=== PATIENT | female | born 2005 | race Caucasian/White ===

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

== ENCOUNTER → 2023-03-22 06:30 | Outpatient (CLI) | payer OTHER, SELFPAY ==
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
== END ==
PROVIDERS: PCP Nurse Practitioner; Visit Provider Nurse Practitioner
DX: S09.90XA Unspecified injury of head, initial encounter (principal)
CPT/HCPCS: 70450

== ENCOUNTER → 2023-04-08 11:16 | Outpatient (CLI) | payer OTHER, SELFPAY ==
[2023-04-08 11:22] LABS: MANUAL DIFFERENTIAL MANUAL DIFFERENTIAL (MANUAL DIFF)
[2023-04-08 11:32] LABS: Basophils # 0.1 K/mm3 (0-0.2); Basophils % 0.9 % (0.1-2.0); Eosinophils # 0.3 K/mm3 (0.0-0.4); Eosinophils % 3.9 % (0.1-12.0); Hematocrit 41.1 % (37.0-47.0); Hemoglobin 13.6 g/dL (12.2-16.2); Lymphocytes # 3.3 K/mm3 (0.7-4.5); Mean Corpuscular HGB Conc 33.1 g/dL (31.8-35.4); Mean Corpuscular Hemoglobin 28.4 pg (27.0-31.2); Mean Corpuscular Volume 85.6 fl (81-99); Mean Platelet Volume 7.4 fl (7.4-10.4); Monocytes # 0.3 K/mm3 (0.1-1.0); Monocytes % 3.6 % (1.7-9.3); Neutrophils # 4.4 K/mm3 (1.8-7.8); Neutrophils % 52.6 % (37.0-80.0); Platelet Count 370 K/mm3 (142-424); Red Cell Distribution Width 12.5 % (11.5-17.5); White Blood Count 8.4 K/mm3 (4.5-13.0)
[2023-04-08 11:35] LABS: Lymphocytes % 34 % (10-50); Monocytes % 8 % (2-9); Neutrophils % 58 % (42-76); RBC Morphology Normal; Total Cells Counted 100
[2023-04-08 11:36] LABS: Platelet Estimate Normal
[2023-04-08 12:11] LABS: Alanine Aminotransferase 50 U/L (12-78); Albumin Level 4.1 g/dl (3.5-5.0); Albumin/Globulin Ratio 1.5 (1.1-1.8); Alkaline Phosphatase 58 U/L (38-126); Anion Gap 11.1 mEq/L (5-15); Aspartate Amino Transferase 55 U/L (14-36); Bilirubin,Total 0.2 mg/dl (0.2-1.3); Blood Urea Nitrogen 13 mg/dl (7-17); Calcium 9.5 mg/dl (8.4-10.2); Carbon Dioxide 24 mmol/L (22.0-30.0); Chloride 106 mmol/L (98-107); Estimated Glomerular Filt Rate 107 ml/min (>60); GFR (African American) 129 ML/MIN (>60); Globulin 2.8 g/dL (1.3-3.2); Glucose 99 mg/dl (74-100); Potassium 4.1 mmoL/L (3.5-5.1); Sodium 137 mmol/L (136-145); Total Protein,Serum 6.9 g/dl (6.3-8.2)
[2023-04-17 02:09] LABS: Free Testosterone (Direct) < 0.2 pg/mL (0.0-4.2); Testosterone, Total, LC/MS 17.7 ng/dL (10.0-55.0)
== END ==
PROVIDERS: PCP Nurse Practitioner; Visit Provider Obstetrics & Gynecology
DX: N93.9 Abnormal uterine and vaginal bleeding, unspecified (principal); R79.89 Other specified abnormal findings of blood chemistry; E28.2 Polycystic ovarian syndrome
CPT/HCPCS: 80053; 83498; 85007; 85014; 85018; 85048; 85049

== ENCOUNTER → 2023-06-06 10:58 | Outpatient (CLI) | payer OTHER, SELFPAY ==
[2023-06-06 11:43] LABS: Basophils # 0.1 K/mm3 (0-0.2); Basophils % 0.8 % (0.1-2.0); Eosinophils # 0.3 K/mm3 (0.0-0.4); Eosinophils % 4.4 % (0.1-12.0); Hematocrit 42.3 % (37.0-47.0); Hemoglobin 13.8 g/dL (12.2-16.2); Lymphocytes # 3.1 K/mm3 (0.7-4.5); Lymphocytes % 39.3 % (10-50); Mean Corpuscular HGB Conc 32.6 g/dL (31.8-35.4); Mean Corpuscular Hemoglobin 29.1 pg (27.0-31.2); Mean Corpuscular Volume 89.3 fl (81-99); Mean Platelet Volume 7.8 fl (7.4-10.4); Monocytes # 0.3 K/mm3 (0.1-1.0); Monocytes % 3.6 % (1.7-9.3); Neutrophils # 4.1 K/mm3 (1.8-7.8); Platelet Count 345 K/mm3 (142-424); Red Blood Count 4.74 M/mm3 (4.20-5.40); Red Cell Distribution Width 12.5 % (11.5-17.5); White Blood Count 7.8 K/mm3 (4.5-13.0)
[2023-06-06 13:25] LABS: Alanine Aminotransferase 39 U/L (12-78); Albumin Level 3.9 g/dl (3.5-5.0); Albumin/Globulin Ratio 1.3 (1.1-1.8); Alkaline Phosphatase 47 U/L (38-126); Aspartate Amino Transferase 47 U/L (14-36); Bilirubin,Total 0.3 mg/dl (0.2-1.3); Blood Urea Nitrogen 12 mg/dl (7-17); Calcium 9.4 mg/dl (8.4-10.2); Carbon Dioxide 25 mmol/L (22.0-30.0); Chloride 102 mmol/L (98-107); Estimated Glomerular Filt Rate 91 ml/min (>60); GFR (African American) 111 ML/MIN (>60); Glucose 110 mg/dl (74-100); Sodium 137 mmol/L (136-145); Total Protein,Serum 6.9 g/dl (6.3-8.2)
[2023-06-06 13:43] LABS: HCG,Quantitative < 2 mIU/ml (0-5.42)
== END ==
PROVIDERS: PCP Physician Assistant; Visit Provider Obstetrics & Gynecology
DX: R10.2 Pelvic and perineal pain (principal)
CPT/HCPCS: 36415; 80053; 84702; 85025

== ENCOUNTER 2023-06-10 07:05 | Day surgery (SDC) | payer OTHER, SELFPAY ==
[2023-06-07 12:52] VITALS: BMI 31.8
[2023-06-10] VITALS (12 sets, daily range): BP systolic 94–135; BP diastolic 44–87; PULSE 67–102; RESP 16–18; TEMP 36.2–43; O2SAT 92–100
--- NOTE | 2023-06-10 08:31 | P.PNANES_ITS ---
[facility] Disclaimer: The information contained in this section may have been updated after the patient was seen, as this information can be updated by other users. Medical History Generalized anxiety disorder History of COVID-19 Irritable bowel syndrome (IBS) Major depressive disorder PCOS (polycystic ovarian syndrome) Family History Other Alcoholism Asthma Diabetes FHx: mental illness Hyperlipidemia Hypertension Kidney disease Thyroid disorder Social History Smoking Status: Current every day smoker tobacco type: e-cigarettes years smoked: 3 second hand exposure: No alcohol intake: never substance use type: denies use current occupational status: unemployed Travel in the last 8 weeks: None household members: family number of children: 0 current occupational exposures/hazards: No caffeine: Yes [facility] Anesthesia Checklist Patient Identification Patient Identification: Arm Band and Verbal (Name & ) Structural Data Admitted From: Home Planned Operative Procedure/s: Dx lap Consent for Planned Operative Procedure(s) Verified: Yes NPO Status Verified Time NPO: 00:00 Chart Verification Results Verified: CBC, BMP and HCG Additional verifications Anesthesia Reactions: No Airway Assessment Mallampati Score:: Class I C-Spine Mobility Assessed: Yes TMJ Mobility Assessed: Yes Dentition: Good Dentition Neurological Assessment Level of Consciousness: Awake Hx Seizures: No Numbness or tingling in extremities: No Anesthesia Plan Anesthesia Risk discussed: Yes Anesthesia Plan: Verified ASA Class: II Anesthesia Type: General
--- NOTE | 2023-06-10 09:26 | EXP.HP ---
History of Present Illness *Admission Date: 06/10/23 *Reason for visit:: Diagnostic laparoscopy *History of present illness: Monica is presenting to the OR for diagnostic laparoscopy. She has a history of significant left-sided pelvic pain that is altering her daily life. Reports that this pain is debilitating and rates it from a 6 to an 8 out of 10 and it is noncyclical pain. Patient is also concerned that she will be infertile in the future. no reason to explain this stress. Patient denies any STD history [facility] Disclaimer: The information contained in this section may have been updated after the patient was seen, as this information can be updated by other users. Medical History Generalized anxiety disorder History of COVID-19 Irritable bowel syndrome (IBS) Major depressive disorder PCOS (polycystic ovarian syndrome) Family History Other Alcoholism Asthma Diabetes FHx: mental illness Hyperlipidemia Hypertension Kidney disease Thyroid disorder Social History Smoking Status: Current every day smoker tobacco type: e-cigarettes years smoked: 3 second hand exposure: No alcohol intake: never substance use type: denies use current occupational status: unemployed Travel in the last 8 weeks: None household members: family number of children: 0 current occupational exposures/hazards: No caffeine: Yes Review of Systems Review of Systems Review of systems (narrative): Const Details: Denies fever/chills Card Details: Denies chest pain Resp Details: Denies shortness of breath GI Details: Denies nausea/vomiting Details: + severe dysmenorrhea and chronic pelvic pain, worse on the left Musc Details: Denies flank pain Skin/Breast Details: Denies rash See/Lymph Details: Denies unusual bruising Meds Home Medications and Allergies Home Medications Medication Instructions Recorded Confirmed Type norgestimate 0.25 mg-ethinyl 1 tab PO DAILY #84 tabs 09/13/22 06/10/23 Rx estradiol 35 mcg tablet (Sprintec (28)) metformin 500 mg tablet 500 mg PO DAILY 04/08/23 06/10/23 History ibuprofen 600 mg tablet 600 mg PO Q6H PRN pain 05/11/23 06/10/23 History escitalopram oxalate 20 mg tablet 20 mg PO DAILY #30 tabs 06/01/23 06/10/23 Rx (Lexapro) montelukast 10 mg tablet 10 mg PO DAILY Allergy Symptoms 06/10/23 06/10/23 History New Prescriptions to Start Prescriptions: Allergies Allergy/AdvReac Type Severity Reaction Status Date / Time amoxicillin [From Augmentin] AdvReac Mild Nausea Verified 06/10/23 07:51 clavulanic acid AdvReac Mild Nausea Verified 06/10/23 07:51 [From Augmentin] Exam Data for Last 24 hours Vital signs and Labs for Last 24 Hours: Temp Pulse Resp BP Pulse Ox O2 Del Method 98.1 F 102 H 18 135/78 100 Room Air 06/10/23 07:42 06/10/23 07:42 06/10/23 07:42 06/10/23 07:42 06/10/23 07:42 06/10/23 07:42 I & O for Last 24 hours: Intake & Output 06/07/23 06/08/23 06/09/23 06/10/23 23:59 23:59 23:59 23:59 Weight 180 lb Narrative: General: patient is alert oriented in no acute distress and responds appropriately to questions. HEENT: NCAT, EOMI, moist mucous membranes, neck supple with full ROM Cardiovascular: RRR +S1/S2, no murmurs or rubs Pulmonary: Clear to auscultation bilaterally, nonlabored breathing, symmetric chest rise Abdominal: Soft. Nontender. Nondistended Extremities: No edema, no tenderness or cyanosis noted Skin: Normal turgor, intact, warm. Negative for erythema, pallor, petechia, or lesions Neurologic: Negative for sensory or motor deficit Psychiatric: Normal affect, normal thought process, good judgment and insight, no depression or anxious mood appreciated. *Routine HEENT Exam Head: Present normocephalic and atraum
--- NOTE | 2023-06-10 10:46 | P.PNANES_ITS ---
[facility] Anesthesia Record Part I Anesthesia Record I Intake, IV Amount: 1,000 Hydration: Adequate Estimated blood loss (mL): 10 Urine output (mL): 50 Blood Pressure: 94/44 SaO2: 92 Pulse Rate: 85 Airway Patency: Patent Respiratory Rate: 16 Temperature: 97.4 F Patient is:: Drowsy and Oral/Nasal airway Stable to PACU at:: 10:40
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
--- NOTE | 2023-06-10 15:21 | P.PNANES_ITS ---
[facility] Anesthesia Record Part II Anesthesia Record Part II Discharge Time: 11:18 Destination: Surgical Day Care (OP Surgery) PACU nurse assessment reviewed?: Yes Patient Condition:: Good Anesthesia Complications:: None Swallowing reflex intact?: Yes Airway Patency: Patent Cyanosis?: No Blood Pressure: 120/71 SaO2: 98 Respiratory Rate: 18 Pulse Rate: 92 Temperature: 97.5 F Mental Status: Alert & Oriented Pain level:: 0 Nausea and/or vomitting:: None Intake, IV Amount: 0 Hydration: Adequate
== END 2023-06-10 11:58 | disposition home or self-care (01) ==
PROVIDERS: PCP Nurse Practitioner; Visit Provider Obstetrics & Gynecology
PROC: (CPT 49320; principal; 2023-06-10 08:45)
DX: N93.9 Abnormal uterine and vaginal bleeding, unspecified (principal); R10.2 Pelvic and perineal pain; N80.329 Endometriosis of the posterior cul-de-sac, unspecified depth
CPT/HCPCS: 58662; 58350; J0131; J2405

== ENCOUNTER → 2023-06-13 10:16 | Outpatient (CLI) | payer OTHER, SELFPAY ==
[2023-06-13 10:48] LABS: Basophils # 0.1 K/mm3 (0-0.2); Basophils % 0.6 % (0.1-2.0); Eosinophils # 0.4 K/mm3 (0.0-0.4); Eosinophils % 3.9 % (0.1-12.0); Hematocrit 45.8 % (37.0-47.0); Hemoglobin 14.9 g/dL (12.2-16.2); Lymphocytes # 3.9 K/mm3 (0.7-4.5); Lymphocytes % 40.7 % (10-50); Mean Corpuscular HGB Conc 32.6 g/dL (31.8-35.4); Mean Corpuscular Hemoglobin 28.9 pg (27.0-31.2); Mean Corpuscular Volume 88.7 fl (81-99); Mean Platelet Volume 7.5 fl (7.4-10.4); Monocytes # 0.4 K/mm3 (0.1-1.0); Neutrophils # 4.9 K/mm3 (1.8-7.8); Neutrophils % 50.8 % (37.0-80.0); Platelet Count 378 K/mm3 (142-424); Red Blood Count 5.16 M/mm3 (4.20-5.40); Red Cell Distribution Width 12.5 % (11.5-17.5); White Blood Count 9.6 K/mm3 (4.5-13.0)
== END ==
PROVIDERS: PCP Nurse Practitioner; Visit Provider Nurse Practitioner Obstetrics & Gynecology
DX: N93.9 Abnormal uterine and vaginal bleeding, unspecified (principal)
CPT/HCPCS: 36415; 85025

== ENCOUNTER → 2023-08-09 12:47 | Outpatient (CLI) | payer OTHER, SELFPAY ==
[2023-08-15 09:36] LABS: Anti Mullerian Hormone (AMH) 2.76
== END ==
PROVIDERS: PCP Nurse Practitioner; Visit Provider Obstetrics & Gynecology
DX: E28.2 Polycystic ovarian syndrome (principal); N93.9 Abnormal uterine and vaginal bleeding, unspecified
CPT/HCPCS: 82397

== ENCOUNTER → 2023-08-31 14:44 | Outpatient (CLI) | payer OTHER, SELFPAY ==
--- NOTE | 2023-08-31 14:45 | US_ITS ---
PROCEDURE: US TRANSVAGINAL CLINICAL INDICATION: AUB/ AMENORRHEA COMPARISON: No exams were available for comparison FINDINGS: Transvaginal sonographic images of the pelvis were obtained. UTERUS: 7.4cm x 4.1cmx 3.2cm anteverted with a combined endometrial thickness of 2.1mm. LEFT OVARY: 3.0cmx3.0cmx1.7cm with a volume of 7.9ml. The ovary appears polycystic with multiple small follicles. RIGHT OVARY: 2.2cmx 2.0cmx2.6cm with a volume of 6.1ml. The ovary appears polycystic with multiple small follicles. Both ovaries are seen and appear polycystic. Doppler flow to both ovaries are seen. There is no fluid in the cul-de-sac. IMPRESSION: 1. Anteverted uterus normal in shape and size. 2. The endometrium is thin. 3. Both ovaries are seen and appear polycystic with multiple small follicles throughout each ovary. 4. No fluid in the cul-de-sac. Dictated by: Tk Santiago MD 08/31/2023 16:54 Tk Santiago MD in OV 08/31/2023 16:54
== END ==
LOC: RAD 14:45
PROVIDERS: PCP Physician Assistant; Visit Provider Obstetrics & Gynecology
DX: N91.2 Amenorrhea, unspecified (principal); N93.9 Abnormal uterine and vaginal bleeding, unspecified
CPT/HCPCS: 76830

== ENCOUNTER 2024-01-16 17:05 | Outpatient (CLI) | payer OTHER, SELFPAY ==
[2024-01-19 06:48] LABS: Neisseria gonorrhoeae, NAA Negative (Negative)
== END 2024-01-16 23:59 | disposition home or self-care (01) ==
LOC: LAB.DROPOF 17:06
PROVIDERS: PCP Nurse Practitioner Obstetrics & Gynecology; Visit Provider Nurse Practitioner Obstetrics & Gynecology
DX: Z3A.11 11 weeks gestation of pregnancy; Z34.91 Encounter for supervision of normal pregnancy, unspecified, first trimester
CPT/HCPCS: 87086; 87491; 87591

== ENCOUNTER 2024-01-19 13:19 | Outpatient (CLI) | payer OTHER, SELFPAY ==
--- NOTE | 2024-01-19 13:19 | US_ITS ---
PROCEDURE: US OB <= 14 WEEKS FETUS CLINICAL INDICATION: for dates and viability COMPARISON: US US TRANSVAGINAL from 08/31/2023 FINDINGS: Transvaginal sonographic images of the pelvis were obtained. Her last menstrual period is unknown. The uterus is retroverted. An intrauterine gestational sac is present with a pole with a crown-rump length of 4.1cm This correlates to a gestational age of 11weeks 0 days. heart tones are present with an FHR of 176bpm. Yolk sac is noted. The yolk sac measures 6.9mm. The right ovary is seen and appears normal. It has a polycystic appearance. The left ovary is seen and appears normal. It has a polycystic appearance. There is no fluid in the cul-de-sac. IMPRESSION: 1. Viable fetus within the uterine cavity. The fetus measures 11 weeks 0 days. 2. The ANA LAURA will be 08/09/2024. 3. Both ovaries are seen and appear polycystic. 4. No fluid in the cul-de-sac. Dictated by: Tk Santiago MD 01/20/2024 10:02 Tk Santiago MD in OV 01/20/2024 10:02
[2024-01-19 14:28] LABS: Basophils # 0.1 K/mm3 (0-0.2); Basophils % 0.6 % (0.1-2.0); Eosinophils # 0.2 K/mm3 (0.0-0.4); Eosinophils % 1.6 % (0.1-12.0); Hematocrit 44.3 % (37.0-47.0); Hemoglobin 14.6 g/dL (12.2-16.2); Lymphocytes # 3.1 K/mm3 (0.7-4.5); Lymphocytes % 25.9 % (10-50); Mean Corpuscular HGB Conc 33.1 g/dL (31.8-35.4); Mean Corpuscular Hemoglobin 29.8 pg (27.0-31.2); Mean Corpuscular Volume 90.1 fl (81-99); Mean Platelet Volume 7.9 fl (7.4-10.4); Monocytes # 0.3 K/mm3 (0.1-1.0); Monocytes % 2.8 % (1.7-9.3); Neutrophils # 8.3 K/mm3 (1.8-7.8); Platelet Count 291 K/mm3 (142-424); Red Blood Count 4.91 M/mm3 (4.20-5.40); Red Cell Distribution Width 13.5 % (11.5-17.5)
[2024-01-21 14:19] LABS: HCV Ab Non Reactive (Non Reactive); HIV Screen 4th Generation wRfx Non Reactive (Non Reactive); Hepatitis B Surface Antigen Negative (Negative); Rapid Plasma Reagin Ab Titer Non Reactive titer (NonRea<1:1); Rubella Antibodies, IgG 1.06 index (Immune >0.99)
== END 2024-01-19 23:59 | disposition home or self-care (01) ==
PROVIDERS: PCP Nurse Practitioner; Visit Provider Nurse Practitioner Obstetrics & Gynecology
DX: O26.891 Other specified pregnancy related conditions, first trimester (principal); Z3A.11 11 weeks gestation of pregnancy
CPT/HCPCS: 36415; 76801; 85025; 86593; 86703; 86762; 86850; 87340; G0432

== ENCOUNTER 2024-02-07 20:24 | Emergency (ER) | payer MEDICAID, SELFPAY ==
[2024-02-07 20:36] VITALS: BP 149/79; PULSE 89; RESP 16; TEMP 36.7; O2SAT 97; BMI 31.5
--- NOTE | 2024-02-07 21:11 | HMH.EDGENADL ---
Discharge Plan Disposition Patient Disposition: Home, Self-Care Prescriptions Prescriptions: No Action ondansetron 4 mg tablet,disintegrating 4 mg PO Q6H PRN Patient Comments: PLACE 1 TABLET UNDER THE TONGUE AND ALLOW TO DISSOLVE EVERY 4 TO 6 HOURS NEEDED FOR NAUSEA AND VOMITING escitalopram oxalate [Lexapro] 20 mg tablet 20 mg PO DAILY Qty: 30 1RF Referrals Follow up/Referrals: Sia Mg APRN [Primary Care Provider] - See instructions Activity Restrictions/Add. Instructions Additional Instructions/Restrictions: Call your family doctor to establish care for this visit to the emergency department and schedule follow-up within 48 hours to ensure improvement. If you have any worsening of your condition or any other concerning signs or symptoms, return to the emergency department or your primary care doctor for further evaluation. Continue follow-up with [facility] next week. Also continue taking vitamin for entire length of . Clinical Impressions Clinical Impression: Abdominal pain affecting , Acute hypokalemia Instructions Patient Instructions: DI for Acute Abdominal Pain Discharge ED Provider: Tyrell Yan General Adult HPI General Chief complaint: Abdominal Pain Stated complaint: abdominal and back pain 14 weeks preg Time Seen by Provider: 02/07/24 20:30 Mode of Arrival: Ambulatory Source of Information: Patient and Significant Other Limitations: No Limitations Description of Symptoms (Recalled from ER Triage Doc. by RN): PT STATES LAST NIGHT SHE STARTED HAVING SHARP PAIN IN HER LLQ THAT RADIATES TO HER L LOWER BACK AND CENTRAL LOWER ABD. PT ALSO REPORTS NAUSEA AND BURNING WITH URINATION. PT REPORTS SHE IS [id number] , HER NEXT APPOINTMENT WITH IS ON February. PT REPORTS RECENTLY HAVING A YEAST INFECTION THAT SHE TREATED WITH MONISTAT BUT STATES SHE THINKS IT HAS CLEARED UP. PT REPORTS CLEARISH, YELLOW AND STICKY VAGINAL D/C. PTS FHT ARE 153. PT HAS A HX OF ENDOMETRIOSIS AND PCOS History of Present Illness HPI narrative: Please note that above description of symptoms, in this electronic medical record under categorization of recalled from ER triage doctor by RN are reflective of an initial nursing assessment, however, is not reflective of my full history and physical exam that was personally taken and clarified. Consequentially, this preceding description of symptoms, which may include the patient's categorized chief complaint in the EMR, do not reflect my personal clinical impression, and the ultimate description of history of present illness and patient stated complaints should be deferred to this section of the note. Unless stated otherwise or congruent with this section of the note, additional signs, symptoms, or incongruence should be interpreted as inaccurate with my clinical impression. Related Data Home Medications Medication Instructions Recorded Confirmed ondansetron 4 mg disintegrating 4 mg PO Q6H PRN 01/16/24 01/16/24 tablet Previous Rx's Medication Instructions Recorded escitalopram oxalate 20 mg tablet 20 mg PO DAILY #30 tabs 01/23/24 (Lexapro) Allergies Allergy/AdvReac Type Severity Reaction Status Date / Time amoxicillin [From Augmentin] AdvReac Mild Nausea Verified 02/07/24 20:45 clavulanic acid AdvReac Mild Nausea Verified 02/07/24 20:45 [From Augmentin] PFSH PFSH Disclaimer: The information contained in this section may have been updated after the patient was seen, as this information can be updated by other users. Medical History History of COVID-19 Irritable bowel syndrome (IBS) Endometriosis Major depressive disorder Generalized anxiety disorder PCOS (polycystic ovarian syndrome) Surgical History History of surgery diagnostic laparascopy Family History Other Alcoholism Asthma Diabetes FHx: mental illness Hyperlipidemia Hypertension Kidney disease Thyroid disorder Social History Smoking Status: Current every day smoker tobacco type: e-cigarettes years smoked: 3 second hand exposure: No alcohol intake: never substance use type: denies use current occupational status: unemployed Travel in the last 8 weeks: None household members: family number of children: 0 current occupational exposures/hazards: No caffeine: Yes ROS Obtained: Yes All systems reviewed & no additional complaints except as documented Physical Exam General General appearance: alert and in no apparent distress Head Head exam: atraumatic and normocephalic Eye Eye exam: Present normal appearance, PERRL and EOMI ENT ENT exam: Present mucous membranes moist Neck Neck exam: Present normal inspection, full ROM and trachea midline Respiratory Respiratory exam: Absent respiratory distress, wheezes, stridor, accessory muscle use or prolonged expiratory phase Cardiovascular Cardiovascular exam: Present normal rhythm Abdominal Exam Abdominal exam: Present soft and tenderness; Absent distention, guarding, rebound or rigidity Abdominal tenderness: Present suprapubic and mild Extremities Exam Extremities exam: Absent edema Back Exam Back exam: Present CVA tenderness (L); Absent CVA tenderness (R) Neurological Exam Neurological exam: Present alert, oriented X3, CN II-XII intact and normal gait; Absent motor sensory deficit Skin Skin exam: Present warm and dry; Absent diaphoresis or erythema Medical Decision Making Medical Records Medical records reviewed: Yes I reviewed the patient's medical records. Waldemar Inquiry Pt receiving controlled substance: No Waldemar was queried for this patient: No Vital Signs: 02/07/24 20:36 Temperature 98.1 F Temperature Source Oral Pulse Rate [Left] 89 Respiratory Rate 16 Blood Pressure [Right Arm] 149/79 H Blood Pressure Mean [Right Arm] 102 Blood Pressure Source [Right Arm] Automatic Cuff Blood Pressure Position [Right Arm] Sitting 02 Sat by Pulse Oximetry 97 Oxygen Delivery Method Room Air Lab Data Lab Results 02/07/24 20:48: Urine Color Yellow, Urine Appearance Clear, Urine pH 7.0, Ur Specific [place] 1.015, Urine Protein Negative, Urine Glucose (UA) Negative, Urine Ketones Negative, Urine Blood Negative, Urine Nitrate Negative, Urine Bilirubin Negative, Urine Urobilinogen 1.0, Ur Leukocyte Esterase Negative, Urine RBC None, Urine WBC None, Ur Squamous Epith Cells Occasional, Urine Bacteria None 02/07/24 21:04: WBC 11.9, RBC 4.37, Hgb 13.1, Hct 38.8, MCV 88.7, MCH 30.0, MCHC 33.9, RDW 13.6, Plt Count 317, MPV 8.0, Neut % (Auto) 59.1, Lymph % (Auto) 34.2, [place] % (Auto) 3.3, Eos % (Auto) 2.8, Baso % (Auto) 0.6, Neut # (Auto) 7.0, Lymph # (Auto) 4.1, [place] # (Auto) 0.4, Eos # (Auto) 0.3, Baso # (Auto) 0.1, Sodium 134 L, Potassium 3.2 L, Chloride 105, Carbon Dioxide 22, Anion Gap 10.2, BUN 7, Creatinine 0.60, Estimated Creat Clear 191, Estimated GFR 127, Est GFR ( Amer) 154, Glucose 127 H, Calcium 9.3, Total Bilirubin 0.2, AST 32, ALT 22, Alkaline Phosphatase 59, Total Protein 6.8, Albumin 3.6, Globulin 3.2, Albumin/Globulin Ratio 1.1, Lipase 139 02/07/24 21:04 02/07/24 21:04 Orders (Tests/Meds): ED MEDICATIONS Discontinued Medications Generic Name Dose Route Start Last Admin Trade Name Freq PRN Reason Stop Dose Admin Acetaminophen 1,000 mg 02/07/24 20:31 02/07/24 21:14 Acetaminophen 500mg Tab PO 02/07/24 20:32 Not Given ONCE ONE Potassium Chloride 40 meq 02/07/24 21:41 02/07/24 21:46 Potassium Chloride 20meq Tab PO 02/07/24 21:42 40 meq ONCE ONE Administration ORDERS Category Date Time Status POCUS Point of Care (ER Only) Stat Exams 02/07/24 20:31 Completed Complete Blood Count Auto Diff Stat Lab 02/07/24 21:04 Completed Comprehensive Metabolic Panel Stat Lab 02/07/24 21:04 Results HCG,Quantitative Stat Lab 02/07/24 21:04 Results Lipase Stat Lab 02/07/24 21:04 Results Urinalysis and Microscopic Stat Lab 02/07/24 20:48 Completed Medical Decision Narrative: 18-year-old female whose 13 weeks 5 days by previous ultrasound G1, P0 presenting with abdominal pain. Patient states that she started having abdominal pain yesterday, 6/3. Was doing nothing in particular when it happened. Has never had ruptured ovarian cyst, though she does have a history of PCOS. No vaginal discharge, bleeding, gushes of fluid. Unable to feel baby move just yet, but has been using Doppler that she has at home and noticing good movements. Pain in her lower abdomen radiates from suprapubic area to bilateral flanks, left greater than right. No fevers, vomiting, but does have associated dysuria without hematuria. Has not taken anything for the pain. History was obtained via conversation with patient. She is following with OB here and next appointment is next week. On arrival, patient hemodynamically stable, alert, oriented x4, appropriate, GCS 15, moving all extremities spontaneously, pupils equal and reactive to light. Full physical exam performed and significant for lower abdominal tenderness and left flank tenderness. No overlying skin changes. No palpable organomegaly. Differential includes ectopic , , round ligament pain, UTI, nephrolithiasis, appendicitis, cholecystitis, pancreatitis, among others. Patient was given 1 g Tylenol for symptomatic management and correction of underlying abnormalities. Workup independently interpreted and significant for Normal CBC. Chemistry with mild hypokalemia, she was given 40 mEq p.o. potassium for this. Lipase negative, urinalysis without concern for UTI. [id number] ultrasound with viable IUP heart rate 153. No free fluid in the abdomen or pelvis. Adnexa within normal limits. hCG pending at time of discharge. There is recommended that she follow-up with her OB, continue taking vitamin and strict return precautions were given. Because patient at baseline without signs or symptoms of clinical decompensation, deemed appropriate for discharge. Results were relayed to patient who voiced understanding and were agreeable to outpatient management and follow up. I discussed my clinical impression with patient and answered all questions. At this time, the evidence for any other entities in the differential is insufficient to warrant any further testing or ED observation. This was explained as well. Advisory was given that persistent or worsening symptoms require further evaluation. I confirmed the understanding of this discussion. Parking Attendant disclaimer Much of this encounter note is an electronic yard switch operator spoken language to printed text. Electronic yard switch operator of the spoken language may permit errors. Although I have reviewed the note, some errors may still exist. Procedures Limited Ultrasound Indication:: Limited OB ultrasound Indication: Positive test, lower abdominal pain radiating to flank Identified structures: -Uterus -Left adnexa -Right adnexa -Pouch of Yury Findings: Uterus: Definitive IUP FHR: 153 No free fluid Right adnexa: -Normal Left adnexa: -Normal Cul de sac: -free fluid absent Impression: -IUP: Present - heart rate: 153 -Ectopic : Absent -Free fluid: Absent Images were saved to permanent archive The study was technically adequate CPT Transabdominal: 73222-62 This study was performed by me, and I personally interpreted all images/videos. Based on my clinical judgement, these images were adequate and did not necessitate further imaging. Critical Care Critical Care Time Critical Care Time: No
[2024-02-07 21:21] LABS: Basophils # 0.1 K/mm3 (0-0.2); Basophils % 0.6 % (0.1-2.0); Eosinophils # 0.3 K/mm3 (0.0-0.4); Eosinophils % 2.8 % (0.1-12.0); Hematocrit 38.8 % (37.0-47.0); Hemoglobin 13.1 g/dL (12.2-16.2); Lymphocytes # 4.1 K/mm3 (0.7-4.5); Lymphocytes % 34.2 % (10-50); Mean Corpuscular HGB Conc 33.9 g/dL (31.8-35.4); Mean Corpuscular Volume 88.7 fl (81-99); Monocytes # 0.4 K/mm3 (0.1-1.0); Monocytes % 3.3 % (1.7-9.3); Neutrophils % 59.1 % (37.0-80.0); Platelet Count 317 K/mm3 (142-424); Red Blood Count 4.37 M/mm3 (4.20-5.40); Red Cell Distribution Width 13.6 % (11.5-17.5); White Blood Count 11.9 K/mm3 (4.5-13.0)
[2024-02-07 21:23] LABS: Chloride 105 mmol/L (98-107); Sodium 134 mmol/L (136-145)
[2024-02-07 21:24] LABS: Potassium 3.2 mmoL/L (3.5-5.1)
[2024-02-07 21:25] LABS: Microscopic, Urine URINE MICROSCOPIC (MICROSCOPIC)
[2024-02-07 21:26] LABS: Alanine Aminotransferase 22 U/L (12-78); Alkaline Phosphatase 59 U/L (38-126); Anion Gap 10.2 mEq/L (5-15); Aspartate Amino Transferase 32 U/L (14-36); Bilirubin,Total 0.2 mg/dl (0.2-1.3); Blood Urea Nitrogen 7 mg/dl (7-17); Carbon Dioxide 22 mmol/L (22.0-30.0); Creatinine Clearance Estimated 191 mL/min (50-200); Estimated Glomerular Filt Rate 127 ml/min (>60); GFR (African American) 154 ML/MIN (>60); Lipase 139 U/L (23-300)
[2024-02-07 21:27] LABS: Albumin Level 3.6 g/dl (3.5-5.0); Albumin/Globulin Ratio 1.1 (1.1-1.8); Calcium 9.3 mg/dl (8.4-10.2); Globulin 3.2 g/dL (1.3-3.2); Glucose 127 mg/dl (74-100); Total Protein,Serum 6.8 g/dl (6.3-8.2)
[2024-02-07 21:33] LABS: Appearance,Urine CLEAR (Clear); Bilirubin,Urine Negative (Negative); Blood, Urine Negative (Negative); Color,Urine YELLOW (Yellow); Glucose,Urine (UA) Negative (Negative); Ketones,Urine Negative (Negative); Leukocyte Esterase,Urine Negative (Negative); Nitrate,Urine Negative (Negative); Protein,Urine Negative (Negative); Specific Gravity, Urine 1.015 (1.005-1.030)
[2024-02-07] MEDS: POTASSIUM CHLORIDE 20MEQ TAB 40 MEQ PO (21:46)
[2024-02-07 21:47] LABS: Squamous Epithelial Cell,Urine Occasional #/hpf (0-5)
[2024-02-07 22:01] VITALS: BP 118/69; PULSE 80; RESP 18; TEMP 36.7; O2SAT 97
[2024-02-07 22:12] LABS: HCG,Quantitative 118190 mIU/ml (0-5.42)
== END 2024-02-07 22:03 | disposition home or self-care (01) ==
PROVIDERS: Emergency Provider Emergency Medicine; PCP Nurse Practitioner
DX: O26.892 Other specified pregnancy related conditions, second trimester (principal); R10.84 Generalized abdominal pain; E87.6 Hypokalemia; M54.59 Other low back pain; O99.332 Smoking (tobacco) complicating pregnancy, second trimester; F17.210 Nicotine dependence, cigarettes, uncomplicated; Z3A.14 14 weeks gestation of pregnancy
CPT/HCPCS: 80053; 81001; 83690; 84702; 85025; 99284

== ENCOUNTER 2024-03-17 13:32 | Emergency (ER) | payer OTHER, SELFPAY ==
[2024-03-17 13:33] VITALS: BP 130/84; PULSE 105; RESP 18; TEMP 37.3; O2SAT 97; BMI 31.1
[2024-03-17 13:41] VITALS: BP 130/84; PULSE 101; O2SAT 97
[2024-03-17 13:53] VITALS: BP 114/71; PULSE 94; RESP 16; O2SAT 96
--- NOTE | 2024-03-17 14:50 | PC.NURSE ---
dr pruitt at bedside
[2024-03-17 14:52] LABS: Microscopic, Urine URINE MICROSCOPIC (MICROSCOPIC)
[2024-03-17 14:55] LABS: Basophils # 0.1 K/mm3 (0-0.2); Basophils % 0.4 % (0.1-2.0); Chloride 110 mmol/L (98-107); Eosinophils # 0.3 K/mm3 (0.0-0.4); Hematocrit 36.5 % (37.0-47.0); Hemoglobin 12.5 g/dL (12.2-16.2); Lymphocytes # 3.4 K/mm3 (0.7-4.5); Lymphocytes % 27.2 % (10-50); Mean Corpuscular HGB Conc 34.3 g/dL (31.8-35.4); Mean Corpuscular Hemoglobin 30.3 pg (27.0-31.2); Mean Corpuscular Volume 88.3 fl (81-99); Monocytes # 0.5 K/mm3 (0.1-1.0); Neutrophils # 8.3 K/mm3 (1.8-7.8); Neutrophils % 66.4 % (37.0-80.0); Platelet Count 297 K/mm3 (142-424); Potassium 3.6 mmoL/L (3.5-5.1); Red Blood Count 4.13 M/mm3 (4.20-5.40); Red Cell Distribution Width 13.6 % (11.5-17.5); Sodium 135 mmol/L (136-145); White Blood Count 12.4 K/mm3 (4.5-13.0)
[2024-03-17 14:58] LABS: Alanine Aminotransferase 18 U/L (12-78); Albumin Level 3.4 g/dl (3.5-5.0); Albumin/Globulin Ratio 1.2 (1.1-1.8); Alkaline Phosphatase 58 U/L (38-126); Anion Gap 6.6 mEq/L (5-15); Aspartate Amino Transferase 30 U/L (14-36); Bilirubin,Total 0.2 mg/dl (0.2-1.3); Blood Urea Nitrogen 5 mg/dl (7-17); Calcium 9.4 mg/dl (8.4-10.2); Carbon Dioxide 22 mmol/L (22.0-30.0); Creatinine Clearance Estimated 218 mL/min (50-200); Estimated Glomerular Filt Rate 157 ml/min (>60); GFR (African American) 190 ML/MIN (>60); Globulin 2.9 g/dL (1.3-3.2); Glucose 123 mg/dl (74-100); Total Protein,Serum 6.3 g/dl (6.3-8.2)
--- NOTE | 2024-03-17 14:58 | HMH.EDGENADL ---
Discharge Plan Disposition Chief Complaint: Nausea/Vomiting/Diarrhea Prescriptions Prescriptions: No Action escitalopram oxalate [Lexapro] 20 mg tablet 20 mg PO DAILY Qty: 30 1RF ondansetron 4 mg tablet,disintegrating 4 mg PO Q6H PRN Patient Comments: PLACE 1 TABLET UNDER THE TONGUE AND ALLOW TO DISSOLVE EVERY 4 TO 6 HOURS NEEDED FOR NAUSEA AND VOMITING Referrals Follow up/Referrals: Sia Mg APRN [Primary Care Provider] - See instructions Clinical Impressions Clinical Impression: Abdominal pain, RLQ, Second trimester Instructions Patient Instructions: DI for Diarrhea and Traveler's Diarrhea -- Adult, DI for Diarrhea and Traveler's Diarrhea -- Child, DI for Nausea -- Adult, DI for Nausea -- Child Discharge ED Provider: Kirsten Pitts General Adult HPI General Chief complaint: Nausea/Vomiting/Diarrhea Stated complaint: lower abd pain 19wks antepartum increase heartrate Time Seen by Provider: 03/17/24 14:44 Mode of Arrival: Ambulatory Source of Information: Patient Limitations: No Limitations Description of Symptoms (Recalled from ER Triage Doc. by RN): Patient reports being 19 weeks and this morning she became nauseated with right lower quad pain that comes and goes approx every 10 sec. Denies any vaginal bleeding. History of Present Illness HPI narrative: Patient is a 18-year-old female G1, P0 at 19 weeks gestational age presenting today with intermittent right lower quadrant abdominal pain currently she is without any symptoms. She states this has been coming and going every few minutes lasts very short period time is severe at times and then resolves itself. States that she has had similar pains in the past came to the emergency department was diagnosed with round ligament pain. She has not had any vaginal bleeding or vaginal discharge or loss of fluid. No significant change in bowel movements. No nausea vomiting diarrhea or fevers. Related Data Home Medications Medication Instructions Recorded Confirmed ondansetron 4 mg disintegrating 4 mg PO Q6H PRN 01/16/24 02/14/24 tablet Previous Rx's Medication Instructions Recorded escitalopram oxalate 20 mg tablet 20 mg PO DAILY #30 tabs 02/08/24 (Lexapro) Allergies Allergy/AdvReac Type Severity Reaction Status Date / Time amoxicillin [From Augmentin] AdvReac Mild Nausea Verified 02/14/24 08:42 clavulanic acid AdvReac Mild Nausea Verified 02/14/24 08:42 [From Augmentin] [facility] Disclaimer: The information contained in this section may have been updated after the patient was seen, as this information can be updated by other users. Medical History History of COVID-19 Irritable bowel syndrome (IBS) Endometriosis Major depressive disorder Generalized anxiety disorder PCOS (polycystic ovarian syndrome) Surgical History History of surgery diagnostic laparascopy Family History Other Alcoholism Asthma Diabetes FHx: mental illness Hyperlipidemia Hypertension Kidney disease Thyroid disorder Social History Smoking Status: Never smoker years smoked: 3 second hand exposure: No alcohol intake: never substance use type: denies use current occupational status: unemployed Travel in the last 8 weeks: None household members: family number of children: 0 current occupational exposures/hazards: No caffeine: Yes ROS Obtained: Yes All systems reviewed & no additional complaints except as documented Physical Exam General General appearance: alert and in no apparent distress Respiratory Respiratory exam: Present normal lung sounds bilaterally Cardiovascular Cardiovascular exam: Present regular rate and normal rhythm Abdominal Exam Abdominal exam: Present soft; Absent distention or tenderness Neurological Exam Neurological exam: Present alert and oriented X3 Medical Decision Making Waldemar Inquiry Pt receiving controlled substance: No Vital Signs: 03/17/24 13:33 03/17/24 13:41 03/17/24 13:53 Temperature 99.2 F Temperature Source Oral Pulse Rate 101 H 94 H Pulse Rate [Radial] 105 H Respiratory Rate 18 16 Blood Pressure 130/84 114/71 Blood Pressure [Right Arm] 130/84 Blood Pressure Mean 95 Blood Pressure Mean [Right Arm] 99 Blood Pressure Source Automatic Cuff Blood Pressure Source [Right Arm] Automatic Cuff Blood Pressure Position Supine Blood Pressure Position [Right Arm] Sitting 02 Sat by Pulse Oximetry 97 97 96 Oxygen Delivery Method Room Air Room Air Lab Data Lab results reviewed: Yes I reviewed the patient's lab results. Lab Results 03/17/24 14:23: WBC 12.4, RBC 4.13 L, Hgb 12.5, Hct 36.5 L, MCV 88.3, MCH 30.3, MCHC 34.3, RDW 13.6, Plt Count 297, MPV 8.0, Neut % (Auto) 66.4, Lymph % (Auto) 27.2, [place] % (Auto) 4.0, Eos % (Auto) 2.0, Baso % (Auto) 0.4, Neut # (Auto) 8.3 H, Lymph # (Auto) 3.4, [place] # (Auto) 0.5, Eos # (Auto) 0.3, Baso # (Auto) 0.1, Sodium 135 L, Potassium 3.6, Chloride 110 H, Carbon Dioxide 22, Anion Gap 6.6, BUN 5 L, Creatinine 0.50 L, Estimated Creat Clear 218, Estimated GFR 157, Est GFR ( Amer) 190, Glucose 123 H, Calcium 9.4, Total Bilirubin 0.2, AST 30, ALT 18, Alkaline Phosphatase 58, Total Protein 6.3, Albumin 3.4 L, Globulin 2.9, Albumin/Globulin Ratio 1.2 03/17/24 14:45: Urine Color Yellow, Urine Appearance Cloudy, Urine pH 7.5, Ur Specific [place] 1.015, Urine Protein Negative, Urine Glucose (UA) Negative, Urine Ketones Negative, Urine Blood Negative, Urine Nitrate Negative, Urine Bilirubin Negative, Urine Urobilinogen 0.2, Ur Leukocyte Esterase Negative, Urine RBC None, Urine WBC Occasional, Ur Squamous Epith Cells 3-5, Amorphous Sediment 2+, Urine Bacteria None 03/17/24 14:23 03/17/24 14:23 Orders (Tests/Meds): ED MEDICATIONS Generic Name Dose Route Start Last Admin Trade Name Freq PRN Reason Stop Dose Admin Lactated Ringer's 1,000 mls @ 999 mls/hr 03/17/24 15:00 03/17/24 15:06 Lactated Ringer's 1000 Ml Bag IV 03/17/24 16:00 999 mls/hr .[id number] Administration Discontinued Medications Generic Name Dose Route Start Last Admin Trade Name Freq PRN Reason Stop Dose Admin Acetaminophen 1,000 mg 03/17/24 14:48 03/17/24 15:07 Acetaminophen 1,000mg/100ml Vial IV 03/17/24 14:49 1,000 mg ONCE ONE Administration ORDERS Category Date Time Status POCUS Point of Care (ER Only) Stat Exams 03/17/24 14:48 Ordered CBC w/Auto Diff [Complete Blood Count Auto Diff] Stat Lab 03/17/24 14:23 Completed CMP [Comprehensive Metabolic Panel] Stat Lab 03/17/24 14:23 Completed UA [Urinalysis and Microscopic] Stat Lab 03/17/24 14:45 Completed Medical Decision Narrative: 18-year-old female G1, P0 normal intrauterine on bedside ultrasound. Bedside ultrasound also did not demonstrate any moderate or severe hydronephrosis kidney stone is unlikely that is obstructing. Given the fact that she is we will hold off on any CT imaging to illuminate significant radiation exposure. Will check urinalysis and basic blood work give IV fluids and Tylenol and reassess. There remains some diagnostic uncertainty but I do not believe this is a inflammatory condition such as appendicitis as he has a benign abdominal exam at the moment. Unlikely to be ovarian torsion as well. No large cystic structure seen on bedside ultrasound. Reassessment 333 patient still appears very well Tylenol and IV fluids had not yet been administered will reassess care be transitioned to Dr. Rut Reyes at 3:30 PM. Procedures Miscellaneous Procedure Procedure Performed: Limited OB ultrasound Indication: Abdominal pain Identified structures: [-Uterus -Left adnexa -Right adnexa -Pouch of [place]ury] Findings: Uterus: Definitive IUP with a heart rate of 143 FHR: As above Right adnexa: No free fluid Left adnexa: No free fluid Cul de sac: Free fluid absent Impression: Single living IUP consistent with dates with normal heart rate. Images were saved to permanent archive The study was technically adequate CPT Transabdominal: 36325-24 This study was performed by al, and I personally interpreted all images/videos. Based on my clinical judgement, these images were adequate and did not necessitate further imaging. Limited renal ultrasound Indication: A focused ultrasound of the kidneys was performed to evaluate for hydronephrosis and nephrolithiasis. The ultrasound was performed with the following indications, as noted in the H&P: Right lower quadrant abdominal pain in setting of to rule out moderate severe hydronephrosis Identified structures: Bilateral kidneys [-Bladder] Findings: No evidence of moderate to severe bilateral hydronephrosis Impression: Unremarkable bilateral renal ultrasound Images were saved to permanent archive The study was technically adequate CPT: 66806-33 This study was performed by al, and I personally interpreted all images/videos. Based on my clinical judgement, these images were clear and did not necessitate further imaging. Critical Care Critical Care Time Critical Care Time: No
[2024-03-17 14:59] LABS: Appearance,Urine CLOUDY (Clear); Bilirubin,Urine Negative (Negative); Blood, Urine Negative (Negative); Color,Urine YELLOW (Yellow); Glucose,Urine (UA) Negative (Negative); Ketones,Urine Negative (Negative); Leukocyte Esterase,Urine Negative (Negative); Nitrate,Urine Negative (Negative); PH,Urine 7.5 (5.0-8.5); Protein,Urine Negative (Negative); Specific Gravity, Urine 1.015 (1.005-1.030); Urobilinogen,Urine 0.2 EU/dl (0.2)
[2024-03-17 15:06] LABS: WBC,Urine Occasional #/hpf (0-3)
[2024-03-17] MEDS: LACTATED RINGERS 1000ML 1,000 ML 999 ML IV (15:06)
[2024-03-17 15:07] LABS: Amorphous Sediment,Urine 2+ /lpf
[2024-03-17] MEDS: ACETAMINOPHEN 1,000MG/100ML VIAL 1000 MG IV (15:07)
--- NOTE | 2024-03-17 16:55 | PC.NURSE ---
DR SCANLON AT BEDSIDE TO UPDATE PT
[2024-03-17 17:03] VITALS: BP 114/71; PULSE 94; RESP 16; TEMP 36.9; O2SAT 96
== END 2024-03-17 17:04 | disposition home or self-care (01) ==
PROVIDERS: Student in an Organized Health Care Education/Training Program; Emergency Provider Emergency Medicine; PCP Nurse Practitioner
DX: O26.892 Other specified pregnancy related conditions, second trimester (principal); R10.31 Right lower quadrant pain; Z3A.19 19 weeks gestation of pregnancy
CPT/HCPCS: 80053; 81001; 85025; 96361; 96374; 99284; J0131; J7120

== ENCOUNTER 2024-03-20 09:18 | Outpatient (CLI) | payer OTHER, SELFPAY ==
--- NOTE | 2024-03-20 09:19 | US_ITS ---
PROCEDURE: US OB /MATERNAL DETAIL CLINICAL INDICATION: 20 week anatomy scan COMPARISON: US US OB <= 14 WEEKS FETUS from 01/19/2024 FINDINGS: Transabdominal sonographic images of the pelvis were obtained. From her established due date she is 19 weeks 5 days. Single viable intrauterine gestation. Cephalic position. Placenta: Posteriorplacenta grade 1. There are several placental lakes. There is an average amount of fluid. The cervix appears satisfactory. Closed and measuring 3.56 cm in length. Complete survey performed and was unremarkable on the submitted images as in PACS. No discrete anomalies identified on survey imaging by technologist. Active fetus. Three-vessel cord with satisfactory umbilical cord insertion. 4- chamber heart noted. [place], aortic arch, LVOT, RVOT, three-vessel view appear normal. Survey of brain & ventricles Unremarkable. Cerebellum, thalamus, choroid plexus, cisterna magna appear normal. Face and neck survey unremarkable. Profile, nasion, lips and nose appeared normal. Diaphragm and chest views unremarkable. Abdomen: Both kidneys noted and unremarkable. Stomach and bladder noted and satisfactory. Spine: Survey of the spine satisfactory with no anomalies identified nor imaged. Cervical, thoracic, lower spine appear normal. Both arms and legs noted. Amniotic Fluid: Adequate. MVP 2.45 cm. Measurements: Average ultrasound age 19weeks 4days. Estimated due date by ultrasound age 1208/10/2024. Estimated weight 302g BPD = 19weeks 2days HC = 19weeks 4days AC = 19weeks 3days FL = 19weeks 6days Growth Percentile= 38 Heart Rate = 140bpm Cerebellum = 18weeks 6days Humerus = 18weeks 4days HC/AC is 1.2 FL/BPD is 0.72 FL/AC is 0.23 IMPRESSION: 1. Viable fetus in the cephalic presentation with a posterior placenta grade 1. 2. Fluid is within normal limits with an MVP of 2.45 cm. 3. Anatomical scan appears normal. 4. biometry is consistent with the dates. Dictated by: Tk Santiago MD 03/20/2024 11:52 Tk Santiago MD in OV 03/20/2024 11:52
== END 2024-03-20 23:59 | disposition home or self-care (01) ==
LOC: RAD 09:19
PROVIDERS: PCP Nurse Practitioner; Visit Provider Nurse Practitioner Obstetrics & Gynecology
DX: Z36.89 Encounter for other specified antenatal screening (principal); Z3A.19 19 weeks gestation of pregnancy
CPT/HCPCS: 76811

== ENCOUNTER 2024-05-14 07:54 | Outpatient (CLI) | payer OTHER, SELFPAY ==
[2024-05-14 08:46] LABS: Basophils # 0.1 K/mm3 (0-0.2); Basophils % 0.4 % (0.1-2.0); Eosinophils # 0.3 K/mm3 (0.0-0.4); Eosinophils % 2.3 % (0.1-12.0); Hemoglobin 12.1 g/dL (12.2-16.2); Lymphocytes # 3.5 K/mm3 (0.7-4.5); Lymphocytes % 32.3 % (10-50); Mean Corpuscular HGB Conc 32.7 g/dL (31.8-35.4); Mean Corpuscular Hemoglobin 30.9 pg (27.0-31.2); Mean Corpuscular Volume 94.6 fl (81-99); Mean Platelet Volume 8.1 fl (7.4-10.4); Monocytes # 0.5 K/mm3 (0.1-1.0); Monocytes % 4.2 % (1.7-9.3); Neutrophils # 6.7 K/mm3 (1.8-7.8); Neutrophils % 60.8 % (37.0-80.0); Platelet Count 305 K/mm3 (142-424); Red Blood Count 3.91 M/mm3 (4.20-5.40); Red Cell Distribution Width 13.6 % (11.5-17.5)
[2024-05-14 08:52] LABS: Glucose,Fasting 77 mg/dl (74-100)
[2024-05-14 10:48] LABS: Glucose 1 Hour 149 mg/dL (74-100)
[2024-05-15 13:29] LABS: Rapid Plasma Reagin Ab Titer Non Reactive titer (NonRea<1:1)
== END 2024-05-14 23:59 | disposition home or self-care (01) ==
PROVIDERS: PCP Nurse Practitioner; Visit Provider Obstetrics & Gynecology
DX: Z34.90 Encounter for supervision of normal pregnancy, unspecified, unspecified trimester (principal)
CPT/HCPCS: 36415; 82951; 85025; 86593

== ENCOUNTER 2024-05-15 08:17 | Outpatient (CLI) | payer OTHER, SELFPAY ==
[2024-05-15 09:09] LABS: Glucose,Fasting 81 mg/dl (74-100)
[2024-05-15 10:59] LABS: Glucose 1 Hour 158 mg/dL (74-100)
[2024-05-15 11:29] LABS: Glucose 2 Hour 148 mg/dL (74-100)
[2024-05-15 12:03] LABS: Glucose 3 Hour 126 mg/dL (74-100)
== END 2024-05-15 23:59 | disposition home or self-care (01) ==
LOC: LAB 08:18
PROVIDERS: Obstetrics & Gynecology; PCP Nurse Practitioner; Visit Provider Family Medicine
DX: Z34.90 Encounter for supervision of normal pregnancy, unspecified, unspecified trimester (principal)
CPT/HCPCS: 36415; 82951

== ENCOUNTER 2024-05-23 09:21 | Outpatient (CLI) | payer OTHER, SELFPAY ==
[2024-05-23 09:36] VITALS: BMI 33.3
[2024-05-23 09:40] VITALS: BP 119/74; PULSE 78; RESP 16; O2SAT 100
[2024-05-23] MEDS: RHO(D) IMMUNE GLOBULIN 1,500 UNIT (300MCG) SYRINGE 300 MCG IM (09:42)
== END 2024-05-23 09:47 | disposition home or self-care (01) ==
LOC: INF 09:22
PROVIDERS: PCP Nurse Practitioner; Visit Provider Obstetrics & Gynecology
DX: Z34.90 Encounter for supervision of normal pregnancy, unspecified, unspecified trimester (principal)
CPT/HCPCS: 96372; J2790

== ENCOUNTER 2024-06-05 21:51 | Outpatient (CLI) | payer OTHER, SELFPAY ==
[2024-06-05 21:53] VITALS: BMI 33.3
[2024-06-05 22:19] VITALS: BP 122/69; PULSE 96; RESP 17; TEMP 36.8; O2SAT 97; BMI 33.5
[2024-06-05 22:49] LABS: Opiate Screen,Urine Negative ng/ml (<300)
[2024-06-05 22:50] LABS: Phencyclidine Screen,Urine Negative ng/ml (<25)
[2024-06-05 22:51] LABS: Amphetamine/Metha Screen,Urine Negative ng/ml (<1000); Barbiturates Screen,Urine Negative ng/ml (<200)
[2024-06-05 22:52] LABS: Benzodiazepines Screen,Urine Negative ng/ml (<200)
[2024-06-05 22:54] LABS: Cannabinoid Screen,Urine Negative ng/ml (<50)
[2024-06-05 22:55] LABS: Cocaine Screen,Urine Negative ng/ml (<300)
[2024-06-05] MEDS: OXYCODONE 5MG W/APAP 325MG TABLET 1 EACH PO (22:55)
[2024-06-05 22:56] LABS: Methadone Screen,Urine Negative ng/ml (<300)
== END 2024-06-05 23:17 | disposition home or self-care (01) ==
LOC: OBOUT 21:52 → OB 21:53
PROVIDERS: PCP Nurse Practitioner; Visit Provider Nurse Practitioner Obstetrics & Gynecology
DX: O36.8130 Decreased fetal movements, third trimester, not applicable or unspecified (principal); Z3A.30 30 weeks gestation of pregnancy
CPT/HCPCS: 80307; G0463

== ENCOUNTER 2024-06-27 22:29 | Outpatient (CLI) | payer OTHER, SELFPAY ==
[2024-06-27 22:33] VITALS: BMI 32.4
[2024-06-27 22:35] VITALS: BP 118/76; PULSE 95; RESP 19; TEMP 37; O2SAT 99; BMI 32.4
[2024-06-27 23:12] LABS: Microscopic, Urine URINE MICROSCOPIC (MICROSCOPIC)
[2024-06-27 23:14] LABS: Appearance,Urine CLEAR (Clear); Bilirubin,Urine Negative (Negative); Blood, Urine Negative (Negative); Color,Urine YELLOW (Yellow); Glucose,Urine (UA) Negative (Negative); Ketones,Urine Negative (Negative); Leukocyte Esterase,Urine TRACE (Negative); Nitrate,Urine Negative (Negative); Protein,Urine Negative (Negative); Specific Gravity, Urine 1.015 (1.005-1.030); Urobilinogen,Urine 0.2 EU/dl (0.2)
[2024-06-27 23:29] LABS: WBC,Urine Occasional #/hpf (0-3)
[2024-06-27 23:30] LABS: Amphetamine/Metha Screen,Urine Negative ng/ml (<1000); Bacteria,Urine Trace /lpf; Barbiturates Screen,Urine Negative ng/ml (<200); Mucus,Urine Trace /lpf
[2024-06-27 23:31] LABS: Benzodiazepines Screen,Urine Negative ng/ml (<200); Cannabinoid Screen,Urine Negative ng/ml (<50)
[2024-06-27 23:32] LABS: Cocaine Screen,Urine Negative ng/ml (<300)
[2024-06-27 23:33] LABS: Methadone Screen,Urine Negative ng/ml (<300); Opiate Screen,Urine Negative ng/ml (<300)
[2024-06-27 23:34] LABS: Phencyclidine Screen,Urine Negative ng/ml (<25)
[2024-06-27] MEDS: DEXTROSE 5%-LACTATED RINGERS 1,000 ML 999 ML IV (23:58)
[2024-06-28 00:23] LABS: Albumin Level 3.4 g/dl (3.5-5.0); Chloride 107 mmol/L (98-107)
[2024-06-28 00:24] LABS: Potassium 3.5 mmoL/L (3.5-5.1); Sodium 133 mmol/L (136-145)
[2024-06-28 00:26] LABS: Alanine Aminotransferase 21 U/L (12-78); Anion Gap 8.5 mEq/L (5-15); Aspartate Amino Transferase 28 U/L (14-36); Blood Urea Nitrogen 6 mg/dl (7-17); Carbon Dioxide 21 mmol/L (22.0-30.0); Creatinine Clearance Estimated 194 mL/min (50-200); Estimated Glomerular Filt Rate 126 ml/min (>60); GFR (African American) 153 ML/MIN (>60)
[2024-06-28 00:27] LABS: Albumin/Globulin Ratio 1.1 (1.1-1.8); Alkaline Phosphatase 96 U/L (38-126); Bilirubin,Total 0.5 mg/dl (0.2-1.3); Calcium 8.9 mg/dl (8.4-10.2); Globulin 3.1 g/dL (1.3-3.2); Glucose 79 mg/dl (74-100); Total Protein,Serum 6.5 g/dl (6.3-8.2)
[2024-06-28 00:31] LABS: Basophils # 0.1 K/mm3 (0-0.2); Basophils % 0.6 % (0.1-2.0); Eosinophils # 0.3 K/mm3 (0.0-0.4); Eosinophils % 2.6 % (0.1-12.0); Hematocrit 35.4 % (37.0-47.0); Lymphocytes # 3.2 K/mm3 (0.7-4.5); Lymphocytes % 31.7 % (10-50); Mean Corpuscular HGB Conc 33.9 g/dL (31.8-35.4); Mean Corpuscular Hemoglobin 29.8 pg (27.0-31.2); Mean Corpuscular Volume 87.9 fl (81-99); Mean Platelet Volume 8.3 fl (7.4-10.4); Monocytes # 0.6 K/mm3 (0.1-1.0); Monocytes % 5.9 % (1.7-9.3); Neutrophils # 5.9 K/mm3 (1.8-7.8); Neutrophils % 59.2 % (37.0-80.0); Platelet Count 275 K/mm3 (142-424); Red Blood Count 4.03 M/mm3 (4.20-5.40); Red Cell Distribution Width 13.2 % (11.5-17.5)
== END 2024-06-28 01:45 | disposition home or self-care (01) ==
LOC: OBOUT 22:31 → OB 22:32
PROVIDERS: PCP Nurse Practitioner; Visit Provider Nurse Practitioner Obstetrics & Gynecology
DX: O26.893 Other specified pregnancy related conditions, third trimester (principal); Z3A.33 33 weeks gestation of pregnancy; R51.9 Headache, unspecified
CPT/HCPCS: 80053; 80307; 81001; 85025; G0463

== ENCOUNTER 2024-07-07 15:12 | Outpatient (CLI) | payer OTHER, SELFPAY ==
[2024-07-07 18:09] VITALS: BMI 32.4
[2024-07-07 18:26] VITALS: BMI 32.4
[2024-07-07 18:32] LABS: Microscopic, Urine URINE MICROSCOPIC (MICROSCOPIC)
[2024-07-07 18:37] LABS: Appearance,Urine CLEAR (Clear); Bilirubin,Urine Negative (Negative); Blood, Urine Negative (Negative); Glucose,Urine (UA) Negative (Negative); Ketones,Urine Negative (Negative); Leukocyte Esterase,Urine Negative (Negative); Nitrate,Urine Negative (Negative); Protein,Urine Negative (Negative); Urobilinogen,Urine 0.2 EU/dl (0.2)
[2024-07-07 18:47] LABS: Barbiturates Screen,Urine Negative ng/ml (<200)
[2024-07-07 18:48] LABS: Benzodiazepines Screen,Urine Negative ng/ml (<200)
[2024-07-07 18:49] LABS: Amphetamine/Metha Screen,Urine Negative ng/ml (<1000); Cannabinoid Screen,Urine Negative ng/ml (<50)
[2024-07-07 18:50] LABS: Cocaine Screen,Urine Negative ng/ml (<300); Methadone Screen,Urine Negative ng/ml (<300)
[2024-07-07 18:51] LABS: Opiate Screen,Urine Negative ng/ml (<300)
[2024-07-07 18:52] LABS: Phencyclidine Screen,Urine Negative ng/ml (<25)
[2024-07-07] MEDS: ACETAMINOPHEN 500MG TAB 1000 MG PO (19:00)
[2024-07-07] MEDS: LACTATED RINGERS 1000ML 1,000 ML 999 ML IV (19:01)
[2024-07-07 19:12] LABS: Color,Urine Straw (Yellow)
[2024-07-07 19:54] LABS: Bacteria,Urine Trace /lpf; Squamous Epithelial Cell,Urine Occasional #/hpf (0-5)
== END 2024-07-07 20:09 | disposition home or self-care (01) ==
LOC: OBOUT 15:14 → OB 15:14
PROVIDERS: PCP Nurse Practitioner; Visit Provider Obstetrics & Gynecology
DX: O60.03 Preterm labor without delivery, third trimester (principal); Z3A.35 35 weeks gestation of pregnancy
CPT/HCPCS: 80307; 81001; G0463; J7120

== ENCOUNTER 2024-07-08 19:14 | Outpatient (CLI) | payer OTHER, SELFPAY ==
[2024-07-08 19:25] VITALS: BMI 32.4
[2024-07-08 19:37] VITALS: BP 115/73; PULSE 93; RESP 16; TEMP 36.7; O2SAT 97; BMI 32.4
[2024-07-08 19:44] LABS: Microscopic, Urine URINE MICROSCOPIC (MICROSCOPIC)
[2024-07-08 19:51] LABS: Bilirubin,Urine Negative (Negative); Blood, Urine Negative (Negative); Color,Urine YELLOW (Yellow); Glucose,Urine (UA) Negative (Negative); Ketones,Urine Negative (Negative); Leukocyte Esterase,Urine Negative (Negative); Nitrate,Urine Negative (Negative); PH,Urine 6.5 (5.0-8.5); Protein,Urine Negative (Negative); Urobilinogen,Urine 0.2 EU/dl (0.2)
[2024-07-08 19:52] LABS: Appearance,Urine Slightly Cloudy (Clear)
[2024-07-08 19:59] LABS: Barbiturates Screen,Urine Negative ng/ml (<200); Benzodiazepines Screen,Urine Negative ng/ml (<200)
[2024-07-08 20:00] LABS: Amphetamine/Metha Screen,Urine Negative ng/ml (<1000)
[2024-07-08 20:01] LABS: Cannabinoid Screen,Urine Negative ng/ml (<50); Methadone Screen,Urine Negative ng/ml (<300)
[2024-07-08 20:02] LABS: Cocaine Screen,Urine Negative ng/ml (<300)
[2024-07-08 20:03] LABS: Opiate Screen,Urine Negative ng/ml (<300); Phencyclidine Screen,Urine Negative ng/ml (<25)
[2024-07-08] MEDS: hydrOXYzine pamoate 25MG CAPSULE 50 MG PO (20:37)
[2024-07-08 21:16] LABS: Bacteria,Urine 3+ /lpf; Sperm,Urine OCC /lpf
== END 2024-07-08 20:44 | disposition home or self-care (01) ==
LOC: OBOUT 19:16 → OB 19:16
PROVIDERS: PCP Nurse Practitioner; Visit Provider Obstetrics & Gynecology
DX: O60.03 Preterm labor without delivery, third trimester (principal); Z3A.36 36 weeks gestation of pregnancy
CPT/HCPCS: 80307; 81001; 87086; G0463

== ENCOUNTER 2024-07-10 16:13 | Outpatient (CLI) | payer OTHER, SELFPAY | END 2024-07-10 23:59 | disposition home or self-care (01) | LOC: LAB.DROPOF 16:14 | PROVIDERS: PCP Obstetrics & Gynecology; Visit Provider Obstetrics & Gynecology | DX: Z34.90 Encounter for supervision of normal pregnancy, unspecified, unspecified trimester (principal) | CPT/HCPCS: 86403 ==

== ENCOUNTER 2024-07-15 21:30 | Outpatient (CLI) | payer OTHER, SELFPAY ==
[2024-07-15 21:42] VITALS: BP 122/81; PULSE 91; RESP 18; TEMP 36.5; BMI 32.9; BMI 33.1
[2024-07-15 21:52] LABS: Microscopic, Urine URINE MICROSCOPIC (MICROSCOPIC)
[2024-07-15 21:54] LABS: Appearance,Urine CLEAR (Clear); Bilirubin,Urine Negative (Negative); Blood, Urine Negative (Negative); Color,Urine YELLOW (Yellow); Glucose,Urine (UA) Negative (Negative); Ketones,Urine Negative (Negative); Leukocyte Esterase,Urine Negative (Negative); Nitrate,Urine Negative (Negative); PH,Urine 6.5 (5.0-8.5); Protein,Urine Negative (Negative); Specific Gravity, Urine 1.025 (1.005-1.030); Urobilinogen,Urine 0.2 EU/dl (0.2)
[2024-07-15 22:04] LABS: Barbiturates Screen,Urine Negative ng/ml (<200); Benzodiazepines Screen,Urine Negative ng/ml (<200)
[2024-07-15 22:05] LABS: Amphetamine/Metha Screen,Urine Negative ng/ml (<1000); Cannabinoid Screen,Urine Negative ng/ml (<50)
[2024-07-15 22:06] LABS: Bacteria,Urine Trace /lpf; Cocaine Screen,Urine Negative ng/ml (<300); WBC,Urine Occasional #/hpf (0-3)
[2024-07-15 22:07] LABS: Methadone Screen,Urine Negative ng/ml (<300); Opiate Screen,Urine Negative ng/ml (<300)
[2024-07-15 22:08] LABS: Phencyclidine Screen,Urine Negative ng/ml (<25)
== END 2024-07-15 22:55 | disposition home or self-care (01) ==
LOC: OBOUT 21:32 → OB 21:32
PROVIDERS: PCP Nurse Practitioner; Visit Provider Nurse Practitioner Obstetrics & Gynecology
DX: O26.893 Other specified pregnancy related conditions, third trimester (principal); Z3A.36 36 weeks gestation of pregnancy; M54.50 Low back pain, unspecified
CPT/HCPCS: 80307; 81001; G0463

== ENCOUNTER 2024-07-17 15:34 | Outpatient (CLI) | payer OTHER, SELFPAY ==
[2024-07-17 16:08] VITALS: BP 126/77; PULSE 108; RESP 18; TEMP 36.7; O2SAT 100; BMI 32.9
[2024-07-17 16:37] VITALS: BP 126/77; PULSE 108; RESP 18; TEMP 36.7; O2SAT 100
[2024-07-17 16:59] LABS: Microscopic, Urine URINE MICROSCOPIC (MICROSCOPIC)
[2024-07-17 17:04] LABS: Appearance,Urine CLEAR (Clear); Bilirubin,Urine Negative (Negative); Blood, Urine Negative (Negative); Color,Urine YELLOW (Yellow); Glucose,Urine (UA) Negative (Negative); Ketones,Urine Negative (Negative); Leukocyte Esterase,Urine Negative (Negative); Nitrate,Urine Negative (Negative); Protein,Urine Negative (Negative); Specific Gravity, Urine <= 1.005 (1.005-1.030); Urobilinogen,Urine 0.2 EU/dl (0.2)
[2024-07-17 17:21] LABS: Amphetamine/Metha Screen,Urine Negative ng/ml (<1000); Barbiturates Screen,Urine Negative ng/ml (<200); Benzodiazepines Screen,Urine Negative ng/ml (<200); Cannabinoid Screen,Urine Negative ng/ml (<50); Cocaine Screen,Urine Negative ng/ml (<300); Methadone Screen,Urine Negative ng/ml (<300); Opiate Screen,Urine Negative ng/ml (<300); Phencyclidine Screen,Urine Negative ng/ml (<25)
[2024-07-17 17:28] LABS: RBC,Urine Occasional #/hpf (0-3); WBC,Urine Occasional #/hpf (0-3)
[2024-07-17 17:29] LABS: Bacteria,Urine 3+ /lpf
== END 2024-07-17 17:30 | disposition home or self-care (01) ==
LOC: OBOUT 15:37 → OB 15:37
PROVIDERS: PCP Nurse Practitioner Obstetrics & Gynecology; Visit Provider Obstetrics & Gynecology
DX: O60.03 Preterm labor without delivery, third trimester (principal); Z3A.36 36 weeks gestation of pregnancy
CPT/HCPCS: 80307; 81001; 87086; G0463

== ENCOUNTER 2024-08-05 13:19 | Inpatient (IN) | payer OTHER, SELFPAY ==
[2024-08-05 13:30] VITALS: BMI 33.1
[2024-08-05 14:00] LABS: Basophils # 0.1 K/mm3 (0-0.2); Basophils % 0.7 % (0.1-2.0); Eosinophils # 0.2 K/mm3 (0.0-0.4); Eosinophils % 1.8 % (0.1-12.0); Hematocrit 35.8 % (37.0-47.0); Hemoglobin 11.8 g/dL (12.2-16.2); Lymphocytes # 2.5 K/mm3 (0.7-4.5); Lymphocytes % 28.6 % (10-50); Mean Corpuscular Hemoglobin 27.9 pg (27.0-31.2); Mean Corpuscular Volume 84.3 fl (81-99); Mean Platelet Volume 9.7 fl (7.4-10.4); Monocytes # 0.4 K/mm3 (0.1-1.0); Monocytes % 4.1 % (1.7-9.3); Neutrophils # 5.6 K/mm3 (1.8-7.8); Neutrophils % 64.8 % (37.0-80.0); Platelet Count 261 K/mm3 (142-424); Red Blood Count 4.25 M/mm3 (4.20-5.40); Red Cell Distribution Width 14.2 % (11.5-17.5); White Blood Count 8.7 K/mm3 (4.8-10.8)
--- NOTE | 2024-08-05 14:20 | HMH.PHAINT1 ---
Pharmacy Intervention Comments: MEDICATION RECONCILIATION COMPLETED ON PATIENT USING EXTERNAL FILL HISTORY FROM PHARMACY. -CHRIS MISTRY, EAND
[2024-08-05] MEDS: miSOPROStol 100MCG TABLET 50 MCG PO ×2 (14:36→20:45)
[2024-08-05 15:14] VITALS: BP 124/75; PULSE 117; RESP 19; TEMP 36.7; O2SAT 97; BMI 33.1
[2024-08-05 16:02] LABS: RPR W/RFX Titers Nonreactive (Nonreactive)
[2024-08-05 19:25] LABS: Microscopic, Urine URINE MICROSCOPIC (MICROSCOPIC)
[2024-08-05 19:30] LABS: Appearance,Urine CLEAR (Clear); Bilirubin,Urine Negative (Negative); Blood, Urine Negative (Negative); Color,Urine YELLOW (Yellow); Glucose,Urine (UA) Negative (Negative); Ketones,Urine TRACE (Negative); Leukocyte Esterase,Urine TRACE (Negative); Nitrate,Urine Negative (Negative); Protein,Urine TRACE (Negative); Specific Gravity, Urine 1.015 (1.005-1.030); Urobilinogen,Urine 0.2 EU/dl (0.2)
[2024-08-05 19:39] LABS: RBC,Urine Occasional #/hpf (0-3)
[2024-08-05 19:40] LABS: Bacteria,Urine 2+ /lpf; Squamous Epithelial Cell,Urine 20-50 #/hpf (0-5)
[2024-08-05 19:52] VITALS: BP 118/71; PULSE 69; RESP 16; TEMP 36.9; O2SAT 99
[2024-08-05 20:30] LABS: Amphetamine/Metha Screen,Urine Negative ng/ml (<1000); Barbiturates Screen,Urine Negative ng/ml (<200)
[2024-08-05 20:31] LABS: Benzodiazepines Screen,Urine Negative ng/ml (<200)
[2024-08-05 20:32] LABS: Cannabinoid Screen,Urine Negative ng/ml (<50); Cocaine Screen,Urine Negative ng/ml (<300)
[2024-08-05 20:33] LABS: Methadone Screen,Urine Negative ng/ml (<300)
[2024-08-05 20:34] LABS: Opiate Screen,Urine Negative ng/ml (<300); Phencyclidine Screen,Urine Negative ng/ml (<25)
[2024-08-05] MEDS: ESCITALOPRAM 20 MG 1 EACH PO (20:47)
[2024-08-05] MEDS: BUTORPHANOL TARTRATE 1 MG/ML VIAL IV (21:13)
[2024-08-05] MEDS: LACTATED RINGERS 1000ML 1,000 ML 250 ML IV (22:48)
[2024-08-05] MEDS: ONDANSETRON 4MG/2ML VIAL 4 MG IV (23:17)
[2024-08-05] MEDS: TERBUTALINE SULFATE 1MG/ML VIAL 0.25 MG SUBCUT (23:19)
--- NOTE | 2024-08-05 23:51 | EXP.HP ---
History of Present Illness *Admission Date: 08/05/24 *Reason for visit:: Induction *History of present illness: Monica is a 19-year-old at 39 weeks and 3 days gestation who presented to labor and delivery for scheduled elective induction of labor. Her has been complicated by placental lakes and Rh negative blood. On presentation patient endorsed good movement and denies any leakage of fluid or vaginal bleeding. A-, antibody negative, rubella immune, hepatitis B negative, hepatitis C negative, RPR negative, HIV negative 1 hour GTT: 149 3 hour GTT: 81/158/148/126 GBS negative PFSH [facility] Disclaimer: The information contained in this section may have been updated after the patient was seen, as this information can be updated by other users. Medical History History of irritable bowel syndrome Anxiety disorder affecting , antepartum Depression affecting History of COVID-19 Irritable bowel syndrome (IBS) Endometriosis Major depressive disorder Generalized anxiety disorder PCOS (polycystic ovarian syndrome) Surgical History History of surgery diagnostic laparascopy Family History Other Alcoholism Asthma Diabetes FHx: mental illness Hyperlipidemia Hypertension Kidney disease Thyroid disorder Social History (Updated 08/05/24 @ 13:32 by Luz Maria Rosario RN) Smoking Status: Never smoker years smoked: 3 second hand exposure: No alcohol intake: never substance use type: denies use current occupational status: other Travel in the last 8 weeks: None household members: family number of children: 0 current occupational exposures/hazards: No caffeine: Yes Other Medical History Have you received the Flu Vaccine for this season: No Have you received the Pneumonia Vaccine: No Review of Systems Review of Systems Review of systems (narrative): Review of Systems Constitutional: Denies fever, chills, and sweats Eyes: Denies vision change/ pain Respiratory: Denies cough and shortness of breath Cardiovascular: Denies chest pain and lightheadedness Gastrointestinal: Admits abdominal pain with contractions. Denies nausea, vomiting. Genitourinary: Denies dysuria and incontinence Musculoskeletal: Denies shoulder pain and back pain Neurological: Denies change in speech or headaches Meds Home Medications and Allergies Home Medications ?Medication ?Instructions ?Recorded ?Confirmed ?Type ondansetron 4 mg disintegrating 4 mg PO Q4HP PRN Nausea And 01/16/24 08/05/24 History tablet Vomiting vits no.126-ferrous fum 1 tab PO DAILY 04/17/24 08/05/24 History 28 mg iron-folic acid 800 mcg tablet (Classic ) azelastine 137 mcg (0.1 %) nasal 1 spray intranasal HS 05/14/24 08/05/24 History spray famotidine 20 mg tablet (Pepcid) 20 mg PO BID #60 tabs 06/05/24 08/05/24 Rx escitalopram oxalate 20 mg tablet 20 mg PO HS 08/05/24 08/05/24 History (Lexapro) New Prescriptions to Start Prescriptions: Allergies Allergy/AdvReac Type Severity Reaction Status Date / Time amoxicillin (From Augmentin) AdvReac Mild Nausea Verified 07/30/24 11:10 clavulanic acid (From AdvReac Mild Nausea Verified 07/30/24 11:10 Augmentin) Exam Data for Last 24 hours Vital signs and Labs for Last 24 Hours: Temp Pulse Resp BP Pulse Ox O2 Del Method 98.4 F 69 16 118/71 99 Room Air 08/05/24 19:52 08/05/24 19:52 08/05/24 19:52 08/05/24 19:52 08/05/24 19:52 08/05/24 19:52 Laboratory Results - last 24 hr 08/05/24 13:50: WBC 8.7, RBC 4.25, Hgb 11.8 L, Hct 35.8 L, MCV 84.3, MCH 27.9, MCHC 33.0, RDW 14.2, Plt Count 261, MPV 9.7, Neut % (Auto) 64.8, Lymph % (Auto) 28.6, [place] % (Auto) 4.1, Eos % (Auto) 1.8, Baso % (Auto) 0.7, Neut # (Auto) 5.6, Lymph # (Auto) 2.5, [place] # (Auto) 0.4, Eos # (Auto) 0.2, Baso # (Auto) 0.1, Blood Type A Negative, Antibody Screen Negative 08/05/24 18:50: Urine Color Yellow, Urine Appearance Clear, Urine pH 7.0, Ur Specific [place] 1.015, Urine Protein Trace, Urine Glucose (UA) Negative, Urine Ketones Trace, Urine Blood Negative, Urine Nitrate Negative, Urine Bilirubin Negative, Urine Urobilinogen 0.2, Ur Leukocyte Esterase Trace, Urine RBC Occasional, Urine WBC 10-20, Ur Squamous Epith Cells 20-50, Urine Bacteria 2+, Urine Opiates Screen Negative, Urine Methadone Screen Negative, Ur Barbituates Screen Negative, Ur Phencyclidine Scrn Negative, Ur Amphetamines Screen Negative, U Benzodiazepines Scrn Negative, Urine Cocaine Screen Negative, U Marijuana (THC) Screen Negative I & O for Last 24 hours: Intake & Output 08/02/24 08/03/24 08/04/24 08/05/24 23:59 23:59 23:59 23:59 Weight 187 lb Narrative: General: patient is alert oriented in no acute distress and responds appropriately to questions. HEENT: NCAT, EOMI, moist mucous membranes, neck supple with full ROM Cardiovascular: RRR +S1/S2, no murmurs or rubs Pulmonary: Clear to auscultation bilaterally, nonlabored breathing, symmetric chest rise Abdominal: Gravid abdomen appropriate for gestation. No guarding, rebound, or tenderness noted. Extremities: trace edema, no tenderness or cyanosis noted Skin: Normal turgor, intact, warm. Negative for erythema, pallor, petechia, or lesions Neurologic: Negative for sensory or motor deficit Psychiatric: Normal affect, normal thought process, good judgment and insight, no depression or anxious mood appreciated. *Routine HEENT Exam Head: Present normocephalic and atraumatic Eye: Present EOMI, PERRL and normal accommodation; Absent conjunctival icterus, scleral injection, nystagmus or exophthalmos ENT: Present mucous membranes moist *Routine Respiratory Exam Respiratory: Present CTA bilaterally, normal respiratory effort, able to speak in complete sentences and symmetric chest movement; Absent accessory muscle use, decreased breath sounds, rales, respiratory distress, wheezes, distant breath sounds or diminished air movement *Routine Cardiovascular Exam Cardiovascular: Present RRR, Normal S1 and Normal S2; Absent murmur or gallop *Routine Abdominal Exam Abdominal: Present soft and normoactive bowel sounds; Absent tenderness, distended, rebound or guarding *Routine Rectal Exam Rectal:: deferred *Routine Genitalia Exam Genitalia:: normal female Assessment and Plan *Assessment and plan (1) Vaginal bleeding in : Status: Acute Category: Medical Code(s): O46.90 - Antepartum hemorrhage, unspecified, unspecified trimester (2) Encounter for induction of labor: Status: Acute Category: Medical Code(s): Z34.90 - Encounter for supervision of normal , unspecified, unspecified trimester (3) Major depressive disorder: Status: Acute Category: Medical Code(s): F32.9 - Major depressive disorder, single episode, unspecified (4) Generalized anxiety disorder: Status: Acute Category: Medical Code(s): F41.1 - Generalized anxiety disorder Plan - Monitor vitals - Admit to L&D for induction of labor - Plan for induction with 50mcg of PO cytotec a2ndaty per protocol - External FHR and TOCO monitor - Exam on admission: closed/thick/high - GBS neg/ Blood type: A- - Hemoglobin: 11.8, Plt: 261 - Plan for epidural anesthesia - Anticipate vaginal delivery of female infant I was called in to evaluate the tracing, tocometer and bleeding. On my evaluation bleeding was appropriate given the rapid cervical change she was experiencing. Her abdomen non tender and soft between contractions. She was able to talk through most contractions she was experiencing. SVE: 3/90/-2 with only trace blood on my glove. SSE revealed old blood in the vault. No active bleeding noted. heart rate tracing at time of my evaluation was a baseline 125/ moderate variability/ with 15x15 accels. Discussed with the patient that this could be the early start of an abruption but that with the cat I heart rate tracing and the cervical change it is likely labor and cervical change. Discussed with RN that i would remain at the hospital for any needs she had for the next 2-3 hours.
[2024-08-06] VITALS (8 sets, daily range): BP systolic 110–140; BP diastolic 60–83; PULSE 90–133; RESP 15–20; TEMP 36.4–36.9; O2SAT 97–100
--- NOTE | 2024-08-06 02:10 | P.PNANES_ITS ---
[facility] Disclaimer: The information contained in this section may have been updated after the patient was seen, as this information can be updated by other users. Medical History History of irritable bowel syndrome Anxiety disorder affecting , antepartum Depression affecting History of COVID-19 Irritable bowel syndrome (IBS) Endometriosis Major depressive disorder Generalized anxiety disorder PCOS (polycystic ovarian syndrome) Surgical History History of surgery diagnostic laparascopy Family History Other Alcoholism Asthma Diabetes FHx: mental illness Hyperlipidemia Hypertension Kidney disease Thyroid disorder Social History (Updated 08/05/24 @ 13:32 by Luz Maria Rosario RN) Smoking Status: Never smoker years smoked: 3 second hand exposure: No alcohol intake: never substance use type: denies use current occupational status: other Travel in the last 8 weeks: None household members: family number of children: 0 current occupational exposures/hazards: No caffeine: Yes [facility] Anesthesia Checklist Patient Identification Patient Identification: Verbal (Name & ) Structural Data Admitted From: Inpatient Planned Operative Procedure/s: labor epidural Consent for Planned Operative Procedure(s) Verified: Yes Additional verifications Anesthesia Reactions: No Airway Assessment Mallampati Score:: Class II C-Spine Mobility Assessed: Yes TMJ Mobility Assessed: Yes Dentition: Good Dentition Neurological Assessment Level of Consciousness: Awake, Alert and Appropriate Anesthesia Plan Anesthesia Risk discussed: Yes Anesthesia Plan: Verified ASA Class: II Anesthesia Type: Epidural
--- NOTE | 2024-08-06 03:59 | EXP.LABOR.NO ---
Labor Note Subjective: Date: 08/06/24 Time: 03:59 irregular contractions Objective: NST:: Reactive Contractions:: infrequent Cervical Dilation:: 3 Effacement:: 90% Station: -2 Membranes: intact Fetus: Monitoring?: Yes monitoring type:: External Assessment: Labor progressing?: Yes Plan: Anesthesia for epidural?: Yes Plan for ?: No Continue to monitor?: Yes Comment:: Monica is doing much better. She has an epidural in place. Her bleeding is significantly less and appropriate. Her pain is significantly less and she is asleep at this time. Orders to start pitocin, per 2x2 protocol. continue close monitoring.
[2024-08-06] MEDS: OXYTOCIN/RINGERS LACTATE 30 UNITS/500 ML BAG 999 UNITS IV (08:07)
[2024-08-06] MEDS: OXYTOCIN/RINGERS LACTATE 30 UNITS/500 ML BAG 40 UNITS IV (08:22)
--- NOTE | 2024-08-06 09:11 | EXP.DN ---
Delivery Note Delivery Date:: 08/06/24 Delivery Time:: 08:03 Anesthesia Type: Epidural Was labor medically induced?: No Induction method: per misoprostol protocol Gestational age (weeks): 39 delivered prior to 39 weeks?: No Gender: Female at 1 minute: 7 at 5 minutes: 9 Delivery Procedure:: Mom complete with epidural. Pushed for approximately 3 minutes. Head delivered spontaneously over intact perineum in BRAD position. No nuchal cord. Anterior shoulder, posterior shoulder and remainder of body delivered spontaneously. Baby placed on maternal abdomen, mouth and nares bulb suctioned, warmed/dried and stimulated. Delayed cord clamping was performed for 60 seconds. Cord was clamped and cut by father of baby. Cord blood was obtained. Placenta delivered spontaneously and intact. Placenta will be sent to pathology for review. Second degree perineal laceration repaired with 3-0 Vicryl. Hemostasis noted. Mom and baby were skin to skin and doing well after delivery. Live female baby, Danielle APGARs 7 (1 min), 9 (5 min) EBL 300 mL Placental Delivery Description: Spontaneous
[2024-08-06] MEDS: TRANEXAMIC ACID 1,000 MG in 0.9 % SODIUM CHLORIDE 250 ML 500 MG IV (10:19)
[2024-08-06] MEDS: LACTATED RINGERS 1000ML 1,000 ML 999 ML IV (10:33)
--- NOTE | 2024-08-06 11:37 | P.PNANES_ITS ---
[facility] Anesthesia Record Part I Anesthesia Record I Intake, IV Amount: 700 Hydration: Adequate Estimated blood loss (mL): 100 Urine output (mL): 0 Blood Pressure: 140/76 SaO2: 98 Pulse Rate: 127 Airway Patency: Patent Respiratory Rate: 18 Temperature: 97.6 F Patient is:: Drowsy and Stable Stable to PACU at:: 11:30
--- NOTE | 2024-08-06 11:53 | P.PN_ITS ---
Subjective *Date: 08/06/24 *Time: 11:59 Interval history: POD # 0 s/p with 2nd degree perineal laceration and repair Feeling okay. Admits to cramping and heavy vaginal bleeding. QBL > 800 mL. EBL at delivery was 300 mL. She is breast feeding. Exam Data for Last 24 hours Vital signs and Labs for Last 24 Hours: Temp Pulse Resp BP Pulse Ox O2 Del Method 97.6 F 127 H 18 140/76 98 Room Air 08/06/24 11:39 08/06/24 11:39 08/06/24 11:39 08/06/24 11:39 08/06/24 11:30 08/06/24 11:30 Laboratory Results - last 24 hr 08/05/24 13:50: WBC 8.7, RBC 4.25, Hgb 11.8 L, Hct 35.8 L, MCV 84.3, MCH 27.9, MCHC 33.0, RDW 14.2, Plt Count 261, MPV 9.7, Neut % (Auto) 64.8, Lymph % (Auto) 28.6, [place] % (Auto) 4.1, Eos % (Auto) 1.8, Baso % (Auto) 0.7, Neut # (Auto) 5.6, Lymph # (Auto) 2.5, [place] # (Auto) 0.4, Eos # (Auto) 0.2, Baso # (Auto) 0.1, Blood Type A Negative, Antibody Screen Negative, Crossmatch (AHG) See Detail 08/05/24 18:50: Urine Color Yellow, Urine Appearance Clear, Urine pH 7.0, Ur Specific [place] 1.015, Urine Protein Trace, Urine Glucose (UA) Negative, Urine Ketones Trace, Urine Blood Negative, Urine Nitrate Negative, Urine Bilirubin Negative, Urine Urobilinogen 0.2, Ur Leukocyte Esterase Trace, Urine RBC Occasional, Urine WBC 10-20, Ur Squamous Epith Cells 20-50, Urine Bacteria 2+, Urine Opiates Screen Negative, Urine Methadone Screen Negative, Ur Barbituates Screen Negative, Ur Phencyclidine Scrn Negative, Ur Amphetamines Screen Negative, U Benzodiazepines Scrn Negative, Urine Cocaine Screen Negative, U Marijuana (THC) Screen Negative I & O for Last 24 hours: Intake & Output 08/03/24 08/04/24 08/05/2424 23:59 23:59 23:59 23:59 Intake Total 700 / 700 Balance 700 / 700 Weight 187 lb Constitutional Constitutional: no acute distress, mild distress and cooperative *Routine HEENT Exam Head: Present normocephalic and atraumatic Eye: Absent conjunctivae pink ENT: Present mucous membranes moist *Routine Neck Exam Neck: Present full ROM *Routine Respiratory Exam Respiratory: Present CTA bilaterally and normal respiratory effort *Routine Cardiovascular Exam Cardiovascular: Present RRR *Routine Rectal Exam Patient deferred: visual exam *Routine Exam External: Present normal urethra appearance Comments: Bleeding with clots from vaginal introitus. Difficult to identify source of bl eeding on exam in the hospital bed *Routine Extremities Exam Extremities: Present full ROM; Absent edema *Routine Neurological Exam Neurological: Present alert, moving all extremities and normal speech Routine Psychiatric Exam Psychiatric: Present normal affect and cooperative Assessment and Plan *Assessment and plan (1) Status post normal vaginal delivery: Status: Acute Category: Medical (2) Second degree perineal laceration during delivery: Status: Acute Category: Medical Code(s): O70.1 - Second degree perineal laceration during delivery (3) hemorrhage: Status: Acute Qualifiers: hemorrhage type: unspecified Qualified Code(s): O72.1 - Other immediate hemorrhage Category: Medical Code(s): O72.1 - Other immediate hemorrhage Plan Flow from vagina and clots at introitus noted during exam in patient room. I could not identify source of bleeding in hospital room secondary to patient's tolerance. QBL > 800 mL Decision was made to proceed to OR for exam under anesthesia. Patient agreed with plan.
--- NOTE | 2024-08-06 12:04 | EXP.OP.NOTE ---
Date of procedure: 08/06/24 Pre-op Diagnosis:: 1. hemorrhage, 4th stage of labor 2. S/p spontaneous vaginal delivery 3. Second degree perineal laceration and repair Post-op Diagnosis:: 1. hemorrhage, 4th stage of labor 2. S/p spontaneous vaginal delivery 3. Second degree perineal laceration and repair 4. Bleeding from 2nd degree perineal laceration repair site 5. Vaginal wall hematoma x 2 (approximately 1 cm and 1.5 cm) Procedure performed:: 1. Exam under anesthesia 2. Revision of second degree perineal laceration repair Surgeon:: Maria Luisa Williamson DO Sewer Pipe Layer(s):: N/a LICENSED PROFESSIONAL COUNSELOR:: John Salcido Anesthesia: GETA Estimated blood loss (mL): 100 Clinical Note:: Ms Monica Paige is a 19 yo P1001 who had a normal spontaneous vaginal delivery this morning, 08/06/24 at 0803. She had a second degree perineal laceration that was repaired with 3-0 Vicryl. Hemostasis was noted at time of repair. Bleeding was appropriately after delivery. At 0930 bleeding increased from small to moderate with clots. I attempted to perform exam and bedside to find source of bleeding but Monica did not tolerate exam. QBL > 800 mL. Decision was made to proceed to OR for exam under anesthesia. Operative findings:: 1. Moderate amount of flow from the vagina. Large clot removed from the vagina during prepping. 2. Bleeding from apex and vaginal mucosa at second degree perineal laceration Operative note:: 1. Risks, benefits and alternatives were discussed with the patient. Risks include but are not limited to bleeding, infection, uterine perforation and VTE. Patient voiced understanding and agreed to proceed. She was wheeled back to the operating room and placed under general anesthesia without difficulty. She was placed in dorsal lithotomy position and prepped and draped in the normal sterile fashion. A bimanual exam was performed. Yohana retractors were placed in the vagina. Exam was performed. Two small vaginal wall hematomas noted. Once on right side wall measuring approximately 1.5 cm. Second hematoma on inferior vaginal wall measuring approximately 1 cm. Cervix was visualized in it's entirety. No cervical lacerations. No vaginal wall lacerations. Bleeding noted from apex and vaginal mucosa at second degree perineal laceration repair. Suture at second degree perineal laceration repair was cut and removed. Second degree laceration was repaired again with 3-0 Vicryl with good visualization. Light bleeding near introitus. Silver nitrate stick x 1 applied. Very light, appropriate bleeding noted. Patient was awaken from anesthesia without difficulty. She was transported to recovery room in stable condition. Condition: stable Disposition: floor Specimens:: N/a Complications:: None
[2024-08-06] MEDS: ACETAMINOPHEN 500MG TAB 1000 MG PO (13:03)
[2024-08-06] MEDS: IRON SUCROSE COMPLEX 200 MG in 0.9 % SODIUM CHLORIDE 100 ML 220 MG IV (15:18)
[2024-08-06] MEDS: SODIUM CHLORIDE 0.9% 10ML FLUSH SYRINGE 10 ML IV (15:20)
[2024-08-06] MEDS: WITCH HAZEL 40 PADS/BOX 1 EACH TP (19:25)
[2024-08-06] MEDS: IBUPROFEN 400 MG TABLET 800 MG PO (19:26)
[2024-08-06] MEDS: SENNA 8.6MG TABLET 8.6 MG PO (19:26)
[2024-08-06] MEDS: ESCITALOPRAM 20 MG 1 EACH PO (21:15)
[2024-08-07 00:10] VITALS: BP 126/68; PULSE 109; RESP 18; TEMP 36.7
[2024-08-07] MEDS: ACETAMINOPHEN 500MG TAB 1000 MG PO ×3 (00:10→20:57)
[2024-08-07 07:08] LABS: Basophils % 0.3 % (0.1-2.0); Eosinophils # 0.2 K/mm3 (0.0-0.4); Eosinophils % 1.5 % (0.1-12.0); Hematocrit 21.2 % (37.0-47.0); Hemoglobin 7.1 g/dL (12.2-16.2); Lymphocytes # 3.7 K/mm3 (0.7-4.5); Lymphocytes % 32.2 % (10-50); Mean Corpuscular HGB Conc 33.6 g/dL (31.8-35.4); Mean Corpuscular Hemoglobin 28.2 pg (27.0-31.2); Mean Platelet Volume 9.1 fl (7.4-10.4); Monocytes # 0.5 K/mm3 (0.1-1.0); Monocytes % 4.5 % (1.7-9.3); Neutrophils # 7.1 K/mm3 (1.8-7.8); Neutrophils % 61.5 % (37.0-80.0); Platelet Count 196 K/mm3 (142-424); Red Blood Count 2.53 M/mm3 (4.20-5.40); Red Cell Distribution Width 14.4 % (11.5-17.5); White Blood Count 11.5 K/mm3 (4.8-10.8)
--- OUTSIDE RECORDS SUMMARY | 2024-08-07 07:35 | XMS_ITS | Clinical Summary ---
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 Active diphenhydrAMINE (BENADRYL CHILDRENS ALLERGY) 12.5 MG/5ML liquid Take by mouth 4 (Four) Times a Day As Needed for Allergies. Active norethindrone-et hinyl estradiol (FEMHRT 09/09) 1-5 MG-MCG tablet Take by mouth Daily. Active Active Problems No known active problems Family History Medical History Relation Name Comments Diabetes Father Cancer Maternal Grandfather Diabetes Maternal Grandfather Cancer Maternal Grandmother Diabetes Maternal Grandmother Cancer Paternal Grandfather Diabetes Paternal Grandfather Cancer Paternal Grandmother Diabetes Paternal Grandmother Relation Name Status Comments Father Maternal Grandfather Maternal Grandmother Paternal Grandfather Paternal Grandmother Social History Tobacco Use Types Packs/Day Years Used Date Smoking Tobacco: Every Day Abuse Screen Answer Date Recorded Unsafe at Home or Work/School Not on file Feels Threatened by Someone? Not on file 08/2023 Does Anyone Keep You from Co ntacting Others or Doint Things Outside the Home? Not on file 06/16/2023 Physical Sign of Abuse Present Not on file 1 Housing Stability Answer Date Recorded Current Living Arrangements Not on file 06/05 Potentially Unsafe Housing Conditions Not on shaila e 06/16/2023 Family and Community Support Answer Rohan e Recorded Help with Day-to-Day Activities Not on file 06/16/2023 Lonely or Isolated Not on file 06/16/2023 Employment Answer Date Recorded Do you want help finding or keeping work or a guevara b? Not on file 06/16/2023 Disabilities Answer Date Recorded Concentrating, Remembering, or Making Decisions Difficulty Not on file 06/16/2023 Doing Errands Independently Difficulty Not on fi le 06/16/2023 Education Answer Date Recorded Help with school or training? Not on file Preferred Language Not on file 06/16/2023 Comments No Sex and Gender Information Value Date Recorded Sex Assigned at Not on file Legal Sex Female 11:15 AM EDT Gender Identity Not on file Sexual Orientation Not on file Last Filed Vital Signs Vital Sign Reading Time Taken Comments Blood Pressure - - Pulse 85 05/14/2018 11:38 AM EDT Temperature 36.8 ??C (98.3 ??F) 05/14/2018 11:38 AM E DT Respiratory Rate 20 05/14/2018 11:38 AM EDT Oxygen Saturation 98% 05/14/2018 11:38 AM EDT Inhaled Oxygen Concentration - - Weight 47.4 kg (104 lb 6.4 oz) 05/14/2018 11:38 AM EDT Height 165.1 cm (5' 5 ) 05/14/2018 11:38 AM EDT Body Mass Index 17.37 05/14/2018 11:38 AM EDT Plan of Treatment Health Maintenance Due Date Last Done Comments Annual Gynecologic Pelvic an d Breast Exam 2003 Pneumococcal Vaccine 0-64 (1 of 2 - PCV) 2009 HPV VACCINES (1 - 3-dose series) 2018 ANNUAL PHYSICAL 05/14/2018 HEPATITIS C SCREENING 05/14/2018 TDAP/TD VACCINES (1 - Tdap) 2022 INFLUENZA VACCINE 03/05/2024 COVID-19 Vaccine (1 - 2023-2 5 season) 2024 MENINGOCOCCAL VACCINE Aged Out No sonali darby eligible based on patient's age to complete this topic Insurance [facility] [facility] Care Teams Bedspread Cutter Relationship Specialty Start Date End Date Provider, [place] [address] PCP - General 05/14/18
--- OUTSIDE RECORDS SUMMARY | 2024-08-07 07:35 | XMS_ITS | Encounter Summary ---
[facility] Address [address] [place] [address] Care Team Providers Care Psychological Stress Evaluator Name Role Phone Provider, No Known Primary Care Provider Unavail able Reason for Visit * Reason Comments Sinus Problem Encounter Details Date Type Department Care Team (Late st Contact Info) Description 05/14/2018 11:30 AM EDT Office Visit [address] [place] [address] Acute recurrent pansinusitis (Primary Dx); Acute seasonal allergic rhinitis, unspecified trigger; Sore throat Social History Tobacco Use Types Packs/Day Years Used Date Smoking Tobacco: Every Day Comments No Sex and Gender Information Value Date Recorded Sex Assigned at Not on file Legal Sex Female 11:15 AM EDT Gender Identity Not on file Sexual Orientation Not on file documented as of this encounter Last Filed Vital Signs Vital Sign Reading Time Taken Comments Blood Pressure - - Pulse 85 05/14/2018 11:38 AM EDT Temperature 36.8 ??C (98.3 ??F) 05/14/2018 1 1:38 AM EDT Respiratory Rate 20 05/14/2018 11:3 8 AM EDT Oxygen Saturation 98% 05/14/2018 11: 38 AM EDT Inhaled Oxygen Concentration - - Weight 47.4 kg (104 lb 6.4 oz) 05/14/20 18 11:38 AM EDT Height 165.1 cm (5' 5 ) 05/14/2018 11:3 8 AM EDT Body Mass Index 17.37 05/14/2018 11:38 AM EDT Body Mass Index Percentile 14.06% 05/14 11:38 AM EDT Growth Chart: [facility] (Girls, 2- 20 Years) documented in this encounter Patient Instructions * Patient Instructions* Dean Nava APRN - 05/14/2018 11:51 AM EDT Images from the original note were not included. Sinusitis, Pediatric Sinusitis is soreness and inflammation of the sinuses. Sinuses are hollow spaces in the bones around the face. The sinuses are located: ?? Around your child's eyes. ?? In the middle of your child's forehead. ?? Behind your child's nose. ?? In your child's cheekbones. Sinuses and nasal passages are lined with stringy fluid (mucus). Mucus normally drains out of the sinuses throughout the day. When nasal tissues become inflamed or swollen, mucus can become trapped or blocked so air cannot flow through the sinuses. This allows bacteria, viruses, and funguses to grow, which leads to infection. Children's sinuses are small and not fully formed until older teen years. Young children are more likely to develop infections of the nose, sinus, and ears. Sinusitis can develop quickly and last for 7?10 days (acute) or last for more than 12 weeks (chronic). What are the causes? This condition is caused by anything that creates swelling in the sinuses or stops mucus from draining, including: ?? Allergies. ?? Asthma. ?? A common cold or viral infection. ?? A bacterial infection. ?? A foreign object stuck in the nose, such as a peanut or raisin. ?? Pollutants, such as chemicals or irritants in the air. ?? Abnormal growths in the nose (nasal polyps). ?? Abnormally shaped bones between the nasal passages. ?? Enlarged tissues behind the nose (adenoids). ?? A fungal infection. This is rare. What increases the risk? The following factors may make your child more likely to develop this condition: ?? Having: ? Allergies or asthma. ? A weak immune system. ? Structural deformities or blockages in the nose or sinuses. ? A recent cold or respiratory infection. ?? Attending daycare. ?? Drinking fluids while lying down. ?? Using a pacifier. ?? Being around secondhand smoke. ?? Doing a lot of swimming or diving. What are the signs or symptoms? The main symptoms of this condition are pain and a feeling of pressure around the affected sinuses.Other symptoms include: ?? Upper toothache. ?? Earache. ?? Headache, if your child is older. ?? Bad breath. ?? Decreased sense of smell and taste. ?? A cough that gets worse at night. ?? Fatigue or lack of energy. ?? Fever. ?? Thick drainage from the nose that is often green and may contain pus (purulent). ?? Swelling and warmth over the affected sinuses. ?? Swelling and redness around the eyes. ?? Vomiting. ?? Crankiness or irritability. ?? Sensitivity to light. ?? Sore throat. How is this diagnosed? This condition is diagnosed based on symptoms, a medical history, and a physical exam. To find out if your child's condition is acute or chronic, your child's health care provider may: ?? Look in your child's nose for signs of nasal polyps. ?? Tap over the affected sinus to check for signs of infection. ?? View the inside of your child's sinuses using an imaging device that has a light attached (endoscope). If your child's health care provider suspects chronic sinusitis, your child also may: ?? Be tested for allergies. ?? Have a sample of mucus taken from the nose (nasal culture) and checked for bacteria. ?? Have a mucus sample taken from the nose and examined to see if the sinusitis is related to an allergy. Your child may also have an MRI or CT scan to give the child's healthcare provider a more detailed picture of the child's sinuses and adenoids. How is this treated? Treatment depends on the cause of your child's sinusitis and whether it is chronic or acute. If a virus is causing the sinusitis, your child's symptoms will go away on their own within 10 days. Your child may be given medicines to help with symptoms. Medicines may include: ?? Nasal saline washes to help get rid of thick mucus in the child's nose. ?? A topical nasal corticosteroid to ease inflammation and swelling. ?? Antihistamines, if topical nasal steroids if swelling and inflammation continue. If your child's condition is caused by bacteria, an antibiotic medicine will be prescribed. If yourchild's condition is caused by a fungus, an antifungal medicine will be prescribed. Surgery may be needed to correct any underlying conditions, such as enlarged adenoids. Follow these instructions at home: Medicines ?? Give [id number] and prescription medicines only as told by your child's health care provider. These may include nasal sprays. ? Do not give your child aspirin because of the association with Shannon syndrome. ?? If your child was prescribed an antibiotic, give it as told by your child's health care provider. Do not stop giving the antibiotic even if your child starts to feel better. Hydrate and Humidify ?? Have your child drink enough fluid to keep his or her urine clear or pale yellow. ?? Use a cool mist humidifier to keep the humidity level in your home and the child's room above 50%. ?? Run a hot shower in a closed bathroom for several minutes. Sit with your child in the bathroom to inhale the steam from the shower for 10-15 minutes. Do this 3-4 times a day or as told by your child's health care provider. ?? Limit your child's exposure to cool or dry air. Rest ?? Have your child rest as much as possible. ?? Have your child sleep with his or her head raised (elevated). ?? Make sure your child gets enough sleep each night. General instructions ?? Do not expose your child to secondhand smoke. ?? Keep all follow-up visits as told by your child's health care provider. This is important. ?? Apply a warm, moist washcloth to your child's face 3-4 times a day or as told by your child's health care provider. This will help with discomfort. ?? Remind your child to wash his or her hands with soap and water often to limit the spread of germs. If soap and water are not available, have your child use hand sand screener operator. Contact a health care provider if: ?? Your child has a fever. ?? Your child's pain, swelling, or other symptoms get worse. ?? Your child's symptoms do not improve after about a week of treatment. Get help right away if: ?? Your child has: ? A severe headache. ? Persistent vomiting. ? Vision problems. ? Neck pain or stiffness. ? Trouble breathing. ? A seizure. ?? Your child seems confused. ?? Your child who is younger than 3 months has a temperature of 100??F (38??C) or higher. This information is not intended to replace advice given to you by your health care provider. Make sure you discuss any questions you have with your health care provider. Document Released: 01/01/2008 Document Revised: 04/17/2017 Document Reviewed: 06/16/2016 Backpack Interactive Patient Education ?? 2018 [employer]. documented in this encounter Progress Notes * Dean Nava APRN - 05/14/2018 11:30 AM EDTAddended by: DEAN NAVA V on: 05/14/2018 04:57 PM Modules accepted: Orders * Dean Nava APRN - 05/14/2018 11:30 AM EDT Subjective Carmita Smith is a 13 y.o. female. Sinus Problem This is a recurrent problem. Episode onset: 2 weeks. The problem has been gradually worsening sinceonset. There has been no fever. The pain is severe. Associated symptoms include congestion, coughing, headaches, a hoarse voice, sinus pressure, a sore throat and swollen glands. Pertinent negatives include no chills, ear pain, neck pain, shortness of breath or sneezing. Treatments tried: allergy medications. The treatment provided no relief. The following portions of the patient's history were reviewed and updated as appropriate: allergies, current medications, past family history, past medical history, past social history, past surgicalhistory and problem list. Review of Systems Constitutional: Negative for appetite change, chills and fever. HENT: Positive for congestion, hoarse voice, postnasal drip, rhinorrhea, sinus pain, sinus pressureand sore throat. Negative for ear pain, sneezing and trouble swallowing. Eyes: Negative. Respiratory: Positive for cough. Negative for shortness of breath and wheezing. Cardiovascular: Negative. Gastrointestinal: Negative for abdominal pain, diarrhea, nausea and vomiting. Musculoskeletal: Negative. Negative for neck pain. Skin: Negative. Neurological: Positive for headaches. Negative for dizziness. Hematological: Positive for adenopathy. Pulse 85 Temp 98.3 ??F (36.8 ??C) (Oral) Resp 20 Ht 165.1 cm (65 ) Wt 47.4 kg (104 lb 6.4 oz) SpO2 98% BMI 17.37 kg/m?? Objective Physical Exam Constitutional: She is oriented to person, place, and time. Vital signs are normal. She appears well-developed and well-nourished. HENT: Head: Normocephalic. Right Ear: External ear and ear canal normal. No drainage, swelling or tenderness. Tympanic membrane is bulging. Tympanic membrane is not erythematous. Left Ear: External ear and ear canal normal. No drainage, swelling or tenderness. Tympanic membraneis bulging. Tympanic membrane is not erythematous. Nose: Mucosal edema and rhinorrhea present. Right sinus exhibits maxillary sinus tenderness and frontal sinus tenderness. Left sinus exhibits maxillary sinus tenderness and frontal sinus tenderness. Mouth/Throat: Uvula is midline, oropharynx is clear and moist and mucous membranes are normal. Tonsils are 0 on the right. Tonsils are 0 on the left. No tonsillar exudate. Eyes: Pupils are equal, round, and reactive to light. Conjunctivae are normal. Cardiovascular: Normal rate, regular rhythm, S1 normal, S2 normal and normal heart sounds. Pulmonary/Chest: Effort normal and breath sounds normal. No respiratory distress. She has no wheezes. Lymphadenopathy: Head (right side): Tonsillar adenopathy present. Head (left side): Tonsillar adenopathy present. She has no cervical adenopathy. Neurological: She is alert and oriented to person, place, and time. Skin: Skin is warm, dry and intact. No rash noted. Psychiatric: She has a normal mood and affect. Her speech is normal and behavior is normal. Thoughtcontent normal. Vitals reviewed. Results for orders placed or performed in visit on 05/14/18 POC Rapid Strep A Result Value Ref Range Rapid Strep A Screen Negative Negative, VALID, INVALID, Not Performed Internal Control Passed Passed Lot Number [id number] Expiration Date 123,119 Assessment/Plan Carmita was seen today for sinus problem. Diagnoses and all orders for this visit: Acute recurrent pansinusitis - amoxicillin-clavulanate (AUGMENTIN) 875-125 MG per tablet; Take 1 tablet by mouth 2 (Two) Times aDay. - pseudoephedrine (SUDAFED) 120 MG 12 hr tablet; Take 1 tablet by mouth Every 12 (Twelve) Hours for10 days. - ibuprofen (ADVIL,MOTRIN) 600 MG tablet; Take 1 tablet by mouth Every 6 (Six) Hours As Needed for Mild Pain for up to 30 days. Acute seasonal allergic rhinitis, unspecified trigger - pseudoephedrine (SUDAFED) 120 MG 12 hr tablet; Take 1 tablet by mouth Every 12 (Twelve) Hours for10 days. - fluticasone (FLONASE) 50 MCG/ACT nasal spray; 2 sprays into the nostril(s) as directed by provider Every Night for 30 days. Administer 2 sprays in each nostril for each dose. Sore throat - POC Rapid Strep A - pseudoephedrine (SUDAFED) 120 MG 12 hr tablet; Take 1 tablet by mouth Every 12 (Twelve) Hours for10 days. - ibuprofen (ADVIL,MOTRIN) 600 MG tablet; Take 1 tablet by mouth Every 6 (Six) Hours As Needed for Mild Pain for up to 30 days. documented in this encounter Plan of Treatment Not on file documented as of this encounter Procedures Procedure Name Priority Date/Time Associated Diagnosis Comments POCT RAPID STREP A Routine 05/14/2018 12 :13 PM EDT Sore throat documented in this encounter Results * POC Rapid Strep A (05/14/2018 12:13 PM EDT) Rapid Strep A Screen Negative Negative, VALID, INVALID, Not Performed [facility] Internal Control Passed Passed [facility] Lot Number [id number] [facility] Expiration Date 123,119 [facility] Swab 05/14/2018 12:1 3 PM EDT Dean Campos APRN POINT OF CARE TEST ORDERABL ES Final Result [facility]
[address] [place] [address], documented in this encounter Visit Diagnoses Diagnosis Acute recurrent pansinusitis- Primary Acute seasonal allergic rhinitis, unspecified trigger Sore throat Acute pharyngitis documented in this encounter Care Teams Psychological Stress Evaluator Relationship Specialty Start Date End Date Provider, No Known [facility] [place] [address] PCP - General 05/14/18 documented as of this encounter
--- OUTSIDE RECORDS SUMMARY | 2024-08-07 07:36 | XMS_ITS | Data Portability ---
Author Organization [facility] Address [address] [place] [address] Care Team Providers Care Driver Education Instructor Name Role Phone [facility] Psychiatrist SIA MG Primary Care Provider ALEXEY Lopez Manufacturing Scheduler Assessment Encounter Date Assessment Date Assessment LastModified by Organization Details LastModified Time 02/08/2024 02/08/2024 Patient has assessment and symptoms consistent with acute sinusitis. We will treat as noted with amoxicillin. Advised to complete full course of antibiotics. Instructed to call or return for any new or changing symptoms. [email or web address] Not available 02/08/2024 13:17:27 Plan of Treatment Reminders Order Date Submit Date Provider Last Modified By Organization Details Last Modified Time Details Appointments None recorded. Lab rapid flu (A+B) [address], [address], 4 10:05:50 rapid SARS CoV 2 Ag, QL, [place], upper respiratory specimen [address], [address], 4 10:05:51 beta-HCG, qualitative , serum or plasma 2023 024 [facility], [address], [place], [address], 4 05:42:47 CMP, serum or plasma 2023 024 [employer] [facility], [address], [place], [address], 4 05:42:46 amylase + lipase, serum 2023 024 [facility], [address], [place], [address], 4 05:42:48 CBC w/ auto diff 2023 024 [employer] [facility], [address], [place], [address], 4 05:42:47 urinalysis, dipstick [address], [address] [place] [address], [address], 4 10:02:56 test, urine [address], [address] [place] [address], [address], 4 10:03:04 Referral obstetricia n and gynecologis t referral - Dr Maria Luisa Hester, [facility], first avail. 2023 024 CARY Williamson DO, [address], [address], [place], [address], 4 14:27:05 hay buckler referral - first available appt - same day as Jadiel Paige 2023 024 [place] [facility], [address], [address], [place], [address], 4 12:42:53 Procedures nerve conduction study/EMG, lower extremity (PROC) 2023 024 jen Garcia MD, [address], [place], [address], 4 14:47:51 Surgeries None recorded. Imaging US, gallbladder 2023 024 [facility], [address] [facility], [place], [address], 4 13:39:04 Medication Orders amoxicillin 500 mg capsule 2023 024 twiedemer 1 [employer], [address] [place] [address], [id number], 4 13:58:05 ondansetron 4 mg disintegrat ing tablet 2023 024 [place] [address] [employer] [facility], [address] [place] [address], [id number], 4 13:02:07 omeprazole 40 mg capsule,del ayed release 2023 024 [place] [address] [employer] [facility], [address] [place] [address], [id number], 4 13:01:53 vitamin #56-iron 35 mg and 5 mg-folic acid 1 mg-dha capsule 2023 024 [place] [employer] [facility], [address] [place] [address], [id number], 4 11:10:26 amoxicillin 500 mg capsule 2023 024 [place] [employer] [facility], [address] [place] [address], [id number], 4 11:33:28 Patient TargetsNo targets recorded. Patient InstructionsNo instructions recorded. 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 Referral for Aller gic rhinitis first available appt - same day as Jadiel Paige Referring Physician: Sia Mg, Family Medicine, Encounter Date: 04/16/2024 Results Created Date Observation Date Name Description Value Unit Range Abnormal Flag Note LastModifiedBy Organization Detail LastModifiedTime 12/02/19 24 12/02/2023 rapid flu (A+B) Flu A negati ve Not Available [address], [address], 12/02/2023 09:43:46 12/02/19 24 12/02/2023 rapid flu (A+B) Flu B negati ve Not Available [address], [address], 12/02/2023 09:43:46 12/02/19 24 12/02/2023 rapid SARS CoV 2 Ag, QL, IA, upper respi rator y speci men SARS CoV Ag negati ve Not Available [address], [address], 12/02/2023 09:43:53 12/21/19 24 12/22/2023 COMPR EHENS JONAH METAB OLIC PANEL glucose 83 mg/dL 65-99 normal Fasti ng refer ence inter chantal Not Available [facility] [address] [facility] [place], [address], 12/22/2023 07:36:09 12/21/19 24 12/22/2023 COMPR EHENS JONAH METAB OLIC PANEL urea nitrogen (BUN) 7 mg/dL 7-25 normal Not Available [facility] [address] [facility] [place], [address], 12/22/2023 07:36:09 12/21/19 24 12/22/2023 COMPR EHENS JONAH METAB OLIC PANEL creatinine 0.74 mg/dL 0.50-0 .96 normal Not Available [facility] [address] [facility] [place], [address], 12/22/2023 07:36:09 12/21/19 24 12/22/2023 COMPR EHENS JONAH METAB OLIC PANEL eGFR 119 mL/mi n/1.7 3m2 > or = 60 normal Not Available [facility] [address] [facility] [facility] [place], [address], 12/22/2023 07:36:09 12/21/19 24 12/22/2023 COMPR EHENS JONAH METAB OLIC PANEL BUN/creatini ne ratio SEE NOTE: (calc ) 6-22 Not Repor ander: BUN and Creat inine are withi n refer ence range . Not Available [facility] [address] [place], [address], 12/22/2023 07:36:09 12/21/19 24 12/22/2023 COMPR EHENS JONAH METAB OLIC PANEL sodium 137 mmol/ L 135-14 6 normal Not Available [facility] [address] [facility] [place], [address], 12/22/2023 07:36:09 12/21/19 24 12/22/2023 COMPR EHENS JONAH METAB OLIC PANEL potassium 4.1 mmol/ L 3.5-5. 3 normal Not Available [facility] [address] [facility] [place], [address], 12/22/2023 07:36:09 12/21/19 24 12/22/2023 COMPR EHENS JONAH METAB OLIC PANEL chloride 101 mmol/ L 98-110 normal Not Available [facility] [address] [facility] [place], [address], 12/22/2023 07:36:09 12/21/19 24 12/22/2023 COMPR EHENS JONAH METAB OLIC PANEL carbon dioxide 25 mmol/ L 20-32 normal Not Available [facility] [address] [facility] [place], [address], 12/22/2023 07:36:09 12/21/19 24 12/22/2023 COMPR EHENS JONAH METAB OLIC PANEL calcium 10.1 mg/dL 8.6-10 .2 normal Not Available [facility] [address] [facility] [place], [address], 12/22/2023 07:36:09 12/21/19 24 12/22/2023 COMPR EHENS JONAH METAB OLIC PANEL protein, total 7.1 g/dL 6.1-8. 1 normal Not Available [facility] [address] [place], [address], 12/22/2023 07:36:09 12/21/19 24 12/22/2023 COMPR EHENS JONAH METAB OLIC PANEL albumin 4.3 g/dL 3.6-5. 1 normal Not Available [facility] [address] [place], [address], 12/22/2023 07:36:09 12/21/19 24 12/22/2023 COMPR EHENS JONAH METAB OLIC PANEL globulin 2.8 g/dL_ (calc ) 1.9-3. 7 normal Not Available [facility] [address] [place], [address], 12/22/2023 07:36:09 12/21/19 24 12/22/2023 COMPR EHENS JONAH METAB OLIC PANEL albumin/glob ulin ratio 1.5 (calc ) 1.0-2. 5 normal Not Available [facility] [address] [facility] [place], [address], 12/22/2023 07:36:09 12/21/19 24 12/22/2023 COMPR EHENS JONAH METAB OLIC PANEL bilirubin, total 0.6 mg/dL 0.2-1. 2 normal Not Available [facility] [address] [place], [address], 12/22/2023 07:36:09 12/21/19 24 12/22/2023 COMPR EHENS JONAH METAB OLIC PANEL alkaline phosphatase 60 U/L 31-125 normal Not Available [facility] [address], [place], [address], 12/22/2023 07:36:09 12/21/19 24 12/22/2023 COMPR EHENS JONAH METAB OLIC PANEL AST 20 U/L 10-30 normal Not Available [employer] [facility] [address], [place], [address], 12/22/2023 07:36:09 12/21/19 24 12/22/2023 COMPR EHENS JONAH METAB OLIC PANEL ALT 20 U/L 6-29 normal Not Available [facility] [address], [place], [address], 12/22/2023 07:36:09 12/21/19 24 12/22/2023 CBC (INCL UDES DIFF/ PLT) white blood cell count 10.2 thous and/u L 3.8-10 .8 normal Not Available [facility] [address], [place], [address], 12/22/2023 05:42:47 12/21/19 24 12/22/2023 CBC (INCL UDES DIFF/ PLT) red blood cell count 5.21 pepe on/uL 3.80-5 .10 high Not Available [employer] [facility] [address], [place], [address], 12/22/2023 05:42:47 12/21/19 24 12/22/2023 CBC (INCL UDES DIFF/ PLT) hemoglobin 14.9 g/dL 11.7-1 5.5 normal Not Available [facility] [address] [facility] [place], [address], 12/22/2023 05:42:47 12/21/19 24 12/22/2023 CBC (INCL UDES DIFF/ PLT) hematocrit 45.8 % 35.0-4 5.0 high Not Available [facility] [address] [facility] [place], [address], 12/22/2023 05:42:47 12/21/19 24 12/22/2023 CBC (INCL UDES DIFF/ PLT) MCV 87.9 fL 80.0-1 00.0 normal Not Available [facility] [address] [place], [address], 12/22/2023 05:42:47 12/21/19 24 12/22/2023 CBC (INCL UDES DIFF/ PLT) MCH 28.6 pg 27.0-3 3.0 normal Not Available [facility] [place], [address], 12/22/2023 05:42:47 12/21/19 24 12/22/2023 CBC (INCL UDES DIFF/ PLT) MCHC 32.5 g/dL 32.0-3 6.0 normal Not Available [facility] [address] [facility] [place], [address], 12/22/2023 05:42:47 12/21/19 24 12/22/2023 CBC (INCL UDES DIFF/ PLT) RDW 13.3 % 11.0-1 5.0 normal Not Available [facility] [address] [place], [address], 12/22/2023 05:42:47 12/21/19 24 12/22/2023 CBC (INCL UDES DIFF/ PLT) platelet count 370 thous and/u L 140-40 0 normal Not Available [facility] [address] [facility] [place], [address], 12/22/2023 05:42:47 12/21/19 24 12/22/2023 CBC (INCL UDES DIFF/ PLT) MPV 9.8 fL 7.5-12 .5 normal Not Available [facility] [address] [facility] [facility], [place], [address], 12/22/2023 05:42:47 12/21/19 24 12/22/2023 CBC (INCL UDES DIFF/ PLT) absolute neutrophils 6181 cells /uL 1500-7 800 normal Not Available [facility] [address], [place], [address], 12/22/2023 05:42:47 12/21/19 24 12/22/2023 CBC (INCL UDES DIFF/ PLT) absolute lymphocytes 3315 cells /uL 850-39 00 normal Not Available [facility] [address] [facility], [place], [address], 12/22/2023 05:42:47 12/21/19 24 12/22/2023 CBC (INCL UDES DIFF/ PLT) absolute monocytes 490 cells /uL 200-95 0 normal Not Available [facility] [address] [facility], [place], [address], 12/22/2023 05:42:47 12/21/19 24 12/22/2023 CBC (INCL UDES DIFF/ PLT) absolute eosinophils 173 cells /uL 15-500 normal Not Available [facility] [address] [facility], [place], [address], 12/22/2023 05:42:47 12/21/19 24 12/22/2023 CBC (INCL UDES DIFF/ PLT) absolute basophils 41 cells /uL 0-200 normal Not Available [facility] [address], [place], [address], 12/22/2023 05:42:47 12/21/19 24 12/22/2023 CBC (INCL UDES DIFF/ PLT) neutrophils 60.6 % normal Not Available [facility] [address], [place], [address], 12/22/2023 05:42:47 12/21/19 24 12/22/2023 CBC (INCL UDES DIFF/ PLT) lymphocytes 32.5 % normal Not Available [facility] [address] [facility], [place], [address], 12/22/2023 05:42:47 12/21/19 24 12/22/2023 CBC (INCL UDES DIFF/ PLT) monocytes 4.8 % normal Not Available [facility] [address], [place], [address], 12/22/2023 05:42:47 12/21/19 24 12/22/2023 CBC (INCL UDES DIFF/ PLT) eosinophils 1.7 % normal Not Available [facility] [address] [facility] [facility], [place], [address], 12/22/2023 05:42:47 12/21/19 24 12/22/2023 CBC (INCL UDES DIFF/ PLT) basophils 0.4 % normal Not Available [facility] [address] [facility] [facility], [place], [address], 12/22/2023 05:42:47 12/21/19 24 12/22/2023 HCG,T OTAL, QL W/REF L TO QN HCG, total, ql POSITI VE see note: abnormal Refer ence Range : Refer ence Range Non-P regna nt: Negat jonah Pregn ant: Posit jonah Not Available [facility] [address], [place], [address], 12/22/2023 11:18:51 12/21/19 24 12/22/2023 AMYLA SE AND LIPAS E amylase 31 U/L 21-101 normal Not Available [facility] [address] [place], [address], 12/22/2023 07:36:12 12/21/19 24 12/22/2023 AMYLA SE AND LIPAS E lipase 23 U/L 7-60 normal Not Available [facility] [address] [place], [address], 12/22/2023 07:36:12 12/21/19 24 12/22/2023 HCG, TOTAL , [place] [address] mIU/m L high Refer ence Range Nonpr egnan t or preme nopau mike <5 Postm enopa usal <10 Value s from diffe rent assay metho ds may vary. The use of this assay to monit or or to diagn ose patie nts with cance r or any condi tion unrel ated to pregn rosa has not been clear ed or appro kurtis by the FDA or the [facility] actur er of the assay . Not Available [facility] - [address], [address], 12/22/2023 11:18:52 12/21/19 24 12/21/2023 urina lysis , dipst ick Leukocytes Negati ve Not Available [address], [address], 12/21/2023 09:51:24 12/21/19 24 12/21/2023 urina lysis , dipst ick Nitrite negati ve Not Available [address], [address], 12/21/2023 09:51:24 12/21/19 24 12/21/2023 urina lysis , dipst ick Urobilinogen .2 Not Available [address], [address], 12/21/2023 09:51:24 12/21/19 24 12/21/2023 urina lysis , dipst ick Protein Negati ve Not Available [address], [address], 12/21/2023 09:51:24 12/21/19 24 12/21/2023 urina lysis , dipst ick pH 7.0 Not Available [address], [address], 12/21/2023 09:51:24 12/21/19 24 12/21/2023 urina lysis , dipst ick Blood Negati ve Not Available [address], [address], 12/21/2023 09:51:24 12/21/19 24 12/21/2023 urina lysis , dipst ick Specific Dugger 1.025 Not Available [address], [address], 12/21/2023 09:51:24 12/21/19 24 12/21/2023 urina lysis , dipst ick Ketone Negati ve Not Available [address], [address], 12/21/2023 09:51:24 12/21/19 24 12/21/2023 urina lysis , dipst ick Glucose Negati ve Not Available [address], [address], 12/21/2023 09:51:24 12/21/19 24 12/21/2023 urina lysis , dipst ick Bilirubin Negati ve Not Available [address], [address], 12/21/2023 09:51:24 12/21/19 24 12/21/2023 urina lysis , dipst ick Appearance Clear Not Available [address], [address], 12/21/2023 09:51:24 12/21/19 24 12/21/2023 urina lysis , dipst ick Color Dark Yellow Not Available [address], [address], 12/21/2023 09:51:24 12/21/19 24 12/21/2023 pregn rosa test, urine HCG positi ve Not Available [address], [address], 12/21/2023 09:51:25 12/23/19 24 US, gallb ladde r No observ ation record ed. [facility] - [address], [place], [address], 12/27/2023 13:25:30 01/20/20 24 01/19/2024 US, obste tric, trans vagin al No observ ation record ed. [email or web address] [facility] [address], [place], [address], 01/23/2024 14:49:16 03/20/20 24 03/20/2024 CT, head, w/o contr ast No observ ation record ed. [email or web address] [facility] [address], [place], [address], 03/23/2024 12:10:53 Result Notes None recorded. Problems Name Problem SNOMED Code Status Onset Date Resolution Date Notes Provider Name and Address Organization Details Recorded Time Acute otitis media 2610106 Active 2022 Deena Sullivan, SENIOR MOBILE APPLICATION DEVELOPER [address] [place], [address] , [employer] 3 10:05:20 Acute sinusiti s 47505573 Active 2022 Problem Code: J01.90; Problem Code Type: ICD-10; GOLDIE VALDES, LEAD INSTALLER-BC [address] [place], [address] , [employer] 3 08:46:40 Candidia sis of vulva 4953179 Completed 202005/18/2022 JOHN lua, [facility] 2 14:56:44 Candidia sis of vulva 3804870 Completed 201803/28/2020 JOHN lua, [employer] 2 14:56:44 Disorder of thyroid gland 03688823 Completed 202002/10/2021 Problem Code: E07.9; Problem Code Type: ICD-10; Not Available [facility] 2 21:48:33 Non-toxi c uninodul ar goiter 603528795 Active 2020 Problem Code: E04.1; Problem Code Type: ICD-10; Not Available [employer] 2 21:48:33 Polycyst ic ovary syndrome 043065200 Active 2021 Problem Code: E28.2; Problem Code Type: ICD-10; Not Available [employer] 2 21:48:33 Dehydrat ion 09708946 Completed 202102/08/2022 Problem Code: E86.0; Problem Code Type: ICD-10; [facility] 21:48:33 Bipolar affectiv e disorder , current episode depressi on 062455903 Active 2018 Not Available [employer] 2 21:48:33 Divertic ulum of [place] an tube 547201614 Completed 201705/20/2018 Problem Code: H69.80; Problem Code Type: ICD-10; Not Available [facility] 2 21:48:33 Divertic ulum of [place] an tube 191653235 Completed 202010/16/2021 Problem Code: H69.81; Problem Code Type: ICD-10; Not Available [facility] 2 21:48:33 Acquired hearing loss 416373047 Completed 201704/19/2019 Not Available [facility] 2 21:48:33 Otalgia of left ear Completed 201701/09/2018 JOHN lua, [employer] 2 14:58:06 Otalgia of left ear Completed 202105/18/2022 JOHN SAN null, [employer] 2 14:58:06 Otogenic otalgia 79428790 Completed 202105/18/2022 JOHN lua, [employer] 2 14:58:11 Otogenic otalgia 50828344 Completed 201701/09/2018 JOHN SAN null, [employer] 2 14:58:11 Acute sinusiti s 01376218 Completed 202002/10/2021 Problem Code: J01; Problem Code Type: ICD-10; GOLDIE VALDES, [facility], [address] , [employer] 3 08:46:40 Acute maxillar y sinusiti s 62101326 Completed 201702/20/2018 Problem Code: J01.00; Problem Code Type: ICD-10; Not Available [facility] 2 21:48:34 Acute frontal sinusiti s 16157534 Completed 201803/28/2020 Problem Code: J01.10; Problem Code Type: ICD-10; Not Available [facility] 2 21:48:34 Acute maxillar y sinusiti s 91579188 Completed 201612/10/2016 Problem Code: J01.00; Problem Code Type: ICD-10; Not Available [facility] 2 21:48:34 Acute maxillar y sinusiti s 74837855 Completed 201702/20/2018 Problem Code: J01.00; Problem Code Type: ICD-10; Not Available [facility] 2 21:48:34 Acute frontal sinusiti s 34308505 Completed 201610/07/2017 Problem Code: J01.10; Problem Code Type: ICD-10; Not Available [facility] 2 21:48:35 Acute sinusiti s 20258911 Completed 201709/26/2017 Problem Code: J01.90; Problem Code Type: ICD-10; TABATHA FARRAR [address] [place] [address], [address] , [employer] 3 08:46:40 Acute sinusiti s 50281796 Completed 202112/03/2021 Problem Code: J01.90; Problem Code Type: ICD-10; TABATHA FARRAR [address] [place] [address], [address] , [employer] 3 08:46:40 Acute sinusiti s 71513768 Completed 201805/18/2022 Problem Code: J01.90; Problem Code Type: ICD-10; TABATHA FARRAR [address] [place] [address], [address] , [employer] 3 08:46:40 Acute pharyngi tis 038984247 Completed 201702/20/2018 Problem Code: J02.8; Problem Code Type: ICD-10; JOHN lua [employer] 2 14:56:10 Acute pharyngi tis 294862723 Completed 201709/08/2018 Problem Code: J02.8; Problem Code Type: ICD-10; JOHN lua [employer] 2 14:56:10 Acute pharyngi tis 225289953 Completed 201805/18/2022 Problem Code: J02.8; Problem Code Type: ICD-10; JOHN SAN null, [employer] 2 14:56:10 Acute pharyngi tis 909746836 Completed 201704/07/2018 Problem Code: J02.8; Problem Code Type: ICD-10; JOHN SAN null, [employer] 2 14:56:10 Acute pharyngi tis 332008627 Completed 201606/01/2017 Problem Code: J02.8; Problem Code Type: ICD-10; JOHN SAN null, [employer] 2 14:56:10 Acute pharyngi tis 081365523 Completed 202010/01/2021 OJHNMARIA A MCKAYNER null, [facility] 2 14:56:10 Acute pharyngi tis 227535303 Completed 202012/01/2020 JOHNMARIA A SAN null, [employer] 2 14:56:10 Acute pharyngi tis 016518975 Completed 201803/28/2020 JOHNMARIA A SAN null, [employer] 2 14:56:10 Acute laryngop haryngit is 71195590 Completed 201707/15/2018 Problem Code: J06.0; Problem Code Type: ICD-10; Not Available [facility] 2 21:48:37 Disorder of upper respirat ory system 184948300 Completed 201805/18/2022 Problem Code: J06.9; Problem Code Type: ICD-10; JOHN MCKAYNER null, [facility] 2 14:45:48 Influenz a 8659211 Completed 201805/18/2022 Problem Code: J11.89; Problem Code Type: ICD-10; JOHN MCKAYNER null, [facility] 2 14:45:58 Acute bronchit is 05766418 Completed 201702/20/2018 Problem Code: J20.9; Problem Code Type: ICD-10; Not Available [facility] 2 21:48:37 Stomatit is 14987649 Completed 201812/03/2021 Problem Code: K12.1; Problem Code Type: ICD-10; Not Available [facility] 2 21:48:37 Solar erythema 992084203 Completed 202005/18/2022 Problem Code: L55.9; Problem Code Type: ICD-10; JOHN SAN [employer] 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 14:55:07 Urinary tract infectio us disease 26190255 Completed 202105/18/2022 Problem Code: N39.0; Problem Code Type: ICD-10; JOHN SAN [place] 2 14:58:29 Pain of breast 46094266 Completed 202002/10/2021 Problem Code: N64.4; Problem Code Type: ICD-10; Not Available [facility] 2 21:48:39 Urinary tract infectio us disease 34803977 Completed 201909/27/2020 Problem Code: N39.0; Problem Code Type: ICD-10; JOHN SAN [place], [facility] 2 14:58:29 Amenorrh ea 20472269 Completed 202111/30/2021 Problem Code: N91.2; Problem Code Type: ICD-10; Not Available [facility] 2 21:48:39 Excessiv e menstrua tion with irregula r cycle 775671256 Completed 201605/12/2017 Not Available [facility] 2 21:48:40 Abnormal uterine bleeding 89562280298 100 Completed 201605/12/2017 Problem Code: N93.8; Problem Code Type: ICD-10; Not Available [facility] 2 21:48:40 Irregula r periods 12412285 Completed 202005/18/2022 JOHNMARIA A SAN [place], [facility] 2 14:57:57 Primary insomnia [id number] Active 2018 Problem Code: F51.01; Problem Code Type: ICD-10; Not Available [facility] 2 21:48:40 Cough [id number] Completed 202002/10/2021 Problem Code: R05; Problem Code Type: ICD-10; JOHN lua, [facility] 2 14:57:11 Cough [id number] Completed 201707/24/2018 Problem Code: R05; Problem Code Type: ICD-10; JOHN MCKAYNER [place], [facility] 2 14:57:11 Cough [id number] Completed 202102/22/2022 Problem Code: R05; Problem Code Type: ICD-10; JHON lua, [facility] 2 14:57:11 Right upper quadrant pain [id number] Completed 202010/01/2021 Problem Code: R10.11; Problem Code Type: ICD-10; Not Available [facility] 2 21:48:41 Cough [id number] Completed 201805/18/2022 Problem Code: R05; Problem Code Type: ICD-10; JOHN SAN null, [facility] 2 14:57:11 Generali zed abdomina l pain 901802447 Completed 202110/16/2022 Problem Code: R10.84; Problem Code Type: ICD-10; JOHN SAN null, [facility] 3 08:12:44 Nausea [id number] Completed 202110/16/2022 Problem Code: R11.0; Problem Code Type: ICD-10; JOHN SAN null, [facility] 3 08:12:44 Nausea [id number] Completed 201708/03/2018 Problem Code: R11.0; Problem Code Type: ICD-10; JOHN SAN null, [facility] 3 08:12:44 Vomiting [id number] Completed 202105/18/2022 JOHN SAN null, [facility] 2 14:58:33 Flatulen ce symptom 446361401 Completed 202005/18/2022 Problem Code: R14.3; Problem Code Type: ICD-10; JOHN SAN null, [facility] 2 14:57:53 Stool color abnormal 597822241 Completed 202105/18/2022 Problem Code: R19.5; Problem Code Type: ICD-10; JOHN SAN null, [facility] 2 14:58:22 Diarrhea 47395542 Completed 202105/18/2022 Problem Code: R19.7; Problem Code Type: ICD-10; JOHN lua, [facility] 2 14:57:19 Nausea [id number] Completed 201712/19/2017 Problem Code: R11.0; Problem Code Type: ICD-10; JOHN lua, [facility] 3 08:12:44 Eruption [id number] Completed 201905/18/2022 Problem Code: R21; Problem Code Type: ICD-10; JOHN lua, [facility] 2 14:57:34 Tremor 83982090 Completed 201803/28/2020 Problem Code: R25.1; Problem Code Type: ICD-10; Not Available [facility] 2 21:48:45 Dysuria 33204919 Completed 202105/18/2022 Problem Code: R30.0; Problem Code Type: ICD-10; JOHN lua, [facility] 2 14:57:26 Diarrhea 44334973 Completed 201601/10/2017 Problem Code: R19.7; Problem Code Type: ICD-10; JOHN lua, [facility] 2 14:57:19 Tremor [id number] Completed 202003/23/2021 Problem Code: R25.1; Problem Code Type: ICD-10; Not Available [facility] 2 21:48:45 Dysuria 96017470 Completed 201909/27/2020 Problem Code: R30.0; Problem Code Type: ICD-10; JOHN lua, [facility] 2 14:57:26 Dysuria [id number] Completed 202111/20/2021 Problem Code: R30.0; Problem Code Type: ICD-10; JOHN SAN [place], [facility] 2 14:57:26 Dysuria [id number] Completed 202003/23/2021 Problem Code: R30.0; Problem Code Type: ICD-10; JOHN lua, [facility] 2 14:57:26 Dizzines s and giddines s [id number] Completed 201804/19/2019 Problem Code: R42; Problem Code Type: ICD-10; Not Available [facility] 2 21:48:47 Asthenia [id number] Completed 201702/20/2018 Problem Code: R53.1; Problem Code Type: ICD-10; Not Available [facility] 21:48:47 Finding of general energy 366800374 Completed 202105/18/2022 Problem Code: R53.83; Problem Code Type: ICD-10; JOHN SAN [place], [facility] 2 14:57:45 Lymphade nopathy [id number] Completed 201701/18/2018 Problem Code: R59.9; Problem Code Type: ICD-10; Not Available [facility] 21:48:48 Finding of general energy 328112750 Completed 202003/23/2021 Problem Code: R53.83; Problem Code Type: ICD-10; JOHN lua, [facility] 2 14:57:45 Finding of general energy [id number] Completed 201803/28/2020 Problem Code: R53.83; Problem Code Type: ICD-10; JOHN SAN [place], [facility] 2 14:57:45 Abnormal weight gain 685035071 Completed 202005/18/2022 Problem Code: R63.5; Problem Code Type: ICD-10; JOHN SAN [place], [facility] 2 14:56:02 Hypergly cemia 87766245 Completed 201702/20/2018 Problem Code: R73.9; Problem Code Type: ICD-10; Not Available [facility] 2 21:48:50 Allergic reaction [id number] Completed 201803/23/2021 Not Available [facility] 2 21:48:50 Abnormal finding on evaluati on procedur e [id number] Completed 201805/18/2022 JOHNMARIA A lua, [facility] 2 14:45:27 Medical examinat ion for suspecte d conditio n Completed 202111/30/2021 Problem Code: Z03.89; Problem Code Type: ICD-10; JOHN lua, [facility] 3 08:12:44 Medical examinat ion for suspecte d conditio n Completed 201910/16/2022 Problem Code: Z03.89; Problem Code Type: ICD-10; JOHN lua, [facility] 3 08:12:44 History and physical examinat ion, sports particip ation Completed 201611/11/2016 Problem Code: Z02.5; Problem Code Type: ICD-10; Not Available [facility] 2 21:48:52 Medical examinat ion for suspecte d conditio n Completed 201909/27/2020 Problem Code: Z03.89; Problem Code Type: ICD-10; JOHN lua, [facility] 3 08:12:44 Medical examinat ion for suspecte d conditio n Completed 201909/27/2020 Problem Code: Z03.89; Problem Code Type: ICD-10; JOHN lua, [facility] 3 08:12:44 Acute sinusiti s [id number] Completed 201803/28/2020 Problem Code: J01.90; Problem Code Type: ICD-10; ROLDAN FARRAR-[address], [address] , [facility] 3 08:46:40 Influenz a vaccine needed [id number] 06 Completed 201909/27/2020 Problem Code: Z23; Problem Code Type: ICD-10; JOHN lua, [facility] 2 14:46:08 Influenz a vaccine needed [id number] 06 Completed 201805/18/2022 Problem Code: Z23; Problem Code Type: ICD-10; JOHN lua, [facility]. 14:46:08 Acute pharyngi tis 237646280 Completed 201803/28/2020 JOHN lua, [facility]. 14:56:10 Acute respirat ory infectio ns 647321220 Completed 202105/18/2022 Problem Code: J22; Problem Code Type: ICD-10; JOHN lua, [facility]. 14:56:22 Body mass index 25-29 - overweig ht 595290093 Active 2019 Problem Code: Z68.29; Problem Code Type: ICD-10; Not Available [facility] 2 21:48:57 Normal body mass index 28881020 Completed 201709/27/2020 Problem Code: Z68.52; Problem Code Type: ICD-10; Not Available [facility] 2 21:48:58 Normal body mass index 97444725 Active 2018 Problem Code: Z68.52; Problem Code Type: ICD-10; Not Available [facility] 2 21:48:58 Normal body mass index 26289517 Completed 201809/27/2020 Problem Code: Z68.52; Problem Code Type: ICD-10; Not Available [facility] 2 21:48:58 Childhoo d obesity 749006419 Completed 202010/27/2020 Problem Code: Z68.54; Problem Code Type: ICD-10; [facility] 2 21:48:59 History of traumati c brain injury 43327909658 100 Active 2018 Problem Code: Z87.820; Problem Code Type: ICD-10; Not Available [facility] 21:48:59 Allergic contact dermatit is 063297502 Completed 201703/06/2018 Problem Code: L23.89; Problem Code Type: ICD-10; Not Available [facility] 2 21:49:00 Overweig ht in childhoo d 367612013 Completed 201909/27/2020 Problem Code: Z68.53; Problem Code Type: ICD-10; Not Available [facility] 21:49:00 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 85689473823 9100 Completed 201804/19/2019 Problem Code: M41.124; Problem Code Type: ICD-10; Not Available [facility] 21:49:01 Dysfunct ion of eustachi an tube [id number] Completed 201705/20/2018 Problem Code: 381.81; Problem Code Type: ICD-9; Not Available [facility] 21:49:02 Hearing loss 96882787 Completed 201702/10/2021 Problem Code: 389.9; Problem Code Type: ICD-9; Not Available [facility] 21:49:03 Precordi al pain 75156766 Completed 201701/18/2018 Problem Code: R07.2; Problem Code Type: ICD-10; Not Available [facility] 2 21:49:04 Acute upper respirat ory infectio n of multiple sites Completed 201707/15/2018 Problem Code: 465.8; Problem Code Type: ICD-9; Not Available [facility] 2 21:49:05 Generali zed abdomina l tenderne ss 827783389 Completed 201601/10/2017 Problem Code: R10.817; Problem Code Type: ICD-10; Not Available [facility] 2 21:49:05 Nausea 820736821 Completed 202110/16/2021 Problem Code: R11.0; Problem Code Type: ICD-10; [facility] 3 08:12:44 Nausea [id number] Completed 201601/10/2017 Problem Code: R11.0; Problem Code Type: ICD-10; JOHN lua, [facility] 3 08:12:44 Diarrhea 35563648 Completed 201712/19/2017 Problem Code: R19.7; Problem Code Type: ICD-10; JOHN SAN [place], [facility] 2 14:57:19 Tibialis tendinit is [id number] Completed 201709/01/2018 Problem Code: 726.72; Problem Code Type: ICD-9; Not Available [facility] 2 21:49:07 Pain in limb 41939931 Completed 201702/10/2021 Problem Code: 729.5; Problem Code Type: ICD-9; Not Available [facility] 2 21:49:07 Idiopath ic scoliosi s AND/OR kyphosco liosis Completed 201602/10/2021 Problem Code: 737.30; Problem Code Type: ICD-9; Not Available [facility] 2 21:49:08 Malaise and fatigue 216010336 Completed 201702/20/2018 Problem Code: 780.79; Problem Code Type: ICD-9; Not Available [facility] 2 21:49:09 Eruption [id number] Completed 201703/06/2018 Problem Code: 782.1; Problem Code Type: ICD-9; JOHN SAN [employer] 2 14:57:34 Dysfunct ional uterine bleeding Completed 201605/12/2017 Problem Code: 626.8; Problem Code Type: ICD-9; Not Available [facility] 2 21:49:11 Generali zed abdomina l pain 732662377 Completed 201601/10/2017 Problem Code: 789.07; Problem Code Type: ICD-9; JOHN MENA lua, [facility] 3 08:12:44 Finding of general energy 917352760 Completed 201803/28/2020 Problem Code: R53.83; Problem Code Type: ICD-10; JOHNMARIA A lua, [facility] 2 14:57:45 Examinat ion for suspecte d tubercul osis Completed 202111/30/2021 Problem Code: V71.2; Problem Code Type: ICD-9; Not Available [facility] 2 21:49:13 Well child 922983900 Completed 201905/18/2022 JOHNMARIA A lua, [facility] 2 14:55:51 Normal weight 91491011 Completed 201702/10/2021 Problem Code: V85.52; Problem Code Type: ICD-9; Not Available [facility] 21:49:16 Medical examinat ions/rep orts Completed 201611/11/2016 Not Available [facility] 2 21:49:17 Panic disorder without agorapho nickie 41493244 Completed 201702/10/2021 Problem Code: 300.01; Problem Code Type: ICD-9; Not Available [facility] 2 21:49:18 Disorder of lung 40437766 Completed 201702/10/2021 Problem Code: 518.89; Problem Code Type: ICD-9; Not Available [facility] 2 21:49:19 Glucose level outside referenc e range 115867523 Completed 201702/20/2018 Problem Code: 790.29; Problem Code Type: ICD-9; Not Available [facility] 2 21:49:20 Examinat ion for suspecte d tubercul osis Completed 201907/09/2020 Problem Code: V71.2; Problem Code Type: ICD-9; Not Available [facility] 2 21:49:21 Problem Notes None recorded. Procedures Surgical History Date Name Laterality Status Provider Name and Address Organization Details Recorded Time esophagogastroduodenoscopy completed GABRIELLA ANDERSEN [facility]. 3 08:33:02 Imaging Results Imaging Date Name Status LastModified by Organization Details LastModified Time 12/23/2023 US, gallbladder completed [address], [place], [address], 12/27/2023 13:25:30 01/19/2024 US, obstetric, transvaginal completed [address], [place], [address], 01/23/2024 14:49:16 03/20/2024 CT, head, w/o contrast completed [address], [place], [address], 03/23/2024 12:10:53 Procedure Notes None recorded. Medical Equipment None Reported. Allergies Allergen ID Allergen Name Allergen Category Reaction Reaction Severity Criticality Documentation Date Start Date Code Code System Note Provider Name and Address Organization Details Recorded Time 14293 Augmentin medicatio n Not available Not available Not available 05/11/2022 41392 2 RxNorm Not Available [facility] 2 22:55:03 97262 azithromy vlad medicatio n Not available Not available Not available 02/12/2023 21246 [facility] [employer]. 4 13:01:01 23017 doxycycli ne Not available Not available Not available Not available 03/02/2023 3640 Rx[facility] [employer]. 3 08:30:32 Medications Name Sig Start Date Stop Date Status Note LastModified by Organization Details LastModified Time Singulair 10 mg tablet Take 1 tablet every day by oral route. 02/07 completed Not Available Not Available Not Available amoxicillin 500 mg capsule TAKE 1 CAPSULE EVERY 8 HOURS FOR 7 DAYS 04/16 completed Not Available Not Available Not Available medroxyprog esterone 10 mg tablet TAKE 1 TABLET 1 TIME EACH DAY 09/13 completed Not Available Not Available Not Available hydrocortis one 0.5 % topical cream apply a thin layer to the affected area(s) by topical route 2 times per day 06/17 completed Not Available Not Available Not Available metformin 500 mg tablet TAKE 1 TABLET 2 TIMES EACH DAY 09/13 completed Not Available Not Available Not Available Augmentin 875 mg-125 mg tablet Take 1 tablet(s) by mouth q12h for 10 days 08/12 completed Not Available Not Available Not Available promethazin e-DM 6.25 mg-15 mg/5 mL oral syrup Take 1 teaspoonf ul by mouth every 6 hours as needed. 09/08 completed Not Available Not Available Not Available prednisone 10 mg tablet take 1 tablet (10 mg) by oral route 3 times per day x3 days 11/20 completed Not Available Not Available Not Available doxycycline hyclate 100 mg capsule TAKE 1 CAPSULE 2 TIMES EACH DAY FOR 10 DAYS 10/16 completed Not Available Not Available Not Available clindamycin HCl 300 mg capsule TAKE 1 CAPSULE 2 TIMES EACH DAY FOR 7 DAYS 05/31 completed Not Available Not Available Not Available trazodone 50 mg tablet take 1 tablet (50 mg) by oral route 3 times per day 06/20 completed Not Available Not Available Not Available cetirizine 10 mg tablet 1 po daily 03/23 completed Not Available Not Available Not Available azithromyci n 250 mg tablet TAKE 2 TABLETS by mouth ON THE FIRST DAY, THEN TAKE 1 TABLET EACH DAY ON THE NEXT 4 DAYS. 03/02 completed Not Available Not Available Not Available fluconazole 150 mg tablet take 1 tablet (150 mg) by oral route once 03/23 completed Not Available Not Available Not Available doxepin 25 mg capsule DOXEPIN HCL CAP 25MG 10/27 completed Medic ation ID: ''; Medic ation Name: 'DOXE PIN HCL CAP 25MG' ; Almita ptTyp e: ''; Not Available Not Available Not Available prazosin 1 mg capsule TAKE 1 CAPSULE 1 TIME EACH DAY AT BEDTIME 05/18 completed Not Available Not Available Not Available prednisone 5 mg tablet 7pills po today and decrease by one q day 02/20 completed Not Available Not Available Not Available dextrometho rphan-guaif enesin 10 mg-100 mg/5 mL oral syrup Take 1 teaspoon by mouth q4h prn for cough 10/20 completed Not Available Not Available Not Available sulfamethox azole 800 mg-trimetho prim 160 mg tablet take 1 tablet by oral route every 12 hours for 10 days 11/09 completed Not Available Not Available Not Available omeprazole 40 mg capsule,del ayed release TAKE 1 CAPSULE 1 TIME EACH DAY 02/07 completed Not Available Not Available Not Available quetiapine 100 mg tablet take 1 tablet (100 mg) by oral route q HS 05/18 completed Not Available Not Available Not Available triamcinolo ne acetonide 0.1 % topical cream Apply thin film to affected area bid 04/21 completed Not Available Not Available Not Available amoxicillin 500 mg tablet take 1 tablet (500 mg) by oral route every 12 hours for 10 days 07/17 completed Not Available Not Available Not Available prednisone 10 mg tablets in a dose pack as directed on pack 03/21 completed Not Available Not Available Not Available Zofran 4 mg tablet EVERY 6 HOURS NEEDED N/V 09/18 completed Not Available Not Available Not Available amoxicillin 875 mg tablet Take 1 tablet(s) by mouth q12h for 10 days 10/20 completed Not Available Not Available Not Available triamcinolo ne acetonide 0.1 % dental paste apply to the affected area tid 02/11 completed Not Available Not Available Not Available doxycycline monohydrate 100 mg capsule Take 1 capsule twice a day by oral route as directed for 10 days. 03/02 completed Not Available Not Available Not Available cephalexin 500 mg capsule TAKE 1 CAPSULE 2 TIMES EACH DAY FOR 10 DAYS 05/18 completed Not Available Not Available Not Available oseltamivir 75 mg capsule Take 1 capsule twice a day by oral route for 5 days, for FLU. 09/13 completed Not Available Not Available Not Available buspirone 10 mg tablet TAKE 1/2 TABLET 1 TIME EACH DAY AT BEDTIME FOR 5 DAYS. THEN, TAKE 1/2 TABLET 2 TIMES EACH DAY FOR 5 DAYS. THEN, TAKE 1 TABLET 2 TIMES EACH DAY. 05/18 completed Not Available Not Available Not Available sulfamethox azole 200 mg-trimetho prim 40 mg/5 mL oral suspension take 20 millilite rs by oral route every 12 hours for 10 days 09/27 completed Not Available Not Available Not Available omeprazole 20 mg capsule,del ayed release 1 po daily before evening meal 09/18 completed Not Available Not Available Not Available hydroxyzine HCl 25 mg tablet one po q hs and then after 2 weeks take one po bid 12/26 completed Not Available Not Available Not Available ibuprofen 600 mg tablet TAKE 1 TABLET EVERY 6 HOURS NEEDED FOR PAIN 12/20 completed Not Available Not Available Not Available letrozole 2.5 mg tablet TAKE 1 TABLET 1 TIME EACH DAY ON DAYS 3 THROUGH 7 OF YOUR MENSTRUAL CYCLE 09/13 completed Not Available Not Available Not Available methylpredn isolone 4 mg tablets in a dose pack TAKE ACCORDING TO PACKAGE INSTRUCTI ONS 05/18 completed Not Available Not Available Not Available Naprosyn 500 mg tablet Take 1 tablet(s) by mouth bid 10/01 completed Not Available Not Available Not Available bromphenira mine-pseudo ephedrine-D M 2 mg-30 mg-10 mg/5 mL oral syrup TAKE 5 ML (1 TEASPOONF UL) EVERY 6 HOURS NEEDED FOR COUGH 05/18 completed Not Available Not Available Not Available ondansetron 4 mg disintegrat ing tablet PLACE 1 TABLET UNDER THE TONGUE AND ALLOW TO DISSOLVE EVERY 4 TO 6 HOURS NEEDED FOR NAUSEA AND VOMITING 02/07 completed Not Available Not Available Not Available cefdinir 300 mg capsule 2 capsules po after the evening meal, once a day 02/20 completed Not Available Not Available Not Available Sudafed 12 Hour 120 mg tablet,exte nded release Take 1 tablet(s) by mouth q12h 01/04 completed Not Available Not Available Not Available prazosin 2 mg capsule TAKE 1 CAPSULE 1 TIME EACH DAY AT BEDTIME 02/11 completed Not Available Not Available Not Available hydroxyzine pamoate 25 mg capsule TAKE 1 CAPSULE 1 TIME EACH DAY AT BEDTIME NEEDED FOR SLEEP 09/13 completed Not Available Not Available Not Available Benadryl 25 mg capsule Take 1 capsule(s ) by mouth q 4 to 6 hr prn 10/27 completed Not Available Not Available Not Available Cryselle (28) 0.3 mg-30 mcg tablet Take 1 tablet(s) by mouth daily as directed. 01/10 completed Not Available Not Available Not Available escitalopra m 10 mg tablet TAKE 1 AND 1/2 TABLETS 1 TIME EACH DAY 02/11 completed Not Available Not Available Not Available escitalopra m 20 mg tablet TAKE 1 TABLET 1 TIME EACH DAY active Not Available Not Available No t Available Sprintec (28) 0.25 mg-35 mcg tablet TAKE 1 TABLET 1 TIME EACH DAY. TAKE THE BLUE PILLS CONTINUOU SLY. DO NOT TAKE THE WHITE INACTIVE PILLS. 09/13 completed Not Available Not Available Not Available aripiprazol e 5 mg tablet TAKE 1 TABLET 1 TIME EACH DAY AT BEDTIME 05/18 completed Not Available Not Available Not Available escitalopra m 5 mg tablet TAKE 1 TABLET 1 TIME EACH DAY 05/18 completed Not Available Not Available Not Available citalopram 03/26 completed Medic ation ID: '[id number]'; Medic ation Name: 'Ciera lopra m [facility] bromi de'; Almita ptTyp e: 'RXNO RM_ID '; Not Available Not Available Not Available Trileptal 03/26 completed Not Available Not Available Not Available drospirenon e 3 mg-ethinyl estradiol 0.02 mg tablet TAKE 1 TABLET 1 TIME EACH DAY 10/28 completed Not Available Not Available Not Available quetiapine 50 mg tablet take 1 tablet (50 mg) by oral route q HS 03/02 completed Not Available Not Available Not Available Xyzal 5 mg tablet Take tablet(s) by mouth each evening 05/20 completed Not Available Not Available Not Available cetirizine 10 mg capsule Take 1 capsule(s ) by mouth daily 08/08 completed Not Available Not Available Not Available vitamin #56-iron 35 mg and 5 mg-folic acid 1 mg-dha capsule Take 1 capsule every day by oral route. 2023 active Not Available Not Available Not Avai lable Flonase Allergy Relief 50 mcg/actuati on nasal spray,suspe nsion Saltese 1 spray every day by intranasa l route. 02/07 completed Not Available Not Available Not Available Taytulla 1 mg-20 mcg (24)/75 mg (4) capsule Take 1 capsule(s ) by mouth daily as directed. 06/20 completed Not Available Not Available Not Available Sodium Fluoride 5000 Plus 1.1 % dental cream USE INSTEAD OF REGULAR TOOTHPAST E TO BRUSH FOR 2 MINUTES AT BEDTIME. WHEN DONE, SPIT TOOTHPAST E OUT. DO NOT RINSE, EAT OR DRINK FOR 30 MINUTES. 03/02 completed Not Available Not Available Not Available [facility] COVID-19 Antigen Rapid Home Test kit USE DIRECTED 02/11 completed Not Available Not Available Not Available Vitals Date Recorded Body height Body mass index (BMI) Percentile per age and sex Body mass index (BMI) Body weight Heart rate Oxygen saturation Oxygen saturation in Arterial blood by Pulse oximetry Systolic blood pressure Diastolic blood pressure Provider Name and Address Organization Details Last Updated DateTime 4 160.02 cm 95 % 32.4 kg/m2 10721.4 g 82 /min 98 % 98 % 107 mm[Hg] 71 mm[Hg] Loretta Borden [facility] [employer] 4 15:40:45 Date Recorded Body height Body mass index (BMI) Body mass index (BMI) Percentile per age and sex Body weight Body temperature Heart rate Oxygen saturation Oxygen saturation in Arterial blood by Pulse oximetry Systolic blood pressure Diastolic blood pressure Provider Name and Address Organization Details Last Updated DateTime 4 160.02 cm 32.7 kg/m2 95 % 44355.1 5 g 98.2 [degF] 82 /min 98 % 98 % 114 mm[Hg] 69 mm[Hg] JAE GONZALEZ [employer] 4 09:43:28 Date Recorded Body height Body mass index (BMI) Percentile per age and sex Body mass index (BMI) Body weight Body temperature Heart rate Oxygen saturation Oxygen saturation in Arterial blood by Pulse oximetry Systolic blood pressure Diastolic blood pressure Provider Name and Address Organization Details Last Updated DateTime 4 160.02 cm 94 % 31.8 kg/m2 36125.9 1 g 98.4 [degF] 92 /min 97 % 97 % 108 mm[Hg] 71 mm[Hg] JAE CARLOS [employer] 4 09:38:30 Date Recorded Body height Body mass index (BMI) Percentile per age and sex Body mass index (BMI) Body weight Body temperature Heart rate Oxygen saturation Oxygen saturation in Arterial blood by Pulse oximetry Systolic blood pressure Diastolic blood pressure Provider Name and Address Organization Details Last Updated DateTime 4 160.02 cm 93 % 30.5 kg/m2 86788.8 9 g 98.9 [degF] 10 /min 96 % 96 % 111 mm[Hg] 68 mm[Hg] GABRIELLA ANDERSEN [employer] 4 13:04:02 Date Recorded Body height Heart rate Oxygen saturation Oxygen saturation in Arterial blood by Pulse oximetry Systolic blood pressure Diastolic blood pressure Provider Name and Address Organization Details Last Updated DateTime 4 160.02 cm 103 /min 96 % 96 % 112 mm[Hg] 74 mm[Hg] Loretta Borden [employer] 4 13:57:58 Social History Question Answer Notes LastModified by Organizat ion Details LastModified Time Tobacco Smoking Status Never Smoker JOHN lua [facility]. 05/18/2022 14:48:55 Do You Have An Advance Directive? No [email or web address] Information not available 05/18/2022 Is Your Home Air Conditioned? Yes [email or web address] Information not available 10/16/2022 What Is Your Level Of Alcohol Consumption? None [email or web address] Information not available 05/18/2022 Do You Wear A Helmet When Biking? No Information not available 03/02/2023 Are You Blind Or Do You Have Difficulty Seeing? No [email or web address] Information not available 05/31/2022 What Is Your Level Of Caffeine Consumption? Occasional [email or web address] Information not available 03/02/2023 Are You A Caregiver? No [email or web address] Information not available 10/16/2022 In The 14 Days Before Symptom Onset, Have You Had Close Contact With A Laboratory-confir med COVID-19 While That Case Was Ill? No Information not available 10/16/2022 In The 14 Days Before Symptom Onset, Have You Had Close Contact With A Person Who Is Under Investigation For COVID-19 While That Person Was Ill? No [email or web address] Information not available 10/16/2022 Have You Been To An Area Known To Be High Risk For COVID-19? No [email or web address] Information not available 10/16/2022 Are You Currently Employed? No [email or web address] Information not available 05/18/2022 Are You Deaf Or Do You Have Serious Difficulty Hearing? No [email or web address] Information not available 05/31/2022 What Type Of Diet Are You Following? REGULAR [email or web address] Information not available 03/02/2023 Do You Or Have You Ever Used E-cigarettes Or Vape? Current User Of Electronic Cigarettes [email or web address] Information not available 05/18/2022 What Is The Highest Grade Or Level Of School You Have Completed Or The Highest Degree You Have Received? [id number] [email or web address] Information not available 05/18/2022 Are There Any Guns Present In Your Home? No [email or web address] Information not available 03/02/2023 Do You Have A Medical Power Of Social Work Associate? No Information not available 05/18/2022 What Was The Date Of Your Most Recent Tobacco Screening? 04/16/2024 Information not available 04/16/2024 What Is Your Relationship Status? Single [email or web address] Information not available 05/18/2022 Do You Use Your Seat Belt Or Car Seat Routinely? Yes [email or web address] Information not available 05/18/2022 Are You Sexually Active? Yes [email or web address] Information not available 05/18/2022 Do You Have Smoke And Carbon Monoxide Detectors In Your Home? Yes [email or web address] Information not available 10/16/2022 Are You Passively Exposed To Smoke? No [email or web address] Information no t available 03/02/2023 Do You Or Have You Ever Used Smokeless Tobacco? Never Used Smokeless Tobacco [email or web address] Information not available 05/18/2022 Are There Any Smokers In Your House? No [email or web address] Information not available 03/02/2023 Do You Participate In Social Evomail? Yes [email or web address] Information not available 03/02/2023 Do You Feel Stressed (tense, Restless, Nervous, Or Anxious, Or Unable To Sleep At Night)? [id number] [email or web address] Information not available 03/02/2023 Do You Use Any Illicit Or Recreational Drugs? No [email or web address] Information not available 05/18/2022 Do You Use Sunscreen Routinely? No [email or web address] Information not available 03/02/2023 Has Tobacco Cessation Counseling Been Provided? No Information not available 02/11/2023 Have You Recently Traveled Abroad? No Information not available 10/16/2022 Are You Currently In School? No [email or web address] Information not available 05/18/2022 Do You Or Have You Ever Used Any Other Forms Of Tobacco Or Nicotine? Yes [email or web address] Information not available 05/18/2022 Sex: Female Functional Status Question Answer Note LastModified by Organizat ion Details LastModified Time Do you have difficulty walking or climbing stairs? No [email or web address] Information not available 05/31/2022 Do you have transportation difficulties? No Information not available 05/31/2022 Are you able to walk? YESWOREST [email or web address] Information not available 05/31/2022 Do you have difficulty doing errands alone? No [email or web address] Information not available 05/31/2022 Are you able to care for yourself? Yes [email or web address] Information not available 05/31/2022 Do you have difficulty dressing or bathing? No [email or web address] Information not available 05/31/2022 Mental Status Question Answer Note LastModified by Organization D etails LastModified Time Do you have difficulty concentrating, remembering or making decisions? No [email or web address] Information no t available 05/31/2022 Family History Relationship Description Onset Age of this Age Resolved Age Notes LastModified by Organization Details LastModified Time Mother History of depression [email or web address] Not available 15:25:31 Mother Asthma [email or web address] Not available 05/18/2022 14:47:25 Medical History Condition Response Allergies (Food, seasonal, environmental ) Y Hospitalizations N Emergency room visit since last appointm ent. N Polycystic ovary syndrome Y Depression Y Gynecological History Statement/Question Response Date of Last Pap Smear Current Control Method BCPs Most Recent Mammogram Obstetrics History GPAL:G 0 P 0 0 0 0 Immunizations Vaccine Type Date Status Provider Name and Address Organization Details Recorded Time HPV, quadrivalent 02/25/2015 completed Not Available [facility] 05/11/2022 23:21:03 HPV, quadrivalent 04/11/2014 completed Not Available [facility] 05/11/2022 23:21:04 HPV, quadrivalent 06/27/2014 completed Not Available [facility] 05/11/2022 23:21:04 varicella 04/03/2007 completed Not Available [facility] 23:21:04 varicella 04/13/2004 completed Not Available [facility] 23:21:04 MMR 04/03/2007 completed Not Available [facility] 23:21:04 MMR 07/01/2004 completed Not Available [facility] 23:21:04 Pneumococcal conjugate PCV 13 2003 completed Not Available [facility] 05/11/2022 23:21:04 IPV 2003 completed Not Available [facility] 23:21:04 Pneumococcal conjugate PCV 13 2003 completed Not Available [facility] 05/11/2022 23:21:04 Pneumococcal conjugate PCV 13 2003 completed Not Available [facility] 05/11/2022 23:21:04 IPV 04/03/2007 completed Not Available [facility] 23:21:04 IPV 2003 completed Not Available [facility] 23:21:04 IPV 07/01/2004 completed Not Available [facility] 23:21:04 IPV 2003 completed Not Available [facility] 23:21:05 Hep A, ped/adol, 2 dose 02/25/2015 completed Not Available [facility] 05/11/2022 23:21:05 Hep A, ped/adol, 2 dose 04/11/2014 completed Not Available [facility] 05/11/2022 23:21:05 Tdap 04/11/2014 completed Not Available [facility] 23:21:05 COVID-19, mRNA, LNP-S, PF, 100 mcg/0.5mL dose or 50 mcg/0.25mL dose 04/09/2021 completed GABRIELLA lua, [employer] 03/02/2023 08:25:40 COVID-19, mRNA, LNP-S, PF, 100 mcg/0.5mL dose or 50 mcg/0.25mL dose 05/07/2021 completed GABRIELLA lua, [employer] 03/02/2023 08:25:40 meningococcal MCV4P 04/11/2014 completed Not Available [facility] 05/11/2022 23:21:05 Hib, unspecified formulation 2003 completed Not Available [facility] 05/11/2022 23:21:05 Hib, unspecified formulation 04/13/2004 completed Not Available [facility] 05/11/2022 23:21:05 Hib, unspecified formulation 2003 completed Not Available [facility] 05/11/2022 23:21:05 Hib, unspecified formulation 2003 completed Not Available [facility] 05/11/2022 23:21:05 Hep B, adult 2003 completed Not Available [facility] 09/13/2023 16:47:36 Hep B, adult 2003 completed Not Available [facility] 09/13/2023 16:47:36 Hep B, adult 2003 completed Not Available [facility] 09/13/2023 16:47:36 Influenza, split virus, trivalent, PF 09/16/2007 completed Not Available [facility] 09/13/2023 16:47:36 Influenza, split virus, trivalent, PF 06/26/2008 completed Not Available [facility] 09/13/2023 16:47:36 meningococcal MCV4P 03/30/2019 completed Not Available [facility] 09/13/2023 16:47:36 DTaP 2003 completed Not Available [facility] 16:47:36 DTaP 04/03/2007 completed Not Available [facility] 16:47:36 DTaP 2003 completed Not Available [facility] 16:47:36 DTaP 07/01/2004 completed Not Available [facility] 16:47:36 DTaP 2003 completed Not Available [facility] 16:47:36 Influenza, MDCK, quadrivalent, PF 06/19/2020 completed Not Available [facility] 05/11/2022 23:21:06 Influenza, split virus, trivalent, preservative 06/08/2019 completed Not Available [facility] 09/13/2023 16:47:36 Influenza, split virus, quadrivalent, preservative 06/27/2015 completed GABRIELLA lua, [employer] 03/02/2023 08:25:40 COVID-19, mRNA, LNP-S, PF, 100 mcg/0.5mL dose or 50 mcg/0.25mL dose 10/12/2021 completed GABRIELLA lua [employer] 03/02/2023 08:25:40 COVID-19, mRNA, LNP-S, PF, 100 mcg/0.5mL dose or 50 mcg/0.25mL dose 04/16/2022 completed GABRIELLA lua, [employer] 03/02/2023 08:25:40 influenza, unspecified formulation 09/16/2007 completed GABRIELLA lua, [employer] 03/02/2023 08:25:40 influenza, unspecified formulation 06/26/2008 completed GABRIELLA lua, [employer] 03/02/2023 08:25:40 Hep B, unspecified formulation 2003 completed GABRIELLA ANDERSEN null, [employer] 03/02/2023 08:25:40 Hep B, unspecified formulation 2003 completed GABRIELLA ANDERSEN null, [employer] 03/02/2023 08:25:40 Hep B, unspecified formulation 2003 completed GABRIELLA ANDERSEN null, [employer] 03/02/2023 08:25:40 TST-PPD intradermal 11/27/2021 completed ANGELINA [place] ANDERSEN null, [employer] 03/02/2023 08:25:40 Influenza, split virus, trivalent, preservative 06/23/2009 completed GABRIELLAVADIM ANDERSEN null, [employer] 03/02/2023 08:25:40 Influenza, split virus, trivalent, preservative 06/26/2008 completed GABRIELLAVADIM ANDERSEN null, [employer] 03/02/2023 08:25:40 Influenza, split virus, trivalent, preservative 06/28/2011 completed GABRIELLA ANDERSEN null, [employer] 03/02/2023 08:25:40 Influenza, split virus, trivalent, preservative 06/30/2010 completed GABRIELLA ANDERSEN null, [employer] 03/02/2023 08:25:40 Influenza, split virus, trivalent, preservative 07/01/2014 completed GABRIELLAVADIM ANDERSEN null, [employer] 03/02/2023 08:25:40 Influenza, split virus, trivalent, preservative 07/10/2012 completed GABRIELLAVADIM ANDERSEN null, [employer] 03/02/2023 08:25:40 Influenza, split virus, trivalent, preservative 07/25/2013 completed GABRIELLAVADIM ANDERSEN null, [employer] 03/02/2023 08:25:40 Influenza, split virus, trivalent, PF 06/20/2017 completed GABRIELLAVADIM ANDERSEN null, [employer] 03/02/2023 08:25:40 Meningococcal MCV4O 03/30/2019 completed ANGELINA [place] NATHALY null, [employer] 03/02/2023 08:25:40 DTaP, unspecified formulation 2003 completed GABRIELLA NATHALY null, [employer] 03/02/2023 08:25:40 DTaP, unspecified formulation 04/03/2007 completed GABRIELLA ANDERSEN null, [employer] 03/02/2023 08:25:40 DTaP, unspecified formulation 2003 completed GABRIELLA ANDERSEN null, [employer] 03/02/2023 08:25:40 DTaP, unspecified formulation 07/01/2004 completed GABRIELLA ANDERSEN null, [employer] 03/02/2023 08:25:40 DTaP, unspecified formulation 2003 completed GABRIELLA ANDERSEN null, [employer] 03/02/2023 08:25:40 meningococcal MCV4, unspecified formulation 04/11/2014 completed GABRIELLA ANDERSEN null, [employer] 03/02/2023 08:25:40 Influenza, split virus, quadrivalent, PF 06/08/2019 completed GABRIELLA ANDERSEN null, [employer] 03/02/2023 08:25:40 Past Encounters Encounter ID Performer Location Encounter Start Date Encounter Closed Date Diagnosis/Indication Diagnosis SNOMED-CT Code Diagnosis ICD10 Code [id number] [place] [address] 05/18/2022 14:27:22 05/18/2022 15:45:51 Acute urinary tract infection 591735423 N39.0 Acute sinusitis 26484145 J01.90 Body mass index 30+ - obesity 694117944 Z68.30 [id number] [place] [address] 05/31/2022 14:24:29 05/31/2022 14:48:31 Lower respiratory tract infection 53953440 J22 Cough 56482473 R05.9 [id number] Sia Mg [place] [id number] [place] [address] 10/16/2022 08:18:46 10/16/2022 08:54:58 Acute sinusitis 75488180 J01.90 Body mass index 30+ - obesity 637643062 Z68.30 [id number] Sia Mg [address] [place] [address] 10/28/2022 09:08:28 10/28/2022 11:31:42 Acute sinusitis 61907187 J01.90 Allergic rhinitis 422109 04 J30.9 Body mass index 30+ - obesity 377531896 Z68.30 [id number] Sia Mg [address] [place] [address] 02/11/2023 09:10:50 02/11/2023 09:51:28 Acute otitis media 6063013 H66.90 Body mass index 30+ - obesity 124233622 Z68.30 [id number] GOLDIE VALDES, [address] [place] [address] 03/02/2023 08:24:06 03/02/2023 08:55:31 Acute sinusitis 01419727 J01.[id number] [place] [address] 03/21/2023 14:55:46 03/21/2023 16:04:07 Injury of head 50616323 S09.90XA Body mass index 30+ - obesity 728340663 Z68.30 [id number] Sia Mg [address] [place] [address] 04/18/2023 13:33:04 04/18/2023 15:40:09 Abdominal pain 22246417 R10.9 Irritable bowel syndrome 29262582 K58.9 Body mass index 30+ - obesity 209059554 Z68.30 [id number] Laisha Osborne [address] [place] [address] 09/10/2023 11:22:12 09/10/2023 12:00:09 Cough 00763507 R05.9 Influenza caused by Influenza A virus 612570032 J09.X2 [id number] [place] [address] 09/13/2023 16:46:51 09/13/2023 17:38:07 Allergic rhinitis 56711277 J30.9 Body mass index 30+ - obesity 514150880 Z68.30 [id number] Sia Mg [place] [address] 11/03/2023 15:25:29 11/03/2023 16:24:08 Pain in left lower limb 555854882 M79.605 Multiple skin tags 84429 7009 L91.8 Body mass index 30+ - obesity 822774463 Z68.30 [id number] [place] [address] 12/02/2023 09:34:42 12/02/2023 10:41:08 Acute sinusitis 06962993 J01.90 [id number] [place] [address] 12/21/2023 09:27:23 12/21/2023 13:24:25 Right upper quadrant pain 284605145 R10.11 test positive 170433647 Z32.01 [id number] GOLDIE VALDES, [place] [address] 02/08/2024 12:56:00 02/08/2024 13:20:57 Acute sinusitis 51406780 J01.90 [id number] [place] [address] 04/16/2024 13:51:07 04/16/2024 14:03:29 Allergic rhinitis 39969255 J30.9 Body mass index 30+ - obesity 622226271 Z68.30 Health Concerns Section Related Observation LastModified by Organization Detai ls LastModified Time None Recorded Concern Status LastModified by Organization Details LastModified Time None Recorded Advance Directives Directive N: Payers Encounter Date Sequence Insurance Name Policy Number Policy Brar Covered Member ID Brar Member ID Guarantor Name 11/03/2023 1 [employer] December L Paige [id number] December Paige 12/02/2023 1 [employer] Paige [id number] December Paige 12/21/2023 1 [employer] Paige [id number] December Paige 02/08/2024 1 [employer] [facility] (MEDICAID REPLACEMENT - HMO) December Paige [id number] Decemberens04/16/2024 1 [facility] ([facility]ICA[facility]) December L Paige [id number] December Notes Date Note Type Note Provider Name and Address Organization Details Recorded Time 11/03/2023 text/html pt here today wi th c/o left foot burning and tingling for a long time that is getting worse and skin tags. pt states that she has 2 skin tags that she would like removed. on exam, pt has a cluster of skin tags to left neck that is barely raised and a skin tag to left underarm. pt wasnt put in a procedure appt and pt is coming back for this procedure. pt states that she has sprained her left foot many times due to some falls and now her lateral foot has a burning and tingling sensation. pt also states that it was on/off and now it is getting more frequent and starting to go up her leg. pt denies any numbness. on exam, pt has good color, good pulses, some tenderness to palpitation, more burning with flexion and turning to left. advised pt to get a brace to wear at night and i will order a nerve conduction study to r/o any nerve issues. Sia Mg APRN [address] [facility], [place], [address], [facility] [email or web address] 11/03/2023 16:29:27 12/02/2023 text/html Upper Respirator y SymptomsReported bypatient.Location:hea d; chest; throat; nasal; face Quality:productive cough;congested;nasal discharge Severity:moderate Duration:symptoms lasting less than 2 weeks Onset/Timing:gradual; date of onset: (10 days ago) Context:no sick contacts; no foreign travel; non-smoker;allergies Alleviating Factors:analgesics; antihistamines; decongestant Associated Symptoms:yellow sputum;morning cough;headache Laisha Osborne APRN [address] [place], [address], [employer]. 12/02/2023 13:04:27 12/21/2023 text/html Abdominal PainRe ported bypatient.Location:RUQ ; epigastric Quality:bloating;burni ng;tender Severity:severe; pain level 7/10 Duration:intermittent Onset/Timing:acute; started: (one month ago); within 1 hour of eating Context:family history of IBD Aggravating Factors:eating and drinking; specific foods: (fried and acidic foods) Associated Symptoms:no fever; no chills; no blood in the urine; no shortness of breath; no constipation; no blood in stool;heartburn;nausea ;vomiting;diarrhea;dec reased appetite; no jaundice; no dysuria;fatigue;weight loss; no cough;changes in stool(bright orange liquid stools); no urinary frequency; no orthopnea; no exertional dyspnea; no menstrual symptoms Other:denies possible Previous Tests, Treatment and/or Diagnostic Procedures:OTC medications She states she had some type of ablation for possible endometriosis (?) in June 2023 at [facility] with Dr Hayde Gant. She states Dr Gant told her she would likely never achieve or have regular periods. Her LMP was 2 days of light spotting approximately 2 months ago. Laisha Osborne APRN [address] [place], [address], [employer]. 12/21/2023 10:18:25 02/08/2024 text/html Three week histo ry of whooshing sound in her left ear. Feels like her head is being squeezed. Drainage is worse when she wakes up. No cough. No sore throat. 14 weeks . CLAY FARRARBC [address] [place], [address], [employer] 02/08/2024 13:17:47 04/16/2024 text/html pt here today wi th c/o increased allergy symptoms and requests to be referred back to [facility]. pt states that she used to get allergy injections up to around 4 years ago and she can see that her allergies are getting worse. she takes her allergy meds and it doesnt seem to help. pt states that she either has runny nose, stuffy nose, drainage in her throat or sinus headache. i will place referral today. Sia Mg APRN [address] [place], [address], [employer] 04/16/2024 14:48:26 OBGyn Episode No OBEpisode recorded.
[2024-08-07 08:33] VITALS: BP 116/72; PULSE 89; RESP 16; TEMP 36.7; O2SAT 99
--- NOTE | 2024-08-07 08:35 | P.PNANES_ITS ---
[facility] Anesthesia Record Part II Anesthesia Record Part II Discharge Time: 12:00 Destination: Obstetric PACU nurse assessment reviewed?: Yes Patient Condition:: Good Anesthesia Complications:: None Swallowing reflex intact?: Yes Airway Patency: Patent Cyanosis?: No Blood Pressure: 110/83 SaO2: 97 Respiratory Rate: 16 Pulse Rate: 120 Temperature: 97.6 F Mental Status: Alert & Oriented Pain level:: 0 Nausea and/or vomitting:: None Intake, IV Amount: 0 Hydration: Adequate
[2024-08-07 08:36] VITALS: BP 110/83; PULSE 120; RESP 16; TEMP 36.4; O2SAT 97
--- NOTE | 2024-08-07 08:51 | EXP.ACUTE.PN ---
Subjective *Date: 08/07/24 *Time: 08:51 Interval history: PPD # 1 s/p , POD #1 s/p exam and under anesthesia and revision of second degree laceration repair She states she is feeling really well. Pain controlled. Breast feeding. Lochia is appropriate. Voiding without difficulty and passing flatus. Tolerating regular diet. Denies fever/chills, chest pain and shortness of breath. No headaches, vision changes, lightheadedness/dizziness. No lower extremity swelling. Ambulating well ad daniel. Medical Exam Vital signs and Labs for Last 24 Hours: Vital Signs Temp Pulse Pulse Resp BP BP Pulse Ox 08/07/24 08:36 16 08/07/24 08:33 98.0 F 89 16 116/72 99 08/07/24 00:10 98.0 F 109 H 18 126/68 08/06/24 20:00 98.0 F 108 H 20 131/71 08/06/24 16:27 98.2 F 116 H 16 112/60 97 08/06/24 12:00 120 H 16 110/83 97 08/06/24 11:50 125 H 16 137/78 100 08/06/24 11:40 130 H 16 131/74 99 08/06/24 11:39 97.6 F 127 H 18 140/76 08/06/24 11:30 97.7 F 133 H 16 139/70 98 O2 Del Method 08/07/24 08:36 08/07/24 08:33 Room Air 08/07/24 00:10 Room Air 08/06/24 20:00 Room Air 08/06/24 16:27 Room Air 08/06/24 12:00 Room Air 08/06/24 11:50 Room Air 08/06/24 11:40 Room Air 08/06/24 11:39 08/06/24 11:30 Room Air Intake and Output 08/06/24 08/07/24 08/07/24 23:59 07:59 15:59 Intake Total 0 / 0 Balance 0 / 0 Intake: Intake, Total IV Amount 0 / 0 Laboratory Results - last 24 hr 08/05/24 13:50: Blood Type A Negative, Antibody Screen Negative, Crossmatch (AHG) See Detail 08/07/24 06:23: WBC 11.5 H D, RBC 2.53 L D, Hgb 7.1 L, Hct 21.2 L, MCV 84.0, MCH 28.2, MCHC 33.6, RDW 14.4, Plt Count 196, MPV 9.1, Neut % (Auto) 61.5, Lymph % (Auto) 32.2, Dougherty % (Auto) 4.5, Eos % (Auto) 1.5, Baso % (Auto) 0.3, Neut # (Auto) 7.1, Lymph # (Auto) 3.7, Dougherty # (Auto) 0.5, Eos # (Auto) 0.2, Baso # (Auto) 0.0, Baby's Rh Status Positive I & O for Labs for Last 24 Hours: Intake & Output 08/04/24 08/05/24 08/06/24 08/07/24 23:59 23:59 23:59 23:59 Intake Total 700 / 700 0 / 0 Balance 700 / 700 0 / 0 Weight 187 lb Microbiology Reports for the Last 24 Hours: Microbiology 08/05/24 18:50 Urine,Clean Catch Urine Culture - Final No growth. Head: Present atraumatic and normocephalic ENT: Present mucous membranes moist Neck: Present normal inspection and full ROM Respiratory: Present CTA bilaterally and normal respiratory effort Cardiac: Present Reg Rate and Rhythm GI: Present soft; Absent distention or tenderness Rectal (female): Present deferred (female): Present deferred Neuro: Present alert, awake and moves all extremities Assessment and Plan *Assessment and plan (1) Status post normal vaginal delivery: Status: Acute Category: Medical (2) Second degree perineal laceration during delivery: Status: Acute Category: Medical Code(s): O70.1 - Second degree perineal laceration during delivery (3) hemorrhage: Status: Acute Qualifiers: hemorrhage type: unspecified Qualified Code(s): O72.1 - Other immediate hemorrhage Category: Medical Code(s): O72.1 - Other immediate hemorrhage Plan Continue routine care Encouraged increased ambulation AM Hgb 7.1 (11.8 on admission). She states she is feeling really well, asymptomatic. Discussed PRBCs. She would like to wait on blood for now since she is feeling well. Plan d/c home tomorrow
[2024-08-07] MEDS: SENNA 8.6MG TABLET 8.6 MG PO (11:21)
[2024-08-07 20:39] VITALS: BP 122/64; PULSE 90; RESP 16; TEMP 36.7; O2SAT 98
[2024-08-07] MEDS: ESCITALOPRAM 20 MG 1 EACH PO (20:57)
[2024-08-08 04:27] VITALS: BP 124/69; PULSE 76; RESP 16; TEMP 36.5; O2SAT 99
[2024-08-08 08:32] VITALS: BP 108/56; PULSE 92; RESP 16; TEMP 36.9; O2SAT 98
--- NOTE | 2024-08-08 08:50 | EXP.DC.SUM ---
General Admission date:: 08/05/24 Discharge date: 08/08/24 HPI HPI HPI: PPD # 2, POD # 2 s/p exam under anesthesia and revision of second degree perineal laceration repair Feeling well. Pain controlled. Breast feeding. Lochia is light. Voiding without difficulty and passing flatus. Tolerating regular diet. Denies fever/chills, chest pain and shortness of breath. No headaches, vision changes, lightheadedness/dizziness. No lower extremity swelling. Ambulating well ad daniel. Hospital Course Hospital Course Hospital Course: Ms Monica Paige is a 19-year-old at 39 weeks and 3 days gestation who presented to labor and delivery for scheduled elective induction of labor. Her has been complicated by placental lakes and Rh negative blood. On presentation patient endorsed good movement and denies any leakage of fluid or vaginal bleeding. She underwent induction of labor with Cytotec. She had a normal spontaneous vaginal delivery on 08/06/24 at 0803. She delivered a live female baby, Danielle, weighing 6 lb 9 oz. APGARs 7 (1 min), 9 (5 min). EBL 300 mL. She had a second degree perineal laceration repair. Hemostasis was noted at time of repair. About 90 minutes after delivery her bleeding increased. QBL reached 800 mL. She was taken to the OR for exam under anesthesia. No obvious source of bleeding was noted. Cervix was visualized and no laceration. Two small vaginal wall hematomas noted. Small amount of oozing at apex of second degree laceration noted. Suture at second degree perineal repair was cut out and laceration was repaired again. Hemostasis noted. She did well /postoperatively. Pain controlled. Breast feeding. Light lochia. Voiding without difficulty and passing flatus. Tolerating regular diet. Denies fever/chills, chest pain and shortness of breath. No headaches, dizziness/lightheadedness or vision changes. PPD # 1 Hgb was 7.1 (Hgb 11.8 on admission). She felt week on PPD # 1 but declined blood transfusion. She received Venofer 200 mg IV x 1 dose. She reports feeling really good on PPD # 2. Vital signs stable, afebrile. Heart regular rate and rhythm. Lungs clear to auscultation. Abdomen soft, nontender. No lower extremity swelling. Ambulating well ad daniel. Normal hospital course. She was discharged to home on POD # 2 with instructions to follow-up in the office in 2 weeks or sooner if needed. Exam Data for Last 24 hours Vital signs and Labs for Last 24 Hours: Temp Pulse Resp BP Pulse Ox O2 Del Method 97.7 F 76 16 124/69 99 Room Air 08/08/24 04:27 08/08/24 04:27 08/08/24 04:27 08/08/24 04:27 08/08/24 04:27 08/08/24 04:27 Laboratory Results - last 24 hr 08/07/24 06:23: Screen Negative I & O for Last 24 hours: Intake & Output 08/05/24 08/06/24 08/07/24 08/08/24 23:59 23:59 23:59 23:59 Intake Total 700 / 700 0 / 0 Balance 700 / 700 0 / 0 Weight 187 lb Microbiology Reports for the Last 24 Hours: Microbiology 08/05/24 18:50 Urine,Clean Catch Urine Culture - Final No growth. Constitutional Constitutional: no acute distress and cooperative *Routine HEENT Exam Head: Present normocephalic and atraumatic Eye: Absent conjunctivae pink ENT: Present mucous membranes moist *Routine Neck Exam Neck: Present full ROM *Routine Respiratory Exam Respiratory: Present CTA bilaterally and normal respiratory effort *Routine Cardiovascular Exam Cardiovascular: Present RRR *Routine Abdominal Exam Abdominal: Present soft; Absent tenderness or distended Comments: Uterine fundus firm and below umbilicus *Routine Rectal Exam Patient deferred: visual exam *Routine Exam Patient deferred: external exam *Routine Extremities Exam Extremities: Present full ROM; Absent edema or calf tenderness *Routine Neurological Exam Neurological: Present alert, moving all extremities and normal speech Routine Psychiatric Exam Psychiatric: Present normal affect and cooperative Results Data Completed and Pending Labs on day of discharge: Labs from last 24 hours 08/07/24 06:23 Screen Negative DS: Diagnosis Discharge Diagnosis (1) Status post normal vaginal delivery: Status: Acute (2) Second degree perineal laceration during delivery: Status: Acute Code(s): O70.1 - Second degree perineal laceration during delivery (3) hemorrhage: Status: Acute Code(s): O72.1 - Other immediate hemorrhage Qualifiers: hemorrhage type: unspecified Qualified Code(s): O72.1 - Other immediate hemorrhage Meds Home Medications and Allergies Home Medications ?Medication ?Instructions ?Recorded ?Confirmed ?Type ondansetron 4 mg disintegrating 4 mg PO Q4HP PRN Nausea And 01/16/24 08/05/24 History tablet Vomiting vits no.126-ferrous fum 1 tab PO DAILY 04/17/24 08/05/24 History 28 mg iron-folic acid 800 mcg tablet (Classic ) azelastine 137 mcg (0.1 %) nasal 1 spray intranasal HS 05/14/24 08/05/24 History spray famotidine 20 mg tablet (Pepcid) 20 mg PO BID #60 tabs 06/05/24 08/05/24 Rx escitalopram oxalate 20 mg tablet 20 mg PO HS 08/05/24 08/05/24 History (Lexapro) New Prescriptions to Start Prescriptions: Allergies Allergy/AdvReac Type Severity Reaction Status Date / Time amoxicillin (From Augmentin) AdvReac Mild Nausea Verified 07/30/24 11:10 clavulanic acid (From AdvReac Mild Nausea Verified 07/30/24 11:10 Augmentin) Discharge Plan Disposition Patient Disposition: Home, Self-Care Condition: Good Discharge Order Discharge Orders: Discharge Order (Routine); Ordered 08/08/24 Ordered By: Maria Luisa Williamson Follow up Plan Follow up with: Maria Luisa Williamson DO [Staff Physician] - 2 weeks Prescriptions/Medication Reconciliation: Continued ondansetron 4 mg tablet,disintegrating 4 mg PO Q4HP PRN (Reason: Nausea And Vomiting) Patient Comments: PLACE 1 TABLET UNDER THE TONGUE AND ALLOW TO DISSOLVE EVERY 4 TO 6 HOURS NEEDED FOR NAUSEA AND VOMITING Classic 28 mg iron- 800 mcg tablet 1 tab PO DAILY azelastine 137 mcg (0.1 %) spray,non-aerosol 1 spray intranasal HS famotidine [Pepcid] 20 mg tablet 20 mg PO BID Qty: 60 3RF escitalopram oxalate [Lexapro] 20 mg tablet 20 mg PO HS Problem Reconciliation Problems Reviewed?: Yes Patient Discharge Instructions ACTIVITY: Limited activity DIET: continue same diet Additional Instructions: Congratulations! Discharge: 1. Take 800 mg Ibuprofen every 8 hours as needed for pain. You can also take 500-1000 mg of Tylenol in between doses, every 6-8 hours. 2. Nothing in the vagina for 6 weeks - no intercourse, douching or tampons. No tub baths/hot tubs or swimming pools 3. Reasons to return to L&D or call On-Call doctor - fever (greater than 100.4) - heavy vaginal bleeding (soaking through 1 pad in less than 2 hours) - vaginal discharge (malodorous and/or purulent) - severe headaches not resolved by medication or rest and leg tenderness/edema 4. depression/blues - Normal to feel anxious/overwhelmed for first 2 weeks - Talk to your doctor if: severe anxiety, trouble bonding with baby, withdrawing from other family members, thoughts of harming yourself or others Maria Luisa Williamson DO [facility] [phone] Patient Instructions: Depression, Hemorrhage, DI for Labor and Delivery, Vaginal , DI for Pre-eclampsia, [facility] Post Discharge Instructions Print Language: Yi Providers Primary Care Provider: Sia Mg Admit Provider: Hayde Gant Attending Provider: Hayde Gant
[2024-08-08] MEDS: RHO(D) IMMUNE GLOBULIN 1,500 UNIT (300MCG) SYRINGE 300 MCG IM (09:41)
== END 2024-08-08 11:45 | disposition home or self-care (01) | DRG 768 ==
PROVIDERS: Obstetrics & Gynecology; Admitting Provider Obstetrics & Gynecology; PCP Nurse Practitioner; Visit Provider Obstetrics & Gynecology
PROC: 10E0XZZ Delivery of Products of Conception, External Approach (ICD-10-PCS; principal; 2024-08-06 13:30)
DX: O70.1 Second degree perineal laceration during delivery (principal); Z37.0 Single live birth; O72.1 Other immediate postpartum hemorrhage; Z3A.39 39 weeks gestation of pregnancy; O90.2 Hematoma of obstetric wound
CPT/HCPCS: 36415; 59025; 80307; 81001; 85025; 85461; 86592; 86850; 87086; 94761; G0283; J0595; J1756; J1885; J2405; J2790; J3010; J3105; J7120

== ENCOUNTER 2024-08-09 20:33 | Emergency (ER) | payer OTHER, SELFPAY ==
[2024-08-09] VITALS (7 sets, daily range): BP systolic 108–138; BP diastolic 58–87; PULSE 92–109; RESP 16–18; TEMP 36.4–36.8; O2SAT 99–100; BMI 30.1
--- NOTE | 2024-08-09 21:01 | ED_ITS ---
Discharge Plan Disposition Patient Disposition: Home, Self-Care Prescriptions Prescriptions: No Action ondansetron 4 mg tablet,disintegrating 4 mg PO Q4HP PRN (Reason: Nausea And Vomiting) Patient Comments: PLACE 1 TABLET UNDER THE TONGUE AND ALLOW TO DISSOLVE EVERY 4 TO 6 HOURS NEEDED FOR NAUSEA AND VOMITING Classic 28 mg iron- 800 mcg tablet 1 tab PO DAILY azelastine 137 mcg (0.1 %) spray,non-aerosol 1 spray intranasal HS famotidine [Pepcid] 20 mg tablet 20 mg PO BID Qty: 60 3RF escitalopram oxalate [Lexapro] 20 mg tablet 20 mg PO HS Referrals Follow up/Referrals: Sia Mg APRN [Primary Care Provider] - See instructions Activity Restrictions/Add. Instructions Additional Instructions/Restrictions: Your hemoglobin has significantly improved to 9 today no indication for transfusion please call Dr. Villegas's office tomorrow for repeat hemoglobin and follow-up tomorrow. Additionally you had superficial thrombophlebitis on the dorsal aspect of the right hand secondary to a recent IV use warm compresses on this area as discussed. This should self resolve. Clinical Impressions Clinical Impression: hemorrhage, Acute blood loss anemia, Superficial thrombophlebitis Instructions Patient Instructions: DI for Urinary Tract Infection (UTI), DI for Urinary Tract Infection in Children Print Language Print Language: Romanian Discharge ED Provider: Kirsten Pitts General Adult HPI General Chief complaint: Urogenital-Female Stated complaint: sent by Dr. Williamson- need blood Time Seen by Provider: 08/09/24 20:37 Mode of Arrival: Wheelchair Source of Information: Patient and Parent(s) Limitations: No Limitations Description of Symptoms (Recalled from ER Triage Doc. by RN): Patient presents to ED with c/o of vaginal bleeding. Patient delivered baby on Tuesday of this week and hemorraged after delivery. Patient has been bleeding clots. Patient talked with that told patient to come to the ED for a transfusion. History of Present Illness HPI narrative: Patient is a G1, P1 status post vaginal delivery on 08 06 complicated by secondary perineal laceration that was repaired twice and significant blood loss anemia with a hemoglobin going from 11-7 on the day of discharge she was offered a transfusion but declined this. She and her family were primarily concerned about communicable diseases. However she continues to bleed and passed heavy clots saturating a pad every few hours and is feeling very weak and lightheaded. She returns to the emergency department for further evaluation and management. From historical standpoint there is no evidence of retained proximal of conception she has not had any purulence or fever or evidence of infection. Related Data Home Medications ?Medication ?Instructions ?Recorded ?Confirmed ondansetron 4 mg disintegrating 4 mg PO Q4HP PRN Nausea And 01/16/24 08/05/24 tablet Vomiting vits no.126-ferrous fum 1 tab PO DAILY 04/17/24 08/05/24 28 mg iron-folic acid 800 mcg tablet (Classic ) azelastine 137 mcg (0.1 %) nasal 1 spray intranasal HS 05/14/24 08/05/24 spray escitalopram oxalate 20 mg tablet 20 mg PO HS 08/05/24 08/05/24 (Lexapro) Previous Rx's ?Medication ?Instructions ?Recorded famotidine 20 mg tablet (Pepcid) 20 mg PO BID #60 tabs 06/05/24 Allergies Allergy/AdvReac Type Severity Reaction Status Date / Time amoxicillin (From Augmentin) AdvReac Mild Nausea Verified 07/30/24 11:10 clavulanic acid (From AdvReac Mild Nausea Verified 07/30/24 11:10 Augmentin) [facility] Disclaimer: The information contained in this section may have been updated after the patient was seen, as this information can be updated by other users. Medical History (Updated 08/09/24 @ 21:58 by Kirsten Pitts MD) hemorrhage Second degree perineal laceration during delivery Status post normal vaginal delivery History of irritable bowel syndrome Anxiety disorder affecting , antepartum Depression affecting History of COVID-19 Irritable bowel syndrome (IBS) Endometriosis Major depressive disorder Generalized anxiety disorder PCOS (polycystic ovarian syndrome) Surgical History History of surgery Family History Other Alcoholism Asthma Diabetes FHx: mental illness Hyperlipidemia Hypertension Kidney disease Thyroid disorder Social History (Updated 08/05/24 @ 13:32 by Luz Maria Rosario RN) Smoking Status: Never smoker years smoked: 3 second hand exposure: No alcohol intake: never substance use type: denies use current occupational status: other Travel in the last 8 weeks: None household members: family number of children: 0 current occupational exposures/hazards: No caffeine: Yes Other Medical History Have you received the Flu Vaccine for this season: No Have you received the Pneumonia Vaccine: No ROS Obtained: Yes All systems reviewed & no additional complaints except as documented Physical Exam General General appearance: alert and in no apparent distress Respiratory Respiratory exam: Present normal lung sounds bilaterally Cardiovascular Cardiovascular exam: Present regular rate Abdominal Exam Abdominal exam: Present soft and other (No evidence of boggy or distended uterus abdomen is soft nontender); Absent distention or tenderness Neurological Exam Neurological exam: Present alert and oriented X3 Medical Decision Making Medical Records Screening: Per USPSTF and CDC recommendations, given the prevalence of disease in our region, it is our hospital?s policy to screen for HIV and viral Hepatitis for all patients aged 18 and over and those with ongoing risk factors. Waldemar Inquiry Pt receiving controlled substance: No Vital Signs: 08/09/24 20:34 08/09/24 20:41 08/09/24 21:00 Temperature 97.6 F Temperature Source Oral Pulse Rate 109 H 95 H Pulse Rate [Right Brachial] 109 H Respiratory Rate 18 Blood Pressure 138/87 123/76 Blood Pressure [Right Arm] 138/87 Blood Pressure Mean [Right Arm] 104 Blood Pressure Source [Right Arm] Automatic Cuff Blood Pressure Position [Right Arm] Supine 02 Sat by Pulse Oximetry 100 100 99 Oxygen Delivery Method Room Air 08/09/24 21:30 Temperature Temperature Source Pulse Rate 100 H Pulse Rate [Right Brachial] Respiratory Rate Blood Pressure 113/66 Blood Pressure [Right Arm] Blood Pressure Mean [Right Arm] Blood Pressure Source [Right Arm] Blood Pressure Position [Right Arm] 02 Sat by Pulse Oximetry 100 Oxygen Delivery Method Lab Data Lab results reviewed: Yes I reviewed the patient's lab results. Lab Results 08/09/24 20:41: WBC 10.3, RBC 3.18 L D, Hgb 9.1 L, Hct 27.7 L, MCV 87.3, MCH 28.6, MCHC 32.8, RDW 15.4, Plt Count 349 D, MPV 7.9, Neut % (Auto) 60.2, Lymph % (Auto) 31.8, Archer % (Auto) 3.7, Eos % (Auto) 3.8, Baso % (Auto) 0.6, Neut # (Auto) 6.2, Lymph # (Auto) 3.3, Archer # (Auto) 0.4, Eos # (Auto) 0.4, Baso # (Auto) 0.1, PT 9.4 L, INR 0.82 L, APTT 23.4, Sodium 136, Potassium 3.7, Chloride 106, Carbon Dioxide 25, Anion Gap 8.7, BUN 12, Creatinine 0.80, Estimated Creat Clear 135, Estimated GFR 91, Est GFR ( Amer) 110, Glucose 101 H, Calcium 8.8, Total Bilirubin 0.3, AST 44 H, ALT 26, Alkaline Phosphatase 103, Total Protein 6.3, Albumin 3.5, Globulin 2.8, Albumin/Globulin Ratio 1.3, Blood Type A Negative, Antibody Screen Positive 08/09/24 20:41 08/09/24 20:41 Orders (Tests/Meds): ED MEDICATIONS Generic Name Dose Route Start Last Admin Trade Name Freq PRN Reason Stop Dose Admin Sodium Chloride 1,000 mls @ 999 mls/hr 08/09/24 21:30 08/09/24 21:18 Sod Chlor 0.9% 1000ml Bag IV 08/09/24 22:30 999 mls/hr .Q1H1M [id number] Administration ORDERS Category Date Time Status Antibody Identification Stat BBK 08/09/24 20:41 Received Type and Screen Stat BBK 08/09/24 20:41 Completed POCUS Point of Care (ER Only) Stat Exams 08/09/24 21:50 Ordered CBC w/Auto Diff [Complete Blood Count Auto Diff] Stat Lab 08/09/24 20:41 Completed CMP [Comprehensive Metabolic Panel] Stat Lab 08/09/24 20:41 Completed HIV (1&2) Antibody Rapid Stat Lab 08/09/24 20:41 Received PT/PTT Stat Lab 08/09/24 20:41 Completed Medical Decision Narrative: 19-year-old female with ongoing hemorrhage which seem to have gotten better and then worsened over the last 24 hours this is consistent with secondary relate hemorrhage. Differential includes retained products of conception normal post vaginal delivery bleeding in the setting of somebody who is already significantly anemic at baseline hormonal deficiency etc. Exam is benign right now. Will recheck CBC basic blood work perform a type and screen and reassess. Reassessment labs returned which are significantly improved hemoglobin has increased to 9. Therefore I chose to give the patient IV fluids and after reassessment after IV fluids she is feeling much better. At this point I am comfortable with her going home with close outpatient follow-up I did discuss the case with Dr. Villegas who is also agreeable and comfortable with this plan patient recently had an iron infusion in the hospital which should take some time to start to improve patient will call Dr. Villegas's office tomorrow for serial assessments and likely repeat hemoglobin. Lastly she had some dorsal redness and pain on the right hand in the setting of a recent IV please see procedure note but this is consistent with superficial thrombophlebitis of advised that she take Tylenol as I would not advise that she take NSAIDs while breast-feeding and to use warm compresses for this area. No evidence of an infection. Procedures Miscellaneous Procedure Procedure Performed: Limited soft tissue ultrasound Indication: Pain and redness and swelling of the dorsal aspect of the right hand and a recent IV site Identified structures: Location: Dorsal aspect of the right hand Findings: Superficial vein in the setting of recent IV placement that is noncompressible and has evidence of thrombus and surrounding edema Impression: Superficial thrombophlebitis Images were saved to permanent archive The study was technically adequate Soft Tissue CPT Codes: CPT Neck: 48890-06 CPT Upper extremity: 23461-43 CPT Axilla: 15993-27 CPT Chest wall: 11415-66 CPT Breast: 56716-18-TY/LT (complete), 10179-90-OL/LT (limited), CPT Upper Back: 87109-13 CPT Lower Back: 78672-15 CPT Abdominal Wall: 44388-03 CPT Pelvic Wall: 92838-58 CPT Lower Extremity: 60054-64 CPT Other Soft Tissue: 74167-60 This study was performed by me, and I personally interpreted all images/videos. Based on my clinical judgement, these images were adequate and did not necessitate further imaging. Critical Care Critical Care Time Critical Care Time: No
[2024-08-09 21:08] LABS: Basophils # 0.1 K/mm3 (0-0.2); Basophils % 0.6 % (0.1-2.0); Eosinophils # 0.4 K/mm3 (0.0-0.4); Eosinophils % 3.8 % (0.1-12.0); Hematocrit 27.7 % (37.0-47.0); Hemoglobin 9.1 g/dL (12.2-16.2); Lymphocytes # 3.3 K/mm3 (0.7-4.5); Lymphocytes % 31.8 % (10-50); Mean Corpuscular HGB Conc 32.8 g/dL (31.8-35.4); Mean Corpuscular Hemoglobin 28.6 pg (27.0-31.2); Mean Corpuscular Volume 87.3 fl (81-99); Mean Platelet Volume 7.9 fl (7.4-10.4); Monocytes # 0.4 K/mm3 (0.1-1.0); Monocytes % 3.7 % (1.7-9.3); Neutrophils # 6.2 K/mm3 (1.8-7.8); Neutrophils % 60.2 % (37.0-80.0); Platelet Count 349 K/mm3 (142-424); Red Blood Count 3.18 M/mm3 (4.20-5.40); Red Cell Distribution Width 15.4 % (11.5-17.5); White Blood Count 10.3 K/mm3 (4.8-10.8)
[2024-08-09 21:11] LABS: Chloride 106 mmol/L (98-107)
[2024-08-09 21:12] LABS: Albumin Level 3.5 g/dl (3.5-5.0); Potassium 3.7 mmoL/L (3.5-5.1); Sodium 136 mmol/L (136-145)
[2024-08-09 21:14] LABS: Blood Urea Nitrogen 12 mg/dl (7-17); Creatinine Clearance Estimated 135 mL/min (50-200); Estimated Glomerular Filt Rate 91 ml/min (>60); GFR (African American) 110 ML/MIN (>60)
[2024-08-09 21:15] LABS: Activated Partial Thrombo Time 23.4 seconds (22.8-30.6); Alanine Aminotransferase 26 U/L (12-78); Albumin/Globulin Ratio 1.3 (1.1-1.8); Alkaline Phosphatase 103 U/L (38-126); Anion Gap 8.7 mEq/L (5-15); Aspartate Amino Transferase 44 U/L (14-36); Bilirubin,Total 0.3 mg/dl (0.2-1.3); Calcium 8.8 mg/dl (8.4-10.2); Carbon Dioxide 25 mmol/L (22.0-30.0); Globulin 2.8 g/dL (1.3-3.2); Glucose 101 mg/dl (74-100); INR 0.82 (0.9-1.1); Prothrombin Time 9.4 seconds (10.1-12.5); Total Protein,Serum 6.3 g/dl (6.3-8.2)
[2024-08-09] MEDS: 0.9 % SODIUM CHLORIDE 1000ML 1,000 ML 999 ML IV (21:18)
[2024-08-09 22:18] LABS: HIV (1&2) Antibody Rapid NONREACTIVE (NONREACTIVE)
== END 2024-08-09 22:59 | disposition home or self-care (01) ==
PROVIDERS: Emergency Provider Student in an Organized Health Care Education/Training Program; PCP Nurse Practitioner
DX: O72.1 Other immediate postpartum hemorrhage (principal); D62 Acute posthemorrhagic anemia; I80.9 Phlebitis and thrombophlebitis of unspecified site; M79.641 Pain in right hand
CPT/HCPCS: 80053; 85025; 85610; 85730; 86850; 86870; 87389; 96360; 99283; J7030

== ENCOUNTER 2024-08-13 16:19 | Outpatient (CLI) | payer OTHER, SELFPAY ==
[2024-08-13 17:43] LABS: Hemoglobin A1C 4.5 % (4.0-6.0)
== END 2024-08-13 23:59 | disposition home or self-care (01) ==
LOC: LAB 16:25
PROVIDERS: PCP Nurse Practitioner; Visit Provider Obstetrics & Gynecology
DX: D62 Acute posthemorrhagic anemia (principal)
CPT/HCPCS: 36415; 83036

== ENCOUNTER 2024-08-26 21:01 | Inpatient (IN) | payer OTHER, SELFPAY ==
[2024-08-26] VITALS (7 sets, daily range): BP systolic 90–113; BP diastolic 46–66; PULSE 62–89; RESP 16–20; TEMP 36.7–37.4; O2SAT 97–100; BMI 30.1
[2024-08-26 20:16] LABS: Microscopic, Urine URINE MICROSCOPIC (MICROSCOPIC)
[2024-08-26 20:19] LABS: Blood, Urine 3+ (Negative); Glucose,Urine (UA) Negative (Negative); Ketones,Urine Negative (Negative); Leukocyte Esterase,Urine TRACE (Negative); Nitrate,Urine Negative (Negative); Protein,Urine 1+ (Negative); Specific Gravity, Urine >= 1.030 (1.005-1.030); Urobilinogen,Urine 0.2 EU/dl (0.2)
--- NOTE | 2024-08-26 20:20 | PC.NURSE ---
Patient presents to triage with heavy bright red bleeding that started last night. Reports severe cramping that started last night as well. Pt reports she has been dizzy, feeling spacey , weak and has had a fever. Patient looks unwell to this RN. Dark circles around her eyes and pale in appearance. Patient is accompanied by her mother and significant other. Patient is 3 weeks .
[2024-08-26 20:21] LABS: Appearance,Urine Cloudy (Clear); Color,Urine Dark Yellow (Yellow)
[2024-08-26 20:24] LABS: Bilirubin,Urine 1+ (Negative)
[2024-08-26 20:29] LABS: Amphetamine/Metha Screen,Urine Negative ng/ml (<1000)
[2024-08-26 20:30] LABS: Barbiturates Screen,Urine Negative ng/ml (<200); Benzodiazepines Screen,Urine Negative ng/ml (<200)
[2024-08-26 20:31] LABS: Bacteria,Urine Trace /lpf; Cannabinoid Screen,Urine Negative ng/ml (<50); Cocaine Screen,Urine Negative ng/ml (<300); RBC,Urine 50-100 #/hpf (0-3); Squamous Epithelial Cell,Urine Occasional #/hpf (0-5)
[2024-08-26 20:32] LABS: Methadone Screen,Urine Negative ng/ml (<300)
[2024-08-26 20:33] LABS: Opiate Screen,Urine Negative ng/ml (<300); Phencyclidine Screen,Urine Negative ng/ml (<25)
--- NOTE | 2024-08-26 20:40 | PC.NURSE ---
Labs drawn and sent per sepsis protocol. Bolus initiated per MD orders. Dr. Santiago here on unit assessing patient.
--- NOTE | 2024-08-26 20:50 | PC.NURSE ---
Dr. Santiago gave VO to this nurse for Gentamycin per pharmcay consult 5mg/kg q 24 hrs IV , Ampicillin 2g q 6 hrs IV, Clindamycin 900mg q 8 hrs IV, Tylenol 650mg q 4 hrs PRN fever, Ibuprofen 800mg q 8 hrs PRN for cramping, LR bolus 2500ml per sepsis protocol, the LR 125/hr until MD d/c order. Read back and verified. Orders sent to pharmacy
[2024-08-26 21:01] LABS: Albumin Level 3.7 g/dl (3.5-5.0); Chloride 109 mmol/L (98-107); Sodium 134 mmol/L (136-145)
[2024-08-26 21:02] LABS: Potassium 3.8 mmoL/L (3.5-5.1); Red Blood Count 3.34 M/mm3 (4.20-5.40); White Blood Count 8.3 K/mm3 (4.8-10.8)
[2024-08-26 21:03] LABS: Eosinophils % 4.4 % (0.1-12.0); Hemoglobin 8.8 g/dL (12.2-16.2); Lymphocytes % 41.9 % (10-50); Mean Corpuscular HGB Conc 31.4 g/dL (31.8-35.4); Mean Corpuscular Hemoglobin 26.3 pg (27.0-31.2); Mean Corpuscular Volume 83.8 fl (81-99); Mean Platelet Volume 9.1 fl (7.4-10.4); Platelet Count 498 K/mm3 (142-424)
[2024-08-26 21:04] LABS: Alanine Aminotransferase 55 U/L (12-78); Albumin/Globulin Ratio 1.3 (1.1-1.8); Alkaline Phosphatase 91 U/L (38-126); Anion Gap 5.8 mEq/L (5-15); Aspartate Amino Transferase 49 U/L (14-36); Basophils % 0.5 % (0.1-2.0); Bilirubin,Total 0.3 mg/dl (0.2-1.3); Blood Urea Nitrogen 15 mg/dl (7-17); Carbon Dioxide 23 mmol/L (22.0-30.0); Creatinine Clearance Estimated 135 mL/min (50-200); Eosinophils # 0.4 K/mm3 (0.0-0.4); Estimated Glomerular Filt Rate 91 ml/min (>60); GFR (African American) 110 ML/MIN (>60); Globulin 2.8 g/dL (1.3-3.2); Glucose 105 mg/dl (74-100); Lymphocytes # 3.5 K/mm3 (0.7-4.5); Monocytes # 0.4 K/mm3 (0.1-1.0); Total Protein,Serum 6.5 g/dl (6.3-8.2)
[2024-08-26 21:05] LABS: Lactic Acid 0.9 mmol/L (0.7-2.1)
[2024-08-26 21:08] LABS: Activated Partial Thrombo Time 27.2 seconds (22.8-30.6); INR 0.96 (0.9-1.1); Prothrombin Time 10.8 seconds (10.1-12.5)
[2024-08-26 21:10] LABS: C-Reactive Protein 7.2 mg/L (0-4)
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
[2024-08-26 21:43] LABS: Erythrocyte Sedimentation Rate 25 mm/hr (0-20)
[2024-08-26] MEDS: LACTATED RINGERS 999 ML IV (21:47)
[2024-08-26] MEDS: AMPICILLIN SODIUM 2 GM in 0.9 % SODIUM CHLORIDE 100 ML IV (21:50)
--- NOTE | 2024-08-26 22:15 | PC.NURSE ---
Called [facility] and spoke to Dread regarding quantity of gentamicin vials to pull and to verify that the total amount needed to fulfill the gentamicin dose is 5 vials of the concentration of 80 mg to 2 mL. Total amount of gentamicin added to 100 mL bag of NS is 9.625 mL.
[2024-08-26] MEDS: CLINDAMYCIN PHOSPHATE/D5W 900 MG/50 ML PIGGYBACK 100 MG IV (22:28)
--- NOTE | 2024-08-26 22:50 | PC.NURSE ---
Patient experiencing anxiety being away from baby. Patient did not want to bring NB to hospital and NB is with grandparents per mother. Call made to [facility], order received for Hydroxyzine 25mg TID PO PRN for anxiety
[2024-08-26] MEDS: IBUPROFEN 400 MG TABLET 800 MG PO (23:01)
[2024-08-26] MEDS: hydrOXYzine pamoate 25MG CAPSULE 25 MG PO (23:01)
[2024-08-26] MEDS: GENTAMICIN SULFATE IV (23:31)
[2024-08-26] MEDS: SODIUM CHLORIDE 0.9% IV (23:31)
[2024-08-27] VITALS (19 sets, daily range): BP systolic 91–135; BP diastolic 51–81; PULSE 53–81; RESP 14–24; TEMP 36.4–37.2; O2SAT 92–100
[2024-08-27] MEDS: LACTATED RINGERS 1000ML 1,000 ML 125 ML IV ×2 (01:13→10:14)
[2024-08-27] MEDS: AMPICILLIN SODIUM 2 GM in 0.9 % SODIUM CHLORIDE 100 ML IV ×3 (04:20→19:28)
[2024-08-27] MEDS: CLINDAMYCIN PHOSPHATE/D5W 900 MG/50 ML PIGGYBACK 100 MG IV ×3 (05:50→21:50)
--- NOTE | 2024-08-27 07:00 | US_ITS ---
PROCEDURE INFORMATION: Exam: US Pelvis, Complete, Non-Obstetric Exam date and time: 08/27/2024 7:16 AM Age: 19 years old Clinical indication: Pelvic pain; Additional info: Pp infection, pelvic pain TECHNIQUE: Imaging protocol: Transabdominal pelvic nonobstetric ultrasound. Complete exam. Real time ultrasound with image documentation. COMPARISON: CT ABDOMEN PELVIS W CON 11/22/2020 8:36 PM FINDINGS: Uterus: The endometrial stripe is diffusely thickened and heterogeneous without hyperemia. Small focus of anechoic signal is seen adjacent thickened endometrial stripe at the uterine fundus, measuring about 0.7 x 0.8 x 1.0 cm. Anteverted uterus is seen. Right ovary/adnexa: Ovary is normal. No mass. Normal blood flow. Left ovary/adnexa: Ovary is normal. No mass. Normal blood flow. Intraperitoneal space: No significant intraperitoneal fluid. Urinary bladder: Partially visualized, unremarkable. IMPRESSION: Nonspecific thickening which may be related to , however difficult to exclude retained products of conception. No hyperemia of the endometrium is seen making infection less likely. Correlate clinically.
--- NOTE | 2024-08-27 07:00 | PC.NURSE ---
Report given to Kiersten NELSON
--- NOTE | 2024-08-27 07:23 | PC.NURSE ---
patient to radiology for u/s
--- NOTE | 2024-08-27 07:55 | PC.NURSE ---
patient back to bed from radiology, denies pain at this time, reports small amount of bleeding, denies difficulty voiding, assessment completed
--- NOTE | 2024-08-27 08:30 | PC.NURSE ---
Dr Gant at bedside
--- NOTE | 2024-08-27 08:50 | PC.NURSE ---
call from Dr Santiago, OR notified to add on case, patient to be NPO
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
--- NOTE | 2024-08-27 08:52 | HMH.PHAINT1 ---
Pharmacy Intervention Comments: MEDICATION RECONCILIATION COMPLETED ON PATIENT USING EXTERNAL FILL HISTORY FROM PHARMACY AND LIST FROM PROFESSOR OF PSYCHIATRY OFFICE. -EAN MCCARTHYD
--- NOTE | 2024-08-27 09:57 | EXP.ACUTE.PN ---
Subjective *Date: 08/27/24 *Time: 09:57 Interval history: She is doing well this morning. She has no fever or pain. She has been on antibiotics overnight. Ultrasound today shows that she has what appears to be retained products, likely a small piece of placenta. We will make arrangements for her to have a D&C. Medical Exam Vital signs and Labs for Last 24 Hours: Vital Signs Temp Pulse Resp BP Pulse Ox O2 Del Method 08/27/24 07:51 99 Room Air 08/27/24 07:49 Room Air 08/27/24 07:48 98.0 F 67 16 92/53 L 99 Room Air 08/27/24 06:22 Room Air 08/27/24 05:44 Room Air 08/27/24 04:19 98.2 F 65 18 96/52 L 98 Room Air 08/27/24 04:19 98 Room Air 08/27/24 02:33 Room Air 08/27/24 00:10 Room Air 08/27/24 00:10 78 18 91/51 L 98 Room Air 08/26/24 23:23 62 16 90/46 L 99 Room Air 08/26/24 23:03 62 18 90/46 L 99 Room Air 08/26/24 23:02 98.0 F 89 18 105/56 L 97 Room Air 08/26/24 21:56 68 17 102/57 L 100 Room Air 08/26/24 21:30 98 Room Air 08/26/24 21:23 99.0 F 62 18 99/55 L 100 Room Air 08/26/24 20:15 99.3 F 75 20 113/66 100 Room Air Intake and Output 08/26/24 08/27/24 08/27/24 19:59 03:59 11:59 Output Total 0 / 0 0 / 0 Balance 0 / 0 0 / 0 Output: Output, Urine Amount 0 / 0 0 / 0 Other: Number of Unmeasured Voids 1 1 Weight 170 lb Patient Weight 08/27/24 11:59 Weight 170 lb Laboratory Results - last 24 hr 08/26/24 20:00: Urine Color Dark yellow, Urine Appearance Cloudy, Urine pH 6.0, Ur Specific [place] >= 1.030, Urine Protein 1+ A, Urine Glucose (UA) Negative, Urine Ketones Negative, Urine Blood 3+ A, Urine Nitrate Negative, Urine Bilirubin 1+ A, Urine Urobilinogen 0.2, Ur Leukocyte Esterase Trace, Urine RBC 50-100, Urine WBC 5-10, Ur Squamous Epith Cells Occasional, Urine Bacteria Trace, Urine Opiates Screen Negative, Urine Methadone Screen Negative, Ur Barbituates Screen Negative, Ur Phencyclidine Scrn Negative, Ur Amphetamines Screen Negative, U Benzodiazepines Scrn Negative, Urine Cocaine Screen Negative, U Marijuana (THC) Screen Negative 08/26/24 20:20: WBC 8.3, RBC 3.34 L, Hgb 8.8 L, Hct 28.0 L, MCV 83.8, MCH 26.3 L, MCHC 31.4 L, RDW 14.0, Plt Count 498 H, MPV 9.1, Neut % (Auto) 48.0, Lymph % (Auto) 41.9, [place] % (Auto) 5.0, Eos % (Auto) 4.4, Baso % (Auto) 0.5, Neut # (Auto) 4.0, Lymph # (Auto) 3.5, [place] # (Auto) 0.4, Eos # (Auto) 0.4, Baso # (Auto) 0.0, ESR 25 H, PT 10.8, INR 0.96, APTT 27.2, Sodium 134 L, Potassium 3.8, Chloride 109 H, Carbon Dioxide 23, Anion Gap 5.8, BUN 15, Creatinine 0.80, Estimated Creat Clear 135, Estimated GFR 91, Est GFR ( Amer) 110, Glucose 105 H, Lactate 0.9, Calcium 9.0, Total Bilirubin 0.3, AST 49 H, ALT 55, Alkaline Phosphatase 91, C-Reactive Protein 7.2 H, Total Protein 6.5, Albumin 3.7, Globulin 2.8, Albumin/Globulin Ratio 1.3 I & O for Labs for Last 24 Hours: Intake & Output 08/24/24 08/25/24 08/26/24 08/27/24 11:59 11:59 11:59 11:59 Output Total 0 / 0 Balance 0 / 0 Weight 170 lb Head: Present normocephalic Neck: Present normal inspection Respiratory: Present normal respiratory effort; Absent accessory muscle use Assessment and Plan *Assessment and plan (1) Endometritis following delivery: Status: Acute Category: Medical Code(s): O86.12 - Endometritis following delivery (2) Retained products of conception post-del w/o hemorrh but w other compl: Status: Acute Category: Medical Code(s): O73.1 - Retained portions of placenta and membranes, without hemorrhage (3) Acute blood loss anemia: Status: Acute Category: Medical Code(s): D62 - Acute posthemorrhagic anemia (4) Status post normal vaginal delivery: Status: Acute Category: Medical Plan She is doing well this morning. She continues to be anemic and we will go ahead and give her an iron infusion today. She has what appears to be a small amount of tissue in the lining of the uterus and we will make arrangements for a D&C. Dr. Gant will perform the surgery. I discussed the risks of surgery that includes bleeding, infection, injuries to adjacent structures. We discussed the rare risk of perforation. We will plan to send her home tomorrow.
--- NOTE | 2024-08-27 10:00 | PC.NURSE ---
Dr Santiago at bedside
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
[2024-08-27] MEDS: IRON SUCROSE COMPLEX 200 MG in 0.9 % SODIUM CHLORIDE 100 ML 220 MG IV (10:48)
[2024-08-27 11:39] LABS: Gentamicin,Random 1.3 ug/ml
--- NOTE | 2024-08-27 11:46 | PC.NURSE ---
Abdullahi at bedside discussing POC
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
--- NOTE | 2024-08-27 14:40 | PC.NURSE ---
PATIENT TO OR
--- NOTE | 2024-08-27 15:47 | US_ITS ---
PROCEDURE: US PELVIC CLINICAL INDICATION: IN OR COMPARISON: US US PELVIC from 08/27/2024 FINDINGS: Transabdominal ultrasound images were obtained. The uterus is anteverted. There appears to be retained products within the uterine cavity. This is a live ultrasound performed in the operating room during a D&C for retained products of conception. IMPRESSION: 1. Intraoperative D&C for retained products of conception. 2. From these ultrasound images could not see whether the uterine contents were completely evacuated. Dictated by: Tk Santiago MD 08/28/2024 08:35 Tk Santiago MD in OV 08/28/2024 08:35
[2024-08-27] MEDS: miSOPROStoL 200 MCG TABLET 1000 MCG (15:50)
--- NOTE | 2024-08-27 16:10 | EXP.ANES.I ---
[facility] Anesthesia Record Part I Anesthesia Record I Intake, IV Amount: 1,000 Hydration: Adequate Estimated blood loss (mL): 200 Urine output (mL): 0 Blood Pressure: 114/57 SaO2: 92 Pulse Rate: 75 Airway Patency: Patent Respiratory Rate: 15 Temperature: 97.5 F Patient is:: Drowsy Stable to PACU at:: 16:05
--- NOTE | 2024-08-27 16:37 | P.OP_ITS ---
Date of procedure: 08/27/24 Pre-op Diagnosis:: 1. Concerns for sepsis 2. Retained products of conception 3. hemorrhage 4. 3 weeks from a spontaneous vaginal delivery 5. Acute posthemorrhagic anemia 6. Rh- Post-op Diagnosis:: 1. Concerns for sepsis 2. Retained products of conception 3. hemorrhage 4. 3 weeks from a spontaneous vaginal delivery 5. Acute posthemorrhagic anemia 6. Rh- Procedure performed:: Dilation and suction curettage with ultrasound guidance Surgeon:: Hayde Gant DO FORECLOSURE PARALEGAL:: Abdullahi Santizo Anesthesia: GETNiels Estimated blood loss (mL): 100 Clinical Note:: Complications: None UOP: 200mL Operative findings:: Normal-appearing external genitalia. Well-healing perineal repair. Closed cervical slightly dilated without bleeding or tissue protruding from the cervix. Operative note:: Monica Paige is a 19-year-old who was admitted for concerns for sepsis, and vaginal bleeding with anemia. She is 3 weeks from a vaginal delivery. Following her vaginal delivery she required an OR exam under anesthesia and vaginal repair. Delivery was complicated by hemorrhage. Ultrasound this morning was significant for retained products of conception. She was counseled extensively by myself and Dr. Santiago on the risk of suction D&C to include infection, perineal trauma, and uterine perforation. We discussed the complications following uterine perforation. The patient consented to blood transfusion if deemed medically necessary and signed the consent forms. All questions and concerns were addressed to the patient, her significant other, and her mothers satisfaction. Medications: Ampicillin, clindamycin, gentamicin, Pitocin, and misoprostol The patient was taken back to the operating room where anesthesia was administered. She was placed in the dorsolithotomy position with yellowfin stirrups and sterilely prepped and draped with CHG in the usual fashion. In and out catheter was used to drain her bladder. Open-ended Graves speculum was used to visualize the cervix. Specifically avoided a weighted speculum or any other trauma to the perineal area to avoid opening her vaginal laceration. A single- tooth tenaculum applied to the anterior lip cervix. Uterus sounded to 13 cm. Emory dilators were used to dilate the cervix to accommodate a #9 rigid suction curette. The suction curette was inserted to the fundus, hooked to suction, and twisted in a clockwise fashion until the curette was removed. Products noted in the tubing system. Following this a #4 sharp curette was used to curette the outer hernandez of the endometrium. There was still significant amount of bleeding coming from cervical os. She was given 20 units of Pitocin in her IV bag. At this time ultrasound was asked to come into the room and on ultrasound there was still noted to be products of conception inside the uterine lining. 2 additional passes with the suction curette were used under ultrasound guidance, no uterine tissue or products of conception were noted with the suction passes. 1 additional pass with a sharp curette was completed and products of conception were removed. Uterine lining appeared more appropriate. An additional 1000 mcg of Cytotec was ordered and placed rectally. Following this careful attention was given to the bleeding from the cervical os and was noted to be minimal. The single-tooth tenaculum was removed and hemostasis was noted. The speculum was removed and this completed the procedure. The patient tolerated the procedure well and all instrument and sponge counts were correct x2. The patient was awakened from general anesthesia and taken to the recovery room in a stable condition. She will be observed overnight and hopefully discharge in the morning as long as she meets all discharge criteria and postop since Condition: stable Disposition: PACU Specimens:: Products of conception Complications:: None
[2024-08-27] MEDS: MORPHINE 2MG/ML SYRINGE 2 MG IV (16:46)
[2024-08-27] MEDS: HYDROMORPHONE 2MG/ML SYRINGE 0.5 MG IV (16:51)
--- NOTE | 2024-08-27 17:33 | PC.NURSE ---
hospitalist at bedside
--- NOTE | 2024-08-27 17:38 | ECG_ITS ---
APPROVED REPORT Exam: Resting ECG HR:73 bpm ECG Measurements Heart Rate 73 AXES NM 148 P 50 QRSd 90 QRS 12 QT 367 T 29 QTc 393 Conclusion SINUS RHYTHM NORMAL ECG UNCONFIRMED REPORT Electronically signed by : Cyrus Gutiérrez MD 08/28/2024 08:04:16
--- NOTE | 2024-08-27 17:38 | PC.NURSE ---
blood glucose 96
--- NOTE | 2024-08-27 17:43 | PC.NURSE ---
ekg done at bedside
[2024-08-27 18:07] LABS: POC Glucose,Bedside 96 (70-110)
--- NOTE | 2024-08-27 18:09 | EXP.PN ---
Subjective *Date: 08/27/24 *Time: 18:09 Interval history: called to pt room by rn for change in breathing postoperatively from her preop state. She is responsive and her vitals signs are stable. Exam Data for Last 24 hours Vital signs and Labs for Last 24 Hours: Temp Pulse Resp BP Pulse Ox O2 Del Method O2 Flow Rate 98 F 71 17 135/78 100 Room Air 2 08/27/24 16:35 08/27/24 16:51 08/27/24 16:51 08/27/24 16:51 08/27/24 16:51 08/27/24 16:51 08/27/24 16:15 Laboratory Results - last 24 hr 08/26/24 20:00: Urine Color Dark yellow, Urine Appearance Cloudy, Urine pH 6.0, Ur Specific [place] >= 1.030, Urine Protein 1+ A, Urine Glucose (UA) Negative, Urine Ketones Negative, Urine Blood 3+ A, Urine Nitrate Negative, Urine Bilirubin 1+ A, Urine Urobilinogen 0.2, Ur Leukocyte Esterase Trace, Urine RBC 50-100, Urine WBC 5-10, Ur Squamous Epith Cells Occasional, Urine Bacteria Trace, Urine Opiates Screen Negative, Urine Methadone Screen Negative, Ur Barbituates Screen Negative, Ur Phencyclidine Scrn Negative, Ur Amphetamines Screen Negative, U Benzodiazepines Scrn Negative, Urine Cocaine Screen Negative, U Marijuana (THC) Screen Negative 08/26/24 20:20: WBC 8.3, RBC 3.34 L, Hgb 8.8 L, Hct 28.0 L, MCV 83.8, MCH 26.3 L, MCHC 31.4 L, RDW 14.0, Plt Count 498 H, MPV 9.1, Neut % (Auto) 48.0, Lymph % (Auto) 41.9, [place] % (Auto) 5.0, Eos % (Auto) 4.4, Baso % (Auto) 0.5, Neut # (Auto) 4.0, Lymph # (Auto) 3.5, [place] # (Auto) 0.4, Eos # (Auto) 0.4, Baso # (Auto) 0.0, ESR 25 H, PT 10.8, INR 0.96, APTT 27.2, Sodium 134 L, Potassium 3.8, Chloride 109 H, Carbon Dioxide 23, Anion Gap 5.8, BUN 15, Creatinine 0.80, Estimated Creat Clear 135, Estimated GFR 91, Est GFR ( Amer) 110, Glucose 105 H, Lactate 0.9, Calcium 9.0, Total Bilirubin 0.3, AST 49 H, ALT 55, Alkaline Phosphatase 91, C-Reactive Protein 7.2 H, Total Protein 6.5, Albumin 3.7, Globulin 2.8, Albumin/Globulin Ratio 1.3 08/27/24 11:10: Random Gentamicin 1.3 08/27/24 17:33: POC Glucose 96 I & O for Last 24 hours: Intake & Output 08/24/24 08/25/24 08/26/24 08/27/24 23:59 23:59 23:59 23:59 Intake Total 1000 / 1000 Output Total 200 / 200 Balance 800 / 800 Weight 170 lb 170 lb Narrative: extremely pale with dry mucous membranes normotensive, actually a little higher postoperatively than she was preoperatively regular rate and rhythm. Preoperatively she was slightly bradycardiac currently normal lungs are clear to auscultations BSx4 she is alert and orientated to time, person and place. She recalls infant name and responds to painful stimuli her capillary refill is delayed Assessment and Plan *Assessment and plan (1) Retained products of conception post-del w/o hemorrh but w other compl: Status: Acute Category: Medical Code(s): O73.1 - Retained portions of placenta and membranes, without hemorrhage (2) Endometritis following delivery: Status: Acute Category: Medical Code(s): O86.12 - Endometritis following delivery (3) Acute blood loss anemia: Status: Acute Category: Medical Code(s): D62 - Acute posthemorrhagic anemia (4) hemorrhage: Status: Acute Qualifiers: hemorrhage type: unspecified Qualified Code(s): O72.1 - Other immediate hemorrhage Category: Medical Code(s): O72.1 - Other immediate hemorrhage Plan consult hospital medicine follow closely labs ordered discussed care with blood bank and lab- protocol followed for no updated type and cross on file. She will receive A- blood based on previous T&S per lab this is following protocol. 1uPRBCs ordered, 2nd unit on hold vitals remain stable, continue to follow closely.
[2024-08-27 18:25] LABS: Hemoglobin 8.5 g/dL (12.2-16.2); Mean Corpuscular Hemoglobin 25.7 pg (27.0-31.2); Mean Corpuscular Volume 84.6 fl (81-99); Red Blood Count 3.31 M/mm3 (4.20-5.40); White Blood Count 7.1 K/mm3 (4.8-10.8)
[2024-08-27 18:26] LABS: Basophils % 0.6 % (0.1-2.0); Eosinophils # 0.1 K/mm3 (0.0-0.4); Eosinophils % 1.1 % (0.1-12.0); Lymphocytes # 1.4 K/mm3 (0.7-4.5); Lymphocytes % 19.5 % (10-50); Mean Corpuscular HGB Conc 30.4 g/dL (31.8-35.4); Mean Platelet Volume 9.1 fl (7.4-10.4); Monocytes # 0.1 K/mm3 (0.1-1.0); Monocytes % 1.7 % (1.7-9.3); Neutrophils # 5.4 K/mm3 (1.8-7.8); Neutrophils % 76.4 % (37.0-80.0); Platelet Count 440 K/mm3 (142-424); Red Cell Distribution Width 13.9 % (11.5-17.5)
[2024-08-27 18:31] LABS: Alanine Aminotransferase 51 U/L (12-78); Albumin Level 3.5 g/dl (3.5-5.0); Albumin/Globulin Ratio 1.3 (1.1-1.8); Alkaline Phosphatase 77 U/L (38-126); Anion Gap 8.4 mEq/L (5-15); Aspartate Amino Transferase 48 U/L (14-36); Bilirubin,Total 0.3 mg/dl (0.2-1.3); Blood Urea Nitrogen 9 mg/dl (7-17); Calcium 9.1 mg/dl (8.4-10.2); Carbon Dioxide 27 mmol/L (22.0-30.0); Chloride 108 mmol/L (98-107); Creatinine Clearance Estimated 135 mL/min (50-200); Estimated Glomerular Filt Rate 91 ml/min (>60); GFR (African American) 110 ML/MIN (>60); Globulin 2.6 g/dL (1.3-3.2); Glucose 99 mg/dl (74-100); Lactate Dehydrogenase 156 U/L (313-618); Potassium 4.4 mmoL/L (3.5-5.1); Sodium 139 mmol/L (136-145); Total Protein,Serum 6.1 g/dl (6.3-8.2)
[2024-08-27 18:36] LABS: INR 0.99 (0.9-1.1); Prothrombin Time 11.1 seconds (10.1-12.5)
[2024-08-27] MEDS: 0.9 % SODIUM CHLORIDE 250 ML 25 ML IV (18:42)
[2024-08-27 18:54] LABS: Troponin I < 0.01 ng/ml (0.00-0.034)
--- NOTE | 2024-08-27 19:00 | PC.NURSE ---
Addendum entered by Kiersten Mancera RN 08/27/24 19:02: blood transfusion complete at 1842, lab notified, patient able to get out of bed to bathroom and void without difficulty, alert and oriented x 3, states she is hungry, Dr Gant updated on improving condition, vital signs remain stable Original Note: patient back to room around 1705 from PACU, not easily aroused, VS stable, patient started gaasping breathing, another nurse called in the room along with PACU nurse, VS remained stable at this time, Dr Gant notified, orders to consult hospitalist, wash house worker also called and at bedside, new orders were given
--- NOTE | 2024-08-27 19:18 | PC.NURSE ---
report to OMAR Guillermo
[2024-08-27 19:52] LABS: Hematocrit 31.8 % (37.0-47.0)
[2024-08-27 20:02] LABS: Hemoglobin 10.1 g/dL (12.2-16.2)
[2024-08-27] MEDS: hydrOXYzine pamoate 25MG CAPSULE 25 MG PO (21:50)
[2024-08-27] MEDS: SODIUM CHLORIDE 0.9% IV (23:48)
[2024-08-27] MEDS: GENTAMICIN SULFATE IV (23:48)
[2024-08-28] VITALS: BP 123/63; PULSE 86; RESP 17; TEMP 37.1; O2SAT 97
[2024-08-28] MEDS: AMPICILLIN SODIUM 2 GM in 0.9 % SODIUM CHLORIDE 100 ML IV ×2 (01:19→07:57)
[2024-08-28] MEDS: LACTATED RINGERS 1000ML 1,000 ML 125 ML IV (01:20)
[2024-08-28 04:53] VITALS: BP 101/58; PULSE 57; RESP 16; TEMP 36.6; O2SAT 98
[2024-08-28] MEDS: CLINDAMYCIN PHOSPHATE/D5W 900 MG/50 ML PIGGYBACK 100 MG IV (04:53)
--- NOTE | 2024-08-28 04:55 | PC.NURSE ---
Pt has slept and rested well this shift. BLT lungs CTA, Bowel sounds present in all 4 quadrants. IV patent and infusing well. BLE absent from edema. Pt denies any headache, blurred vision, floaters, pain, or N/V. VSS and call light within reach. Pt reports vaginal bleeding is minimal.
[2024-08-28 08:58] VITALS: BP 111/68; PULSE 56; RESP 16; TEMP 36.4; O2SAT 100
--- NOTE | 2024-08-28 09:38 | EXP.DC.SUM ---
General Admission date:: 08/26/24 Discharge date: 08/28/24 HPI HPI HPI: She is a 19-year-old 1 para 0 who is now 3 weeks from a vaginal delivery. 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 Otherwise she is a healthy young lady. She is breast-feeding. She was seen on August 09 with slightly increased bleeding. Her hemoglobin had however improved and after receiving IV fluid she was discharged home. Yesterday she began to have some increased bleeding and then this evening had heavier bleeding. She also had a low-grade temperature and was just feeling generally unwell. She feels she may be dehydrated and had some severe cramps earlier on in the day. She has a low-grade temperature at 99.3, her blood pressure is low will on the low side at 113/66. It was as low as 105/50. Heart rate is normal at 80. She looks pale. She has some mild dysuria but denies any calf tenderness. She denies any breast engorgement or redness in her breasts. She denies any cough or shortness of breath. She does admit to having some chills at times. She had a second-degree perineal laceration but does not complain of any severe perineal tenderness. Hospital Course Hospital Course Hospital Course: She was started on IV antibiotics, ampicillin, clindamycin and gentamicin. An ultrasound confirmed that she had retained products of conception. On August 26 she underwent a dilation and curettage with evacuation of retained products of conception. She was also anemic and we elected to give her 1 unit of PRBCs. She feels much better posttransfusion and her hemoglobin is 10.1. She will be discharged home today to follow-up in approximately 4 weeks time. She will continue with her vitamins and I have given her a prescription for iron tablets. She will continue with Keflex 500 mg twice daily for the next week. She was given the usual instructions with respect to limiting her activity, driving and sexual activity. Her condition on discharge is stable and improved. Exam Data for Last 24 hours Vital signs and Labs for Last 24 Hours: Temp Pulse Resp BP Pulse Ox O2 Del Method O2 Flow Rate 97.5 F L 56 L 16 111/68 100 Room Air 2 08/28/24 08:58 08/28/24 08:58 08/28/24 08:58 08/28/24 08:58 08/28/24 08:58 08/28/24 09:15 08/27/24 16:15 Laboratory Results - last 24 hr 08/27/24 11:10: Random Gentamicin 1.3 08/27/24 17:33: POC Glucose 96 08/27/24 17:52: WBC 7.1, RBC 3.31 L, Hgb 8.5 L, Hct 28.0 L, MCV 84.6, MCH 25.7 L, MCHC 30.4 L, RDW 13.9, Plt Count 440 H, MPV 9.1, Neut % (Auto) 76.4, Lymph % (Auto) 19.5, [place] % (Auto) 1.7, Eos % (Auto) 1.1, Baso % (Auto) 0.6, Neut # (Auto) 5.4, Lymph # (Auto) 1.4, [place] # (Auto) 0.1, Eos # (Auto) 0.1, Baso # (Auto) 0.0, PT 11.1, INR 0.99, D-Dimer 1.70 H, Sodium 139, Potassium 4.4, Chloride 108 H, Carbon Dioxide 27, Anion Gap 8.4, BUN 9 D, Creatinine 0.80, Estimated Creat Clear 135, Estimated GFR 91, Est GFR ( Amer) 110, Glucose 99, Calcium 9.1, Total Bilirubin 0.3, AST 48 H, ALT 51, Alkaline Phosphatase 77, Lactate Dehydrogenase 156 L, Troponin I < 0.01, Total Protein 6.1 L, Albumin 3.5, Globulin 2.6, Albumin/Globulin Ratio 1.3 08/27/24 18:05: Blood Type A Negative, Antibody Screen Positive, Crossmatch (AHG) See Detail 08/27/24 19:37: Hgb 10.1 L D, Hct 31.8 L I & O for Last 24 hours: Intake & Output 08/25/24 08/26/24 08/27/24 08/28/24 11:59 11:59 11:59 11:59 Intake Total 1000 / 1000 Output Total 200 / 200 1700 / 1700 Balance -200 / -200 -700 / -700 Weight 170 lb Microbiology Reports for the Last 24 Hours: Microbiology 08/26/24 20:20 Blood Blood Culture - Preliminary NO GROWTH AFTER 24 HOURS 08/26/24 20:30 Blood Blood Culture - Preliminary NO GROWTH AFTER 24 HOURS Constitutional Constitutional: no acute distress *Routine HEENT Exam Head: Present normocephalic *Routine Neck Exam Neck: Present full ROM *Routine Respiratory Exam Respiratory: Present normal respiratory effort; Absent accessory muscle use Results Data Completed and Pending Labs on day of discharge: Labs from last 24 hours 08/27/24 08/27/24 08/27/24 19:37 18:05 17:52 WBC 7.1 RBC 3.31 L Hgb 10.1 L D 8.5 L Hct 31.8 L 28.0 L MCV 84.6 MCH 25.7 L MCHC 30.4 L RDW 13.9 Plt Count 440 H MPV 9.1 Neut % (Auto) 76.4 Lymph % (Auto) 19.5 [place] % (Auto) 1.7 Eos % (Auto) 1.1 Baso % (Auto) 0.6 Neut # (Auto) 5.4 Lymph # (Auto) 1.4 [place] # (Auto) 0.1 Eos # (Auto) 0.1 Baso # (Auto) 0.0 PT 11.1 INR 0.99 D-Dimer 1.70 H Sodium 139 Potassium 4.4 Chloride 108 H Carbon Dioxide 27 Anion Gap 8.4 BUN 9 D Creatinine 0.80 Estimated Creat Clear 135 Estimated GFR 91 Est GFR ( Amer) 110 Glucose 99 POC Glucose Calcium 9.1 Total Bilirubin 0.3 AST 48 H ALT 51 Alkaline Phosphatase 77 Lactate Dehydrogenase 156 L Troponin I < 0.01 Total Protein 6.1 L Albumin 3.5 Globulin 2.6 Albumin/Globulin Ratio 1.3 Random Gentamicin Blood Type A Negative Antibody Screen Positive Antibody Identification Pending Crossmatch ([facility]) See Detail 08/27/24 08/27/24 17:33 11:10 WBC RBC Hgb Hct MCV MCH MCHC RDW Plt Count MPV Neut % (Auto) Lymph % (Auto) [place] % (Auto) Eos % (Auto) Baso % (Auto) Neut # (Auto) Lymph # (Auto) [place] # (Auto) Eos # (Auto) Baso # (Auto) PT INR D-Dimer Sodium Potassium Chloride Carbon Dioxide Anion Gap BUN Creatinine Estimated Creat Clear Estimated GFR Est GFR ( Amer) Glucose POC Glucose 96 Calcium Total Bilirubin AST ALT Alkaline Phosphatase Lactate Dehydrogenase Troponin I Total Protein Albumin Globulin Albumin/Globulin Ratio Random Gentamicin 1.3 Blood Type Antibody Screen Antibody Identification Crossmatch (AHG) Preliminary micro results at discharge 08/26/24 20:20 Blood Culture - Preliminary Blood NO GROWTH AFTER 24 HOURS 08/26/24 20:30 Blood Culture - Preliminary Blood NO GROWTH AFTER 24 HOURS DS: Diagnosis Discharge Diagnosis (1) Retained products of conception post-del w/o hemorrh but w other compl: Status: Acute Code(s): O73.1 - Retained portions of placenta and membranes, without hemorrhage (2) Endometritis following delivery: Status: Acute Code(s): O86.12 - Endometritis following delivery (3) Acute blood loss anemia: Status: Acute Code(s): D62 - Acute posthemorrhagic anemia (4) hemorrhage: Status: Acute Code(s): O72.1 - Other immediate hemorrhage Qualifiers: hemorrhage type: unspecified Qualified Code(s): O72.1 - Other immediate hemorrhage Meds Home Medications and Allergies Home Medications ?Medication ?Instructions ?Recorded ?Confirmed ?Type ondansetron 4 mg disintegrating 4 mg PO Q4HP PRN Nausea And 01/16/24 08/27/24 History tablet Vomiting vits no.126-ferrous fum 1 tab PO DAILY 04/17/24 08/27/24 History 28 mg iron-folic acid 800 mcg tablet (Classic ) azelastine 137 mcg (0.1 %) nasal 1 spray intranasal HS 05/14/24 08/27/24 History spray famotidine 20 mg tablet (Pepcid) 20 mg PO BID #60 tabs 06/05/24 08/27/24 Rx escitalopram oxalate 20 mg tablet 20 mg PO HS 08/05/24 08/27/24 History (Lexapro) cephalexin 500 mg capsule 500 mg PO BID #14 caps 08/28/24 Rx ferrous sulfate 325 mg (65 mg 325 mg PO DAILY #30 tabs 08/28/24 Rx iron) tablet (Iron (ferrous sulfate)) New Prescriptions to Start Prescriptions: cephalexin Tk Santiago ferrous sulfate [Iron (ferrous sulfate)] Tk Santiago Allergies Allergy/AdvReac Type Severity Reaction Status Date / Time amoxicillin (From Augmentin) AdvReac Mild Nausea Verified 08/20/24 13:26 clavulanic acid (From AdvReac Mild Nausea Verified 08/20/24 13:26 Augmentin) Discharge Plan Disposition Patient Disposition: Home, Self-Care Discharge Order Discharge Orders: Discharge Order (Routine); Ordered 08/28/24 Ordered By: Tk Santiago Follow up Plan Prescriptions/Medication Reconciliation: New ferrous sulfate [Iron (ferrous sulfate)] 325 mg (65 mg iron) Tablet 325 mg PO DAILY Qty: 30 2RF cephalexin 500 mg capsule 500 mg PO BID Qty: 14 0RF Continued ondansetron 4 mg tablet,disintegrating 4 mg PO Q4HP PRN (Reason: Nausea And Vomiting) Patient Comments: PLACE 1 TABLET UNDER THE TONGUE AND ALLOW TO DISSOLVE EVERY 4 TO 6 HOURS NEEDED FOR NAUSEA AND VOMITING Classic 28 mg iron- 800 mcg tablet 1 tab PO DAILY azelastine 137 mcg (0.1 %) spray,non-aerosol 1 spray intranasal HS famotidine [Pepcid] 20 mg tablet 20 mg PO BID Qty: 60 3RF escitalopram oxalate [Lexapro] 20 mg tablet 20 mg PO HS Problem Reconciliation Problems Reviewed?: Yes Patient Discharge Instructions ACTIVITY: No heavy lifting DIET: continue same diet Patient Instructions: DI for a Dilation and Curettage Print Language: Yi Providers Primary Care Provider: Sia Mg Admit Provider: Tk Santiago Attending Provider: Tk Santiago
--- NOTE | 2024-08-31 07:21 | EXP.ANES.II ---
[facility] Anesthesia Record Part II Anesthesia Record Part II Discharge Time: 16:51 Destination: Obstetric PACU nurse assessment reviewed?: Yes Patient Condition:: Good Anesthesia Complications:: None Swallowing reflex intact?: Yes Airway Patency: Patent Cyanosis?: No Blood Pressure: 135/78 SaO2: 100 Respiratory Rate: 17 Pulse Rate: 71 Temperature: 97.7 F Mental Status: Alert & Oriented Pain level:: 7 Nausea and/or vomitting:: None Intake, IV Amount: 0 Hydration: Adequate
[2024-08-31 07:22] VITALS: BP 135/78; PULSE 71; RESP 17; TEMP 36.5; O2SAT 100
== END 2024-08-28 10:15 | disposition home or self-care (01) | DRG 769 ==
LOC: OBOUT 21:02 → OB 21:02
PROVIDERS: Obstetrics & Gynecology; Student in an Organized Health Care Education/Training Program; Admitting Provider Nurse Practitioner Obstetrics & Gynecology; PCP Nurse Practitioner; Visit Provider Nurse Practitioner Obstetrics & Gynecology
PROC: 10D17ZZ Extraction of Products of Conception, Retained, Via Natural or Artificial Opening (ICD-10-PCS; CPT 58120; principal; 2024-08-27 15:00)
DX: O72.0 Third-stage hemorrhage (principal); O86.12 Endometritis following delivery; D62 Acute posthemorrhagic anemia; O90.81 Anemia of the puerperium
CPT/HCPCS: 59160; 36415; 76856; 80053; 80170; 80307; 81001; 82962; 83605; 83615; 84484; 85014; 85018; 85025; 85378; 85610; 85651; 85730; 86140; 86850; 86870; 87040; 87086; 93005; 94761; G0283; J0290; J0736; J1100; J1171; J1580; J1756; J1885; J2250; J2270; J2405; J3010; J7120; P9016

== ENCOUNTER 2025-05-01 21:17 | Emergency (ER) | payer OTHER, SELFPAY ==
--- OUTSIDE RECORDS SUMMARY | 2025-03-11 13:15 | XMS_ITS | Encounter Summary ---
Author Organization [facility] Address [address] [place] [address] Care Team Providers Care Geothermal Heat Pump Machinist Name Role Phone Sia Mg Anne Primary Care Provider [phone] Reason for Referral * Monitoring (Routine) - Closed Specialty Diagnoses / Procedures Referred By Jodee t Referred To Contact Diagnoses Palpitations Dizziness Procedures Holter Monitor - 72 Hour Up To 15 Days Awa Duke APRN [address] [place] [address] Phone: tel: fax: Referral ID Status Reason Start Date Expiration Date Visits Re quested Visits Authorized Closed 03/11/2025 06/10/2026 1 1 Reason for Visit * Monitoring (Routine) - Closed Specialty Diagnoses / Procedures Referred By Jodee mast Referred To Contact Diagnoses Palpitations Dizziness Procedures Holter Monitor - 72 Hour Up To 15 Days Awa Duke APRN [address] [address] Phone: tel: fax: Referral ID Status Reason Start Date Expiration Date Visits Re quested Visits Authorized Closed 03/11/2025 06/10/2026 1 1 Encounter Details Date Type Department Care Team (Latest Contact Info) Description 03/11/2025 1:15 PM EDT - 03/11/2025 11:59 PM EDT Hospital Encounter [facility] [address] [place] [address] Palpitations; Dizziness Discharge Disposition: Home or Self Care Social History Tobacco Use Types Packs/Day Years Used Date Smoking Tobacco: Every Day Alcohol Use Standard Drinks/Week Comments Never 0 (1 standard drink = 0.6 oz pur e alcohol) AUDIT-C Answer Date Recorded Q1: How often do you have a drink containing alcohol? Never 12/08/2024 Q2: How many drinks containi ng alcohol do you have on a typical day when you are drinking? Patient does not drink Q3: How often do you have si x or more drinks on one occasion? Never 12/08/2024 Abuse Screen Answer Date Recorded Feels Unsafe at Home or Work/School no 02/19/2025 Feels Threatened by Someone no 02/03 Does Anyone Try to Keep You From Having Contact with Others or Doing Things Outside Your Home? no 02/19/2025 Physical Signs of Abuse Present no 02/19/2025 Housing Stability Answer Date Recorded Current Living Arrangements home 01/2025 Potentially Unsafe Housing Conditions Not on shaila e 12/08/2024 Disabilities Answer Date Recorded Difficulty Concentrating, Remembering or Making Decisions no 12/08/2024 Difficulty Managing Errands Independently no 12/08/2024 PHQ-2 Answer Date Recorded Patient Health Questionnaire-2 Score 0 12/08/2024 Comments Unknown Sex and Gender Information Value Date Recorded Sex Assigned at Not on file Legal Sex Female 11:15 AM EDT Gender Identity Not on file Sexual Orientation Not on file documented as of this encounter Medications at Time of Discharge escitalopram (LEXAPRO) 20 MG tablet Take 1 tablet by mouth Daily. estradiol (ESTRACE VAGINAL) 0.1 MG/GM vaginal creamIndication s:Vaginal atrophy Insert 1gm nightly for 14 nights. Then, insert 1 gm intravaginally 1-3 times each week for maintenance. 1 each 12 12/04/2024 documented as of this encounter Plan of Treatment Upcoming Encounters Date Type Department Care Team (Late st Contact Info) Description 01/07/2026 1:30 PM EDT Office Visit [facility] [address] [place] [address] Jasmeet Hawkins MD [address] [facility] [address] [place] [address] Pending Results Name Type Priority Associated Diagnoses Date /Time Holter Monitor - 72 Hour Up To 15 Days Cardiac Services Routine Palpitations Dizziness 03/11/2025 2:41 PM EDT Scheduled Orders Name Type Priority Associated Diagnoses Orde r Schedule Holter Monitor - 72 Hour Up To 15 Days Cardiac Services Routine Palpitations Dizziness Once for 1 Occurrences starting 03/11/2025 until 03/11/2025 documented as of this encounter Visit Diagnoses Diagnosis Palpitations Dizziness Dizziness and giddiness documented in this encounter Care Teams Geothermal Heat Pump Machinist Relationship Specialty Start Date End Date Sia Mg [address] [place] [address] PCP - General Nurse Practitioner 08/31/24 documented as of this encounter
--- OUTSIDE RECORDS SUMMARY | 2025-03-11 14:00 | XMS_ITS | Encounter Summary ---
Author Organization [facility] Address [address] [place] [address] Care Team Providers Care Lead Pl Sql Developer Name Role Phone Sia Mg Anne Primary Care Provider [phone] Reason for Referral * Monitoring (Routine) - Closed Specialty Diagnoses / Procedures Referred By Contac t Referred To Contact Diagnoses Palpitations Dizziness Procedures Holter Monitor - 72 Hour Up To 15 Days Awa Duke APRN [address] [address] Phone: tel: fax: Referral ID Status Reason Start Date Expiration Date Visits Re quested Visits Authorized Closed 03/11/2025 06/10/2026 1 1 * Diagnostic Imaging (Routine) - Authorized Specialty Diagnoses / Procedures Referred By Jodee mast Referred To Contact Diagnoses Palpitations Shortness of breath Dizziness Procedures Adult Transthoracic Echo Complete W/ Cont if Necessary Per Protocol Awa Duke APRN [address] [address] Phone: tel: fax: Referral ID Status Reason Start Date Expiration Date V isits Requested Visits Authorized Authorized 03/11/2025 06/10/2026 1 1 Reason for Visit * Reason Comments Chest Pain * Consultation (Routine) - Closed Specialty Diagnoses / Procedures Referred By Jodee mast Referred To Contact Cardiology Diagnoses Palpitations Chest tightness Shortness of breath Postural dizziness with near syncope Procedures CO OFFICE/OUTPATIENT NEW MODERATE MDM 45 MINUTES Miryam Hernandez PA-C [address] [place] [address] Phone: tel: fax: [facility] [address] [address] Phone: tel: fax: Referral ID Status Reason Start Date Expiration Date V isits Requested Visits Authorized [id number] Closed Specialty Services Required 02/19/2025 05/21/2026 1 1 Encounter Details Date Type Department Care Team (Late st Contact Info) Description 03/11/2025 2:00 PM EDT Office Visit [facility] [address] [address] Awa Duke APRN [address] [address] Palpitations (Primary Dx); Shortness of breath; Dizziness Social History Tobacco Use Types Packs/Day Years [...] Sign Reading Time Taken Comments Blood Pressure 110/67 03/11/2025 2:14 PM EDT Pulse 97 03/11/2025 2:14 PM EDT Temperature - - Respiratory Rate - - Oxygen Saturation 97% 03/11/2025 2:14 PM EDT Inhaled Oxygen Concentration - - Weight 75.3 kg (166 lb) 03/11/2025 2:14 PM EDT Height 157.5 cm (5' 2 ) 03/11/2025 2:14 PM EDT Body Mass Index 30.36 03/11/2025 2:14 PM EDT documented in this encounter Progress Notes * Awa Duke APRN - 03/11/2025 2:00 PM EDT [facility] PCP: Sia Mg Referring provider: Miryam Hernandez PA-C Chief Complaint Chest Pain Problem List: Palpitations WISE Subjective History of Present Illness December, 19 y.o. female who presents today for Chest Pain Patient presented to the ED on 02/19 with complains of intermittent palpitations since August after childbirth. She has had multiple complications since delivery at [facility]. She required a D&C and blood transfusion for symptomatic anemia. She was admitted with septic shock. She then had a complication after an IUD and had to have it removed. Denies any prior cardiac evaluation. She does report her mother had SVT in the past. In the ED, labs and EKG were stable. She reports since Sep she has been having episodes of feeling like her heart would pause. On the day of the ED visit it lasted all day and felt terrible. Was dizzy and short of breath. Some slight chest tightness. Symptoms have improved but still feels symptoms every other morning. Worse if sittingstill. She does have WISE, history of allergies/asthma Drinks a lot of water, rare caffeine Currently breastfeed Objective Vital Signs: Vitals: 03/11/25 1413 03/11/25 1414 BP: 105/59 110/67 BP Location: Left arm Left arm Patient Position: Sitting Standing Pulse: 85 97 SpO2: 98% 97% Weight: 75.3 kg (166 lb) 75.3 kg (166 lb) Height: 157.5 cm (62 ) 157.5 cm (62 ) Body mass index is 30.36 kg/m??. Physical Exam Vitals reviewed. Constitutional: Appearance: Normal appearance. HENT: Head: Normocephalic. Neck: Vascular: No carotid bruit. Cardiovascular: Rate and Rhythm: Normal rate and regular rhythm. Pulses: Normal pulses. Heart sounds: Normal heart sounds, S1 normal and S2 normal. No murmur heard. Pulmonary: Effort: Pulmonary effort is normal. No respiratory distress. Breath sounds: Normal breath sounds. Chest: Chest wall: No tenderness. Abdominal: General: Abdomen is flat. Palpations: Abdomen is soft. Musculoskeletal: Cervical back: Neck supple. Right lower leg: No edema. Left lower leg: No edema. Skin: General: Skin is warm and dry. Neurological: General: No focal deficit present. Mental Status: She is alert and oriented to person, place, and time. Mental status is at baseline. Psychiatric: Mood and Affect: Mood normal. Behavior: Behavior normal. Thought Content: Thought content normal. Data Reviewed:{ Labs Result Review Imaging Med Tab Media :23} Lab Results Component Value Date GLUCOSE 86 02/19/2025 CALCIUM 9.5 02/19/2025 NA 141 02/19/2025 K 3.9 02/19/2025 CO2 27.0 02/19/2025 CL 104 02/19/2025 BUN 9.7 02/19/2025 CREATININE 0.69 02/19/2025 EGFR 126.8 02/19/2025 BCR 14.1 02/19/2025 ANIONGAP 10.0 02/19/2025 Lab Results Component Value Date WBC 7.77 02/19/2025 HGB 13.5 02/19/2025 HCT 40.9 02/19/2025 MCV 84.9 02/19/2025 PLT 286 02/19/2025 Lab Results Component Value Date PROBNP 42.2 02/19/2025 Lab Results Component Value Date MG 1.8 02/19/2025 Lab Results Component Value Date TSH 1.770 02/19/2025 No results found for: CHOL , CHLPL , TRIG , HDL , LDL , LDLDIRECT No results found for: HGBA1C Lab Results Component Value Date TROPONINT <6 02/19/2025 Assessment & Plan Assessment and Plan 1. Palpitations - Symptoms sound like symptomatic PVCs. Will do 14-day Holter - Recommend that she start [id number] magnesium glycinate - Adult Transthoracic Echo Complete W/ Cont if Necessary Per Protocol; Future - Holter Monitor - 72 Hour Up To 15 Days; Future 2. Shortness of breath - Adult Transthoracic Echo Complete W/ Cont if Necessary Per Protocol; Future 3. Dizziness - Adult Transthoracic Echo Complete W/ Cont if Necessary Per Protocol; Future - Holter Monitor - 72 Hour Up To 15 Days; Future Follow Up Return in about 1 month (around 04/11/2025) for Monitor results, Video Visit. Patient was given instructions and counseling regarding her condition or for health maintenance advice. Please see specific information pulled into the AVS if appropriate. Patient was instructed to call the [facility] with any questions, concerns, or worsening symptoms. Dictated Utilizing [employer] Dictation Please note that portions of this note were completed with a voice recognition program. Part of this note may be an electronic mold runner/translation of spoken language to printed textusing the [employer] Dictation System. * Eve Barrera MA - 03/11/2025 2:00 PM EDT [facility] Heart Monitor Documentation [id number] 03/11/25 [] ZIO XT Patch Model [id number] Prescribed for Days Serial Number: (N + 9 Digits) N Apply-By Date on Box: USPS Tracking Number: USPS Tracking [] [employer] BodyGuardian MINI PLUS Mobile Cardiac Telemetry Model [id number] Prescribed for Days Serial Number: (BGM + 7 Digits) BGM Shipped-By Date on Box: UPS Tracking Number: 1Z UPS Tracking [x] [employer] MINI Holter Monitor Model BGMINIEL Prescribed for 14 Days Serial Number: (7 Digits) [id number] Shipped-By Date on Box: UPS Tracking Number: 1Z UPS Tracking This monitor was applied to the patient's chest and checked for proper functioning. Ms. Carmita Paige was instructed in the proper use of this monitor. She was given the opportunity to ask questions and left the office with the device ophthalmic asst's instruction manual. Eve Barrera MA, 14:37 EDT, 03/11/25 [facility] 8. documented in this encounter Plan of Treatment Upcoming Encounters Date Type Department Care Team (Late st Contact Info) Description 01/07/2026 1:30 PM EDT Office Visit [facility] [address] [place] [address] Jasmeet Hawkins MD [address] [facility] [address] [place] [id number] Pending Results Name Type Priority Associated Diagnoses Date /Time Holter Monitor - 72 Hour Up To 15 Days Cardiac Services Routine Palpitations Dizziness 03/11/2025 2:41 PM EDT Scheduled Orders Name Type Priority Associated Diagnoses Order Schedule Adult Transthoracic Echo Complete W/ Cont if Necessary Per Protocol Echocardiography Routine Palpitations Shortness of breath Dizziness Expected: 03/16/2025 (Approximate), Expires: 03/11/2026 Holter Monitor - 72 Hour Up To 15 Days Cardiac Services Routine Palpitations Dizziness Expected: 03/16/2025, Expires: 03/11/2026 documented as of this encounter Visit Diagnoses Diagnosis Palpitations- Primary Shortness of breath Dizziness Dizziness and giddiness documented in this encounter Care Teams Lead Pl Sql Developer Relationship Specialty Start Date End Date Sia Mg [address] [place] [address] PCP - General Nurse Practitioner 08/31/24 documented as of this encounter
--- OUTSIDE RECORDS SUMMARY | 2025-03-15 20:44 | XMS_ITS | Encounter Summary ---
[facility] Address [address] [place] [address] Care Team Providers Care Production Associate Name Role Phone Sia Mg Primary Care Provider Reason for Visit * Reason Comments Pelvic Pain Encounter Details Date Type Department Care Team (Late st Contact Info) Description 03/15/2025 8:44 PM EDT - 03/16/2025 12:08 AM EDT Emergency [facility] EMERGENCY DEPARTMENT [address] [address] Olvin Wray MD [address] [place] [address] [place] [id number] Alen Barney DO [address] [place] [phone] Pelvic pain (Primary Dx) Discharge Disposition: Home or Self Care Social [...] Feels Unsafe at Home or Work/School no 03/16/2025 Feels Threatened by Someone no 03/05 Does Anyone Try to Keep You From Having Contact with Others or Doing Things Outside Your Home? no 03/16/2025 Physical Signs of Abuse Present no 03/16/2025 Housing Stability Answer Date Recorded Current Living Arrangements home 01/2025 Potentially Unsafe Housing Conditions Not on shaila e 12/08/2024 Disabilities Answer Date Recorded Difficulty Concentrating, Remembering or Making Decisions no 12/08/2024 Difficulty Managing Errands Independently no 12/08/2024 PHQ-2 Answer Date Recorded Patient Health Questionnaire-2 Score 0 12/08/2024 Comments No Sex and Gender Information Value Date Recorded Sex Assigned at Not on file Legal Sex Female 11:15 AM EDT Gender Identity Not on file Sexual Orientation Not on file documented as of this encounter Last Filed Vital Signs Vital Sign Reading Time Taken Comments Blood Pressure 103/69 03/16/2025 12:00 AM EDT Pulse 75 03/15/2025 11:30 PM EDT Temperature 36.6 C (97.9 F) 03/15/2025 8:41 PM EDT Respiratory Rate 18 03/15/2025 11:08 PM EDT Oxygen Saturation 100% 03/15/2025 11:30 PM EDT Inhaled Oxygen Concentration - - Weight 73.9 kg (163 lb) 03/15/2025 8:41 PM EDT Height 160 cm (5' 3 ) 03/15/2025 8:41 PM EDT Body Mass Index 28.87 03/15/2025 8:41 PM EDT documented in this encounter Functional Status * Calculated C-SSRS Risk Score (Lifetime/Recent) Answer Date of Assessment Author No Risk Indicated 03/15/2025 8:43 PM EDT Em Jewell RN * [place] Suicide Severity Rating Scale (Screener/Recent Self-Report) Question Answer Date of Assessment Author 1. Wish to be (Past 1 Month) No 025 8:43 PM EDT Em Jewell RN 2. Non-Specific Active Suici marisabel Thoughts (Past 1 Month) No 03/15/2025 8:43 PM EDT Leonela Jewell RN 6. Suicidal Behavior (Lifetime) No 5 8:43 PM EDT Em Jewell RN documented as of this encounter Discharge Instructions * Discharge Instructions* Fausto Orourke PA - 03/15/2025 11:22 PM EDT Follow-up with PCP for recheck of symptoms. Utilize Tylenol and ibuprofen. Return emergency department for new, worsening, concerning symptoms. * Attachments The following attachments cannot be sent through Care Everywhere. * Pelvic Pain Female (Bolivian) documented in this encounter Medications at Time of Discharge escitalopram (LEXAPRO) 20 MG tablet Take 1 tablet by mouth Daily. estradiol (ESTRACE VAGINAL) 0.1 MG/GM vaginal creamIndication s:Vaginal atrophy Insert 1gm nightly for 14 nights. Then, insert 1 gm intravaginally 1-3 times each week for maintenance. 1 each 12 12/04/2024 5 documented as of this encounter Miscellaneous Notes * [facility] Provider Note - Fausto Orourke PA - 03/16/2025 12:08 AM EDT Images from the original note were not included. Subjective History of Present Illness: Patient is a 19-year-old female medical history of anxiety, asthma, bipolar disorder, GERD, PCOS, endometriosis presents the emergency department for suprapubic and lower abdominal pain for the last month. Patient states pain waxes wanes and is intermittent. Patient denies fever or systemic symptoms. Patient denies vaginal bleeding. Patient has noticed white vaginal discharge. Patient denies concern for STDs. Patient states she called her [employer] [facility] [employer] office and has an ultrasound scheduled for the end of the month. Patient is currently breast-feeding Nurses Notes reviewed and agree, including vitals, allergies, social history and prior medical history. REVIEW OF SYSTEMS: All systems reviewed and not pertinent unless noted. Review of Systems Gastrointestinal: Positive for abdominal pain. All other systems reviewed and are negative. 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 12/06/2024 Allergies: Doxycycline, Vancomycin, and Clavulanic acid Past Surgical History: Procedure Laterality Date D & C HYSTEROSCOPY MYOSURE N/A 09/07/2024 Procedure: D&C Hysteroscopy with Myosure Excision of Retained Products of Conception, Suction D&C, Repair of Cervical Laceration, Placement of Intrauterine Balloon Tamponade; Surgeon: Jasmeet Hawkins MD; Location: [facility]; Service: Obstetrics/Gynecology; Laterality: N/A; D & C WITH SUCTION 08/26/2024 DIAGNOSTIC LAPAROSCOPY 12/06/2024 Laparoscopic removal of intra-peritoneal foreign body (Mirena IUD) and removal of infarcted epiploica LAPAROSCOPIC CHOLECYSTECTOMY Social History Socioeconomic History Marital status: Tobacco Use Smoking status: Every Day Vaping Use Vaping status: Never Used Substance and Sexual Activity Alcohol use: Never Drug use: Never Sexual activity: Yes Partners: Male control/protection: None Family History Problem Relation Age of Onset Diabetes Father Diabetes Maternal Grandmother Cancer Maternal Grandmother Hypertension Maternal Grandmother Diabetes Maternal Grandfather Cancer Maternal Grandfather Diabetes Paternal Grandmother Cancer Paternal Grandmother Diabetes Paternal Grandfather Cancer Paternal Grandfather Arrhythmia Mother Asthma Mother Objective Physical Exam: BP 103/69 Pulse 75 Temp 97.9 ??F (36.6 ??C) (Oral) Resp 18 Ht 160 cm (63 ) Wt 73.9 kg (163 lb) LMP (LMP Unknown) SpO2 100% Yes BMI 28.87 kg/m?? Physical Exam Vitals and nursing note reviewed. Constitutional: General: She is not in acute distress. Appearance: Normal appearance. She is not toxic-appearing. HENT: Head: Normocephalic and atraumatic. Nose: Nose normal. Mouth/Throat: Mouth: Mucous membranes are moist. Eyes: Extraocular Movements: Extraocular movements intact. Conjunctiva/sclera: Conjunctivae normal. Pupils: Pupils are equal, round, and reactive to light. Cardiovascular: Rate and Rhythm: Normal rate and regular rhythm. Pulses: Normal pulses. Heart sounds: Normal heart sounds. No murmur heard. Pulmonary: Effort: Pulmonary effort is normal. No respiratory distress. Breath sounds: Normal breath sounds. No stridor. No wheezing. Abdominal: General: Abdomen is flat. There is no distension. Palpations: Abdomen is soft. There is no mass. Tenderness: There is abdominal tenderness (Suprapubic TTP). There is no guarding. Musculoskeletal: General: No deformity. Normal range of motion. Cervical back: Normal range of motion and neck supple. Right lower leg: No edema. Left lower leg: No edema. Skin: General: Skin is warm and dry. Capillary Refill: Capillary refill takes less than 2 seconds. Findings: No rash. Neurological: General: No focal deficit present. Mental Status: She is alert and oriented to person, place, and time. Cranial Nerves: No cranial nerve deficit. Gait: Gait normal. Psychiatric: Mood and Affect: Mood normal. Behavior: Behavior normal. Procedures ED Course: Lab Results (last 24 hours) Procedure Component Value Units Date/Time Urinalysis With Microscopic If Indicated (No Culture) - Urine, Clean Catch [[id number]] (Normal) Collected: 03/15/252102 Specimen: Urine, Clean Catch Updated: 03/15/252109 Color, UA Yellow Appearance, UA Clear pH, UA 7.0 Specific [place], UA 1.010 Glucose, UA Negative Ketones, UA Negative Bilirubin, UA Negative Blood, UA Negative Protein, UA Negative Leuk Esterase, UA Negative Nitrite, UA Negative Urobilinogen, UA 0.2 E.U./dL Narrative: Urine microscopic not indicated. CBC & Differential [[id number]] (Abnormal) Collected: 03/15/252102 Specimen: Blood Updated: 03/15/252108 Narrative: The following orders were created for panel order CBC & Differential. Procedure Abnormality Status --------- ------ CBC Auto Differential[[id number]] Abnormal Final result Please view results for these tests on the individual orders. Comprehensive Metabolic Panel [[id number]] (Abnormal) Collected: 03/15/252102 Specimen: Blood Updated: 03/15/252127 Glucose 87 mg/dL BUN 10.5 mg/dL Creatinine 0.81 mg/dL Sodium 140 mmol/L Potassium 3.8 mmol/L Chloride 102 mmol/L CO2 25.0 mmol/L Calcium 10.3 mg/dL Total Protein 8.6 g/dL Albumin 4.7 g/dL ALT (SGPT) 20 U/L AST (SGOT) 24 U/L Alkaline Phosphatase 91 U/L Total Bilirubin 0.3 mg/dL Globulin 3.9 gm/dL A/G Ratio 1.2 g/dL BUN/Creatinine Ratio 13.0 Anion Gap 13.0 mmol/L eGFR 106.1 mL/min/1.73 Narrative: GFR Categories in Chronic Kidney Disease (CKD) GFR Category GFR (mL/min/1.73) Interpretation G1 90 or greater Normal or high (1) G2 60-89 Mild decrease (1) G3a 45-59 Mild to moderate decrease G3b 30-44 Moderate to severe decrease G4 15-29 Severe decrease G5 14 or less Kidney failure (1)In the absence of evidence of kidney disease, neither GFR category G1 or G2 fulfill the criteriafor CKD. eGFR calculation 2020 CKD-EPI creatinine equation, which does not include race as a factor CBC Auto Differential [[id number]] (Abnormal) Collected: 03/15/252102 Specimen: Blood Updated: 03/15/252108 WBC 12.07 10*3/mm3 RBC 5.22 10*6/mm3 Hemoglobin 14.9 g/dL Hematocrit 44.5 % MCV 85.2 fL MCH 28.5 pg MCHC 33.5 g/dL RDW 13.3 % RDW-SD 42.0 fl MPV 9.1 fL Platelets 328 10*3/mm3 Neutrophil % 54.4 % Lymphocyte % 37.9 % Monocyte % 4.1 % Eosinophil % 3.1 % Basophil % 0.3 % Immature Grans % 0.2 % Neutrophils, Absolute 6.57 10*3/mm3 Lymphocytes, Absolute 4.58 10*3/mm3 Monocytes, Absolute 0.49 10*3/mm3 Eosinophils, Absolute 0.37 10*3/mm3 Basophils, Absolute 0.04 10*3/mm3 Immature Grans, Absolute 0.02 10*3/mm3 POC Urine [[id number]] (Normal) Collected: 03/15/252105 Specimen: Urine Updated: 07/11/25 2106 HCG, Urine, QL Negative Internal Positive Control -- Internal Negative Control -- Chlamydia trachomatis, Neisseria gonorrhoeae, PCR - Swab, Urine, Clean Catch [[id number]] Collected:03/15/252147 Specimen: Swab from Urine, Clean Catch Updated: 03/15/252149 CT Abdomen Pelvis With Contrast Result Date: 03/15/2025 CT ABDOMEN PELVIS W CONTRAST Date of Exam: 03/15/2025 10:09 PM EDT Indication: sharp lower abdominalpain. Comparison: 12/08/2024 Technique: Axial CT images were obtained of the abdomen and pelvis following the uneventful intravenous administration of 85 cc Isovue-300 IV contrast. Reconstructed coronal and sagittal images were also obtained. Automated exposure control and iterative construction methods were used. FINDINGS: Lung bases: No masses. No consolidation. Liver:No masses. No intrahepatic biliary ductal dilatation. Spleen:No masses. No perisplenic hematoma. Pancreas:No pancreatic masses. No evidence of pancreatitis. Gallbladder and common bile duct: Previous cholecystectomy Adrenal glands:No adrenal masses Kidneys and ureters:No kidney stones. No renal masses.No calculi present withinthe ureters. Normal caliber ureters. Urinary bladder:No urinary bladder wall thickening. No bladdermasses. Small bowel:Normal caliber small bowel. Large bowel:No diverticulosis or diverticulitis. Nolarge bowel masses are appreciated Appendix: Normal GENITOURINARY: Normal appearance of the uterus and adnexa. Ascites or pneumoperitoneum:None. Adenopathy:None present Osseous structures: The proximal femurs are intact. The pubic bones are intact. The sacrum and sacroiliac joints are normal. Lumbar vertebral body height and alignment are normal. No lytic or blastic disease. Other findings: None Impression: 1.No acute findings in the abdomen or pelvis. 2.Previous cholecystectomy. Electronically Signed: John Cloud MD 03/15/2025 10:34 PM EDT Workstation ID: [id number] MDM Amount and/or Complexity of Data Reviewed Clinical lab tests: reviewed Initial impression of presenting illness: Patient is a 19-year-old female presents presents emergency department for 1 month of suprapubic and lower abdominal pain for the last month. Patient also has noticed mild white vaginal discharge for the past couple weeks. Patient has no concern for STDs ornew sexual partner. Patient arrives afebrile, hematin stable, nontoxic-appearing with vitals interpreted by myself. Pertinent features from physical exam: Mild suprapubic TTP. DDX: includes but is not limited to: UTI, endometriosis, STD, kidney stone, uterine fibroid, constipation, diverticulitis, others Initial diagnostic plan and interventions: Recommended CBC, CMP, urinalysis, test, CT abdomen pelvis. Results from initial plan were reviewed and interpreted by me revealing labwork nonactionable in the emergency department. CT abdomen pelvis shows no acute findings. Unable to perform ultrasound at nighttime in our facility. Will schedule appointment for outpatient ultrasound for patient for further evaluation. Offered to do pelvic exam in the ED but patient refused this at this time. Did add GC chlamydia testing. Patient does not want prophylactic antibiotic treatment. Re-evaluation: Patient is well-appearing and hemodynamic stable at the time of discharge. Patient states she is going to [place] and dump and would like a dose of Toradol before leaving. Discussed with pharmacy. Pharmacy agrees that patient can do this but must hold off on breast-feeding for 24 hours before restarting. Patient is agreeable this plan. Patient given strict return precautions to the emergency department. Medications iopamidol (ISOVUE-300) 61 % injection 100 mL (85 mL Intravenous Given 03/15/25 2122) ketorolac (TORADOL) injection 15 mg (15 mg Intravenous Given 03/15/25 9222) Results/clinical rationale were discussed with patient Data interpreted: Nursing notes reviewed, vital signs reviewed. Labs independently interpreted by me. Imaging independently interpreted by me. EKG independently interpreted by me. Counseling: Discussed the results above with the patient regarding need for admission or discharge.Patient understands and agrees plan of care. ----- ED Disposition ED Disposition Discharge Condition Stable Comment -- Final diagnoses: Pelvic pain Your Follow-Up Providers Schedule an appointment as soon as possible for a visit with Sia Mg. Specialty: [place] [id number] Contact information for after-discharge care Follow-up information has not been specified. Your medication list CONTINUE taking these medications Instructions Last Dose Given Next Dose Due escitalopram 20 MG tablet Commonly known as: LEXAPRO Take 1 tablet by mouth Daily. estradiol 0.1 MG/GM vaginal cream Commonly known as: ESTRACE VAGINAL Insert 1gm nightly for 14 nights. Then, insert 1 gm intravaginally 1-3 times each week for maintenance. Cosigned by Alen Barney DO at 03/16/2025 5:42 PM EDT Associated attestation - Alen Barney DO - 03/16/2025 5:42 PM EDT SHARED APC FACE TO FACE: I performed a substantive part of the MDM during the patient's E/M visit. I personally evaluated and examined the patient. I personally made or approved the documented management plan and acknowledge its risk of complications. Alen Barney DO 03/16/2025 17:42 EDT documented in this encounter Plan of Treatment Upcoming Encounters Date Type Department Care Team (Late st Contact Info) Description 01/07/2026 1:30 PM EDT Office Visit [facility] [address] [place] [address] Jasmeet Hawkins MD [address] [facility] [address] [place], [place] [id number] documented as of this encounter Procedures Procedure Name Priority Date/Time Associated Diagnosis Comments CT ABDOMEN PELVIS W CONTRAST STAT 03/15/2025 10:17 PM EDT CHLAMYDIA TRACHOMATIS, NEISSERIA GONORRHOEAE, PCR STAT 03/15/2025 9:48 PM EDT POCT PEFORM URINE STAT 03/15/2025 9:06 PM EDT ROMO TOP STAT 03/15/2025 9:03 PM EDT GOLD TOP - SST STAT 03/15/2025 9:03 PM EDT DK GREEN TOP STAT 03/15/2025 9:03 PM EDT URINALYSIS W/ MICROSCOPIC IF INDICATED (NO CULTURE) STAT 03/15/2025 9:03 PM EDT CBC WITH AUTO DIFFERENTIAL STAT 03/15/2025 9:03 PM EDT LAVENDER TOP STAT 03/15/2025 9:03 PM EDT LIGHT BLUE TOP STAT 03/15/2025 9:03 PM EDT RAINBOW DRAW STAT 03/15/2025 9:03 PM EDT CBC AND DIFFERENTIAL STAT 03/15/2025 9:03 PM EDT COMPREHENSIVE METABOLIC PANEL STAT 03/15/2025 9:03 PM EDT documented in this encounter Results * CT Abdomen Pelvis With Contrast (03/15/2025 10:17 PM EDT) Anatomical Region Laterality Modality Abdomen, Pelvis N/A Computed Tomogra phy 03/15/2025 10:3 1 PM EDT Impressions 03/15/2025 10:34 PM EDT 1.No acute findings in the abdomen or pelvis. 2.Previous cholecystectomy. Electronically Signed: John Cloud MD 03/15/2025 10:34 PM EDT Workstation ID: [id number] Narrative 03/15/2025 10:[address] ABDOMEN PELVIS W CONTRAST Date of Exam: 03/15/2025 10:09 PM EDT Indication: sharp lower abdominal pain. Comparison: 12/08/2024 Technique: Axial CT images were obtained of the abdomen and pelvis following the uneventful intravenous administration of 85 cc Isovue-300 IV contrast. Reconstructed coronal and sagittal images were also obtained. Automated exposure control and iterative construction methods were used. FINDINGS: Lung bases: No masses. No consolidation. Liver:No masses. No intrahepatic biliary ductal dilatation. Spleen:No masses. No perisplenic hematoma. Pancreas:No pancreatic masses. No evidence of pancreatitis. Gallbladder and common bile duct: Previous cholecystectomy Adrenal glands:No adrenal masses Kidneys and ureters:No kidney stones. No renal masses.No calculi present within the ureters. Normal caliber ureters. Urinary bladder:No urinary bladder wall thickening. No bladder masses. Small bowel:Normal caliber small bowel. Large bowel:No diverticulosis or diverticulitis. No large bowel masses are appreciated Appendix: Normal GENITOURINARY: Normal appearance of the uterus and adnexa. Ascites or pneumoperitoneum:None. Adenopathy:None present Osseous structures: The proximal femurs are intact. The pubic bones are intact. The sacrum and sacroiliac joints are normal. Lumbar vertebral body height and alignment are normal. No lytic or blastic disease. Other findings: None Procedure Note John Cloud MD - 03/15/2025 CT ABDOMEN PELVIS W CONTRAST Date of Exam: 03/15/2025 10:09 PM EDT Indication: sharp lower abdominal pain. Comparison: 12/08/2024 Technique: Axial CT images were obtained of the abdomen and pelvisfollowing the uneventful intravenous administration of 85 cc Isovue-300 IVcontrast. Reconstructed coronal and sagittal images were also obtained.Automated exposure control and iterative construction methods were used. FINDINGS: Lung bases: No masses. No consolidation. Liver:No masses. No intrahepatic biliary ductal dilatation. Spleen:No masses. No perisplenic hematoma. Pancreas:No pancreatic masses. No evidence of pancreatitis. Gallbladder and common bile duct: Previous cholecystectomy Adrenal glands:No adrenal masses Kidneys and ureters:No kidney stones. No renal masses.No calculi presentwithin the ureters. Normal caliber ureters. Urinary bladder:No urinary bladder wall thickening. No bladder masses. Small bowel:Normal caliber small bowel. Large bowel:No diverticulosis or diverticulitis. No large bowel masses areappreciated Appendix: Normal GENITOURINARY: Normal appearance of the uterus and adnexa. Ascites or pneumoperitoneum:None. Adenopathy:None present Osseous structures: The proximal femurs are intact. The pubic bones areintact. The sacrum and sacroiliac joints are normal. Lumbar vertebral bodyheight and alignment are normal. No lytic or blastic disease. Other findings: None IMPRESSION: 1.No acute findings in the abdomen or pelvis. 2.Previous cholecystectomy. Electronically Signed: John Cloud MD 03/15/2025 10:34 PM EDT Workstation ID: [id number] Fausto QUIROZ IMG CT ORDERABLES Final R esult * Chlamydia trachomatis, Neisseria gonorrhoeae, PCR - Swab, Urine, Clean Catch (03/15/2025 9:48 PM EDT) Chlamydia trachomatis, MAXIMO Negative Negative 03/18/2025 11:08 PM EDT [facility] Neisseria gonorrhoeae, MAXIMO Negative Negative 03/18/2025 11:08 PM EDT [facility] Swab Urine specimen obtained by clean catch procedure / Unknown Collection / Unknown 03/15/2025 9:48 PM EDT 03/15/2025 9:50 PM EDT Narrative [facility] - 03/18/2025 11:08 PM EDT Performed at: [address] [place] [id number] Shredder Operator: Denise Saleem MD, Phone: [phone] Fausto QUIROZ MICROBIOLOGY - GENERAL OR DERABLES Final Result Performing Organization Address [facility] Co de Phone Number [facility] [address] [place] [address], [place] [phone] * POC Urine (03/15/2025 9:06 PM EDT) HCG, Urine, QL Negative [facility] Internal Positive Control [facility] Internal Negative Control [facility] Urine 03/15/2025 9:06 PM EDT Olvin Wray MD POINT OF CARE TEST ORDERABLES F inal Result [facility]
[address] [place] [address], [place] [phone] * (ABNORMAL) CBC Auto Differential (03/15/2025 9:03 PM EDT) [facility] WBC 12.07(H) 3.40 - 10.80 10*3/mm3 03/15/2025 9:09 PM EDT [facility] RBC 5.22 3.77 - 5.28 10*6/mm3 03/15/2025 9:09 PM [facility] Hemoglobin 14.9 12.0 - 15.9 g/dL 03/15/2025 9:09 PM [facility] Hematocrit 44.5 34.0 - 46.6 % 03/15/2025 9:09 PM [facility] MCV 85.2 79.0 - 97.0 fL 03/15/2025 9:09 PM [facility] MCH 28.5 26.6 - 33.0 pg 03/15/2025 9:09 PM [facility] MCHC 33.5 31.5 - 35.7 g/dL 03/15/2025 9:09 PM [facility] RDW 13.3 12.3 - 15.4 % 03/15/2025 9:09 PM [facility] RDW-SD 42.0 37.0 - 54.0 fl 03/15/2025 9:09 PM [facility] MPV 9.1 6.0 - 12.0 fL 03/15/2025 9:09 PM [facility] Platelets 328 140 - 450 10*3/mm3 03/15/2025 9:09 PM [facility] Neutrophil % 54.4 42.7 - 76.0 % 03/15/2025 9:09 PM [facility] Lymphocyte % 37.9 19.6 - 45.3 % 03/15/2025 9:09 PM [facility] Monocyte % 4.1(L) 5.0 - 12.0 % 03/15/2025 9:09 PM [facility] Eosinophil % 3.1 0.3 - 6.2 % 03/15/2025 9:09 PM [facility] Basophil % 0.3 0.0 - 1.5 % 03/15/2025 9:09 PM EDT [facility] Immature Grans % 0.2 0.0 - 0.5 % 03/15/2025 9:09 PM EDT [facility] Neutrophils, Absolute 6.57 1.70 - 7.00 10*3/mm3 03/15/2025 9:09 PM EDT [facility] Lymphocytes, Absolute 4.58(H) 0.70 - 3.10 10*3/mm3 03/15/2025 9:09 PM EDT [facility] Monocytes, Absolute 0.49 0.10 - 0.90 10*3/mm3 03/15/2025 9:09 PM EDT [facility] Eosinophils, Absolute 0.37 0.00 - 0.40 10*3/mm3 03/15/2025 9:09 PM EDT [facility] Basophils, Absolute 0.04 0.00 - 0.20 10*3/mm3 03/15/2025 9:09 PM EDT [facility] Immature Grans, Absolute 0.02 0.00 - 0.05 10*3/mm3 03/15/2025 9:09 PM EDT [facility] Blood Venipuncture / Unknown 03/15/2025 9:03 PM EDT 03/15/2025 9:07 PM EDT us Olvin Wray MD LAB BLOOD ORDERABLES Final Resu lt [facility]
[address] [place] [address] [place] [id number], [place] * Light Blue Top (03/15/2025 9:03 PM EDT) Extra Tube Hold for add-ons. 03/15/2025 9:16 PM EDT [facility] LABORATORY Comment:Auto resulted Blood Venipuncture / Unknown 03/15/2025 9:03 PM EDT 03/15/2025 9:07 PM EDT us Olvin Wray MD LAB BLOOD ORDER ONLY Final Resu lt [facility]
[address] [facility] [address] [place] [address], [place] * Romo Top (03/15/2025 9:03 PM EDT) Extra Tube Hold for add-ons. 03/15/2025 9:16 PM EDT [facility] Comment:Auto resulted. Blood Venipuncture / Unknown 03/15/2025 9:03 PM EDT 03/15/2025 9:07 PM EDT Olvin Wray MD LAB BLOOD ORDER ONLY Final Resu lt Performing Organization Address City/[facility]/ZIP Co de Phone Number [facility]
[address] [facility] [address] [place] [address], [place] * Gold Top - SST (03/15/2025 9:03 PM EDT) Extra Tube Hold for add-ons. 03/15/2025 9:16 PM EDT [facility] Comment:Auto resulted. Blood Venipuncture / Unknown 03/15/2025 9:03 PM EDT 03/15/2025 9:07 PM EDT Olvin Wray MD LAB BLOOD ORDER ONLY Final Resu lt Performing Organization Address City/[facility]/ZIP Co de Phone Number [facility]
[address] [facility] [address] [place] [address], [place] * Lavender Top (03/15/2025 9:03 PM EDT) Extra Tube hold for add-on 03/15/2025 9:16 PM EDT [facility] Comment:Auto resulted Blood Venipuncture / Unknown 03/15/2025 9:03 PM EDT 03/15/2025 9:07 PM EDT Olvin Wray MD LAB BLOOD ORDER ONLY Final Resu lt Performing Organization Address City/[facility]/ZIP Co de Phone Number [facility]
[address] [facility] [address] [place] [address], [place] * Green Top (Gel) (03/15/2025 9:03 PM EDT) Extra Tube Hold for add-ons. 03/15/2025 9:16 PM EDT [facility] Comment:Auto resulted. Blood Venipuncture / Unknown 03/15/2025 9:03 PM EDT 03/15/2025 9:07 PM EDT Olvin Wray MD LAB BLOOD ORDER ONLY Final Resu lt Performing Organization Address [facility]/ZIP Co de Phone Number [facility]
[address] [facility] [address] [place] [address], [place] * (ABNORMAL) Comprehensive Metabolic Panel (03/15/2025 9:03 PM EDT) [facility] Glucose 87 65 - 99 mg/dL 03/15/2025 9:28 PM EDT [facility] BUN 10.5 6.0 - 20.0 mg/dL 03/15/2025 9:28 PM EDT [facility] Creatinine 0.81 0.57 - 1.00 mg/dL 03/15/2025 9:28 PM EDT [facility] Sodium 140 136 - 145 mmol/L 03/15/2025 9:28 PM EDT [facility] Potassium 3.8 3.5 - 5.2 mmol/L 03/15/2025 9:28 PM EDT [facility] Chloride 102 98 - 107 mmol/L 03/15/2025 9:28 PM EDT [facility] CO2 25.0 22.0 - 29.0 mmol/L 03/15/2025 9:28 PM EDT [facility] Calcium 10.3 8.6 - 10.5 mg/dL 03/15/2025 9:28 PM EDT [facility] Total Protein 8.6(H) 6.0 - 8.5 g/dL 03/15/2025 9:28 PM T [facility] Albumin 4.7 3.5 - 5.2 g/dL 03/15/2025 9:28 PM [facility] ALT (SGPT) 20 1 - 33 U/L 03/15/2025 9:28 PM [facility] AST (SGOT) 24 1 - 32 U/L 03/15/2025 9:28 PM [facility] Alkaline Phosphatase 91 39 - 117 U/L 03/15/2025 9:28 PM [facility] Total Bilirubin 0.3 0.0 - 1.2 mg/dL 03/15/2025 9:28 PM [facility] Globulin 3.9 gm/dL 03/15/2025 9:28 PM [facility] A/G Ratio 1.2 g/dL 03/15/2025 9:28 PM [facility] BUN/Creatinine Ratio 13.0 7.0 - 25.0 03/15/2025 9:28 PM [facility] Anion Gap 13.0 5.0 - 15.0 mmol/L 03/15/2025 9:28 PM [facility] eGFR 106.1 >60.0 mL/min/1.7 3 03/15/2025 9:28 PM [facility] Blood Venipuncture / Unknown 03/15/2025 9:03 PM EDT 03/15/2025 9:07 PM EDT [facility] - 03/15/2025 9:28 PM EDT GFR Categories in Chronic Kidney Disease (CKD) GFR Category GFR (mL/min/1.73) Interpretation G1 90 or greater Normal or high (1) G2 60-89 Mild decrease (1) G3a 45-59 Mild to moderate decrease G3b 30-44 Moderate to severe decrease G4 15-29 Severe decrease G5 14 or less Kidney failure (1)In the absence of evidence of kidney disease, neither GFR category G1 or G2 fulfill the criteria for CKD. eGFR calculation 2020 CKD-EPI creatinine equation, which does not include race as a factor us Olvin Wray MD LAB BLOOD ORDERABLES Final Resu lt [facility]
[address] [facility] [place] [address], [place] * Urinalysis With Microscopic If Indicated (No Culture) - Urine, Clean Catch (03/15/2025 9:03 PM EDT) Color, UA Yellow Yellow, Straw 03/15/2025 9:10 PM EDT [facility] Appearance, UA Clear Clear 03/15/2025 9:10 PM EDT [facility] pH, UA 7.0 5.0 - 8.0 03/15/2025 9:10 PM EDT [facility] Specific [place], UA 1.010 1.005 - 1.030 03/15/2025 9:10 PM EDT [facility] Glucose, UA Negative Negative 03/15/2025 9:10 PM EDT [facility] Ketones, UA Negative Negative 03/15/2025 9:10 PM EDT [facility] Bilirubin, UA Negative Negative 03/15/2025 9:10 PM EDT [facility] Blood, UA Negative Negative 03/15/2025 9:10 PM EDT [facility] Protein, UA Negative Negative 03/15/2025 9:10 PM EDT [facility] Leuk Esterase, UA Negative Negative 03/15/2025 9:10 PM EDT [facility] Nitrite, UA Negative Negative 03/15/2025 9:10 PM EDT [facility] Urobilinogen, UA 0.2 E.U./dL 0.2 - 1.0 E.U./dL 03/15/2025 9:10 PM EDT [facility] Urine Urine specimen obtained by clean catch procedure / Unknown Collection / Unknown 03/15/2025 9:03 PM EDT 03/15/2025 9:07 PM EDT Narrative [facility] - 03/15/2025 9:10 PM EDT Urine microscopic not indicated. us Olvin Wray MD URINE ORDERABLES Final Result [facility]
[address] [facility] [address] [place] [address], documented in this encounter Visit Diagnoses Diagnosis Pelvic pain- Primary documented in this encounter Administered Medications Inactive Administered Medications - up to 3 most recent administrations Medication Order MAR Action Action Date Dose Rate Site iopamidol (ISOVUE-300) 61 % injection 100 mL 100 mL, Intravenous, Once in Imaging, On Tue03/15/25 at 2230, For 1 dose Given 03/15/2025 10:18 PM EDT 85 mL ketorolac (TORADOL) injection 15 mg 15 mg, Intravenous, Once, On 03/16/25 at 0000, For 1 dose, Based on patient request - if ordered for moderate or severe pain, provider allows for administration of a medication prescribed for a lower pain scale. (BKC) If given for pain, use the following pain scale: Mild Pain = Pain Score of 1-3, CPOT 1-2 Moderate Pain = Pain Score of 4-6, CPOT 3-4 Severe Pain = Pain Score of 7-10, CPOT 5-8 Given 03/15/2025 11:52 PM EDT 15 mg sodium chloride 0.9 % flush 10 mL 10 mL, Intravenous, As Needed, Line Care, Starting on Tue03/15/25 at 2052 documented in this encounter Active and Recently Administered Medications Times are shown in EDT. Scheduled Medication Order 03/14/2025 03/15/2025 03/16/2025 iopamidol (ISOVUE-300) 61 % injection 100 mL (COMPLETED) 100 mL, Intravenous, Once in Imaging, On Tue03/15/25 at 2230, For 1 dose 2217 (Given - Provider: Shay Lange) ketorolac (TORADOL) injection 15 mg (COMPLETED) 15 mg, Intravenous, Once, On 03/16/25 at 0000, For 1 dose, Based on patient request - if ordered for moderate or severe pain, provider allows for administration of a medication prescribed for a lower pain scale. (BKC) If given for pain, use the following pain scale: Mild Pain = Pain Score of 1-3, CPOT 1-2 Moderate Pain = Pain Score of 4-6, CPOT 3-4 Severe Pain = Pain Score of 7-10, CPOT 5-8 2352 (Given - Provider: Tamika Pineda RN) PRN Medication Order 03/14/2025 03/15/2025 03/16/2025 sodium chloride 0.9 % flush 10 mL 10 mL, Intravenous, As Needed, Line Care, Starting on Tue03/15/25 at 2053 documented in this encounter Care Teams Production Associate Relationship Specialty Start Date End Date [facility] [address] [id number] [address] PCP - General Nurse Practitioner 08/31/24 documented as of this encounter
--- OUTSIDE RECORDS SUMMARY | 2025-03-16 15:52 | XMS_ITS | Encounter Summary ---
[facility] Organization [facility] Address [address] [place] [address] Care Team Providers Care Bacteriologist Dairy Name Role Phone Sia Mg Primary Care Provider Reason for Visit * Reason Comments Pelvic Pain Encounter Details Date Type Department Care Team (Late st Contact Info) Description 03/16/2025 3:52 PM EDT - 03/16/2025 8:38 PM EDT Emergency [facility] EM[facility]GENCY [facility]MENT [address] [place] [address] Inés Sheridan MD [address] [facility] [place] [address] Acute abdominal pain (Primary Dx) Discharge Disposition: Home or [...] Sign Reading Time Taken Comments Blood Pressure 101/52 03/16/2025 7:30 PM EDT Pulse 76 03/16/2025 7:30 PM EDT Temperature 36.8 C (98.3 F) 03/16/2025 3:50 PM EDT Respiratory Rate 18 03/16/2025 3:50 PM EDT Oxygen Saturation 98% 03/16/2025 7:30 PM EDT Inhaled Oxygen Concentration - - Weight 73.9 kg (162 lb 14.7 oz) 03/16/2025 3:50 PM EDT Height 160 cm (5' 3 ) 03/16/2025 3:50 PM EDT Body Mass Index 28.86 03/16/2025 3:50 PM EDT documented in this encounter Functional Status * Calculated C-SSRS Risk Score (Lifetime/Recent) Answer Date of Assessment Author No Risk Indicated 03/16/2025 4:00 PM EDT Meredith Ross RN Chief Fundraising Officer * [place] Suicide Severity Rating Scale (Screener/Recent Self-Report) Question Answer Date of Assessment Author 1. Wish to be (Past 1 Month) No 03/16/2025 4:00 PM EDT Meredith Ibarra RN Chief Fundraising Officer 2. Non-Specific Active Suicidal Thoughts (Past 1 Month) No 03/16/2025 4:00 PM EDT Meredith Ibarra RN Chief Fundraising Officer 6. Suicidal Behavior (Lifetime) No 03/16/2025 4:00 PM EDT Meredith Ibarra RN Chief Fundraising Officer documented as of this encounter Discharge Instructions * Discharge Instructions* Inés Sheridan MD - 03/16/2025 7:36 PM EDT Drink appropriate mount of fluid. Observe bland diet. Consume a diet high in fiber, and take MiraLAX daily to help facilitate passage of stool. Follow-up with primary care physician for recheck in 2 days and return immediately to the ER with any further concern. * Attachments The following attachments cannot be sent through Care Everywhere. * Abdominal Pain Adult ([place]) documented in this encounter Medications at Time of Discharge escitalopram (LEXAPRO) 20 MG tablet Take 1 tablet by mouth Daily. estradiol (ESTRACE VAGINAL) 0.1 MG/GM vaginal creamIndication s:Vaginal atrophy Insert 1gm nightly for 14 nights. Then, insert 1 gm intravaginally 1-3 times each week for maintenance. 1 each 12 12/04/2024 5 oxyCODONE-aceta minophen (PERCOCET) 5-325 MG per tabletIndicatio ns:Acute abdominal pain Take 1 tablet by mouth Every 6 (Six) Hours As Needed for Moderate Pain or Severe Pain for up to 12 doses. 12 tablet 03/16/2025 5 documented as of this encounter ED Notes * Inés Sheridan MD - 03/16/2025 5:07 PM EDT Subjective History of Present Illness 19-year-old female presents with a complaint of lower abdominal pain. The patient reports that for about a month now she has had pain in her pelvis. However it became acutely more severe yesterday. She presented to [facility] and had a CT scan of the abdomen pelvis that did not show anyacute abnormalities. They desired to accomplish an ultrasound but no ergonomics technician was available. She ultimately was discharged with an outpatient ultrasound order which has not yet been accomplished. Her pain has continued to persist and worsen which prompted the current visit to [facility]. She has had a complex recent surgical course. Within the last year she has had a D&C x 2 due to an IUD that perforated through the wall of the uterus. She also had exploratory laparoscopic evaluation due to endometriosis. Per the patient's report there was some endometriosis that was identified in the bowel that could not be removed at that time. She also had a gallbladder removed in December. She still has her appendix. No actually surgery to the bowel itself. She denies diarrhea or blood in the stool. She denies dysuria or urinary frequency. Urine performed yesterday [email or web address] did not show infection. She reports decreased oral intake secondary to the pain with associated nausea. No chest pain cough or shortness of breath. No other acute complaints. Review of Systems Constitutional: Positive for activity change and appetite change. Negative for chills, fatigue and fever. HENT: Negative for congestion, ear pain, postnasal drip, sinus pressure and sore throat. Eyes: Negative for pain, redness and visual disturbance. Respiratory: Negative for cough, chest tightness and shortness of breath. Cardiovascular: Negative for chest pain, palpitations and leg swelling. Gastrointestinal: Positive for abdominal pain and nausea. Negative for anal bleeding, blood in stool, diarrhea and vomiting. Endocrine: Negative for polydipsia and polyuria. Genitourinary: Negative for difficulty urinating, dysuria, frequency and urgency. Musculoskeletal: Negative for arthralgias, back pain and neck pain. Skin: Negative for pallor and rash. Allergic/Immunologic: Negative for environmental allergies and immunocompromised state. Neurological: Negative for dizziness, weakness and headaches. Hematological: Negative for adenopathy. Psychiatric/Behavioral: Negative for confusion, self-injury and suicidal ideas. The patient is not nervous/anxious. All other systems reviewed and are negative. [...] Uterine perforation by intrauterine contraceptive device 12/06/2024 Allergies Allergen Reactions Doxycycline Other (See Comments) Throat swelling , felt like being choked Vancomycin Itching and Rash Gadolinium Derivatives (Mr Contrast) Hives and Nausea And Vomiting Clavulanic Acid Nausea And Vomiting Past Surgical History: Procedure Laterality Date D & C HYSTEROSCOPY MYOSURE N/A 09/07/2024 Procedure: D&C Hysteroscopy with Myosure Excision of Retained Products of Conception, Suction D&C, Repair of Cervical Laceration, Placement of Intrauterine Balloon Tamponade; Surgeon: Jasmeet Hawkins MD; Location: [facility]; Service: Obstetrics/Gynecology; Laterality: N/A; D & C WITH SUCTION 08/26/2024 DIAGNOSTIC LAPAROSCOPY 12/06/2024 Laparoscopic removal of intra-peritoneal foreign body (Mirena IUD) and removal of infarcted epiploica LAPAROSCOPIC CHOLECYSTECTOMY Family History Problem Relation Age of Onset Diabetes Father Diabetes Maternal Grandmother Cancer Maternal Grandmother Hypertension Maternal Grandmother Diabetes Maternal Grandfather Cancer Maternal Grandfather Diabetes Paternal Grandmother Cancer Paternal Grandmother Diabetes Paternal Grandfather Cancer Paternal Grandfather Arrhythmia Mother Asthma Mother Social History Socioeconomic History Marital status: Tobacco Use Smoking status: Every Day Vaping Use Vaping status: Never Used Substance and Sexual Activity Alcohol use: Never Drug use: Never Sexual activity: Yes Partners: Male control/protection: None Objective Physical Exam Vitals and nursing note reviewed. Constitutional: General: She is not in acute distress. Appearance: Normal appearance. She is well-developed. She is not toxic-appearing or diaphoretic. HENT: Head: Normocephalic and atraumatic. Right Ear: External ear normal. Left Ear: External ear normal. Nose: Nose normal. Eyes: General: Lids are normal. Pupils: Pupils are equal, round, and reactive to light. Neck: Trachea: No tracheal deviation. Cardiovascular: Rate and Rhythm: Normal rate and regular rhythm. Pulses: No decreased pulses. Heart sounds: Normal heart sounds. No murmur heard. No friction rub. No gallop. Pulmonary: Effort: Pulmonary effort is normal. No respiratory distress. Breath sounds: Normal breath sounds. No decreased breath sounds, wheezing, rhonchi or rales. Abdominal: General: Bowel sounds are normal. Palpations: Abdomen is soft. Tenderness: There is abdominal tenderness in the right lower quadrant and suprapubic area. There isno guarding or rebound. Comments: Severe right lower quadrant pain to palpation. Moderate suprapubic and left lower quadrant pain to palpation. No peritoneal signs. Musculoskeletal: General: No deformity. Normal range of motion. Cervical back: Normal range of motion and neck supple. Lymphadenopathy: Cervical: No cervical adenopathy. Skin: General: Skin is warm and dry. Findings: No rash. Neurological: Mental Status: She is alert and oriented to person, place, and time. Cranial Nerves: No cranial nerve deficit. Sensory: No sensory deficit. Psychiatric: Speech: Speech normal. Behavior: Behavior normal. Thought Content: Thought content normal. Judgment: Judgment normal. Procedures ED Course Medical Decision Making Differential includes cystitis, kidney stone, diverticulitis, constipation, appendicitis, other unspecified etiology. The patient's evaluation is remarkably good-looking. Normal kidney function electrolytes. Normal H&H, normal white count. Urine shows trace ketones concerning for mild dehydration the patient was given IV fluids but no signs of blood in the urine and no signs of infection. Transvaginal ultrasoundShows no acute abnormalities. CT scan of the abdomen pelvis interpreted by me shows no acute findings. The appendix is reported to be normal but despite this being reported the radiologist reports a possibility of very early acute appendicitis. I discussed the CT scan with Dr. Urias, he reviewed the CT scan and likewise feels this representsnormal appendix with no signs of appendicitis. The patient will be discharged with medication to help with pain and will be advised to monitor symptoms and follow-up with primary care physician for recheck in 1 week. Advised to drink plenty of fluid and observe a bland diet. Advised to return to the ER with any further concern Problems Addressed: Acute abdominal pain: complicated acute illness or injury with systemic symptoms Amount and/or Complexity of Data Reviewed Independent Historian: friend Details: Family member provides additional history. External Data Reviewed: labs and radiology. Labs: ordered. Decision-making details documented in ED Course. Radiology: ordered and independent interpretation performed. Decision-making details documented in ED Course. Risk Prescription drug management. Final diagnoses: Acute abdominal pain ED Disposition ED Disposition ED Disposition Discharge Condition Stable Comment -- [place] [address] In 2 days Medication List New Prescriptions oxyCODONE-acetaminophen 5-325 MG per tablet Commonly known as: PERCOCET Take 1 tablet by mouth Every 6 (Six) Hours As Needed for Moderate Pain or Severe Pain for up to 12 doses. Where to Get Your Medications These medications were sent to [facility] - [place], [place] - [address] [facility] - [phone] - [phone] FX [address] [facility] [address] oxyCODONE-acetaminophen 5-325 MG per tablet Inés Sheridan MD 03/18/25 1056 documented in this encounter Plan of Treatment Upcoming Encounters Date Type Department Care Team (Late st Contact Info) Description 01/07/2026 1:30 PM EDT Office Visit [facility] OBGYN [address] [place] [address] Jasmeet Hawkins MD [address] [facility] [address] [place] [address] documented as of this encounter Procedures Procedure Name Priority Date/Time Associated Diagnosis Comments CT ABDOMEN PELVIS W CONTRAST STAT 03/16/2025 5:52 PM EDT US TESTICULAR OR OVARIAN VASCULAR LIMITED STAT 03/16/2025 5:16 PM EDT US NON-OB TRANSVAGINAL STAT 5:15 PM EDT CBC WITH AUTO DIFFERENTIAL STAT 03/16/2025 4:46 PM EDT CBC AND DIFFERENTIAL STAT 03/16/2025 4:46 PM EDT LIPASE STAT 03/16/2025 4:46 PM EDT COMPREHENSIVE METABOLIC PANEL STAT 03/16/2025 4:46 PM EDT SCANNED - TELEMETRY 03/16/2025 4 :04 PM EDT URINALYSIS W/ CULTURE IF INDICATED STAT 03/16/2025 4:03 PM EDT URINE DRUG SCREEN STAT 03/16/2025 4:0 3 PM EDT FENTANYL, URINE STAT 03/16/2025 4:03 PM EDT documented in this encounter Results * CT Abdomen Pelvis With Contrast (03/16/2025 5:52 PM EDT) Anatomical Region Laterality Modality Abdomen, Pelvis N/A Computed Tomogra phy 03/16/2025 5:56 PM EDT Impressions 03/16/2025 6:05 PM EDT 1.No acute findings in the abdomen or pelvis. The appendix is normal in appearance though very early acute appendicitis would have a similar appearance. 2.Prior cholecystectomy. Electronically Signed: John Cloud MD 03/16/2025 6:05 PM EDT Workstation ID: [id number] Narrative 03/16/2025 6:[address] ABDOMEN PELVIS W CONTRAST Date of Exam: 03/16/2025 5:42 PM EDT Indication: right lower quadrant pain. Comparison: 03/15/2025 Technique: Axial CT images were obtained of the abdomen and pelvis following the uneventful intravenous administration of 75 cc Isovue-300 IV contrast . Reconstructed coronal and sagittal images were also obtained. Automated exposure control and iterative construction methods were used. FINDINGS: Lung bases: No masses. No consolidation. Liver:No masses. No intrahepatic biliary ductal dilatation. Spleen:No masses. No perisplenic hematoma. Pancreas:No pancreatic masses. No evidence of pancreatitis. Gallbladder and common bile duct: Prior cholecystectomy Adrenal glands:No adrenal masses Kidneys and [...] or pneumoperitoneum:None. Adenopathy:None present Osseous structures: The pubic bones are intact. The proximal femurs are intact. The sacrum and sacroiliac joints are normal. Lumbar vertebral body height and alignment are normal. No lytic or blastic disease Other findings: None Procedure Note John Cloud MD - 03/16/2025 CT ABDOMEN PELVIS W CONTRAST Date of Exam: 03/16/2025 5:42 PM EDT Indication: right lower quadrant pain. Comparison: 03/15/2025 Technique: Axial CT images were obtained of the abdomen and pelvisfollowing the uneventful intravenous administration of 75 cc Isovue-300 IVcontrast . Reconstructed coronal and sagittal images were also obtained.Automated exposure control and iterative construction methods were used. FINDINGS: Lung bases: No masses. No consolidation. Liver:No masses. No intrahepatic biliary ductal dilatation. Spleen:No masses. No perisplenic hematoma. Pancreas:No pancreatic masses. No evidence of pancreatitis. Gallbladder and common bile duct: Prior cholecystectomy Adrenal glands:No adrenal masses Kidneys and ureters:No kidney stones. No renal masses.No calculi presentwithin the ureters. Normal caliber ureters. Urinary bladder:No urinary bladder wall thickening. No bladder masses. Small bowel:Normal caliber small bowel. Large bowel:No diverticulosis or diverticulitis. No large bowel masses areappreciated Appendix: Normal GENITOURINARY: Normal appearance of the uterus and adnexa. Ascites or pneumoperitoneum:None. Adenopathy:None present Osseous structures: The pubic bones are intact. The proximal femurs areintact. The sacrum and sacroiliac joints are normal. Lumbar vertebral bodyheight and alignment are normal. No lytic or blastic disease Other findings: None IMPRESSION: 1.No acute findings in the abdomen or pelvis. The appendix is normal inappearance though very early acute appendicitis would have a similarappearance. 2.Prior cholecystectomy. Electronically Signed: John Cloud MD 03/16/2025 6:05 PM EDT Workstation ID: [id number] Inés Sheridan MD IM CT ORDERABLES Final R esult * US Testicular or Ovarian Vascular Limited (03/16/2025 5:16 PM EDT) Anatomical Region Laterality Modality Testes, Vascular Ultrasound 03/16/2025 5:19 PM EDT Impressions 03/16/2025 5:22 PM EDT Impression: Normal study. Electronically Signed: To Figueroa MD 03/16/2025 5:22 PM EDT Workstation ID: [id number] Narrative 03/16/2025 5:22 PM EDT US NON-OB TRANSVAGINAL, US OVARIAN VASCULAR LIMITED Date of Exam: 03/16/2025 4:46 PM EDT Indication: Suprapubic pelvic pain. Comparison: 12/05/2024. Technique: Transvaginal pelvic ultrasound was performed. Grayscale and color Doppler imaging was utilized to evaluate the pelvic area with image documentation per protocol. Doppler spectral analysis was performed. Findings: The uterus is in the normal anteflexed position. It measures 6.8 x 3.9 x 4.8 cm. The endometrial stripe thickness is normal measuring 0.5 cm. There are 2 nabothian cysts within the cervix. The right ovary measures 3.8 x 2.4 x 1.9 cm. There is normal color Doppler flow and phasic waveforms. The left ovary measures 3.0 x 1.9 x 2.5 cm. There is normal color Doppler flow and phasic waveforms. Both ovaries are within range of normal. There is no free pelvic cul-de-sac fluid. Procedure Note To Figueroa MD - 03/16/2025 US NON-OB TRANSVAGINAL, US OVARIAN VASCULAR LIMITED Date of Exam: 03/16/2025 4:46 PM EDT Indication: Suprapubic pelvic pain. Comparison: 12/05/2024. Technique: Transvaginal pelvic ultrasound was performed. Grayscale andcolor Doppler imaging was utilized to evaluate the pelvic area with imagedocumentation per protocol. Doppler spectral analysis was performed. Findings: The uterus is in the normal anteflexed position. It measures 6.8 x 3.9 x4.8 cm. The endometrial stripe thickness is normal measuring 0.5 cm. Thereare 2 nabothian cysts within the cervix. The right ovary measures 3.8 x2.4 x 1.9 cm. There is normal color Doppler flow and phasic waveforms. The left ovary measures 3.0 x 1.9x 2.5 cm. There is normal color Doppler flow and phasic waveforms. Bothovaries are within range of normal. There is no free pelvic [id number]-phdwzvmn. IMPRESSION: Impression: Normal study. Electronically Signed: To Figueroa MD 03/16/2025 5:22 PM EDT Workstation ID: [id number] Inés Sheridan MD IMG US ORDERABLES Final R esult * US Non-ob Transvaginal (03/16/2025 5:15 PM EDT) Anatomical Region Laterality Modality Body Ultrasound 03/16/2025 5:19 PM EDT Impressions 03/16/2025 5:22 PM EDT Impression: Normal study. Electronically Signed: To Figueroa MD 03/16/2025 5:22 PM EDT Workstation ID: [id number] Narrative 03/16/2025 5:22 PM EDT US NON-OB TRANSVAGINAL, US OVARIAN VASCULAR LIMITED Date of Exam: 03/16/2025 4:46 PM EDT Indication: Suprapubic pelvic pain. Comparison: 12/05/2024. Technique: Transvaginal pelvic ultrasound was performed. Grayscale and color Doppler imaging was utilized to evaluate the pelvic area with image documentation per protocol. Doppler spectral analysis was performed. Findings: The uterus is in the normal anteflexed position. It measures 6.8 x 3.9 x 4.8 cm. The endometrial stripe thickness is normal measuring 0.5 cm. There are 2 nabothian cysts within the cervix. The right ovary measures 3.8 x 2.4 x 1.9 cm. There is normal color Doppler flow and phasic waveforms. The left ovary measures 3.0 x 1.9 x 2.5 cm. There is normal color Doppler flow and phasic waveforms. Both ovaries are within range of normal. There is no free pelvic cul-de-sac fluid. Procedure Note To Figueroa MD - 03/16/2025 US NON-OB TRANSVAGINAL, US OVARIAN VASCULAR LIMITED Date of Exam: 03/16/2025 4:46 PM EDT Indication: Suprapubic pelvic pain. Comparison: 12/05/2024. Technique: Transvaginal pelvic ultrasound was performed. Grayscale andcolor Doppler imaging was utilized to evaluate the pelvic area with imagedocumentation per protocol. Doppler spectral analysis was performed. Findings: The uterus is in the normal anteflexed position. It measures 6.8 x 3.9 x4.8 cm. The endometrial stripe thickness is normal measuring 0.5 cm. Thereare 2 nabothian cysts within the cervix. The right ovary measures 3.8 x2.4 x 1.9 cm. There is normal color Doppler flow and phasic waveforms. The left ovary measures 3.0 x 1.9x 2.5 cm. There is normal color Doppler flow and phasic waveforms. Bothovaries are within range of normal. There is no free pelvic [id number]-wzaqoxmz. IMPRESSION: Impression: Normal study. Electronically Signed: To Figueroa MD 03/16/2025 5:22 PM EDT Workstation ID: [id number] Inés Sheridan MD [facility] US ORDERABLES Final R esult * (ABNORMAL) CBC Auto Differential (03/16/2025 4:46 PM EDT) WBC 9.02 3.40 - 10.80 10*3/mm3 03/16/2025 4:57 PM EDT [facility] RBC 4.70 3.77 - 5.28 10*6/mm3 03/16/2025 4:57 PM EDT [facility] Hemoglobin 13.4 12.0 - 15.9 g/dL 03/16/2025 4:57 PM EDT [facility] Hematocrit 40.6 34.0 - 46.6 % 03/16/2025 4:57 PM EDT [facility] MCV 86.4 79.0 - 97.0 fL 03/16/2025 4:57 PM EDT [facility] MCH 28.5 26.6 - 33.0 pg 03/16/2025 4:57 PM EDT [facility] MCHC 33.0 31.5 - 35.7 g/dL 03/16/2025 4:57 PM EDT [facility] RDW 13.6 12.3 - 15.4 % 03/16/2025 4:57 PM EDT [facility] RDW-SD 43.4 37.0 - 54.0 fl 03/16/2025 4:57 PM [facility] MPV 9.5 6.0 - 12.0 fL 03/16/2025 4:57 PM EDT [facility] Platelets 293 140 - 450 10*3/mm3 03/16/2025 4:57 PM [facility] Neutrophil % 52.3 42.7 - 76.0 % 03/16/2025 4:57 [facility] Lymphocyte % 35.9 19.6 - 45.3 % 03/16/2025 4:57 PM [facility] Monocyte % 6.0 5.0 - 12.0 % 03/16/2025 4:57 PM [facility] Eosinophil % 5.0 0.3 - 6.2 % 03/16/2025 4:57 PM [facility] Basophil % 0.6 0.0 - 1.5 % 03/16/2025 4:57 PM [facility] Immature Grans % 0.2 0.0 - 0.5 % 03/16/2025 4:57 PM [facility] Neutrophils, Absolute 4.72 1.70 - 7.00 10*3/mm3 03/16/2025 4:57 PM [facility] Lymphocytes, Absolute 3.24(H) 0.70 - 3.10 10*3/mm3 03/16/2025 4:57 PM T [facility] Monocytes, Absolute 0.54 0.10 - 0.90 10*3/mm3 03/16/2025 4:57 PM [facility] Eosinophils, Absolute 0.45(H) 0.00 - 0.40 10*3/mm3 03/16/2025 4:57 PM [facility] Basophils, Absolute 0.05 0.00 - 0.20 10*3/mm3 03/16/2025 4:57 PM [facility] Immature Grans, Absolute 0.02 0.00 - 0.05 10*3/mm3 03/16/2025 4:57 PM EDT [facility] nRBC 0.0 0.0 - 0.2 /100 WBC 03/16/2025 4:57 PM EDT [facility] Blood Venipuncture / Unknown 03/16/2025 4:46 PM EDT 03/16/2025 4:55 PM EDT Inés Sheridan MD LAB BLOOD ORDERABLES Kathia l Result Performing Organization Address City/[facility]/ZIP Co de Phone Number [facility]
[address] [place] [address], [place] [phone] * Lipase (03/16/2025 4:46 PM EDT) Lipase 45 13 - 60 U/L 03/16/2025 5:15 PM EDT [facility] Blood Venipuncture / Unknown 03/16/2025 4:46 PM EDT 03/16/2025 4:55 PM EDT Inés Sheridan MD LAB BLOOD ORDERABLES Kathia l Result Performing Organization Address City/[facility] Co de Phone Number [facility]
[address] [place] [address], [place] [phone] * Comprehensive Metabolic Panel (03/16/2025 4:46 PM EDT) Glucose 78 65 - 99 mg/dL 03/16/2025 5:36 PM EDT [facility] BUN 11.3 6.0 - 20.0 mg/dL 03/16/2025 5:36 PM EDT [facility] Creatinine 0.72 0.57 - 1.00 mg/dL 03/16/2025 5:36 PM EDT [facility] Sodium 141 136 - 145 mmol/L 03/16/2025 5:36 PM EDT [facility] Potassium 4.3 3.5 - 5.2 mmol/L 03/16/2025 5:36 PM EDT [facility] Comment:Specimen hemolyzed. Result may be falsely elevated. Chloride 104 98 - 107 mmol/L 03/16/2025 5:36 PM EDT [facility] CO2 26.0 22.0 - 29.0 mmol/L 03/16/2025 5:36 PM EDT [facility] Calcium 9.6 8.6 - 10.5 mg/dL 03/16/2025 5:36 PM EDT [facility] Total Protein 6.7 6.0 - 8.5 g/dL 03/16/2025 5:36 PM EDT [facility] LABORATORY Albumin 4.1 3.5 - 5.2 g/dL 03/16/2025 5:36 PM T [facility] ALT (SGPT) 20 1 - 33 U/L 03/16/2025 5:36 PM T [facility] AST (SGOT) 23 1 - 32 U/L 03/16/2025 5:36 PM T [facility] Alkaline Phosphatase 71 39 - 117 U/L 03/16/2025 5:36 PM T [facility] Total Bilirubin 0.3 0.0 - 1.2 mg/dL 03/16/2025 5:36 PM T [facility] Globulin 2.6 gm/dL 03/16/2025 5:36 PM T [facility] Comment:Calculated Result A/G Ratio 1.6 g/dL 03/16/2025 5:36 PM T [facility] BUN/Creatinine Ratio 15.7 7.0 - 25.0 03/16/2025 5:36 PM [facility] Anion Gap 11.0 5.0 - 15.0 mmol/L 03/16/2025 5:36 PM T [facility] eGFR 122.2 >60.0 mL/min/1.7 3 03/16/2025 5:36 PM [facility] Blood Venipuncture / Unknown 03/16/2025 4:46 PM EDT 03/16/2025 4:55 PM EDT Narrative [facility] - 03/16/2025 5:36 PM EDT GFR Categories in Chronic Kidney [...] does not include race as a factor Inés Sheridan MD LAB BLOOD ORDERABLES Kathia l Result [facility]
[address] [place] [address], * Telemetry Scan (03/16/2025 4:04 PM EDT) [facility] ECG ORDERABLES Final Result * Fentanyl, Urine - Urine, Clean Catch (03/16/2025 4:03 PM EDT) Fentanyl, Urine Negative Negative 03/16/2025 5:11 PM EDT [facility] Urine Urine specimen obtained by clean catch procedure / Unknown Collection / Unknown 03/16/2025 4:03 PM EDT 03/16/2025 4:35 PM EDT Narrative [facility] - 03/16/2025 5:11 PM EDT Negative Threshold: Fentanyl 5 ng/mL The normal value for the drug tested is negative. This report includes final unconfirmed screening results to be used for medical treatment purposes only. Unconfirmed results must not be used for non-medical purposes such as employment or legal testing. Clinical consideration should be applied to any drug of abuse test, particularly when unconfirmed results are used. Inés Sheridan MD URINE ORDERABLES Final Re sult [facility]
[address] [id number], * Urine Drug Screen - Urine, Clean Catch (03/16/2025 4:03 PM EDT) THC, Screen, Urine Negative Negative 2024 4:53 PM EDT [facility] Phencyclidine (PCP), Urine Negative Negative 03/16/2025 4:53 PM EDT [facility] Cocaine Screen, Urine Negative Negative 03/16/2025 4:53 PM EDT [facility] Methamphetamine, Ur Negative Negative 03/16 4:53 PM EDT [facility] Opiate Screen Negative Negative 03/16/2025 4:53 PM EDT [facility] Amphetamine Screen, Urine Negative Negative 03/16/2025 4:53 PM EDT [facility] Benzodiazepine Screen, Urine Negative Negative 03/16/2025 4:53 PM EDT [facility] Tricyclic Antidepressants Screen Negative Negative 03/16/2025 4:53 PM EDT [facility] Methadone Screen, Urine Negative Negative 03/16/2025 4:53 PM EDT [facility] Barbiturates Screen, Urine Negative Negative 03/16/2025 4:53 PM EDT [facility] Oxycodone Screen, Urine Negative Negative 03/16/2025 4:53 PM EDT [facility] Buprenorphine, Screen, Urine Negative Negative 03/16/2025 4:53 PM EDT [facility] Urine Urine specimen obtained by clean catch procedure / Unknown Collection / Unknown 03/16/2025 4:03 PM EDT 03/16/2025 4:35 PM EDT [facility] - 03/16/2025 4:53 PM EDT Cutoff For Drugs Screened: Amphetamines 500 ng/ml Barbiturates 200 ng/ml Benzodiazepines 150 ng/ml Cocaine 150 ng/ml Methadone 200 ng/ml Opiates 100 ng/ml Phencyclidine 25 ng/ml THC 50 ng/ml Methamphetamine 500 ng/ml Tricyclic Antidepressants 300 ng/ml Oxycodone 100 ng/ml Buprenorphine 10 ng/ml The normal value for all drugs tested is negative. This report includes unconfirmed screening results, with the cutoff values listed, to be used for medical treatment purposes only. Unconfirmed results must not be used for non-medical purposes such as employment or legal testing. Clinical consideration should be applied to any drug of abuse test, particularly when unconfirmed results are used. Inés Sheridan MD URINE ORDERABLES Final Re sult [facility]
[address] [place] [address], * (ABNORMAL) Urinalysis With Culture If Indicated - Urine, Clean Catch (03/16/2025 4:03 PM EDT) Color, UA Yellow Yellow, Straw 03/16/2025 4:48 PM EDT [facility] Appearance, UA Clear Clear 03/16/2025 4:48 PM EDT [facility] pH, UA 6.0 5.0 - 8.0 03/16/2025 4:48 PM EDT [facility] Specific [place], UA 1.027 1.005 - 1.030 03/16/2025 4:48 PM EDT [facility] Glucose, UA Negative Negative 03/16/2025 4:48 PM EDT [facility] Ketones, UA Trace(A) Negative 03/16/2025 4:48 PM EDT [facility] Bilirubin, UA Negative Negative 03/16/2025 4:48 PM EDT [facility] Blood, UA Negative Negative 03/16/2025 4:48 PM EDT [facility] Protein, UA Negative Negative 03/16/2025 4:48 PM EDT [facility] Leuk Esterase, UA Negative Negative 03/16/2025 4:48 PM EDT [facility] Nitrite, UA Negative Negative 03/16/2025 4:48 PM EDT [facility] Urobilinogen, UA 0.2 E.U./dL 0.2 - 1.0 E.U./dL 03/16/2025 4:48 PM EDT [facility] Urine Urine specimen obtained by clean catch procedure / Unknown Collection / Unknown 03/16/2025 4:03 PM EDT 03/16/2025 4:35 PM EDT Narrative [facility] - 03/16/2025 4:48 PM EDT In absence of clinical symptoms, the presence of pyuria, bacteria, and/or nitrites on the urinalysis result does not correlate with infection. Urine microscopic not indicated. us Inés Sheridan MD URINE ORDERABLES Final Re sult [facility]
[address] [place] [address], documented in this encounter Visit Diagnoses Diagnosis Acute abdominal pain- Primary Abdominal pain, unspecified site documented in this encounter Administered Medications Inactive Administered Medications - up to 3 most recent administrations Medication Order MAR Action Action Date Dose Rate Site HYDROmorphone (DILAUDID) injection 0.5 mg 0.5 mg, Intravenous, Once, On 03/16/25 at 2004, For 1 dose, Based on patient request - if ordered for moderate or severe pain, provider allows for administration of a medication prescribed for a lower pain scale. If given for pain, use the following pain scale: Mild Pain = Pain Score of 1-3, CPOT 1-2 Moderate Pain = Pain Score of 4-6, CPOT 3-4 Severe Pain = Pain Score of 7-10, CPOT 5-8 Given 03/16/2025 8:07 PM EDT 0.5 mg iopamidol (ISOVUE-300) 61 % injection 100 mL 100 mL, Intravenous, Once in Imaging, On 03/16/25 at 1809, For 1 dose Given 03/16/2025 5:53 PM EDT 75 mL Morphine sulfate (PF) injection 4 mg 4 mg, Intravenous, Once, On 03/16/25 at 1648, For 1 dose, Based on patient request - if ordered for moderate or severe pain, provider allows for administration of a medication prescribed for a lower pain scale. (ESTHER) Caution: Look alike/sound alike drug alert If given for pain, use the following pain scale: Mild Pain = Pain Score of 1-3, CPOT 1-2 Moderate Pain = Pain Score of 4-6, CPOT 3-4 Severe Pain = Pain Score of 7-10, CPOT 5-8 Given 03/16/2025 4:52 PM EDT 4 mg Morphine sulfate (PF) injection 4 mg 4 mg, Intravenous, Once, On 03/16/25 at 1837, For 1 dose, Based on patient request - if ordered for moderate or severe pain, provider allows for administration of a medication prescribed for a lower pain scale. (ESTHER) Caution: Look alike/sound alike drug alert If given for pain, use the following pain scale: Mild Pain = Pain Score of 1-3, CPOT 1-2 Moderate Pain = Pain Score of 4-6, CPOT 3-4 Severe Pain = Pain Score of 7-10, CPOT 5-8 Given 03/16/2025 6:39 PM EDT 4 mg ondansetron (ZOFRAN) injection 4 mg 4 mg, Intravenous, Once, On 03/16/25 at 1648, For 1 dose, If multiple N/V medications ordered, use in the following order: Ondansetron, Prochlorperazine, Promethazine. Use PO unless patient refuses or patient unable to swallow. Given 03/16/2025 4:52 PM EDT 4 mg ondansetron (ZOFRAN) injection 4 mg 4 mg, Intravenous, Once, On 03/16/25 at 2015, For 1 dose, If multiple N/V medications ordered, use in the following order: Ondansetron, Prochlorperazine, Promethazine. Use PO unless patient refuses or patient unable to swallow. Given 03/16/2025 8:07 PM EDT 4 mg sodium chloride 0.9 % bolus 1,000 mL 1,000 mL, Intravenous, at 2,000 mL/hr, Administer over 0.5 Hours, Once, On 03/16/25 at 1648, For 1 dose New Bag 03/16/2025 4:51 PM EDT 1,000 mL 2000 mL/hr documented in this encounter Active and Recently Administered Medications Times are shown in EDT. Scheduled Medication Order 03/14/2025 03/15/2025 03/16/2025 HYDROmorphone (DILAUDID) injection 0.5 mg (COMPLETED) 0.5 mg, Intravenous, Once, On 03/16/25 at 2004, For 1 dose, Based on patient request - if ordered for moderate or severe pain, provider allows for administration of a medication prescribed for a lower pain scale. If given for pain, use the following pain scale: Mild Pain = Pain Score of 1-3, CPOT 1-2 Moderate Pain = Pain Score of 4-6, CPOT 3-4 Severe Pain = Pain Score of 7-10, CPOT 5-8 2006 (Given - Provid er: Meredith Ibarra RN Chief Fundraising Officer) iopamidol (ISOVUE-300) 61 % injection 100 mL (COMPLETED) 100 mL, Intravenous, Once in Imaging, On 03/16/25 at 1809, For 1 dose 1753 (Given - Provid er: Olimpia Jovel, RT) Morphine sulfate (PF) injection 4 mg (COMPLETED) 4 mg, Intravenous, Once, On 03/16/25 at 1648, For 1 dose, Based on patient request - if ordered for moderate or severe pain, provider allows for administration of a medication prescribed for a lower pain scale. (ESTHER) Caution: Look alike/sound alike drug alert If given for pain, use the following pain scale: Mild Pain = Pain Score of 1-3, CPOT 1-2 Moderate Pain = Pain Score of 4-6, CPOT 3-4 Severe Pain = Pain Score of 7-10, CPOT 5-8 165 (Given - Provid er: Nan Pastor RN) Morphine sulfate (PF) injection 4 mg (COMPLETED) 4 mg, Intravenous, Once, On 03/16/25 at 1837, For 1 dose, Based on patient request - if ordered for moderate or severe pain, provider allows for administration of a medication prescribed for a lower pain scale. (ESTHER) Caution: Look alike/sound alike drug alert If given for pain, use the following pain scale: Mild Pain = Pain Score of 1-3, CPOT 1-2 Moderate Pain = Pain Score of 4-6, CPOT 3-4 Severe Pain = Pain Score of 7-10, CPOT 5-8 1839 (Given - Provid er: Nan Pastor RN) ondansetron (ZOFRAN) injection 4 mg (COMPLETED) 4 mg, Intravenous, Once, On 03/16/25 at 1648, For 1 dose, If multiple N/V medications ordered, use in the following order: Ondansetron, Prochlorperazine, Promethazine. Use PO unless patient refuses or patient unable to swallow. 1651 (Given - Provid er: Nan Pastor RN) ondansetron (ZOFRAN) injection 4 mg (COMPLETED) 4 mg, Intravenous, Once, On 03/16/25 at 2015, For 1 dose, If multiple N/V medications ordered, use in the following order: Ondansetron, Prochlorperazine, Promethazine. Use PO unless patient refuses or patient unable to swallow. 2006 (Given - Provid er: Meredith Ibarra RN Chief Fundraising Officer) sodium chloride 0.9 % bolus 1,000 mL (COMPLETED) 1,000 mL, Intravenous, at 2,000 mL/hr, Administer over 0.5 Hours, Once, On 03/16/25 at 1648, For 1 dose 165 (New Bag - Prov ider: Nan Pastor RN)1949 (Stopped - Provider: Nan Pastor RN) documented in this encounter Care Teams Bacteriologist Dairy Relationship Specialty Start Date End Date Sia Mg [address] [place] [address] PCP - General Nurse Practitioner 08/31/24 documented as of this encounter
--- OUTSIDE RECORDS SUMMARY | 2025-03-26 11:20 | XMS_ITS | Encounter Summary ---
[facility] Address [address] [place] [address] Care Team Providers Care Farm Hand Name Role Phone Sia Mg Primary Care Provider [phone] Reason for Visit * Reason Comments Pelvic Pain Encounter Details Date Type Department Care Team (Late st Contact Info) Description 03/26/2025 11:20 AM EDT Office Visit [facility] [address] [place] [address] Jasmeet Hawkins MD [address] [facility] [address] [place] [address] Pelvic pain (Primary Dx) Social History Tobacco Use Types Packs/Day Years [...] Sign Reading Time Taken Comments Blood Pressure 114/68 03/26/2025 11:34 AM EDT Pulse - - Temperature - - Respiratory Rate - - Oxygen Saturation - - Inhaled Oxygen Concentration - - Weight 75.4 kg (166 lb 3.2 oz) 03/26/2025 11:34 AM EDT Height 160 cm (5' 3 ) 03/26/2025 11:34 AM EDT Body Mass Index 29.44 03/26/2025 11:34 AM EDT documented in this encounter Progress Notes * Jasmeet Hawkins MD - 03/26/2025 12:14 PM EDTAssociated Problem(s): Pelvic pain Counseled on the differential diagnosis for chronic pelvic pain including cyclic and non cyclic etiologies. Patient also informed of the potential for psychosocial stressors, gastroenterologic or urologic concerns that may require further evaluation. Patient counseled for plan routine follow-up with, appropriate pain control while evaluating etiology. Patient questions were answered concerning the potential of scar tissue. I feel this is less likely given the patient's already had a vaginal delivery and diagnostic laparoscopy.. Together we came up the following plan: Oral Contraceptive Pills Recommend GI follow-up. Imaging reviewed personally from the ER and agree with interpretation. No evidence of any WET POUR MIXER etiologies * Jasmeet Hawkins MD - 03/26/2025 11:20 AM EDT Images from the original note were not included. Pelvic Pain HPI Carmita Paige is a 19 y.o. female, , who presents for initial evaluation of pelvic pain. The pain is located in the suprapubic region and it does radiate. She has experienced this problem for 2 months. She describes the pain as sharp and shooting and it is constant. She rates her pain score as a 10/10 when at its worst. Patient notes aggravating factors include none and alleviating factors are none. The patient reports additional symptoms as none. The patient has previously been evaluated for pelvic pain. She was recently seen in the ED [facility] on 03/16/25 and underwent a TVUS sebastián CT scan of the abdomen and pelvis. She was given Oxy for pain but has not taken it. The patient is sexually active. She has not had new partners.. Patient has recent surgical history of hysteroscopy D&C with excision of retained products in 09/2024, uterine perforation due to IUD and diagnostic laparoscopy in 12/2024 Did the patient have u/s today? No. No LMP recorded (lmp unknown). Periods are absent since delivery in 08/2024. Patient is exclusivelybreastfeeding. Problems with GI: yes - rectal bleeding, has referral to GI, awaiting call to schedule History of urinary disease: no Tobacco Usage?: No Additional BAD CLOTH CHECKER History Last Pap : 12/04/24- neg, STD neg Last Completed Pap Smear Upcoming PAP SMEAR (Every 3 Years) Next due on 12/05/2027 12/04/2024 LIQUID-BASED PAP SMEAR WITH HPV GENOTYPING IF ASCUS ([place],[facility]) OB History 1 Para 1 Term 1 AB Living 1 SAB IAB Ectopic Molar Multiple Live Births 1 Obstetric Comments Vaginal delivery at [facility] 08/06/2024 at 39w Current Outpatient Medications: escitalopram (LEXAPRO) 20 MG tablet, Take 1 tablet by mouth Daily., Disp: , Rfl: drospirenone-ethinyl estradiol (AYE) 3-0.02 MG per tablet, Take 1 tablet by mouth Daily., Disp: 84 tablet, Rfl: 3 estradiol (ESTRACE VAGINAL) 0.1 MG/GM vaginal cream, Insert 1gm nightly for 14 nights. Then, insert1 gm intravaginally 1-3 times each week for maintenance. (Patient not taking: Reported on 03/26/2025), Disp: 1 each, Rfl: 12 oxyCODONE-acetaminophen (PERCOCET) 5-325 MG per tablet, Take 1 tablet by mouth Every 6 (Six) Hours As Needed for Moderate Pain or Severe Pain for up to 12 doses. (Patient not taking: Reported on 03/26/2025), Disp: 12 tablet, Rfl: 0 Past Medical History: Diagnosis Date Abnormal uterine [...] Uterine perforation by intrauterine contraceptive device 12/06/2024 Past Surgical History: Procedure Laterality Date D & C HYSTEROSCOPY MYOSURE N/A 09/07/2024 Procedure: D&C Hysteroscopy with Myosure Excision of Retained Products of Conception, Suction D&C, Repair of Cervical Laceration, Placement of Intrauterine Balloon Tamponade; Surgeon: Jasmeet Hawkins MD; Location: [facility]; Service: Obstetrics/Gynecology; Laterality: N/A; D & C WITH SUCTION 08/26/2024 DIAGNOSTIC LAPAROSCOPY 12/06/2024 Laparoscopic removal of intra-peritoneal foreign body (Mirena IUD) and removal of infarcted epiploica LAPAROSCOPIC CHOLECYSTECTOMY The additional following portions of the patient's history were reviewed and updated as appropriate: allergies and current medications. Review of Systems Genitourinary: Positive for pelvic pain. All other systems reviewed and are negative. I have reviewed and agree with the HPI, ROS, and historical information as entered above. Jasmeet Hawkins MD Objective BP 114/68 Ht 160 cm (63 ) Wt 75.4 kg (166 lb 3.2 oz) LMP (LMP Unknown) Yes BMI 29.44 kg/m?? Physical Exam Vitals reviewed. Constitutional: Appearance: Normal appearance. HENT: Head: Normocephalic and atraumatic. Pulmonary: Effort: Pulmonary effort is normal. Abdominal: General: Abdomen is flat. Palpations: Abdomen is soft. Tenderness: There is no abdominal tenderness. Genitourinary: Comments: Pelvic deferred per patient request Neurological: General: No focal deficit present. Mental Status: She is alert. Psychiatric: Mood and Affect: Mood normal. Assessment & Plan Assessment and Plan Problem List Items Addressed This Visit Pelvic pain - Primary Current Assessment & Plan Counseled on the differential diagnosis for chronic pelvic pain including cyclic and non cyclic etiologies. Patient also informed of the potential for psychosocial stressors, gastroenterologic or urologic concerns that may require further evaluation. Patient counseled for plan routine follow-up with, appropriate pain control while evaluating etiology. Patient questions were answered concerning the potential of scar tissue. I feel this is less likely given the patient's already had a vaginal delivery and diagnostic laparoscopy.. Together we came up the following plan: Oral Contraceptive Pills Recommend GI follow-up. Imaging reviewed personally from the ER and agree with interpretation. No evidence of any WET POUR MIXER etiologies Relevant Medications drospirenone-ethinyl estradiol (AYE) 3-0.02 MG per tablet Jasmeet Hawkins MD 03/26/2025 documented in this encounter Plan of Treatment Upcoming Encounters Date Type Department Care Team (Late st Contact Info) Description 01/07/2026 1:30 PM EDT Office Visit [facility] [address] [place] [address] Jasmeet Hawkins MD [address] [facility] [address] [place] [address] documented as of this encounter Visit Diagnoses Diagnosis Pelvic pain- Primary documented in this encounter Care Teams Farm Hand Relationship Specialty Start Date End Date Sia Mg [address] [place] [address] PCP - General Nurse Practitioner 08/31/24 documented as of this encounter
--- OUTSIDE RECORDS SUMMARY | 2025-05-01 10:00 | XMS_ITS | Encounter Summary ---
[facility] [address] [place] [address] Care Team Providers Care Supervisor Finishing Room Name Role Phone Sia Mg Primary Care Provider Reason for Visit * Reason Comments Follow-up Palpitations Encounter Details Date Type Department Care Team (Late st Contact Info) Description 05/01/2025 10:00 AM EDT Telemedicine [facility] CARDIOLOGY [address] [address] Awa Duke, NUCLEAR PLANT TECHNICAL ADVISOR [address] [phone] Palpitations (Primary Dx); Generalized abdominal pain Social History Tobacco Use Types Packs/Day Years [...] Taken Comments Blood Pressure - - Pulse - - Temperature - - Respiratory Rate - - Oxygen Saturation - - Inhaled Oxygen Concentration - - Weight 73.9 kg (163 lb) 05/01/2025 10:10 AM EDT Height 160 cm (5' 3 ) 05/01/2025 10:10 AM EDT Body Mass Index 28.87 05/01/2025 10:10 AM EDT documented in this encounter Progress Notes * Awa Duke APRN - 05/01/2025 10:00 AM EDT [facility] PCP: Sia Mg Telemedicine Visit Mode of Visit: Video Location of patient: [facility] for husbands surgery Patient is in a secure environment. Location of provider: home You have chosen to receive care through a telehealth visit. Does the patient consent to use a video/audio connection for your medical care today? Yes The visit included audio and video interaction. No technical issues occurred during this visit. Chief Complaint Follow-up and Palpitations Problem List: Palpitations Holter monitor 04/2025 for approximately 48 hours negative for arrhythmias WISE Subjective History of Present Illness December, 20 y.o. female who presents today for Follow-up and Palpitations Patient presented to the ED on 02/19 with complains of intermittent palpitations since August after childbirth. She has had multiple complications since delivery at [facility]. She required a D&C and blood transfusion for symptomatic anemia. She was admitted with septic shock. She then had a complication after an IUD and had to have it removed. Denies any prior cardiac evaluation. She does report her mother had SVT in the past. In the ED, labs and EKG were stable. She was placed in the extended Holter monitor but only wore for approximately 2 days. No arrhythmias noted. She had her gallbladder removed in October and having a lot of nausea and abdominal pain. She is considering going to the ED for this. Still has ongoing palpitations, feels like a PVC. Rare PVCs on monitor. Palpitations worse with stress. Never with exercise. Denies shortness of breath. She did not have echo done Drinks a lot of water, rare caffeine Currently Objective Vital Signs: Vitals: 05/01/25 1010 Weight: 73.9 kg (163 lb) Height: 160 cm (63 ) Body mass index is 28.87 kg/m??. Physical Exam Constitutional: Appearance: Normal appearance. HENT: Head: Normocephalic. Pulmonary: Effort: Pulmonary effort is normal. No respiratory distress. Neurological: Mental Status: She is alert and oriented to person, place, and time. Psychiatric: Mood and Affect: Mood normal. Behavior: Behavior normal. Thought Content: Thought content normal. Data Reviewed:{ Labs Result Review Imaging Med Tab Media :23} Lab Results Component Value Date GLUCOSE 78 03/16/2025 CALCIUM 9.6 03/16/2025 NA 141 03/16/2025 K 4.3 03/16/2025 CO2 26.0 03/16/2025 CL 104 03/16/2025 BUN 11.3 03/16/2025 CREATININE 0.72 03/16/2025 EGFR 122.2 03/16/2025 BCR 15.7 03/16/2025 ANIONGAP 11.0 03/16/2025 Lab Results Component Value Date WBC 9.02 03/16/2025 HGB 13.4 03/16/2025 HCT 40.6 03/16/2025 MCV 86.4 03/16/2025 PLT 293 03/16/2025 Lab Results Component Value Date PROBNP 42.2 [...] Palpitations - Symptoms sound like symptomatic PVCs. Rare on monitor and no other arrhythmias. She has had a lotof stress and medical issues since having her child - Would continue magnesium, regular exercise, healthy diet and adequate sleep - We decided to defer echo today since no s/s of structural heart abnormalities but she will call me if symptoms worsen 2. Abdominal pain - Unable to get into PCP. Recommend that she go to [facility] today Follow Up Return if symptoms worsen or fail to improve. Patient was given instructions and counseling regarding her condition or for health maintenance advice. Please see specific information pulled into the AVS if appropriate. Patient was instructed to call the [facility] with any questions, concerns, or worsening symptoms. Dictated Utilizing [employer] Dictation Please note that portions of this note were completed with a voice recognition program. Part of this note may be an electronic store director/translation of spoken language to printed textusing the [facility] Dictation System. documented in this encounter Plan of Treatment Upcoming Encounters Date Type Department Care Team (Late st Contact Info) Description 01/07/2026 1:30 PM EDT Office Visit [facility] OBGYN [address] [place] [address] Jasmeet Hawkins MD [facility] [address] [place] [phone] documented as of this encounter Visit Diagnoses Diagnosis Palpitations- Primary Generalized abdominal pain Abdominal pain, generalized documented in this encounter Care Teams Supervisor Finishing Room Relationship Specialty Start Date End Date Sia Mg [address] [place] [address] PCP - General Nurse Practitioner 08/31/24 documented as of this encounter
[2025-05-01 21:22] VITALS: BP 116/64; PULSE 73; RESP 18; TEMP 36.5; O2SAT 100; BMI 28.3
--- OUTSIDE RECORDS SUMMARY | 2025-05-01 21:30 | XMS_ITS | Encounter Summary ---
[facility] Address [address] [place] [address] Care Team Providers Care Yard Jacker Name Role Phone Sia Mg Primary Care Provider + [phone] Encounter Details Date Type Department Care Team (Latest Contact Info) Description 03/11/2025 Travel Social History Tobacco Use Types Packs/Day Years [...] on file documented as of this encounter Plan of Treatment Upcoming Encounters Date Type Department Care Team (Late st Contact Info) Description 01/07/2026 1:30 PM EDT Office Visit [facility] OBGYN [address] [place] [address] Jasmeet Hawkins MD [address] [facility] [address] [place] [address] documented as of this encounter Visit Diagnoses Not on filedocumented in this encounter Care Teams Yard Jacker Relationship Specialty Start Date End Date Sia Mg [address] [place] [address] PCP - General Nurse Practitioner 08/31/24 documented as of this encounter
--- OUTSIDE RECORDS SUMMARY | 2025-05-01 21:30 | XMS_ITS | Encounter Summary ---
[facility] [address] [address] Care Team Providers Care Epic Radiant Analyst Name Role Phone Sia Mg Primary Care Provider + [phone] Encounter Details Date Type Department Care Team (Late st Contact Info) Description 12/05/2024 Results Follow-Up [facility] O[facility]YN [address] [place] [address] Jasmeet Hawkins MD 17[address] [facility] [address] [place] [address] Social History Tobacco Use Types Packs/Day Years [...] Feels Unsafe at Home or Work/School no 12/08/2024 Feels Threatened by Someone no 01/2025 Does Anyone Try to Keep You From Having Contact with Others or Doing Things Outside Your Home? no 12/08/2024 Physical Signs of Abuse Present no 12/08/2024 Housing Stability Answer Date Recorded Current Living [...] on file documented as of this encounter Functional Status * Calculated C-SSRS Risk Score (Lifetime/Recent) Answer Date of Assessment Author No Risk Indicated 12/08/2024 5:35 PM EDT Tamika Dangelo RN * [place] Suicide Severity Rating Scale (Screener/Recent Self-Report) Question Answer Date of Assessment Author 1. Wish to be (Past 1 Month) No 12/08/2024 5:35 PM EDT Julien Pineda RN 2. Non-Specific Active Suici marisabel Thoughts (Past 1 Month) No 12/08/2024 5:35 PM EDT Camron Pineda RN 6. Suicidal Behavior (Lifetime) No 5:35 PM EDT Tamika Pineda RN * Question Answer Date of Assessment Author Little interest or pleasure in doing things Not at all 12/08/2024 10:05 PM EDT Sarah Frey RN Feeling down, depressed, or hopeless Not at all 12/08/2024 10:05 PM EDT Sarah Frey RN Patient Health Questionnaire-2 Score 0 12/08/2024 10:05 PM EDT Eloy Frey RN documented as of this encounter Plan of Treatment Upcoming Encounters Date Type Department Care Team (Late st Contact Info) Description 01/07/2026 1:30 PM EDT Office Visit [facility] OBGYN [address] [place] [address] Jasmeet Hawkins MD [address] [facility] [address] [place] [address] documented as of this encounter Visit Diagnoses Not on filedocumented in this encounter Care Teams Epic Radiant Analyst Relationship Specialty Start Date [place] [address] PCP - General Nurse Practitioner 08/31/24 documented as of this encounter
--- OUTSIDE RECORDS SUMMARY | 2025-05-01 21:30 | XMS_ITS | Encounter Summary ---
[facility] [address] [place] [address] Care Team Providers Care Box Car Bracer Name Role Phone Sia Mg Primary Care Provider + [phone] Encounter Details Date Type Department Care Team (Latest Contact Info) Description 03/15/2025 Travel Social History Tobacco Use Types Packs/Day [...] 8:43 PM EDT Em Jewell RN * [place] Suicide Severity Rating Scale (Screener/Recent Self-Report) Question Answer Date of Assessment Author 1. Wish to be (Past 1 Month) No 025 8:43 PM EDT Em Jewell RN 2. Non-Specific Active Suici marisabel Thoughts (Past 1 Month) No 03/15/2025 8:43 PM EDT Leonela Jewell RN 6. Suicidal Behavior (Lifetime) No 8:43 PM EDT Em Jewell RN documented as of this encounter Plan of Treatment Upcoming Encounters Date Type Department Care Team (Late st Contact Info) Description 01/07/2026 1:30 PM EDT Office Visit [facility] OBGYN [address] [place] [address] Jasmeet Hawkins MD [address] [facility] [address] [place] [phone] documented as of this encounter Visit Diagnoses Not on filedocumented in this encounter Care Teams Box Car Bracer Relationship Specialty Start Date End Date Sia Mg [address] [place] [address] PCP - General Nurse Practitioner 08/31/24 documented as of this encounter
--- OUTSIDE RECORDS SUMMARY | 2025-05-01 21:31 | XMS_ITS | Encounter Summary ---
[facility] [address] [place] [address] Care Team Providers Care Mate Ship Name Role Phone Sia Mg Primary Care Provider Reason for Visit * Reason Onset Date Comments Holter Monitor 03/25/2025 Encounter Details Date Type Department Care Team (Late st Contact Info) Description 03/25/[address] [facility] CARDIOLOGY [address] [address] Awa Duke, BACK SEWER [address] [place] [phone] Holter Monitor Social History Tobacco Use Types Packs/Day Years [...] on file documented as of this encounter Miscellaneous Notes * Telephone Encounter - Tamika Harper RN - 03/26/2025 12:14 PM EDT RN spoke with pt regarding monitor data - she reports she breast feeding and baby kept pulling at monitor so she removed- she is ok with just using the 2 days worth of data that was obtain because shis unable to wear another one at this time * Telephone Encounter - Eve Barrera MA - 03/25/2025 3:50 PM EDT Left message for patient to call back to discuss her holter monitor as we received less than 48 hours of data. Requested for a return call to discuss whether she would like to repeat the monitor or not. * Telephone Encounter - Awa Duke APRN - 03/25/2025 3:02 PM EDT Please let patient know. If she thinks she was symptomatic, we can keep it. Otherwise, would disregard and placed a new monitor * Telephone Encounter - Nate Smith MA - 03/25/2025 11:18 AM EDT [employer] has received patient's Holter back and it only contain 1 day, 19 hours and 54 minutes of data. documented in this encounter Plan of Treatment Upcoming Encounters Date Type Department Care Team (Late st Contact Info) Description 01/07/2026 1:30 PM EDT Office Visit [facility] OBGYN [address] [place] [address] Jasmeet Hawkins MD 1700 [facility] [address] [place] [address] documented as of this encounter Visit Diagnoses Not on filedocumented in this encounter Care Teams Mate Ship Relationship Specialty Start Date End Date Sia Mg [address] [place] [address] PCP - General Nurse Practitioner 08/31/24 documented as of this encounter
--- OUTSIDE RECORDS SUMMARY | 2025-05-01 21:31 | XMS_ITS | Encounter Summary ---
[facility] [address] [place] [address] Care Team Providers Care Vending Machine Repairer Name Role Phone Sia Mg Primary Care Provider + [phone] Encounter Details Date Type Department Care Team (Latest Contact Info) Description 03/26/2025 Travel Social History Tobacco Use Types Packs/Day [...] 01/2025 Potentially Unsafe Housing Conditions Not on shalia e 12/08/2024 Disabilities Answer Date Recorded Difficulty [...] Description 01/07/2026 1:30 PM EDT Office Visit [facility] OBGYN [address] [place] [address] Jasmeet Hawkins MD 1700 [facility] [address] [place] [address] documented as of this encounter Visit Diagnoses Not on filedocumented in this encounter Care Teams Vending Machine Repairer Relationship Specialty Start Date End Date Sia Mg [address] [place] [address] PCP - General Nurse Practitioner 08/31/24 documented as of this encounter
--- OUTSIDE RECORDS SUMMARY | 2025-05-01 21:31 | XMS_ITS | Clinical Summary ---
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 Active drospirenone- ethinyl estradiol (AYE) 3-0.02 MG per tabletIndicat ions:Pelvic pain Take 1 tablet by mouth Daily. 84 tablet 3 03/26/20 25 2025 Active estradiol (ESTRACE VAGINAL) 0.1 MG/GM vaginal creamIndicati ons:Vaginal atrophy Insert 1gm nightly for 14 nights. Then, insert 1 gm intravaginally 1-3 times each week for maintenance. 1 each 12 12/05/19 25 2024 Discontinued oxyCODONE-thor taminophen (PERCOCET) 5-325 MG per tabletIndicat ions:Acute abdominal pain Take 1 tablet by mouth Every 6 (Six) Hours As Needed for Moderate Pain or Severe Pain for up to 12 doses. 12 tablet 03/16/20 25 2024 Discontinued Active Problems Problem Noted Date Diagnosed Date Pelvic pain 03/26/2025 Assessment & Plan (03/26/2025 12:14 PM EDT): Counseled on the differential diagnosis for chronic [...] agree with interpretation. No evidence of any ORDNANCE ARTIFICER etiologies Vaginal atrophy 12/04/2024 Assessment & Plan (12/04/2024 2:51 PM EDT): Lactational atrophy discussed with patient. Mild to moderate atrophy noted on exam. Will trial vaginal estrogen. Hepatic steatosis 10/11/2024 Seizure disorder 09/04/2024 Resolved Problems Problem Noted Date Diagnosed Date Resolved Date Postoperative abdominal pain 12/08/2024 03/26/2025 Abnormal uterine bleeding, 09/18/2024 12/04/2024 At high risk for hemorrhage after procedure 09/07/2024 09/18/2024 Postoperative hemorrhage inv olving genitourinary system following genitourinary procedure 09/07/2024 12/04/2024 Retained products of concept ion after delivery without hemorrhage 09/04/2024 12/04/2024 hemorrhage 08/06/20242023 Endometritis following delivery 09/04/2024 Major depressive disorder Endometriosis 09/04/2024 Encounters Date Type Department Care Team Description 05/01/2025 10:00 AM EDT Telemedicine [facility] CARDIOLOG[facility] [address] [place] [address] Awa Duke APRN Palpitations (Primary Dx); Generalized abdominal pain 03/26/2025 11:20 AM EDT Office Visit [facility] O[facility] [address] [place] [address] Jasmeet Enriquez MD Pelvic pain (Primary Dx) 03/26/2025 Travel 03/25/2025 Telephone [facility] [address] [facility] [address] [place] [address] Awa Duke APRN Holter Monitor 03/16/2025 3:52 PM EDT - 03/16/2025 8:38 PM EDT Emergency [facility]ENC[facility]PART[facility] [address] [place] [phone] Chelle Welsh MD Acute abdominal pain (Primary Dx) Discharge Disposition: Home or Self Care 03/15/2025 8:44 PM EDT - 03/16/2025 12:08 AM EDT Emergency [facility] [place] [address] [place] [address] Olvin Wray MD Kostelnik, Bruce J, Pelvic pain (Primary Dx) Discharge Disposition: Home or Self Care 03/15/2025 Travel 03/11/2025 2:00 PM EDT Office Visit [facility] [address] [facility] [address] [place] [address] Awa Duke APRN Palpitations (Primary Dx); Shortness of breath; Dizziness 03/11/2025 1:15 PM EDT - 03/11/2025 11:59 PM EDT Hospital Encounter [facility] [address] [facility] [address] [place] [address] Palpitations; Dizziness Discharge Disposition: Home or Self Care 03/11/2025 Travel 02/21/2025 Telephone [facility] [address] [facility] [address] [place] [phone] Danitza Montes RegSched Rep Appointment (Patient Called Back. ER Referred Patient To [facility] For Palpitation, Chest Tightness, SO & Near Syncope 02/19/2025. Patient Scheduled Next Available Appointment 02/26/2025.) 02/19/2025 8:55 PM EDT - 02/19/2025 11:24 PM EDT Emergency [facility] EM[facility] DEPART[facility] [address] [place] [address] Chelle Welsh MD Palpitations (Primary Dx); Chest tightness; Shortness of breath; Postural dizziness with near syncope; Anxiety and depression; Breast feeding status of mother; History of asthma; History of gastroesophageal reflux (GERD) Discharge Disposition: Home or Self Care 02/19/2025 Travel from Last 3 Months Immunizations Immunization Administration Dates Next Due 31-influenza Vac Quardvalent Preservativ 06/27/2015 DTaP 04/03/2007,07/01/2004 DTaP, Unspecified 04/03/2007, 4,2003,07/25,2003 Fluzone >6mos 06/20/2017,09/16/2007 Fluzone (or Fluarix & Flulav al for VFC) >6mos 06/08/2019 HPV Quadrivalent 02/25/2015,06/27/2014, 4 Hep A, 2 Dose 02/25/2015,04/11/2014 Hep B, Unspecified 2003,2003, 003 Hepatitis B Adult/Adolescent IM 2003,05/23,2003 HiB 04/13/2004, 4,2003,05/23 Hib (PRP-OMP) 04/13/2004, 4,2003,05/23 IPV 04/03/2007, 4,2003,07/25,2003 Influenza Injectable Mdck Pf Quad 06/19/2020 Influenza Seasonal Injectable 06/08/2019 ,07/01/2014,07/25/2013,07/10,06/28/2011,06/30/2010,06/23/2009 Influenza, Unspecified 06/26/2008,09/16/2007 MMR 04/03/2007,07/01/2004 Meningococcal Conjugate 03/30/2019,04/11/2014 Meningococcal MCV4P (Menactra) 04/11/2014 PPD Test 11/27/2021 Pneumococcal Conjugate 13-Va lent (PCV13) 2003,2003,2003 Tdap 04/11/2014 Varicella 04/03/2007,04/13/2004 Family History Medical History Relation Name Comments Diabetes Father Keith Russell Cancer Maternal Grandfather Sarbjit Reece Diabetes Maternal Grandfather Sarbjit Reece Cancer Maternal Grandmother Trudi Reece Diabetes Maternal Grandmother Trudi Reece Hypertension Maternal Grandmother Trudi Reece Arrhythmia Mother Iliana Reece Asthma Mother Iliana Reece Cancer Paternal Grandfather Rolly Russell Diabetes Paternal Grandfather Rolly Russell Cancer Paternal Grandmother Nicole Russell Diabetes Paternal Grandmother Nicole Russell Relation Name Status Comments Father Keith Russell Maternal Grandfather Sarbjit Reece Maternal Grandmother Trudi Reece Mother Iliana Reece Alive Paternal Grandfather Rolly Russell Paternal Grandmother Nicole Russell Social History Tobacco Use Types Packs/Day Years Used Date Smoking Tobacco: Every Day Tobacco Cessation:Ready to Q uit: Not Asked; Counseling Given: Not Answered Alcohol Use Standard Drinks/Week Comments Never 0 [...] Pressure 114/68 03/26/2025 11:34 AM EDT Pulse 76 03/16/2025 7:30 PM EDT Temperature 36.8 C (98.3 F) 03/16/2025 3:50 PM EDT Respiratory Rate 18 03/16/2025 3:50 PM EDT Oxygen Saturation 98% 03/16/2025 7:30 PM EDT Inhaled Oxygen Concentration - - Weight 73.9 kg (163 lb) 05/01/2025 10:10 AM EDT Height 160 cm (5' 3 ) 05/01/2025 10:10 AM EDT Body Mass Index 28.87 05/01/2025 10:10 AM EDT Plan of Treatment Upcoming Encounters Date Type Department Care Team (Late st Contact Info) Description 01/07/2026 1:30 PM EDT Office Visit [facility] [address] [place] [address] Jasmeet Enriquez MD [address] [address] Health Maintenance Due Date Last Done Comments Pneumococcal Vaccine 0-49 (1 of 1 - PPSV23) 2009 2003, 2003, 2003 ANNUAL PHYSICAL 05/14/2018 MENINGOCOCCAL B VACCINE (1 o f 2 - Standard) 2019 TDAP/TD VACCINES (2 - Td or Tdap) 04/11/2024 014 COVID-19 Vaccine (5 - 2023-2 5 season) 2024 04/16/2022, 10/12/2021, 05/07/2021, Additional history exists INFLUENZA VACCINE 06/05/2025 06/19/2020, , 06/08/2019, Additional history exists Annual Gynecologic Pelvic an d Breast Exam 12/05/2025 12/04/2024 CHLAMYDIA SCREENING 03/15/2026 03/15/2025, 12/04/2024, 12/18/2023 PAP SMEAR 12/05/2027 12/04/2024 HPV VACCINES Completed 02/25/2015, 06/06, 04/11/2014 MENINGOCOCCAL VACCINE Completed 03/30/2019 , 04/11/2014, 04/11/2014 HEPATITIS C SCREENING Completed 10/11/2024, 025 Procedures Procedure Name Priority Date/Time Associated Diagnosis Comments CT ABDOMEN PELVIS W CONTRAST STAT 03/16/2025 5:52 PM EDT US TESTICULAR OR OVARIAN VASCULAR LIMITED STAT 03/16/2025 5:16 PM EDT US NON-OB TRANSVAGINAL STAT 03/16/2025 5:15 PM EDT CBC AND DIFFERENTIAL STAT 03/16/2025 4:46 PM EDT CBC WITH AUTO DIFFERENTIAL STAT 03/16/2025 4:46 PM EDT LIPASE STAT 03/16/2025 4:46 PM EDT COMPREHENSIVE METABOLIC PANEL STAT 03/16/2025 4:46 PM EDT SCANNED - TELEMETRY 03/16/2025 4 :04 PM EDT FENTANYL, URINE STAT 03/16/2025 4:03 PM EDT URINE DRUG SCREEN STAT 03/16/2025 4:0 3 PM EDT URINALYSIS W/ CULTURE IF INDICATED STAT 03/16/2025 4:[address] ABDOMEN PELVIS W CONTRAST STAT 03/15/2025 10:17 PM EDT CHLAMYDIA TRACHOMATIS, NEISSERIA GONORRHOEAE, PCR STAT 03/15/2025 9:48 PM EDT POCT PEFORM URINE STAT 03/15/2025 9:06 PM EDT LIGHT BLUE TOP STAT 03/15/2025 9:03 PM EDT ROMO TOP STAT 03/15/2025 9:03 PM EDT GOLD TOP - SST STAT 03/15/2025 9:03 PM EDT LAVENDER TOP STAT 03/15/2025 9:03 PM EDT DK GREEN TOP STAT 03/15/2025 9:03 PM EDT CBC AND DIFFERENTIAL STAT 03/15/2025 9:03 PM EDT CBC WITH AUTO DIFFERENTIAL STAT 03/15/2025 9:03 PM EDT COMPREHENSIVE METABOLIC PANEL STAT 03/15/2025 9:03 PM EDT URINALYSIS W/ MICROSCOPIC IF INDICATED (NO CULTURE) STAT 03/15/2025 9:03 PM EDT RAINBOW DRAW STAT 03/15/2025 9:03 PM EDT URINALYSIS W/ MICROSCOPIC IF INDICATED (NO CULTURE) STAT 02/19/2025 9:14 PM EDT HIGH SENSITIVITIY TROPONIN T 1HR STAT 02/19/2025 8:43 PM EDT ECG 12-LEAD STAT 02/19/2025 8:40 PM EDT XR CHEST 1 VW STAT 02/19/2025 8:18 PM EDT LIGHT BLUE TOP STAT 02/19/2025 7:37 PM EDT ROMO TOP STAT 02/19/2025 7:37 PM EDT GOLD TOP - SST STAT 02/19/2025 7:37 PM EDT LAVENDER TOP STAT 02/19/2025 7:37 PM EDT DK GREEN TOP STAT 02/19/2025 7:37 PM EDT CBC AND DIFFERENTIAL STAT 02/19/2025 7:37 PM EDT D-DIMER, QUANTITATIVE STAT 02/19/2025 7:37 PM EDT TSH RFX ON ABNORMAL TO FREE T4 STAT 02/19/2025 7:37 PM EDT MAGNESIUM STAT 02/19/2025 7:37 PM EDT CBC WITH AUTO DIFFERENTIAL STAT 02/19/2025 7:37 PM EDT B-TYPE NATRIURETIC PEPTIDE STAT 02/19/2025 7:37 PM EDT LIPASE STAT 02/19/2025 7:37 PM EDT COMPREHENSIVE METABOLIC PANEL STAT 02/19/2025 7:37 PM EDT TROPONIN STAT 02/19/2025 7:37 PM EDT RAINBOW DRAW STAT 02/19/2025 7:37 PM EDT ECG 12-LEAD STAT 02/19/2025 7:27 PM EDT SCANNED - TELEMETRY 02/19/2025 LIQUID-BASED PAP SMEAR WITH HPV GENOTYPING IF ASCUS, [facility] ([place]) Routine 12/04/2024 2:55 PM EDT Encounter for annual routine gynecological examination HEPATITIS PANEL, ACUTE STAT 10/10/2024 3:33 PM EST from Last 3 Months or Most Recently Relevant to Health Maintenance Results * CT Abdomen Pelvis With Contrast (03/16/2025 5:52 PM EDT) Only the most recent of2 resultswithin the time period is included. Anatomical Region Laterality Modality Abdomen, Pelvis N/A Computed Tomogra phy 03/16/2025 5:56 PM EDT Impressions 03/16/2025 6:05 PM EDT 1.No acute findings in the abdomen or pelvis. The appendix is normal in appearance though very early acute appendicitis would have a similar appearance. 2.Prior cholecystectomy. Electronically Signed: John Cloud MD 03/16/2025 6:05 PM EDT Workstation ID: [id number] Narrative 03/16/2025 6:[address] ABDOMEN [...] MD 03/16/2025 6:05 PM EDT Workstation ID: [id number] Chelle Welsh MD IMG CT ORDERABLES Final R esult * US Testicular or Ovarian Vascular Limited (03/16/2025 5:16 PM EDT) Anatomical Region Laterality Modality Testes, Vascular Ultrasound 03/16/2025 5:19 PM EDT Impressions 03/16/2025 5:22 PM EDT Impression: Normal study. Electronically Signed: To Figueroa MD 03/16/2025 5:22 PM EDT Workstation ID: [id number] Narrative 03/16/2025 5:22 PM EDT US NON-OB [...] of normal. There is no free pelvic [id number]. IMPRESSION: Impression: Normal study. Electronically Signed: To Figueroa MD 03/16/2025 5:22 PM EDT Workstation ID: [id number] Chelle Welsh MD IMG US ORDERABLES Final R esult * US Non-ob Transvaginal (03/16/2025 5:15 PM EDT) Anatomical Region Laterality Modality Body Ultrasound 03/16/2025 5:19 PM EDT Impressions 03/16/2025 5:22 PM EDT Impression: Normal study. Electronically Signed: To Figueroa MD 03/16/2025 5:22 PM EDT Workstation ID: [id number] Narrative 03/16/2025 5:22 PM EDT US NON-OB [...] of normal. There is no free pelvic [id number]. IMPRESSION: Impression: Normal study. Electronically Signed: To Figueroa MD 03/16/2025 5:22 PM EDT Workstation ID: [id number] [facility] Fredy Welsh MD [facility] ORDERABLES Final R esult * (ABNORMAL) CBC Auto Differential (03/16/2025 4:46 PM EDT) Only the most recent of3 resultswithin the time period is included. WBC 9.02 3.40 - 10.80 10*3/mm3 03/16/2025 4:57 PM EDT [facility] RBC 4.70 3.77 - 5.28 10*6/mm3 03/16/2025 4:57 PM EDT [facility] Hemoglobin 13.4 12.0 - 15.9 g/dL 03/16/2025 4:57 PM EDT [facility] Hematocrit 40.6 34.0 - 46.6 % 03/16/2025 4:57 PM EDT [facility] MCV 86.4 79.0 - 97.0 fL 03/16/2025 4:57 PM EDT [facility] MCH 28.5 26.6 - 33.0 pg 03/16/2025 4:57 PM EDT [facility] MCHC 33.0 31.5 - 35.7 g/dL 03/16/2025 4:57 PM EDT [facility] RDW 13.6 12.3 - 15.4 % 03/16/2025 4:57 PM EDT [facility] RDW-SD 43.4 37.0 - 54.0 fl 03/16/2025 4:57 PM EDT [facility] MPV 9.5 6.0 - 12.0 fL 03/16/2025 4:57 PM EDT [facility] Platelets 293 140 - 450 10*3/mm3 03/16/2025 4:57 PM EDT [facility] Neutrophil % 52.3 42.7 - 76.0 % 03/16/2025 4:57 PM EDT [facility] Lymphocyte % 35.9 19.6 - 45.3 % 03/16/2025 4:57 PM EDT [facility] Monocyte % 6.0 5.0 - 12.0 % 03/16/2025 4:57 PM EDT [facility] Eosinophil % 5.0 0.3 - 6.2 % 03/16/2025 4:[facility] Basophil % 0.6 0.0 - 1.5 % 03/16/2025 4:57 PM [facility] Immature Grans % 0.2 0.0 - 0.5 % 03/16/2025 4:57 PM [facility] Neutrophils, Absolute 4.72 1.70 - 7.00 10*3/mm3 03/16/2025 4:57 PM EDT [facility] Lymphocytes, Absolute 3.24(H) 0.70 - 3.10 10*3/mm3 03/16/2025 4:57 PM EDT [facility] Monocytes, Absolute 0.54 0.10 - 0.90 10*3/mm3 03/16/2025 4:57 PM [facility] Eosinophils, Absolute 0.45(H) 0.00 - 0.40 10*3/mm3 03/16/2025 4:57 PM EDT [facility] Basophils, Absolute 0.05 0.00 - 0.20 10*3/mm3 03/16/2025 4:57 PM [facility] Immature Grans, Absolute 0.02 0.00 - 0.05 10*3/mm3 03/16/2025 4:57 PM [facility] nRBC 0.0 0.0 - 0.2 /100 WBC 03/16/2025 4:57 PM EDT [facility] Blood Venipuncture / Unknown 03/16/2025 4:46 PM EDT 03/16/2025 4:55 PM EDT Chelle Welsh MD LAB BLOOD ORDERABLES Kathia l Result Performing Organization Address City/[facility]/ZIP Co de Phone Number [facility]
[address] [place] [address], * Lipase (03/16/2025 4:46 PM EDT) Only the most recent of2 resultswithin the time period is included. Lipase 45 13 - 60 U/L 03/16/2025 5:15 PM EDT [facility] Blood Venipuncture / Unknown 03/16/2025 4:46 PM EDT 03/16/2025 4:55 PM EDT Chelle Welsh MD LAB BLOOD ORDERABLES Kathia l Result Performing Organization Address City/[facility]/ZIP Co de Phone Number [facility] [place] [address], * Comprehensive Metabolic Panel (03/16/2025 4:46 PM EDT) Only the most recent of3 resultswithin the time period is included. Glucose 78 65 - 99 mg/dL 03/16/2025 5:36 PM EDT [facility] BUN 11.3 6.0 - 20.0 mg/dL 03/16/2025 5:36 PM EDT [facility] Creatinine 0.72 0.57 - 1.00 mg/dL 03/16/2025 5:36 PM EDT [facility] Sodium 141 136 - 145 mmol/L 03/16/2025 5:36 PM EDT [facility] Potassium 4.3 3.5 - 5.2 mmol/L 03/16/2025 5:36 PM T [facility] Comment:Specimen hemolyzed. Result may be falsely elevated. Chloride 104 98 - 107 mmol/L 03/16/2025 5:36 PM T [facility] CO2 26.0 22.0 - 29.0 mmol/L 03/16/2025 5:36 PM T [facility] Calcium 9.6 8.6 - 10.5 mg/dL 03/16/2025 5:36 PM T [facility] Total Protein 6.7 6.0 - 8.5 g/dL 03/16/2025 5:36 PM [facility] Albumin 4.1 3.5 - 5.2 g/dL 03/16/2025 5:36 PM [facility] ALT (SGPT) 20 1 - 33 U/L 03/16/2025 5:36 PM [facility] AST (SGOT) 23 1 - 32 U/L 03/16/2025 5:36 PM [facility] Alkaline Phosphatase 71 39 - 117 U/L 03/16/2025 5:36 PM [facility] Total Bilirubin 0.3 0.0 - 1.2 mg/dL 03/16/2025 5:36 PM [facility] Globulin 2.6 gm/dL 03/16/2025 5:36 PM T [facility] Comment:Calculated Result A/G Ratio 1.6 g/dL 03/16/2025 5:36 PM [facility] BUN/Creatinine Ratio 15.7 7.0 - 25.0 03/16/2025 5:36 PM [facility] Anion Gap 11.0 5.0 - 15.0 mmol/L 03/16/2025 5:36 PM [facility] eGFR 122.2 >60.0 mL/min/1.7 3 03/16/2025 5:36 PM [facility] Blood Venipuncture / Unknown 03/16/2025 4:46 PM EDT 03/16/2025 4:55 PM EDT Narrative [facility] - 03/16/2025 5:36 PM EDT [...] does not include race as a factor Chelle Welsh MD LAB BLOOD ORDERABLES Kathia ramos Result [facility]
[address] [place] [address], * Telemetry Scan (03/16/2025 4:04 PM EDT) Only the most recent of2 resultswithin the time period is included. [facility] Onbase ECG ORDERABLES Final Result * (ABNORMAL) Urinalysis With Culture If Indicated - Urine, Clean Catch (03/16/2025 4:03 PM EDT) Color, UA Yellow Yellow, Straw 03/16/2025 4:48 PM EDT [facility] Appearance, UA Clear Clear 03/16/2025 4:48 PM EDT [facility] pH, UA 6.0 5.0 - 8.0 03/16/2025 4:48 PM EDT [facility] Specific Bush, UA 1.027 1.005 - 1.030 03/16/2025 4:48 PM EDT [facility] Glucose, UA Negative Negative 03/16/2025 4:48 PM EDT [facility] Ketones, UA Trace(A) Negative 03/16/2025 4:48 PM EDT [facility] Bilirubin, UA Negative Negative 03/16/2025 4:48 PM EDT [facility] Blood, UA Negative Negative 03/16/2025 4:48 PM EDT [facility] Protein, UA Negative Negative 03/16/2025 4:48 PM EDT [facility] Leuk Esterase, UA Negative Negative 03/16/2025 4:48 PM EDT [facility] Nitrite, UA Negative Negative 03/16/2025 4:48 PM EDT [facility] Urobilinogen, UA 0.2 E.U./dL 0.2 - 1.0 E.U./dL 03/16/2025 4:48 PM EDT [facility] Urine Urine specimen obtained by clean catch procedure / Unknown Collection / Unknown 03/16/2025 4:03 PM EDT 03/16/2025 4:35 PM EDT [facility] - 03/16/2025 4:48 PM EDT In absence of clinical symptoms, the presence of pyuria, bacteria, and/or nitrites on the urinalysis result does not correlate with infection. Urine microscopic not indicated. Chelle Welsh MD URINE ORDERABLES Final Re sult [facility]
[address] [place] [address], * Urine Drug Screen - Urine, Clean Catch (03/16/2025 4:03 PM EDT) THC, Screen, Urine Negative Negative 2024 4:53 PM EDT [facility] Phencyclidine (PCP), Urine Negative Negative 03/16/2025 4:53 PM EDT [facility] Cocaine Screen, Urine Negative Negative 03/16/2025 4:53 PM EDT [facility] Methamphetamine, Ur Negative Negative 03/16 4:53 PM EDT [facility] Opiate Screen Negative Negative 03/16/2025 4:53 PM EDT [facility] Amphetamine Screen, Urine Negative Negative 03/16/2025 4:53 PM EDT [facility] Benzodiazepine Screen, Urine Negative Negative 03/16/2025 4:53 PM EDT [facility] Tricyclic Antidepressants Screen Negative Negative 03/16/2025 4:53 PM EDT [facility] Methadone Screen, Urine Negative Negative 03/16/2025 4:53 PM EDT [facility] Barbiturates Screen, Urine Negative Negative 03/16/2025 4:53 PM EDT [facility] Oxycodone Screen, Urine Negative Negative 03/16/2025 4:53 PM EDT [facility] Buprenorphine, Screen, Urine Negative Negative 03/16/2025 4:53 PM EDT [facility] Urine Urine specimen obtained by clean catch procedure / Unknown Collection / Unknown 03/16/2025 4:03 PM EDT 03/16/2025 4:35 PM EDT Narrative [facility] - 03/16/2025 4:53 PM EDT Cutoff [...] test, particularly when unconfirmed results are used. Chelle Welsh MD URINE ORDERABLES Final Re sult [facility]
[address] [place] [address], * Fentanyl, Urine - Urine, Clean Catch (03/16/2025 4:03 PM EDT) Fentanyl, Urine Negative Negative 03/16/2025 5:11 PM EDT [facility] Urine Urine specimen obtained by clean catch procedure / Unknown Collection / Unknown 03/16/2025 4:03 PM EDT 03/16/2025 4:35 PM EDT [facility] - 03/16/2025 5:11 PM EDT Negative [...] test, particularly when unconfirmed results are used. Chelle Welsh MD URINE ORDERABLES Final Re sult [facility]
[address] [place] [address], * Chlamydia trachomatis, Neisseria gonorrhoeae, PCR - Swab, Urine, Clean Catch (03/15/2025 9:48 PM EDT) Chlamydia trachomatis, MAXIMO Negative Negative 03/18/2025 11:08 PM EDT [facility] Neisseria gonorrhoeae, MAXIMO Negative Negative 03/18/2025 11:08 PM EDT [facility] Swab Urine specimen obtained by clean catch procedure / Unknown Collection / Unknown 03/15/2025 9:48 PM EDT 03/15/2025 9:50 PM EDT [facility] - 03/18/2025 11:08 PM EDT Performed at: [address] [place] [id number] [employer] Drum: Denise Saleem MD, Phone: [phone] Fausto QUIROZ MICROBIOLOGY - GENERAL OR DERABLES Final Result [facility] [address] [place] [address], [place] [phone] * POC Urine (03/15/2025 9:06 PM EDT) HCG, Urine, QL Negative [facility] Internal Positive Control [facility] Internal Negative Control [facility] Urine 03/15/2025 9:06 PM EDT Olvin Wray MD POINT OF CARE TEST ORDERABLES F inal Result [facility]
[address] [place] [address], [place] [phone] * Romo Top (03/15/2025 9:03 PM EDT) Only the most recent of2 resultswithin the time period is included. Extra Tube Hold for add-ons. 03/15/2025 9:16 PM EDT [facility] Comment:Auto resulted. Blood Venipuncture / Unknown 03/15/2025 9:03 PM EDT 03/15/2025 9:07 PM EDT Olvin Wray MD LAB BLOOD ORDER ONLY Final Resu lt [facility]
[address] [place] [address], [place] * Gold Top - SST (03/15/2025 9:03 PM EDT) Only the most recent of2 resultswithin the time period is included. Extra Tube Hold for add-ons. 03/15/2025 9:16 PM EDT [facility] Comment:Auto resulted. Blood Venipuncture / Unknown 03/15/2025 9:03 PM EDT 03/15/2025 9:07 PM EDT Olvin Wray MD LAB BLOOD ORDER ONLY Final Resu lt [facility]
[address] [facility] [address] [place] [address], [place] * Green Top (Gel) (03/15/2025 9:03 PM EDT) Only the most recent of2 resultswithin the time period is included. Extra Tube Hold for add-ons. 03/15/2025 9:16 PM EDT [facility] Comment:Auto resulted. Blood Venipuncture / Unknown 03/15/2025 9:03 PM EDT 03/15/2025 9:07 PM EDT Olvin Wray MD LAB BLOOD ORDER ONLY Final Resu lt Performing Organization Address City/[facility]/ZIP Co de Phone Number [facility]
[address] [place] [address], [place] * Urinalysis With Microscopic If Indicated (No Culture) - Urine, Clean Catch (03/15/2025 9:03 PM EDT) Only the most recent of2 resultswithin the time period is included. Color, UA Yellow Yellow, Straw 03/15/2025 9:10 PM EDT [facility] Appearance, UA Clear Clear 03/15/2025 9:10 PM EDT [facility] pH, UA 7.0 5.0 - 8.0 03/15/2025 9:10 PM EDT [facility] Specific Bush, UA 1.010 1.005 - 1.030 03/15/2025 9:10 PM EDT [facility] Glucose, UA Negative Negative 03/15/2025 9:10 PM EDT [facility] Ketones, UA Negative Negative 03/15/2025 9:10 PM EDT [facility] Bilirubin, UA Negative Negative 03/15/2025 9:10 PM EDT [facility] Blood, UA Negative Negative 03/15/2025 9:10 PM EDT [facility] Protein, UA Negative Negative 03/15/2025 9:10 PM EDT [facility] Leuk Esterase, UA Negative Negative 03/15/2025 9:10 PM EDT [facility] Nitrite, UA Negative Negative 03/15/2025 9:10 PM EDT [facility] Urobilinogen, UA 0.2 E.U./dL 0.2 - 1.0 E.U./dL 03/15/2025 9:10 PM EDT [facility] Urine Urine specimen obtained by clean catch procedure / Unknown Collection / Unknown 03/15/2025 9:03 PM EDT 03/15/2025 9:07 PM EDT Narrative [facility] - 03/15/2025 9:10 PM EDT Urine microscopic not indicated. us Olvin Wray MD URINE ORDERABLES Final Result [facility]
[address] [place] [address], [place] * Lavender Top (03/15/2025 9:03 PM EDT) Only the most recent of2 resultswithin the time period is included. Extra Tube hold for add-on 03/15/2025 9:16 PM EDT [facility] Comment:Auto resulted Blood Venipuncture / Unknown 03/15/2025 9:03 PM EDT 03/15/2025 9:07 PM EDT us Olvin Wray MD LAB BLOOD ORDER ONLY Final Resu lt [facility]
[address] [facility] [address] [place] [address], [place] * Light Blue Top (03/15/2025 9:03 PM EDT) Only the most recent of2 resultswithin the time period is included. Extra Tube Hold for add-ons. 03/15/2025 9:16 PM EDT [facility] Comment:Auto resulted Blood Venipuncture / Unknown 03/15/2025 9:03 PM EDT 03/15/2025 9:07 PM EDT Olvin Wray MD LAB BLOOD ORDER ONLY Final Resu lt [facility]
[address] [facility] [address] * High Sensitivity Troponin T 1Hr (02/19/2025 8:43 PM EDT) Pathologist [facility] Troponin T <6 <14 ng/L 02/19/2025 9:28 PM EDT [facility] Troponin T Numeric Delta 02/19/2025 9:28 PM EDT [facility] Comment:Unable to calculate. Blood Venipuncture / Unknown 02/19/2025 8:43 PM EDT 02/19/2025 8:53 PM EDT Narrative [facility] - 02/19/2025 9:28 PM EDT High Sensitive Troponin T Reference Range: <14.0 ng/L- Negative Female for AMI <22.0 ng/L- Negative Male for AMI >=14 - Abnormal Female indicating possible myocardial injury. >=22 - Abnormal Male indicating possible myocardial injury. Clinicians would have to utilize clinical acumen, EKG, Troponin, and serial changes to determine if it is an Acute Myocardial Infarction or myocardial injury due to an underlying chronic condition. Chelle Welsh MD LAB BLOOD ORDERABLES Kathia l Result [facility]
[address] [place] [address], * ECG 12 Lead Chest Pain (02/19/2025 8:40 PM EDT) Only the most recent of2 resultswithin the time period is included. QT Interval 388 ms BH ECG QTC Interval 415 ms ECG 02/19/2025 8:40 PM EDT 02/24/2025 2:42 PM EDT Narrative ECG - 02/24/2025 2:42 PM EDT Test Reason : Chest Pain Blood Pressure : */* mmHG Vent. Rate : 69 BPM Atrial Rate : 69 BPM P-R Int : 146 ms QRS Dur : 78 ms QT Int : 388 ms P-R-T Axes : 44 5 22 degrees QTcB Int : 415 ms Normal sinus rhythm Cannot rule out Anterior infarct (cited on or before 19-Feb-2025) Abnormal ECG When compared with ECG of 19-Feb-2025 19:27, (Unconfirmed) No significant change was found Confirmed by CHELLE WELSH ([id number]) on 02/24/2025 2:42:27 PM Referred By: EDMD Confirmed By: CHELLE WELSH Procedure Note Chelle Welsh MD - 02/24/2025 Test Reason : Chest Pain Blood Pressure : */* mmHG Vent. Rate : 69 BPM Atrial Rate : 69 BPM P-R Int : 146 ms QRS Dur : 78 ms QT Int : 388 ms P-R-T Axes : 44 5 22 degrees QTcB Int : 415 ms Normal sinus rhythm Cannot rule out Anterior infarct (cited on or before 19-Feb-2025) Abnormal ECG When compared with ECG of 19-Feb-2025 19:27, (Unconfirmed) No significant change was found Confirmed by CHELLE WELSH ([id number]) on 02/24/2025 2:42:27 PM Referred By: EDMD Confirmed By: CHELLE WELSH us Chelle Welsh MD ECG ORDERABLES Final Res ult ECG * XR Chest 1 View (02/19/2025 8:18 PM EDT) Anatomical Region Laterality Modality Body N/A Radiographic Leonie ging 02/19/2025 8:44 PM EDT Impressions 02/19/2025 8:46 PM EDT No radiographic findings of acute cardiopulmonary abnormality. Electronically Signed: Olvin Goodwin 02/19/2025 8:46 PM EDT Workstation ID: [id number] Narrative 02/19/2025 8:46 PM EDT XR CHEST 1 VW Date of Exam: 02/19/2025 7:45 PM EDT Indication: Chest Pain Triage Protocol Comparison: None available. FINDINGS: Patient's hair appears to overlie the right chest. No definite focal or diffuse pulmonary infiltrate is identified. No pneumothorax or significant pleural effusion. Heart size and mediastinal contour appear within normal limits. No definite osseous abnormality is seen on this limited single view. Procedure Note Olvin Goodwin MD - 02/19/2025 XR CHEST 1 VW Date of Exam: 02/19/2025 7:45 PM EDT Indication: Chest Pain Triage Protocol Comparison: None available. FINDINGS: Patient's hair appears to overlie the right chest. No definite focal ordiffuse pulmonary infiltrate is identified. No pneumothorax orsignificant pleural effusion. Heart size and mediastinal contour appearwithin normal limits. No definite osseous abnormality is seen on this limited single view. IMPRESSION: No radiographic findings of acute cardiopulmonary abnormality. Electronically Signed: Olvin Buddy 02/19/2025 8:46 PM EDT Workstation ID: [id number] Chelle Welsh MD IMG DIAGNOSTIC IMAGING OR DERABLES Final Result * TSH Rfx On Abnormal To Free T4 (02/19/2025 7:37 PM EDT) TSH 1.770 0.270 - 4.200 uIU/mL 02/19/2025 9:19 PM EDT [facility] Blood Venipuncture / Unknown 02/19/2025 7:37 PM EDT 02/19/2025 7:46 PM EDT Miryam Hernandez PA-C LAB BLOOD ORDERABLES Final Re sult [facility]
[address] [place] [address], * High Sensitivity Troponin T (02/19/2025 7:37 PM EDT) [facility] Troponin T <6 <14 ng/L 02/19/2025 8:21 PM EDT [facility] Blood Venipuncture / Unknown 02/19/2025 7:37 PM EDT 02/19/2025 7:46 PM EDT [facility] - 02/19/2025 8:21 PM EDT High Sensitive Troponin T Reference Range: <14.0 ng/L- Negative Female for AMI <22.0 ng/L- Negative Male for AMI >=14 - Abnormal Female indicating possible myocardial injury. >=22 - Abnormal Male indicating possible myocardial injury. Clinicians would have to utilize clinical acumen, EKG, Troponin, and serial changes to determine if it is an Acute Myocardial Infarction or myocardial injury due to an underlying chronic condition. Chelle Welsh MD LAB BLOOD ORDERABLES Kathia ramos Result [facility]
[address] [place] [address], * D-dimer, Quantitative (02/19/2025 7:37 PM EDT) [facility] D-Dimer, Quantitative 0.33 0.00 - 0.50 MCGFEU/mL 02/19/2025 10:24 PM EDT [facility] Blood Venipuncture / Unknown 02/19/2025 7:37 PM EDT 02/19/2025 7:46 PM EDT [facility] - 02/19/2025 10:24 PM EDT According to the assay scientific helper's published package insert, a normal (<0.50 MCGFEU/mL) D-dimer result in conjunction with a non-high clinical probability assessment, excludes deep vein thrombosis (DVT) and pulmonary embolism (PE) with high sensitivity. D-dimer values increase with age and this can make VTE exclusion of an older population difficult. To address this, the [employer], based on best available evidence and recent guidelines, recommends that clinicians use age-adjusted D-dimer thresholds in patients greater than 50 years of age with: a) a low probability of PE who do not meet all Pulmonary Embolism Rule Out Criteria, or b) in those with intermediate probability of PE. The formula for an age-adjusted D-dimer cut-off is age/100 . For example, a 60 year old patient would have an age-adjusted cut-off of 0.60 MCGFEU/mL and an 80 year old 0.80 MCGFEU/mL. Miryam Hernandez PA-C LAB BLOOD ORDERABLES Final Re sult Performing Organization Address [facility]/ZIP Co de Phone Number [facility]
[address] [place] [address], * BNP (02/19/2025 7:37 PM EDT) [facility] proBNP 42.2 0.0 - 450.0 pg/mL 02/19/2025 8:21 PM EDT [facility] Blood Venipuncture / Unknown 02/19/2025 7:37 PM EDT 02/19/2025 7:46 PM EDT Narrative [facility] - 02/19/2025 8:21 PM EDT This assay is used as an aid in the diagnosis of individuals suspected of having heart failure. It can be used as an aid in the diagnosis of acute decompensated heart failure (ADHF) in patients presenting with signs and symptoms of ADHF to the emergency department (ED). In addition, NT-proBNP of <300 pg/mL indicates ADHF is not likely. Age Range Result Interpretation NT-proBNP Concentration (pg/mL: <50 Positive >450 Romo 300-450 Negative <300 50-75 Positive >900 Romo 300-900 Negative <300 >75 Positive >1800 Romo 300-1800 Negative <300 Chelle Welsh MD LAB BLOOD ORDERABLES Kathia l Result Performing Organization Address City/[facility]/ZIP Co de Phone Number [facility]
[address] [place] [address], * Magnesium (02/19/2025 7:37 PM EDT) Magnesium 1.8 1.6 - 2.6 mg/dL 02/19/2025 9:08 PM EDT [facility] Blood Venipuncture / Unknown 02/19/2025 7:37 PM EDT 02/19/2025 7:46 PM EDT Miryam Hernandez PA-C LAB BLOOD ORDERABLES Final Re sult [facility]
[address] [place] [address], * LIQUID-BASED PAP SMEAR WITH HPV GENOTYPING IF ASCUS ([place],COR,MAD) (12/04/2024 2:55 PM EDT) Reference Lab Report [facility] [address] [place] [address] or [phone] Sarbjit Alas M.D., [employer] PATIENT NAME LABORATORY NO. [address] GONZALEZ, APRIL [id number] AGE SEX SSN CLIENT REF # [id number] 2005 F [id number] Jp CAMACHO REQUESTING Juanita [place] [address] JASMEET ENRIQUEZ DATE COLLECTED DATE RECEIVED DATE REPORTED 12/04/2024 12/04/2024 12/05/2024 ThinPrep Pap with Hologic Genius Imaging DIAGNOSIS: Negative for intraepithelial lesion or malignancy Multiple factors can influence accuracy of Pap tests; therefore, screening at regular intervals is necessary for early cancer detection. SPECIMEN ADEQUACY: SATISFACTORY FOR EVALUATION Transformation zone is present. SOURCE OF SPECIMEN: CERVICAL/ENDOCERVI WEST SLIDES: 1 CLINICAL HISTORY: Encounter for annual routine gynecological examination IUD insertion (Mirena) Vaginal atrophy Screening for STD Chlamydia / Gonorrhea CHLAMYDIA TRACHOMATIS: Negative NEISSERIA GONORRHOEAE: Negative The Aptima Combo 2 assay is a target amplification nucleic acid probe test that utilizes target capture for the in vitro qualitative detection and differentiation of ribosomal RNA from Chlamydia trachomatis and Neisseria gonorrhoeae to aid in the diagnosis of chlamydial and gonococcal disease using the [place] system. Trichomonas TRICHOMONAS VAGINALIS: Negative The Aptima Trichomonas vaginalis assay is an in vitro qualitative nucleic acid amplification test for the detection of ribosomal RNA to aid in the diagnosis of trichomoniasis. COUNTER SERVER: KELLEE CHANG (ASCP) CPT CODES: 10816, 95255, 29898, 20161 12/05/2024 11:50 AM EDT [facility] ThinPrep Vial Cervix uteri structure / Unknown Collection / Unknown 12/04/2024 2:55 PM EDT 12/04/2024 2:55 PM EDT us Jasmeet Enriquez MD PATHOLOGY/CYTOLOGY ORDERABLES F inal Result [facility]
[address] [place] [address], [place] [phone] * Hepatitis Panel, Acute (10/10/2024 3:33 PM EST) Hepatitis B Surface Ag Non-Reacti ve Non-Reacti ve 10/10/2024 8:39 PM EST [facility] Hep A IgM Non-Reacti ve Non-Reacti ve 10/10/2024 8:39 PM EST [facility] Hep B C IgM Non-Reacti ve Non-Reacti ve 10/10/2024 8:39 PM EST [facility] Hepatitis C Ab Non-Reacti ve Non-Reacti ve 10/10/2024 8:39 PM EST [facility] Blood Line / Unknown 10/10/2024 3: 33 PM EST 10/10/2024 3:39 PM EST Narrative [facility] - 10/10/2024 8:39 PM EST Results may be falsely decreased if patient taking Biotin. us Winter Cedeno PA-C LAB BLOOD ORDERABLES Final Result [facility]
[address] [place] [address], from Last 3 Months or Most Recently Relevant to Health Maintenance Insurance [facility] [place] [address] [place] [address] Advance Directives * CPR (Attempt to Resuscitate) (Latest Code Status on File) Date Activated Date Inactivated Comments 12/08/2024 10:46 PM 12/09/2024 7:22 PM Question Answer Comments Code Status (Patient has no pulse and is not breathing): CPR (Attempt to Resuscitate) Medical Interventions (Patie nt has pulse or is breathing): Full Support * CPR (Attempt to Resuscitate) Date Activated Date Inactivated Comments 09/07/2024 1:18 PM 09/08/2024 5:12 PM Question Answer Comments Code Status (Patient has no pulse and is not breathing): CPR (Attempt to Resuscitate) Medical Interventions (Patie nt has pulse or is breathing): Full Support * CPR (Attempt to Resuscitate) Date Activated Date Inactivated Comments 09/07/2024 1:16 PM 09/07/2024 1:18 PM Question Answer Comments Code Status (Patient has no pulse and is not breathing): CPR (Attempt to Resuscitate) Medical Interventions (Patie nt has pulse or is breathing): Full Support Care Teams [employer] 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
--- OUTSIDE RECORDS SUMMARY | 2025-05-01 21:31 | XMS_ITS | Clinical Summary ---
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 Active propranolol (Inderal) 10 MG tablet Take 1 tablet (10 mg) by mouth 3 (three) times a day if needed (anxiety). Active Multiple Vitamins-Minera ls (multivitamin with minerals) tablet Take 1 tablet by mouth daily. Active oxyCODONE (Roxicodone) 5 MG immediate release tablet Take 1 or 2 tabs every 4 hours as needed for moderate to severe pain, 1 tab for moderate and 2 tabs for severe 36 tablet 5 Active Additional Information Patient not taking.Reported on 01/24/2025 ACCRUFeR 30 MG capsule Take 1 capsule by mouth 2 (two) times a day. 5 Active naloxone (Narcan) 4 mg/0.1 mL nasal spray 1. Give 1 spray in nostril for no/slow breathing or cannot wake after opioid use 2. Call 911 3. Repeat in other nostril if symptoms continue 1 each Active Additional Information Patient not taking.Reported on 01/24/2025 docusate sodium (Colace) 250 MG capsule Take 1 capsule (250 mg) by mouth 1 (one) time each day. 10 capsule Active Additional Information Patient not taking.Reported on 01/24/2025 Active Problems Problem Noted Date Diagnosed Date Abdominal pain, epigastric 10/15/2024 Hepatic steatosis 10/11/2024 Bipolar disorder current episode depressed 12/09 Generalized anxiety disorder 07/27/2019 Resolved Problems Problem Noted Date Diagnosed Date Resolved Date Symptomatic cholelithiasis 10/14/2024 0 10/14/2024 Overview (10/14/2024): Plan for operative intervention pending OR availability. NPO until time of operation determined AM CMP/CBC/PT/INR Abdominal pain, epigastric 10/14/2024 0 10/14/2024 Abnormal uterine bleeding, 09/18/2024 10/25/2024 Postoperative hemorrhage inv olving genitourinary system following genitourinary procedure 09/07/2024 10/25/2024 Retained products of concept ion after delivery without hemorrhage 09/04/2024 10/25/2024 Seizure disorder 09/04/2024 10/25/2024 Polycystic ovary syndrome 02/22/2022 Overview (10/25/2024): Problem Code: E28.2; Problem Code Type: ICD-10; Dehydration 12/03/2021 10/25/2024 Overview (10/25/2024): Problem Code: E86.0; Problem Code Type: ICD-10; Vomiting 12/03/2021 10/25/2024 Amenorrhea 11/20/2021 10/25/2024 Overview (10/25/2024): Problem Code: N91.2; Problem Code Type: ICD-10; Stool color abnormal 10/01/2021 025 Overview (10/25/2024): Problem Code: R19.5; Problem Code Type: ICD-10; Sunburn 03/23/2021 10/25/2024 Overview (10/25/2024): Problem Code: L55.9; Problem Code Type: ICD-10; Irregular periods 03/12/2021 10/25/2024 Pain of breast 01/13/2021 10/25/2024 Overview (10/25/2024): Problem Code: N64.4; Problem Code Type: ICD-10; Flatulence symptom 01/12/2021 Overview (10/25/2024): Problem Code: R14.3; Problem Code Type: ICD-10; Solitary pulmonary nodule 12/09/2020 Thyroid enlarged 12/09/2020 10/25/2024 Non-toxic uninodular goiter 12/05/2020 10/25/2024 Overview (10/25/2024): Problem Code: E04.1; Problem Code Type: ICD-10; Disorder of thyroid gland 12/01/2020 Overview (10/25/2024): Problem Code: E07.9; Problem Code Type: ICD-10; Abnormal weight gain 10/27/2020 025 Overview (10/25/2024): Problem Code: R63.5; Problem Code Type: ICD-10; Childhood obesity 09/27/2020 10/25/2024 Overview (10/25/2024): Problem Code: Z68.54; Problem Code Type: ICD-10; Dysuria 05/16/2020 10/25/2024 Overview (10/25/2024): Problem Code: R30.0; Problem Code Type: ICD-10; Urinary tract infectious disease 05/16/2020 10/25/2024 Overview (10/25/2024): Problem Code: N39.0; Problem Code Type: ICD-10; Overweight with body mass in dex (BMI) 25.0-29.9 03/28/2020 10/25/2024 Overview (10/25/2024): Problem Code: Z68.29; Problem Code Type: ICD-10; Pediatric overweight 10/09/2019 025 Overview (10/25/2024): Problem Code: Z68.53; Problem Code Type: ICD-10; Sleep disorder 07/23/2019 10/25/2024 Influenza 07/17/2019 10/25/2024 Overview (10/25/2024): Problem Code: J11.89; Problem Code Type: ICD-10; Primary insomnia 07/17/2019 10/25/2024 Overview (10/25/2024): Problem Code: F51.01; Problem Code Type: ICD-10; Tremor 06/20/2019 10/25/2024 Overview (10/25/2024): Problem Code: R25.1; Problem Code Type: ICD-10; Allergic reaction 05/01/2019 10/25/2024 Candidiasis of vulva 05/01/2019 025 Disorder of upper respiratory system 04/19/2019 10/25/2024 Overview (10/25/2024): Problem Code: J06.9; Problem Code Type: ICD-10; Abnormal finding on evaluation procedure 03/26/2019 10/25/2024 Dizziness and giddiness 01/10/201910/07 Overview (10/25/2024): Problem Code: R42; Problem Code Type: ICD-10; Stomatitis 12/13/2018 10/25/2024 Overview (10/25/2024): Problem Code: K12.1; Problem Code Type: ICD-10; Cough 07/10/2018 10/25/2024 Overview (10/25/2024): Problem Code: R05; Problem Code Type: ICD-10; Anterior tibialis tendinitis 07/03/2018 10/25/2024 Overview (10/25/2024): Problem Code: 726.72; Problem Code Type: ICD-9; Pain in left foot 07/03/2018 10/25/2024 Overview (10/25/2024): Problem Code: M79.672; Problem Code Type: ICD-10; Pain in right foot 07/03/2018 Overview (10/25/2024): Problem Code: M79.671; Problem Code Type: ICD-10; Pain in limb 07/03/2018 10/25/2024 Overview (10/25/2024): Problem Code: 729.5; Problem Code Type: ICD-9; Acute laryngopharyngitis 05/16/2018 Overview (10/25/2024): Problem Code: J06.0; Problem Code Type: ICD-10; Acquired hearing loss 03/21/20182024 Overview (10/25/2024): Problem Code: 389.9; Problem Code Type: ICD-9; Disorder of lung 03/21/2018 10/25/2024 Overview (10/25/2024): Problem Code: 518.89; Problem Code Type: ICD-9; Diverticulum of eustachian tube 03/21/2018 10/25/2024 Overview (10/25/2024): Problem Code: H69.80; Problem Code Type: ICD-10; Dysfunction of eustachian tube 03/21/2018 10/25/2024 Overview (10/25/2024): Problem Code: 381.81; Problem Code Type: ICD-9; Allergic contact dermatitis 02/20/2018 10/25/2024 Overview (10/25/2024): Problem Code: L23.89; Problem Code Type: ICD-10; Rash 02/20/2018 10/25/2024 Overview (10/25/2024): Problem Code: R21; Problem Code Type: ICD-10; Acute bronchitis 02/03/2018 10/25/2024 Overview (10/25/2024): Problem Code: J20.9; Problem Code Type: ICD-10; Abnormal glucose level 01/04/201810/25 Overview (10/25/2024): Problem Code: 790.29; Problem Code Type: ICD-9; Asthenia 01/04/2018 10/25/2024 Overview (10/25/2024): Problem Code: R53.1; Problem Code Type: ICD-10; Hyperglycemia 01/04/2018 10/25/2024 Overview (10/25/2024): Problem Code: R73.9; Problem Code Type: ICD-10; Lymphadenopathy 01/04/2018 10/25/2024 Overview (10/25/2024): Problem Code: R59.9; Problem Code Type: ICD-10; Malaise and fatigue 01/04/2018 10/25/19 Overview (10/25/2024): Problem Code: 780.79; Problem Code Type: ICD-9; Precordial pain 01/04/2018 10/25/2024 Overview (10/25/2024): Problem Code: R07.2; Problem Code Type: ICD-10; 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 10/25/2024 Overview (10/25/2024): Problem Code: M94.0; Problem Code Type: ICD-10; Otogenic otalgia 12/26/2017 10/25/2024 Acute frontal sinusitis 08/08/201710/07 Overview (10/25/2024): Problem Code: J01.90; Problem Code Type: ICD-10; Concussion 05/23/2017 10/25/2024 Excessive menstruation with irregular cycle 04/28/2017 10/25/2024 Diarrhea 12/27/2016 10/25/2024 Overview (10/25/2024): Problem Code: R19.7; Problem Code Type: ICD-10; Generalized abdominal pain 12/27/2016 0 10/25/2024 Overview (10/25/2024): Problem Code: R10.84; Problem Code Type: ICD-10; Generalized abdominal tenderness 12/27/2016 10/25/2024 Overview (10/25/2024): Problem Code: R10.817; Problem Code Type: ICD-10; Nausea 12/27/2016 10/25/2024 Overview (10/25/2024): Problem Code: R11.0; Problem Code Type: ICD-10; 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 10/25/2024 Overview (10/25/2024): Problem Code: M41.124; Problem Code Type: ICD-10; Acute maxillary sinusitis 10/11/2016 Overview (10/25/2024): Problem Code: J01; Problem Code Type: ICD-10; Immunizations Immunization Administration Dates Next Due DTaP 04/03/2007,07/01/2004 DTaP, Unspecified 04/03/2007, 4,2003,09/27,2003,2003,2003 ,2003 HPV, Quadrivalent 02/25/2015,06/27/2014,04/11/20 14 Hep A, ped/adol, 2 dose 02/25/2015,04/11/2014 Hep B, Adolescent or Pediatric 2003,2002,2003 Hep B, adult 2003,2003,2003 HiB, unspecified 04/13/2004, 4,2003,05/23 Hib (PRP-OMP) 04/13/2004, 4,2003,05/23 IPV 04/03/2007, 4,2003,07/25,2003 Influenza, Unspecified 06/26/2008 Influenza, injectable, MDCK, preservative free, quadrivalent 06/19/2020 Influenza, injectable, quadrivalent 06/27/2015 Influenza, injectable, quadr ivalent, preservative free 06/08/2019 Influenza, seasonal, injectable 06/08/20 19,07/01/2014,07/25/2013,07/10,06/28/2011,06/30/2010,06/23/2009 Influenza, seasonal, injecta ble, preservative free 06/20/2017,09/16/2007 MMR 04/03/2007,07/01/2004 Meningococcal MCV4O 03/30/2019,04/11/2014 Meningococcal MCV4P 04/11/2014 PPD Skin Test (TB Skin Test) 11/27/2021 Pneumococcal Conjugate PCV 13 2003, 003,2003 Tdap 04/11/2014 Varicella 04/03/2007,04/13/2004 Family History Medical History Relation Name Comments Autoimmune disease Maternal Grandmother Trudi Reece Diabetes Maternal Grandmother Trudi Reece Rheumatologic disease Maternal Grandmother Trudi Reece Skin Infections Maternal Grandmother Trudi Reece Arthritis Mother Iliana Reece Asthma Mother Iliana Reece Depression Mother Iliana Reece Hyperlipidemia Mother Iliana Reece Mental illness Mother Iliana Reece Cardiac disorder Other 1 Diabetes Other 2 Hypertension Other 3 Other cancer Other 4 Relation Name Status Comments Maternal Grandmother Trudi Reece Mother Iliana Reece Other 1 Other 2 Other 3 Other 4 Social History Tobacco Use Types Packs/Day Years Used Date Smoking Tobacco: Never Smokeless Tobacco: Never Tobacco Cessation:Counseling Given: Not Answered Alcohol Use Standard Drinks/Week Comments Never 0 (1 standard drink = 0.6 oz pur e alcohol) Humiliation, Afraid, Rape, and Kick questionnair e Answer Date Recorded Within the last year, have y ou been afraid of your partner or ex-partner? No 10/12/2024 Within the last year, have y ou been humiliated or emotionally abused in other ways by your partner or ex-partner? No Within the last year, have y ou been kicked, hit, slapped, or otherwise physically hurt by your partner or ex-partner? No 10/12/2024 Within the last year, have y ou been raped or forced to have any kind of sexual activity by your partner or ex-partner? No 10/12/2024 PHQ-2 Answer Date Recorded Patient Health Questionnaire-2 Score 0 01/24/2025 Hunger Vital Sign Answer Date Recorded Within the past 12 months, y ou worried that your food would run out before you got the money to buy more. Never true 10/12/19 25 Within the past 12 months, t he food you bought just didn't last and you didn't have money to get more. Never true 10/12/2024 PRAPARE - Transportation Answer Date Re corded In the past 12 months, has l ack of transportation kept you from medical appointments or from getting medications? No 03/2025 In the past 12 months, has l ack of transportation kept you from meetings, work, or from getting things needed for daily living? No 10/12/2024 PHQ-9 Answer Date Recorded Patient Health Questionnaire-9 Score 0 01/24/2025 Housing Stability Vital Sign Answer Rohan e Recorded In the last 12 months, was t here a time when you were not able to pay the mortgage or rent on time? No 10/12/2024 In the past 12 months, how m any times have you moved where you were living? 0 10/12/2024 At any time in the past 12 m [facility], were you homeless or living in a jail (including now)? No 10/12/2024 Utilities Answer Date Recorded In the past 12 months has [employer] electric, gas, oil, or water company threatened to shut off services in your home? No 10/12/2024 Comments Unknown Sex and Gender Information Value Date Recorded Sex Assigned at Female 10/17/2024 5:56 PM EST Legal Sex Female 6:36 PM EDT Gender Identity Not on file Sexual Orientation Not on file Last Filed Vital Signs Vital Sign Reading Time Taken Comments Blood Pressure 109/67 01/24/2025 11:24 AM EDT Pulse 61 01/24/2025 11:24 AM EDT Temperature 36.7 C (98.1 F) 01/24/2025 11:24 AM EDT Respiratory Rate 13 10/17/2024 11:27 PM EST Oxygen Saturation 98% 01/24/2025 11:24 AM EDT Inhaled Oxygen Concentration - - Weight 74.4 kg (164 lb 0.4 oz) 01/24/2025 11:24 AM EDT Height 160 cm (5' 3 ) 01/24/2025 11:24 AM EDT Body Mass Index 29.06 01/24/2025 11:24 AM EDT Plan of Treatment Health Maintenance Due Date Last Done Comments [facility]-Chlamydia and Gonorrhea Screening 2003 [facility]-/Child/Adol SDOH Screenings 2003 [facility]-Hepatitis B Vaccines (4 of 4 - 4-dose series) 2003 2003, 2003, 2003, Additional history exists [facility]-DTaP,Tdap,and Td Vaccines (7 - Td or Tdap) 04/11/2024 04/11/2014, 04/03/2007, 04/03/2007, Additional history exists [id number] Vaccine ( - season) 2024 04/16/2022, 10/12/2021, 05/07/2021, Additional history exists [facility]- SDOH Screenings 04/11/2025 [facility]-Adult SDOH Screenings 04/11/2025 10/12/2024 [facility]-Influenza Vaccine (#1) 05/06/202506/19, 06/08/2019, 06/08/2019, Additional history exists [facility]-Depression Screening 01/24/2026 01/24/2025, 01/04 [facility]-Pap Smear 12/05/2027 12/04/2024 [facility]-Zoster Vaccines (1 of 2) 2053 04/03/2007, 04/13/2004 [facility]-Pneumococcal Vaccine: Pediatrics (0 to 5 Years) and At-Risk Patients (6 to 49 Years) Aged Out 2003, 2003, 2003 No longer eligible based on patient's age to complete this topic [facility]-HIB Vaccines Completed 04/13/2004, 05/2004, 2003, Additional history exists [facility]-IPV Vaccines Completed 04/03/2007, , 2003, Additional history exists [facility]-Varicella Vaccines Completed 04/03/2007, 2003 HPV Vaccines Completed 02/25/2015, 06/06, 04/11/2014 [facility]-Hepatitis A Vaccines Completed 02/25/2015, 03/2014 [facility]-Hepatitis C Screening Completed 10/11/2024 [facility]-HIV Screening Completed 10/12/2024 [facility]-Obesity Intervention Completed 025, 10/25/2024, 10/13/2024, Additional history exists [facility]-Rotavirus Vaccines Aged Out No lo nger eligible based on patient's age to complete this topic Procedures Procedure Name Priority Date/Time Associated Diagnosis Comments HIV 1/2 ANTIBODY/ANTIGEN SCREEN WITH REFLEX TO HIV I/II DIFFERENTIATION Routine 10/12/2024 2:40 AM EST ACUTE HEPATITIS PANEL STAT 10/11/2024 3:04 PM EST from Last 3 Months or Most Recently Relevant to Health Maintenance Results * HIV 1 & 2 Antibody/Antigen Screen (10/12/2024 2:40 AM EST) HIV 1 & 2 Antibody/Antigen Screen Non Reactive Non Reactive 10/12/2024 3:22 AM EST [facility] Comment:Screening for HIV 1 & 2 antibodies, and P24 antigen is NONREACTIVE. No confirmatory testing is required. Blood Venous blood specimen / Unknown Venipuncture / Unknown 10/12/2024 2:40 AM EST 10/12/2024 2:50 AM EST us Miryam Shelton MD LAB BLOOD ORDERABLES Final Re sult Performing Organization Address City/[facility] Co de Phone Number [facility] [address] [place] [address] * Hepatitis panel, acute (10/11/2024 3:04 PM EST) [facility] Hepatitis B Surf Antigen Negative Negative 10/11/2024 7:55 PM EST [facility] Hepatitis C Antibody Negative Negative 10/11/2024 7:55 PM EST [facility] Hepatitis A Antibody IgM Negative Negative 10/11/2024 7:55 PM EST [facility] Hepatitis B Core Antibody IgM Negative Negative 10/11/2024 7:55 PM EST [facility] Blood Venous blood specimen / Unknown Venipuncture / Unknown 10/11/2024 3:04 PM EST 10/11/2024 3:09 PM EST us Chrissie QUIROZ LAB BLOOD ORDERABLES Final Resul t Performing Organization Address [facility] Co de Phone Number [facility] [address] [place] [address] from Last 3 Months or Most Recently Relevant to Health Maintenance Insurance [employer] [facility] MEDICAID [employer] MEDICA[employer] Advance Directives * Full Code (Latest Code Status on File) Date Activated Date Inactivated Comments 10/14/2024 2:06 AM 10/15/2024 1:39 PM Question Answer Comments Patient has decision-making capacity? Yes * Full Code Date Activated Date Inactivated Comments 10/11/2024 6:33 PM 10/13/2024 4:56 PM Question Answer Comments Patient has decision-making capacity? 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
[2025-05-01 21:35] LABS: Bilirubin,Urine Negative (Negative); Color,Urine YELLOW (Yellow); Glucose,Urine (UA) Negative (Negative); Ketones,Urine Negative (Negative); Leukocyte Esterase,Urine Negative (Negative); Microscopic, Urine URINE MICROSCOPIC (MICROSCOPIC); PH,Urine 7.0 (5.0-8.5); Protein,Urine Negative (Negative); Specific Gravity, Urine 1.015 (1.005-1.030); Urobilinogen,Urine 0.2 EU/dl (0.2)
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
[2025-05-01 21:41] LABS: Bacteria,Urine Trace /lpf
--- NOTE | 2025-05-01 21:41 | CT_ITS ---
PROCEDURE INFORMATION: Exam: CT Abdomen And Pelvis With Contrast Exam date and time: 05/01/2025 10:17 PM Age: 20 years old Clinical indication: Abdominal pain; Additional info: Abd pain, tender in luq, gallbladder removal TECHNIQUE: Imaging protocol: Computed tomography of the abdomen and pelvis with contrast. Radiation optimization: All CT scans at this facility use at least one of these dose optimization techniques: automated exposure control; mA and/or kV adjustment per patient size (includes targeted exams where dose is matched to clinical indication); or iterative reconstruction. Contrast material: ISOVUE; Contrast volume: 75 ml; Contrast route: IV; COMPARISON: CT ABDOMEN PELVIS W CON 11/22/2020 8:36 PM FINDINGS: Lungs: Lung bases are clear. Liver: Fatty liver changes with associated hepatomegaly measuring 16.4 cm. Liver otherwise unremarkable. Gallbladder and biliary ducts: Status post cholecystectomy. No evident bile duct dilatation allowing for prior cholecystectomy. Pancreas: Normal. No ductal dilation. Spleen: Normal. No splenomegaly. Adrenal glands: Normal. No mass. Kidneys and ureters: Normal. No hydronephrosis. Stomach and bowel: Unremarkable. No obstruction. No mucosal thickening. Appendix: Appendix is normal. No evidence of appendicitis. Intraperitoneal space: Unremarkable. No free air. No significant fluid collection. Vasculature: Unremarkable. No abdominal aortic aneurysm. Lymph nodes: Unremarkable. No enlarged lymph nodes. Urinary bladder: Unremarkable as visualized. Reproductive: Unremarkable as visualized. Bones/joints: Unremarkable. No acute fracture. Soft tissues: Unremarkable. IMPRESSION: No acute abnormalities of the abdomen and pelvis. Nonemergent findings as above.
[2025-05-01 21:54] LABS: Urine Pregnancy, HCG Qual. Negative (Negative)
[2025-05-01] MEDS: 0.9 % SODIUM CHLORIDE 1000ML 1,000 ML 999 ML IV (22:04)
[2025-05-01] MEDS: ONDANSETRON 4MG/2ML VIAL 4 MG IV (22:04)
[2025-05-01] MEDS: KETOROLAC 15MG/ML VIAL 15 MG IV (22:04)
[2025-05-01 22:09] LABS: Hematocrit 38.7 % (37.0-47.0); Hemoglobin 13.4 g/dL (12.2-16.2); Immature Granulocytes % 0.2 %; Mean Corpuscular HGB Conc 34.6 g/dL (31.8-35.4); Mean Corpuscular Hemoglobin 29.8 pg (27.0-31.2); Mean Corpuscular Volume 86.0 fl (81-99); Nucleated Red Blood Cells % 0 %; Platelet Count 283 K/mm3 (142-424); Red Blood Count 4.50 M/mm3 (4.20-5.40); Red Cell Distribution Width-SD 37.8 fL; White Blood Count 8.7 K/mm3 (4.8-10.8)
[2025-05-01 22:15] LABS: Albumin Level 4.3 g/dl (3.5-5.0); Chloride 107 mmol/L (98-107)
[2025-05-01 22:16] LABS: Potassium 3.7 mmoL/L (3.5-5.1); Sodium 140 mmol/L (136-145)
[2025-05-01 22:18] LABS: Alanine Aminotransferase 20 U/L (12-78); Albumin/Globulin Ratio 1.4 (1.1-1.8); Anion Gap 12.7 mEq/L (5-15); Aspartate Amino Transferase 32 U/L (14-36); Blood Urea Nitrogen 15 mg/dl (7-17); Carbon Dioxide 24 mmol/L (22.0-30.0); Creatinine Clearance Estimated 169 mL/min (50-200); Creatinine,Serum 0.60 mg/dl (0.52-1.04); Estimated Glomerular Filt Rate 125 ml/min (>60); GFR (African American) 151 ML/MIN (>60); Globulin 3.1 g/dL (1.3-3.2); Total Protein,Serum 7.4 g/dl (6.3-8.2)
[2025-05-01 22:19] LABS: Alkaline Phosphatase 50 U/L (38-126); Bilirubin,Total 0.3 mg/dl (0.2-1.3); Calcium 9.2 mg/dl (8.4-10.2); Glucose 120 mg/dl (74-100); Lipase 217 U/L (23-300); Magnesium 1.6 mg/dl (1.6-2.3)
[2025-05-01] MEDS: IOPAMIDOL-370 (76%);100ML BOTTLE 75 ML IV (22:20)
[2025-05-01] MEDS: SODIUM CHLORIDE 0.9% 10ML SYR (RAD ONLY) 10 ML IV (22:20)
[2025-05-01] MEDS: MORPHINE 4MG/ML SYRINGE 4 MG IV (22:26)
[2025-05-01] MEDS: FAMOTIDINE 20MG/2ML VIAL 20 MG IV (22:26)
[2025-05-01 23:00] VITALS: BP 103/52; PULSE 62
[2025-05-01 23:15] VITALS: PULSE 66; O2SAT 100
[2025-05-01 23:30] VITALS: BP 113/67
[2025-05-01 23:45] VITALS: PULSE 71; O2SAT 100
[2025-05-01] MEDS: BELLADONNA ALKALOIDS 60 ML ML PO (23:49)
[2025-05-01 23:59] VITALS: PULSE 63; O2SAT 100
[2025-05-02] VITALS: BP 110/74
[2025-05-02 00:01] VITALS: PULSE 62; O2SAT 99
[2025-05-02 00:28] VITALS: BP 110/78; PULSE 62; RESP 16; TEMP 36.5; O2SAT 99
[2025-05-02 00:32] LABS: Hepatitis C Ab Qual. W/ RFX NEGATIVE (Negative)
== END 2025-05-02 00:29 | disposition home or self-care (01) ==
PROVIDERS: Nurse Practitioner Family; Student in an Organized Health Care Education/Training Program; Emergency Provider Emergency Medicine; PCP Nurse Practitioner
DX: R10.13 Epigastric pain (principal); K52.9 Noninfective gastroenteritis and colitis, unspecified; R11.2 Nausea with vomiting, unspecified
CPT/HCPCS: 74177; 80053; 81001; 81025; 83690; 83735; 85025; 86803; 96361; 96374; 96375; 99285; J1885; J2270; J2405; J7030; Q9967

== ENCOUNTER 2025-06-17 12:55 | Day surgery (SDC) | payer OTHER, SELFPAY ==
[2025-06-12 11:21] VITALS: BMI 28.8
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
--- NOTE | 2025-06-17 07:10 | P.PCN_ITS ---
[facility] Procedure Note Date: 06/17/25 Time: 13:53 Procedure Note:: Colonoscopy Procedure Report: Colonoscopy with cold snare polypectomy Endoscopist: Vishal Amor II, MD Referring physician: Sia Mg PA-C Date of Procedure: June 17, 2025 Equipment: Olympus [id number] adult colonoscope Sedation: MAC sedation Indication: Ms. Paige is a 20-year-old female who is here for diagnostic colonoscopy. The patient has had a change in bowel habits and reports more significant constipation. The patient also has developed bladder evacuation difficulties. She can skip 2 or 3 days without a bowel movement and when she does go this can be hard, small or even loose stools. She does use MiraLAX as needed. She is having some severe lower abdominal pain intermittently and has gone to the ED. Her CAT scan and labs were unremarkable. She is having some bright red blood with her bowel movements with some anorectal pain. The patient is 9 to 10 months and she did have some complications including retained placenta and several D&Cs. She developed anemia and did have a blood transfusion. She reports no family history of Crohn's, colitis or colon cancer. Her maternal great aunt had gastric cancer in her 70s.The examination is deemed medically necessary for diagnostic colonoscopy. The patient did have an EGD with vt in 2021. Procedure: Prior to the procedure, a history and physical exam was performed, and patient's medications and allergies were reviewed. The risks, benefits and alternatives of the sedation and procedure were discussed with the patient. All questions were answered and informed consent was obtained. The patient was brought to the procedure room. Patient identification and proposed procedure were verified by the physician and the nurse. The patient was placed in a left lateral decubitus position and the scope was passed under direct vision. Throughout the procedure, the patient's blood pressure, pulse, and oxygen saturations were monitored continuously. The colonoscopy was accomplished without difficulty. The patient tolerated the procedure well. Findings: On digital rectal examination there was normal rectal tone. There were no external hemorrhoids. The colonoscope was introduced through the anal canal to the rectum and advanced to the cecum. The ileocecal valve and appendiceal orifice were identified. The scope was advanced a short distance into the ileum which appeared grossly normal. The scope was then withdrawn into the colon. The cecum, ascending, transverse and descending colon were grossly normal. There was a single 5 mm polyp in the sigmoid colon removed via cold snare polypectomy. The rectum was normal. Upon retroflexion within the rectum there were grade 1 internal hemorrhoids. There was a healing posterior midline anal fissure. There is also a small anterior rectocele. The preparation was excellent throughout with [place] Preparation Score of 9. The cecal time was 12 minutes. Impression: 1. Diminutive sigmoid colon polyp (5 mm) 2. Healing posterior midline anal fissure 3. Grade 1 internal hemorrhoids Plan: Both bowel function and bladder function are a delicate balance between the nerves and muscles. The nerves that arise from the sacral spine are very closely tied to bowel and bladder evacuation. This sacral nervous system allows you to recognize when your rectum and bladder are full and allows you to correctly contract muscles to allow for full evacuation of the rectum and bladder. I do feel that her concomitant urinary and defecatory difficulty are related to neuromuscular mechanism effected by her surgeries. I would recommend pelvic floor physical therapy presently.
[2025-06-17 13:14] VITALS: BP 104/59; PULSE 73; RESP 16; TEMP 36.2; O2SAT 97; BMI 28.8
[2025-06-17 13:17] LABS: Urine Pregnancy, HCG Qual. Negative (Negative)
[2025-06-17] MEDS: LACTATED RINGERS 1000ML 1,000 ML 50 ML IV (13:24)
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
[2025-06-17 13:55] VITALS: BP 82/55; PULSE 62; RESP 16; TEMP 36.2; O2SAT 100
[2025-06-17 14:05] VITALS: BP 92/51; PULSE 61; RESP 16; TEMP 36.2; O2SAT 100
[2025-06-17 14:15] VITALS: BP 92/54; PULSE 61; RESP 16; O2SAT 100
[2025-06-17 14:25] VITALS: BP 102/51; PULSE 64; RESP 16; TEMP 36.2; O2SAT 100
== END 2025-06-17 15:05 | disposition home or self-care (01) ==
PROVIDERS: PCP Nurse Practitioner; Visit Provider Internal Medicine Gastroenterology
PROC: 0DJD8ZZ Inspection of Lower Intestinal Tract, Via Natural or Artificial Opening Endoscopic (ICD-10-PCS; CPT 45378; principal; 2025-06-17 14:00)
DX: K59.00 Constipation, unspecified (principal); R19.7 Diarrhea, unspecified; K63.5 Polyp of colon; K60.2 Anal fissure, unspecified; K64.0 First degree hemorrhoids; N81.6 Rectocele; Z80.0 Family history of malignant neoplasm of digestive organs; F32.9 Major depressive disorder, single episode, unspecified; F41.1 Generalized anxiety disorder; Z79.899 Other long term (current) drug therapy; Z88.0 Allergy status to penicillin; Z88.1 Allergy status to other antibiotic agents; Z88.8 Allergy status to other drugs, medicaments and biological substances
CPT/HCPCS: 45385; 81025; J2003; J2704; J7120